=== PATIENT | male | born 1985 | race American Indian/Alaskan Native ===

== ENCOUNTER 2017-08-23 18:01 | Emergency (ER) | payer SELFPAY ==
[2017-08-23 19:00] VITALS: BP 119/79
--- NOTE | 2017-08-23 20:17 | Emergency Department Report ---
ED Extremity Problem HPI - General Chief complaint: Extremity Injury, Upper Stated complaint: left and right shoulder pain Time Seen by Provider: 08/23/17 19:53 Source: patient Mode of arrival: Ambulatory Limitations: No Limitations - History of Present Illness Initial comments: Patient is a 31-year-old male who is presenting with bilateral shoulder pain. [place] of strenuous work there. Patient for the last almost 2 months since had pain in the bilateral anterior shoulders hurts when he moves hurts to try to raise himself out of bed. Patient states this is a 10 out of 10 in severity however looking at the patient he appears to be her around 5 out 10. Patient denies any actual trauma cough nausea vomiting diarrhea fever at this time. - Related Data Previous Rx's Medication Instructions Recorded Last Taken Type Ibuprofen [Motrin] 800 mg PO Q8HR PRN #20 tablet 08/23/17 Unknown Rx traMADol [Ultram] 50 mg PO Q6HR PRN #10 tablet 08/23/17 Unknown Rx Allergies Allergy/AdvReac Type Severity Reaction Status Date / Time No Known Allergies Allergy Unverified 08/23/17 19:00 ED Review of Systems ROS: Stated complaint: left and right shoulder pain Other details as noted in HPI Comment: All other systems reviewed and negative ED Past Medical Hx - Past Medical History Hx Diabetes: Yes - Social History Smoking Status: Current Every Day Smoker Substance Use Type: None - Medications Home Medications: Home Medications Medication Instructions Recorded Confirmed Last Taken Type Ibuprofen [Motrin] 800 mg PO Q8HR PRN #20 tablet 08/23/17 Unknown Rx traMADol [Ultram] 50 mg PO Q6HR PRN #10 tablet 08/23/17 Unknown Rx ED Physical Exam - General Limitations: No Limitations General appearance: alert, in no apparent distress - Head Head exam: Present: atraumatic, normocephalic - Eye Eye exam: Present: normal appearance - ENT ENT exam: Present: mucous membranes moist - Neck Neck exam: Present: normal inspection - Respiratory Respiratory exam: Present: normal lung sounds bilaterally. Absent: respiratory distress - Cardiovascular Cardiovascular Exam: Present: regular rate, normal rhythm. Absent: systolic murmur, diastolic murmur, rubs, gallop - GI/Abdominal GI/Abdominal exam: Present: soft, normal bowel sounds - Rectal Rectal exam: Present: deferred - Extremities Exam Extremities exam: Present: normal inspection, full ROM (patient has pain with moving his bilateral shoulders. He does have full range of motion. Patient has point tenderness of both before meals joints) - Back Exam Back exam: Present: normal inspection - Neurological Exam Neurological exam: Present: alert, oriented X3 - Psychiatric Psychiatric exam: Present: normal affect, normal mood - Skin Skin exam: Present: warm, dry, intact, normal color. Absent: rash ED Course Vital Signs 08/23/17 18:55 Temperature 97.8 F Pulse Rate 82 Respiratory 18 Rate Blood Pressure 119/79 O2 Sat by Pulse 97 Oximetry ED Medical Decision Making - Medical Decision Making Patient be referred orthopedics will be given NSAIDs and a muscle relaxant. Critical care attestation.: If time is entered above; I have spent that time in minutes in the direct care of this critically ill patient, excluding procedure time. ED Disposition Clinical Impression: AC (acromioclavicular) arthritis Qualifiers: Laterality: bilateral Qualified Code(s): M19.011 - Primary osteoarthritis, right shoulder; M19.012 - Primary osteoarthritis, left shoulder Disposition: DC-01 TO HOME OR SELFCARE Is pt being admited?: No Does the pt Need Aspirin: No Condition: Stable Instructions: Arthralgia (ED) Prescriptions: Ibuprofen [Motrin] 800 mg PO Q8HR PRN #20 tablet PRN Reason: Pain traMADol [Ultram] 50 mg PO Q6HR PRN #10 tablet PRN Reason: Pain Referrals: COLBY CLINTON MD [Staff Physician] - 3-5 Days
== END 2017-08-23 20:31 | disposition home or self-care (01) ==
LOC: ED 18:01
DX: M19.011 Primary osteoarthritis, right shoulder (principal); E11.9 Type 2 diabetes mellitus without complications; F17.200 Nicotine dependence, unspecified, uncomplicated
CPT/HCPCS: 99282

== ENCOUNTER 2019-03-24 16:46 | Emergency (ER) | payer OTHER ==
[2019-03-24 16:56] VITALS: BP 128/85
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
[2019-03-24] MEDS ORDERED: traMADol 50 MG TAB PO ONE (18:21)
[2019-03-24] MEDS ORDERED: KETOROLAC 60 MG/2 ML INJ IM ONE (18:21)
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
== END 2019-03-25 | disposition home or self-care (01) ==
LOC: ED 16:46
DX: S16.1XXA Strain of muscle, fascia and tendon at neck level, initial encounter (principal); S09.8XXA Other specified injuries of head, initial encounter; E11.9 Type 2 diabetes mellitus without complications; F17.200 Nicotine dependence, unspecified, uncomplicated; V89.2XXA Person injured in unspecified motor-vehicle accident, traffic, initial encounter; Y93.89 Activity, other specified; Y92.488 Other paved roadways as the place of occurrence of the external cause; Y99.8 Other external cause status
CPT/HCPCS: 70450; 72125; 96372; 99283; J1885

== ENCOUNTER 2019-08-09 21:28 | Inpatient (IN) | payer OTHER ==
--- NOTE | 2019-08-09 22:17 | Event Note ---
ED Screening Note Date of service: 08/09/19 Time: 22:14 ED Screening Note: This is a 33 y.o. M. that presents to the ER with nausea, vomiting, diarrhea, and weakness for 2 days. PMH of DM2 on insulin This initial assessment/diagnostic orders/clinical plan/treatment(s) is/are subject to change based on patients health status, clinical progression and re- assessment by fellow clinical providers in the ED. Further treatment and workup at subsequent clinical providers discretion. Patient/guardian urged not to elope from the ED as their condition may be serious if not clinically assessed and managed. Initial orders include: Labs
[2019-08-09 22:46] LABS: Hematocrit 53.4 % (35.5-45.6); Mean Corpuscular HGB Conc 34 % (32-34); Mean Corpuscular Volume 95 fl (84-94); Platelet Count 217 K/mm3 (140-440); Red Blood Count 5.62 M/mm3 (3.65-5.03); Red Cell Distribution Width 14.1 % (13.2-15.2)
[2019-08-09 22:47] LABS: Basophils # (Auto) 0.1 K/mm3 (0.0-0.1); Basophils % (Auto) 1.4 % (0.0-1.8); Lymphocytes # (Auto) 1.2 K/mm3 (1.2-5.4); Lymphocytes % (Auto) 16.1 % (13.4-35.0); Monocytes # (Auto) 0.7 K/mm3 (0.0-0.8); Monocytes % (Auto) 8.9 % (0.0-7.3)
[2019-08-09 23:08] LABS: Alanine Aminotransferase 15 units/L (7-56); Albumin 5.1 g/dL (3.9-5); BUN/Creatinine Ratio 11; Blood Urea Nitrogen 14 mg/dL (9-20); Calcium 9.8 mg/dL (8.4-10.2); Hemolysis Index 29
[2019-08-09] MEDS ORDERED: SODIUM CHLORIDE 0.9% 1000 ML 1,000 ML IV ONE ×2 (23:27)
[2019-08-09] MEDS ORDERED: INSULIN REGULAR, HUMAN 100 UNITS/1 ML IV ONE (23:28)
--- NOTE | 2019-08-09 23:41 | Emergency Department Report ---
ED N/V/D HPI - General Chief complaint: Weakness Stated complaint: VOMITING DIARRHEA WEAKNESS x4 days DIABETIC Time Seen by Provider: 08/09/19 22:14 Source: patient, family Mode of arrival: Ambulatory Limitations: No Limitations - History of Present Illness Initial comments: Mr. Valverde is a 33-year-old male with history of insulin-dependent diabetes who presents with nausea vomiting diarrhea for the past 3 days since Monday. He has had poor appetite. Unable to tolerate any fluids or food. He developed shortness of breath within the last day. He denies any pain. He has been compliant with insulin therapy. He takes NovoLog 70/30. He also takes Lantus. His daughter was sick with a stomach virus [address] Aleman [facility] complaint: nausea, vomiting, diarrhea -: Gradual, days(s) (3) Description of Vomiting: food contents Description of Diarrhea: water Associated Abdominal Pain: No Severity: severe Pain Scale: 0 Consistency: constant Improves with: none Worsens with: none Context: sick contacts (Daughter ) Associated Symptoms: shortness of breath - Related Data Previous Rx's Medication Instructions Recorded Last Taken Type Ibuprofen [Motrin 800 MG tab] 800 mg PO Q8HR PRN #20 tablet 03/24/19 Unknown Rx traMADoL [Ultram 50 MG tab] 50 mg PO Q6HR PRN #20 tablet 03/24/19 Unknown Rx Allergies Allergy/AdvReac Type Severity Reaction Status Date / Time No Known Allergies Allergy Verified 08/09/19 21:30 ED Review of Systems ROS: Stated complaint: VOMITING DIARRHEA WEAKNESS x4 days DIABETIC Other details as noted in HPI Comment: All other systems reviewed and negative Constitutional: malaise. denies: chills, fever Respiratory: shortness of breath Cardiovascular: denies: chest pain Gastrointestinal: nausea, vomiting, diarrhea. denies: abdominal pain ED Past Medical Hx - Past Medical History Previous Medical History?: Yes Hx Diabetes: Yes - Surgical History Past Surgical History?: No - Social History Smoking Status: Current Some Day Smoker Substance Use Type: Alcohol Other Social History: , works in security - Medications Home Medications: Home Medications Medication Instructions Recorded Confirmed Last Taken Type Ibuprofen [Motrin 800 MG tab] 800 mg PO Q8HR PRN #20 tablet 03/24/19 Unknown Rx traMADoL [Ultram 50 MG tab] 50 mg PO Q6HR PRN #20 tablet 03/24/19 Unknown Rx ED Physical Exam - General Limitations: No Limitations General appearance: alert, other ([place] respirations) - Head Head exam: Present: atraumatic, normocephalic - Eye Eye exam: Present: normal appearance. Absent: scleral icterus, conjunctival injection - ENT ENT exam: Present: mucous membranes dry, other - Neck Neck exam: Present: normal inspection, full ROM - Respiratory Respiratory exam: Present: normal lung sounds bilaterally. Absent: wheezes, rales, rhonchi - Cardiovascular Cardiovascular Exam: Present: normal rhythm, tachycardia, normal heart sounds. Absent: systolic murmur, diastolic murmur, rubs, gallop - GI/Abdominal GI/Abdominal exam: Present: soft, normal bowel sounds. Absent: distended, te nderness - Extremities Exam Extremities exam: Present: normal inspection - Neurological Exam Neurological exam: Present: alert, oriented X3 - Psychiatric Psychiatric exam: Present: normal affect, normal mood - Skin Skin exam: Present: warm, dry, intact, normal color. Absent: rash ED Course Vital Signs 08/09/19 21:33 Temperature 97.6 F Pulse Rate 125 H Respiratory 19 Rate Blood Pressure 130/96 O2 Sat by Pulse 97 Oximetry ED Medical Decision Making - Lab Data Result diagrams: 08/09/19 22:30 08/09/19 22:30 Laboratory Results - last 24 hr 08/09/19 08/09/19 08/09/19 21:47 22:30 22:30 WBC 7.5 RBC 5.62 H Hgb 18.0 H Hct 53.4 H MCV 95 H MCH 32 MCHC 34 RDW 14.1 Plt Count 217 Lymph % (Auto) 16.1 [place] % (Auto) 8.9 H Eos % (Auto) 0.0 Baso % (Auto) 1.4 Lymph # 1.2 [place] # 0.7 Eos # 0.0 Baso # 0.1 Seg Neutrophils % 73.6 H Seg Neutrophils # 5.5 Sodium 130 L Potassium 4.2 Chloride 90.6 L Carbon Dioxide 9 L* Anion Gap 35 BUN 14 Creatinine 1.3 Estimated GFR > 60 BUN/Creatinine Ratio 11 Glucose 310 H POC Glucose 236 H Calcium 9.8 Total Bilirubin 0.40 AST 17 ALT 15 Alkaline Phosphatase 60 Total Protein 9.2 H Albumin 5.1 H Albumin/Globulin Ratio 1.2 Laboratory Results - last 24 hr 08/09/19 08/09/19 08/09/19 21:47 22:30 22:30 WBC 7.5 RBC 5.62 H Hgb 18.0 H Hct 53.4 H MCV 95 H MCH 32 MCHC 34 RDW 14.1 Plt Count 217 Lymph % (Auto) 16.1 [place] % (Auto) 8.9 H Eos % (Auto) 0.0 Baso % (Auto) 1.4 Lymph # 1.2 [place] # 0.7 Eos # 0.0 Baso # 0.1 Seg Neutrophils % 73.6 H Seg Neutrophils # 5.5 VBG pH Sodium 130 L Potassium 4.2 Chloride 90.6 L Carbon Dioxide 9 L* Anion Gap 35 BUN 14 Creatinine 1.3 Estimated GFR > 60 BUN/Creatinine Ratio 11 Glucose 310 H POC Glucose 236 H Calcium 9.8 Phosphorus Magnesium Total Bilirubin 0.40 AST 17 ALT 15 Alkaline Phosphatase 60 Total Protein 9.2 H Albumin 5.1 H Albumin/Globulin Ratio 1.2 08/09/19 08/10/19 23:45 00:03 WBC RBC Hgb Hct MCV MCH MCHC RDW Plt Count Lymph % (Auto) [place] % (Auto) Eos % (Auto) Baso % (Auto) Lymph # [place] # Eos # Baso # Seg Neutrophils % Seg Neutrophils # VBG pH 7.107 L* Sodium Potassium Chloride Carbon Dioxide Anion Gap BUN Creatinine Estimated GFR BUN/Creatinine Ratio Glucose POC Glucose Calcium Phosphorus 3.30 Magnesium 2.00 Total Bilirubin AST ALT Alkaline Phosphatase Total Protein Albumin Albumin/Globulin Ratio - Radiology Data Radiology results: report reviewed Chest radiograph: AP portable chest no acute findings - Medical Decision Making Ms. Valverde presents with nausea vomiting diarrhea shortness of breath. Diabetic ketoacidosis evident with volume contraction and starvation ketosis upon review of lab values. Treated with IV fluid therapy and insulin bolus and infusion. Admitted to the hospital service in fair condition. Critical Care Time: Yes Critical care attestation.: If time is entered above; I have spent that time in minutes in the direct care of this critically ill patient, excluding procedure time. 40 minutes of critical care time excluding procedures were used in the care of the patient. I reviewed electronic record. I discussed treatment plan with the nursing team members at the bedside. I came immediately to the bedside after charge nurse informed me of critical lab values. I kept his informed. Patient required multiple interventions and reassessments. ED Disposition Clinical Impression: Diabetic ketoacidosis Disposition: DC-09 OP ADMIT IP TO THIS HOSP Is pt being admited?: Yes Does the pt Need Aspirin: No Condition: Fair
--- NOTE | 2019-08-09 23:48 | XRay Report ---
CHEST 1 VIEW INDICATION: vomiting diabetic. COMPARISON: None. FINDINGS: Support devices: None. Heart: Normal. Lungs/Pleura: No acute pulmonary or pleural findings. IMPRESSION: 1. No acute findings. Signer Name: Dwain Ashraf MD Signed: 08/09/2019 11:44 PM Workstation Name: [id number] iPhone and [id number]
[2019-08-10] MEDS ORDERED: ONDANSETRON 4 MG/2 ML INJ IV PRN (01:21)
[2019-08-10] MEDS ORDERED: DEXTROSE 50% IN WATER (25GM) 50 ML SYRINGE IV PRN (01:21)
[2019-08-10] MEDS ORDERED: MORPHINE 2 MG/1 ML INJ IV PRN (01:21)
[2019-08-10] MEDS ORDERED: SODIUM CHLORIDE 0.9% 1000 ML 1,000 ML IV SCH (01:30)
--- NOTE | 2019-08-10 01:40 | History and Physical Report ---
History of Present Illness Date of examination: 08/10/19 Date of admission: 08/10/19 00:34 Chief complaint: Nausea and vomiting History of present illness: 33-year-old -[place] male with known history of diabetes mellitus presenting to the emergency room complaining of nausea vomiting and diarrhea which has been ongoing for about 3 to 4 days. He has not been able to tolerate p.o. intake and has had poor appetite over the past few days. Patient has been on 7030 and Lantus insulin for his diabetes mellitus. He denies any fever or chills and denies any chest pain. He has some mild shortness of breath which has since resolved. He also had some mild abdominal discomfort which has resolved. He denies any hematuria or dysuria. Patient indicates that his daughter had some stomach virus about 2 weeks ago. He denies any recent travel. Work-up in the emergency room reveals that patient is in DKA. He was subsequently started on insulin and IV fluid accordingly. Past History Past Medical History: diabetes Past Surgical History: No surgical history Social history: smoking (Smokes occasionally), alcohol abuse (Drinks alcohol socially) Family history: no significant family history Medications and Allergies Allergies Allergy/AdvReac Type Severity Reaction Status Date / Time No Known Allergies Allergy Verified 08/09/19 21:30 Home Medications Medication Instructions Recorded Confirmed Last Taken Type Ibuprofen [Motrin 800 MG tab] 800 mg PO Q8HR PRN #20 tablet 03/24/19 Unknown Rx traMADoL [Ultram 50 MG tab] 50 mg PO Q6HR PRN #20 tablet 03/24/19 Unknown Rx Active Meds: Active Medications Dextrose (D50w (25gm) Syringe) 0 ml IV Q30MIN PRN; Protocol PRN Reason: Hypoglycemia Insulin Human Regular 100 (units/ Sodium Chloride) 100 mls @ 1 mls/hr IV TITR YONNY; Protocol Sodium Chloride (Nacl 0.9% 1000 Ml) 1,000 mls @ 150 mls/hr IV DIRECT YONNY Potassium Chloride/Dextrose/Sod Cl (D5w/0.45% Nacl/Kcl 20 Meq) 20 meq in 1,000 mls @ 125 mls/hr IV DIRECT YONNY Insulin Human Regular 100 (units/ Sodium Chloride) 100 mls @ 1 mls/hr IV TITR YONNY; Protocol Morphine Sulfate (Morphine) 2 mg IV Q4H PRN PRN Reason: Pain, Moderate (4-6) Ondansetron HCl (Zofran) 4 mg IV Q8H PRN PRN Reason: Nausea And Vomiting Sodium Chloride (Sodium Chloride Flush Syringe 10 Ml) 10 ml IV BID YONNY Sodium Chloride (Sodium Chloride Flush Syringe 10 Ml) 10 ml IV PRN PRN PRN Reason: LINE FLUSH Review of Systems Constitutional: no fever, no chills Cardiovascular: no chest pain, no palpitations Gastrointestinal: abdominal pain, nausea, vomiting, diarrhea Genitourinary Male: no dysuria, no hematuria Musculoskeletal: no neck pain, no low back pain Integumentary: no rash, no pruritis Neurological: no headaches, no change in mentation Exam - Constitutional Vitals: Temp Pulse Resp BP Pulse Ox 97.6 F 114 H 22 118/91 100 08/09/19 21:33 08/10/19 01:10 08/10/19 01:10 08/10/19 01:10 08/10/19 01:10 General appearance: Present: no acute distress, well-nourished - EENT Eyes: Present: PERRL, EOM intact ENT: hearing intact, clear oral mucosa, dentition normal - Neck Neck: Present: supple, normal ROM - Respiratory Respiratory effort: normal Respiratory: bilateral: CTA - Cardiovascular Rhythm: regular Heart Sounds: Present: S1 & S2 - Extremities Extremities: no ischemia, pulses intact, pulses symmetrical, No edema, Full ROM Peripheral Pulses: within normal limits - Abdominal General gastrointestinal: Present: soft, non-tender, non-distended - Integumentary Integumentary: Present: clear, warm, dry - Musculoskeletal Musculoskeletal: strength equal bilaterally - Psychiatric Psychiatric: appropriate mood/affect, intact judgment & insight, cooperative - Neurologic Neurologic: CNII-XII intact, moves all extremities Results - Labs CBC & Chem 7: 08/09/19 22:30 08/10/19 04:37 Labs: Abnormal lab results 08/09/19 08/09/19 08/09/19 Range/Units 21:47 22:30 22:30 RBC 5.62 H (3.65-5.03) M/mm3 Hgb 18.0 H (11.8-15.2) gm/dl Hct 53.4 H (35.5-45.6) % MCV 95 H (84-94) fl [place] % (Auto) 8.9 H (0.0-7.3) % Seg Neutrophils % 73.6 H (40.0-70.0) % VBG pH (7.320-7.420) Sodium 130 L (137-145) mmol/L Chloride 90.6 L (98-107) mmol/L Carbon Dioxide 9 L* (22-30) mmol/L Glucose 310 H (75-100) mg/dL POC Glucose 236 H (70-105) Total Protein 9.2 H (6.3-8.2) g/dL Albumin 5.1 H (3.9-5) g/dL 08/09/19 Range/Units 23:45 RBC (3.65-5.03) M/mm3 Hgb (11.8-15.2) gm/dl Hct (35.5-45.6) % MCV (84-94) fl [place] % (Auto) (0.0-7.3) % Seg Neutrophils % (40.0-70.0) % VBG pH 7.107 L* (7.320-7.420) Sodium (137-145) mmol/L Chloride (98-107) mmol/L Carbon Dioxide (22-30) mmol/L Glucose (75-100) mg/dL POC Glucose (70-105) Total Protein (6.3-8.2) g/dL Albumin (3.9-5) g/dL Assessment and Plan - Patient Problems (1) Diabetic ketoacidosis Current Visit: Yes Status: Acute Plan to address problem: Patient placed on IV fluid and insulin drip. He will be closely monitored in the intensive care unit. Patient placed on IV Zofran for his nausea and vomiting. (2) DVT prophylaxis Current Visit: Yes Status: Acute Plan to address problem: Patient is placed on subcutaneous heparin. (3) Full code status Current Visit: Yes Status: Acute
[2019-08-10] MEDS ORDERED: D5W/0.45% NACL/KCL 20 MEQ 20 MEQ/1,000 ML BAG IV SCH (02:00)
[2019-08-10] MEDS ORDERED: INSULIN REGULAR, HUMAN 100 UNITS in SODIUM CHLORIDE 0.9% 99 ML IV SCH (02:00)
[2019-08-10] MEDS: INSULIN REGULAR, HUMAN 100 UNITS in SODIUM CHLORIDE 0.9% 99 ML IV SCH ×2 (02:36→19:22)
[2019-08-10 02:58] LABS: Bacteria,Urine 1+ /HPF (Negative); Bilirubin,Urine NEG (Negative); Blood,Urine LG (Negative); Color,Urine Yellow (Yellow); Hyaline Casts,Urine 3 /LPF; Mucus,Urine FEW /HPF; Urobilinogen,Urine < 2.0 mg/dL (<2.0)
[2019-08-10] MEDS: FAMOTIDINE 20 MG/2 ML INJ IV SCH ×3 (04:04→22:00)
[2019-08-10 05:54] LABS: BUN/Creatinine Ratio 11; Blood Urea Nitrogen 11 mg/dL (9-20); Calcium 8.3 mg/dL (8.4-10.2); Hemolysis Index 19
[2019-08-10] MEDS ORDERED: D5W IV SCH ×2 (07:30→16:00)
[2019-08-10] MEDS ORDERED: POTASSIUM CHLORIDE IV SCH ×2 (07:30→16:00)
[2019-08-10] MEDS ORDERED: SODIUM BICARBONATE IV SCH (07:30)
[2019-08-10] MEDS ORDERED: NACL IV SCH ×2 (07:30→16:00)
[2019-08-10 08:32] LABS: BUN/Creatinine Ratio 11; Blood Urea Nitrogen 11 mg/dL (9-20); Calcium 8.4 mg/dL (8.4-10.2); Hemolysis Index 5
[2019-08-10 10:01] LABS: BUN/Creatinine Ratio 10; Blood Urea Nitrogen 10 mg/dL (9-20); Calcium 8.3 mg/dL (8.4-10.2); Hemolysis Index 7
[2019-08-10] MEDS ORDERED: FLU VACC QUAD 2019-20 (3 YR UP)/PF 60 MCG/0.5 ML SYRINGE IM ONE (12:00)
[2019-08-10] MEDS: HEPARIN 5,000 UNIT/1 ML VIAL SUB-Q SCH ×2 (13:59→21:59)
[2019-08-10 15:24] LABS: BUN/Creatinine Ratio 12; Blood Urea Nitrogen 11 mg/dL (9-20); Calcium 8.8 mg/dL (8.4-10.2); Hemolysis Index 10
[2019-08-10] MEDS ORDERED: INSULIN REGULAR, HUMAN 100 UNITS/1 ML IV ONE (16:45)
--- NOTE | 2019-08-10 16:48 | Consultation ---
History of Present Illness Consult date: 08/10/19 Requesting physician: RAFA ORTEGA Reason for consult: other (DKA) History of present illness: PULMONARY/CCM CONSULT NOTE (Full dictation # [id number]) Please see dictated notes for full details Past History Past Medical History: diabetes Past Surgical History: No surgical history Social history: smoking (Smokes occasionally), alcohol abuse (Drinks alcohol socially) Family history: no significant family history Medications and Allergies Allergies Allergy/AdvReac Type Severity Reaction Status Date / Time No Known Allergies Allergy Verified 08/09/19 21:30 Home Medications Medication Instructions Recorded Confirmed Last Taken Type Insulin Glargine [Lantus VIAL] 20 units SUB-Q QHS 08/10/19 08/10/19 Unknown History Active Meds: Active Medications Dextrose (D50w (25gm) Syringe) 0 ml IV Q30MIN PRN; Protocol PRN Reason: Hypoglycemia Famotidine (Pepcid) 20 mg IV BID [facility] Last Admin: 08/10/19 09:21 Dose: 20 mg Documented by: Heparin Sodium (Porcine) (Heparin) 5,000 unit SUB-Q Q8HR YONNY Last Admin: 08/10/19 13:59 Dose: 5,000 unit Documented by: Insulin Human Regular 100 (units/ Sodium Chloride) 100 mls @ 1 mls/hr IV TITR YONNY; Protocol Last Titration: 08/10/19 15:22 Dose: 3 units/hr, 3 mls/hr Documented by: Sodium Chloride (Nacl 0.9% 1000 Ml) 1,000 mls @ 150 mls/hr IV DIRECT YONNY Potassium Chloride/Dextrose/Sod Cl (D5w/0.45% Nacl/Kcl 40 Meq) 40 meq in 1,000 mls @ 150 mls/hr IV DIRECT YONNY Morphine Sulfate (Morphine) 2 mg IV Q4H PRN PRN Reason: Pain, Moderate (4-6) Ondansetron HCl (Zofran) 4 mg IV Q8H PRN PRN Reason: Nausea And Vomiting Sodium Chloride (Sodium Chloride Flush Syringe 10 Ml) 10 ml IV BID [facility] Last Admin: 08/10/19 09:22 Dose: 10 ml Documented by: Sodium Chloride (Sodium Chloride Flush Syringe 10 Ml) 10 ml IV PRN PRN PRN Reason: LINE FLUSH Physical Examination Vital signs: Vital Signs Temp Pulse Resp BP Pulse Ox 97.6 F 125 H 19 130/96 97 08/09/19 21:33 08/09/19 21:33 08/09/19 21:33 08/09/19 21:33 08/09/19 21:33 Results - Laboratory Findings CBC and BMP: 08/11/19 05:26 08/11/19 05:26 Abnormal lab findings: Abnormal Labs 08/09/19 08/09/19 08/09/19 21:47 22:30 22:30 RBC 5.62 H Hgb 18.0 H Hct 53.4 H MCV 95 H [place] % (Auto) 8.9 H Seg Neutrophils % 73.6 H VBG pH Sodium 130 L Chloride 90.6 L Carbon Dioxide 9 L* Glucose 310 H POC Glucose 236 H Hemoglobin A1c Calcium Phosphorus Total Protein 9.2 H Albumin 5.1 H 08/09/19 08/10/19 08/10/19 23:45 01:55 02:44 RBC Hgb Hct MCV [place] % (Auto) Seg Neutrophils % VBG pH 7.107 L* Sodium Chloride Carbon Dioxide Glucose POC Glucose 229 H 225 H Hemoglobin A1c Calcium Phosphorus Total Protein Albumin 08/10/19 08/10/19 08/10/19 04:37 04:37 04:37 RBC Hgb Hct MCV [place] % (Auto) Seg Neutrophils % VBG pH Sodium 134 L Chloride Carbon Dioxide 7 L* Glucose 233 H POC Glucose Hemoglobin A1c 11.5 H Calcium 8.3 L D Phosphorus 1.40 L D Total Protein Albumin 08/10/19 08/10/19 08/10/19 05:08 07:26 07:34 RBC Hgb Hct MCV [place] % (Auto) Seg Neutrophils % VBG pH Sodium 133 L Chloride Carbon Dioxide 10 L Glucose 209 H POC Glucose 192 H 197 H Hemoglobin A1c Calcium Phosphorus Total Protein Albumin 08/10/19 08/10/19 08/10/19 08:11 09:07 09:22 RBC Hgb Hct MCV [place] % (Auto) Seg Neutrophils % VBG pH Sodium 133 L Chloride Carbon Dioxide 12 L Glucose 173 H POC Glucose 195 H 190 H Hemoglobin A1c Calcium 8.3 L Phosphorus Total Protein Albumin 08/10/19 08/10/19 08/10/19 10:12 11:20 12:22 RBC Hgb Hct MCV [place] % (Auto) Seg Neutrophils % VBG pH Sodium Chloride Carbon Dioxide Glucose POC Glucose 150 H 138 H 126 H Hemoglobin A1c Calcium Phosphorus Total Protein Albumin 08/10/19 08/10/19 08/10/19 13:19 14:19 14:41 RBC Hgb Hct MCV [place] % (Auto) Seg Neutrophils % VBG pH Sodium 135 L Chloride Carbon Dioxide 14 L Glucose 139 H POC Glucose 141 H 129 H Hemoglobin A1c Calcium Phosphorus Total Protein Albumin 08/10/19 15:31 RBC Hgb Hct MCV [place] % (Auto) Seg Neutrophils % VBG pH Sodium Chloride Carbon Dioxide Glucose POC Glucose 138 H Hemoglobin A1c Calcium Phosphorus Total Protein Albumin
[2019-08-10] MEDS: D5W/0.45% NACL/KCL 40 MEQ 40 MEQ/1,000 ML BAG IV SCH ×2 (16:50→23:25)
[2019-08-10 18:18] LABS: BUN/Creatinine Ratio 12; Blood Urea Nitrogen 11 mg/dL (9-20); Hemolysis Index 6
[2019-08-11 01:20] LABS: BUN/Creatinine Ratio 15; Blood Urea Nitrogen 12 mg/dL (9-20); Calcium 8.7 mg/dL (8.4-10.2); Hemolysis Index 14
[2019-08-11] MEDS ORDERED: DEXTROSE 50% IN WATER (25GM) 50 ML SYRINGE IV PRN (04:19)
[2019-08-11] MEDS ORDERED: INSULIN NPH, HUMAN 100 UNIT/1 ML SUB-Q ONE (04:59)
[2019-08-11 05:54] LABS: Basophils % (Auto) 0.6 % (0.0-1.8); Eosinophils # (Auto) 0.1 K/mm3 (0.0-0.4); Eosinophils % (Auto) 1.3 % (0.0-4.3); Hematocrit 40.3 % (35.5-45.6); Hemoglobin 14.1 gm/dl (11.8-15.2); Lymphocytes # (Auto) 1.9 K/mm3 (1.2-5.4); Mean Corpuscular HGB Conc 35 % (32-34); Mean Corpuscular Volume 91 fl (84-94); Monocytes # (Auto) 0.7 K/mm3 (0.0-0.8); Monocytes % (Auto) 10.1 % (0.0-7.3); Platelet Count 169 K/mm3 (140-440); Red Blood Count 4.45 M/mm3 (3.65-5.03); Red Cell Distribution Width 13.4 % (13.2-15.2)
[2019-08-11 05:59] LABS: INR 1.11 (0.87-1.13)
[2019-08-11 06:00] LABS: Partial Thromboplastin Time 29.4 Sec. (24.2-36.6)
[2019-08-11 06:06] LABS: BUN/Creatinine Ratio 13; Blood Urea Nitrogen 10 mg/dL (9-20); Calcium 8.6 mg/dL (8.4-10.2); Hemolysis Index 20
[2019-08-11] MEDS: HEPARIN 5,000 UNIT/1 ML VIAL SUB-Q SCH ×3 (06:22→22:02)
[2019-08-11] MEDS: D5W/0.45% NACL/KCL 40 MEQ 40 MEQ/1,000 ML BAG IV SCH ×2 (06:26→13:40)
[2019-08-11] MEDS: INSULIN LISPRO 100 UNIT/ML SUB-Q SCH ×4 (08:08→22:46)
[2019-08-11] MEDS ORDERED: POTASSIUM PHOSPHATE 45 MMOL in SODIUM CHLORIDE 0.9% 500 ML 500 ML IV ONE (09:00)
[2019-08-11] MEDS: K-PHOS NEUTRAL 250 MG TAB PO SCH ×4 (09:33→22:02)
[2019-08-11] MEDS: FAMOTIDINE 20 MG/2 ML INJ IV SCH ×2 (09:34→22:02)
--- NOTE | 2019-08-11 12:23 | Progress Note ---
Assessment and Plan Diabetic ketoacidosis. Severe metabolic acidosis. Hemoconcentration Dehydration. Acute gastroenteritis. Poorly controlled diabetes with a hemoglobin A1c of 11.5. - supplemental oxygen as needed to keep O2 sat's > 90% (now on RA) - prn bronchodilators with pulmonary hygiene per RT - follow clinically off AB's - PT/OT as tolerated - mobility protocols for pressure ulcer prophylaxis - continue accuchecks with glycemic control per SSI for target BG < 180 mg/dl - tobacco abstinence strongly counseled - GI & VTE prophylaxis - Flu & pneumovax addressed per protocol - continue other care per attending / other consultants ... re-evaluate in am & prn Subjective Date of service: 08/11/19 Principal diagnosis: DKA; Severe metabolic acidosis; Dehydration; Acute gastroenteritis Interval history: Patient is seen today for: DKA; Severe metabolic acidosis; Hemoconcentration; Dehydration; Acute gastroenteritis; Poorly controlled diabetes with a hemoglobin A1c of 11.5. Seen and examined at bedside; 24hour events reviewed; nursing and respiratory care staff consulted; no adverse overnight events reported to me; resting peacefully in bed; looks and feels better; denies acute chest pains or palpitations; no new issues overall Objective Vital Signs - 12hr 08/11/19 08/11/19 08/11/19 00:30 00:45 01:00 Temperature Pulse Rate 81 80 82 Pulse Rate [ From Monitor] Respiratory 11 L 16 14 Rate Blood Pressure 101/47 96/57 92/62 O2 Sat by Pulse 100 100 100 Oximetry 08/11/19 08/11/19 08/11/19 01:15 01:30 01:45 Temperature Pulse Rate 81 82 77 Pulse Rate [ From Monitor] Respiratory 17 16 13 Rate Blood Pressure 98/66 103/67 104/68 O2 Sat by Pulse 100 100 100 Oximetry 08/11/19 08/11/19 08/11/19 02:00 02:15 02:30 Temperature Pulse Rate 84 81 82 Pulse Rate [ From Monitor] Respiratory 18 14 17 Rate Blood Pressure 113/73 113/72 113/71 O2 Sat by Pulse 100 100 99 Oximetry 08/11/19 08/11/19 08/11/19 02:45 03:00 03:15 Temperature Pulse Rate 83 88 75 Pulse Rate [ From Monitor] Respiratory 16 11 L 14 Rate Blood Pressure 109/68 122/71 86/48 O2 Sat by Pulse 99 99 100 Oximetry 08/11/19 08/11/19 08/11/19 03:30 03:45 04:00 Temperature 98.8 F Pulse Rate 80 78 75 Pulse Rate [ 73 From Monitor] Respiratory 16 13 13 Rate Blood Pressure 115/73 109/68 119/70 O2 Sat by Pulse 98 98 99 Oximetry 08/11/19 08/11/19 08/11/19 04:15 04:30 04:45 Temperature Pulse Rate 75 83 72 Pulse Rate [ From Monitor] Respiratory 13 17 13 Rate Blood Pressure 104/45 98/55 102/56 O2 Sat by Pulse 100 100 99 Oximetry 08/11/19 08/11/19 08/11/19 05:00 05:15 05:30 Temperature Pulse Rate 71 68 76 Pulse Rate [ From Monitor] Respiratory 11 L 13 11 L Rate Blood Pressure 106/57 92/40 91/65 O2 Sat by Pulse 100 99 100 Oximetry 08/11/19 08/11/19 08/11/19 05:45 06:00 06:15 Temperature Pulse Rate 73 82 73 Pulse Rate [ From Monitor] Respiratory 16 14 14 Rate Blood Pressure 92/62 98/59 99/60 O2 Sat by Pulse 99 99 100 Oximetry 08/11/19 08/11/19 08/11/19 06:30 06:45 07:00 Temperature Pulse Rate 75 77 74 Pulse Rate [ From Monitor] Respiratory 12 12 18 Rate Blood Pressure 90/59 100/67 106/66 O2 Sat by Pulse 99 100 100 Oximetry 08/11/19 08/11/19 08/11/19 07:15 07:30 07:45 Temperature Pulse Rate 76 74 74 Pulse Rate [ From Monitor] Respiratory 14 13 14 Rate Blood Pressure 100/68 103/70 99/71 O2 Sat by Pulse 100 100 100 Oximetry 08/11/19 08/11/19 08/11/19 08:00 08:15 08:30 Temperature 97.8 F Pulse Rate 88 79 78 Pulse Rate [ 89 From Monitor] Respiratory 17 10 L 25 H Rate Blood Pressure 113/78 114/74 106/75 O2 Sat by Pulse 100 100 100 Oximetry 08/11/19 08/11/19 08/11/19 08:45 09:00 09:15 Temperature Pulse Rate 88 83 82 Pulse Rate [ From Monitor] Respiratory 17 24 15 Rate Blood Pressure 107/71 98/65 97/60 O2 Sat by Pulse 100 99 99 Oximetry 08/11/19 08/11/19 08/11/19 09:30 09:45 10:08 Temperature Pulse Rate 89 94 H 84 Pulse Rate [ From Monitor] Respiratory 15 12 17 Rate Blood Pressure 101/68 115/83 O2 Sat by Pulse 99 100 98 Oximetry Constitutional: no acute distress Eyes: non-icteric ENT: oropharynx moist Neck: supple, no lymphadenopathy Effort: normal Ascultation: Bilateral: clear Percussion: Bilateral: not dull Cardiovascular: regular rate and rhythm Gastrointestinal: normoactive bowel sounds, soft, non-tender, non-distended Integumentary: normal Extremities: no cyanosis, no edema, pulses normal, no ischemia or petechiae Neurologic: normal mental status, non-focal exam, pupils equal and round, CN II- XII normal Psychiatric: mood appropriate, affect normal CBC and BMP: 08/11/19 05:26 08/12/19 07:28 ABG, PT/INR, D-dimer: PT/INR, D-dimer PT 14.5 Sec. (12.2-14.9) 08/11/19 05:26 INR 1.11 (0.87-1.13) 08/11/19 05:26 Abnormal lab findings: Abnormal Labs 08/09/19 08/09/19 08/09/19 21:47 22:30 22:30 RBC 5.62 H Hgb 18.0 H Hct 53.4 H MCV 95 H MCHC [place] % (Auto) 8.9 H Seg Neutrophils % 73.6 H VBG pH Sodium 130 L Potassium Chloride 90.6 L Carbon Dioxide 9 L* Glucose 310 H POC Glucose 236 H Hemoglobin A1c Calcium Phosphorus Total Protein 9.2 H Albumin 5.1 H 08/09/19 08/10/19 08/10/19 23:45 01:55 02:44 RBC Hgb Hct MCV MCHC [place] % (Auto) Seg Neutrophils % VBG pH 7.107 L* Sodium Potassium Chloride Carbon Dioxide Glucose POC Glucose 229 H 225 H Hemoglobin A1c Calcium Phosphorus Total Protein Albumin 08/10/19 08/10/19 08/10/19 04:37 04:37 04:37 RBC Hgb Hct MCV MCHC [place] % (Auto) Seg Neutrophils % VBG pH Sodium 134 L Potassium Chloride Carbon Dioxide 7 L* Glucose 233 H POC Glucose Hemoglobin A1c 11.5 H Calcium 8.3 L D Phosphorus 1.40 L D Total Protein Albumin 08/10/19 08/10/19 08/10/19 05:08 07:26 07:34 RBC Hgb Hct MCV MCHC [place] % (Auto) Seg Neutrophils % VBG pH Sodium 133 L Potassium Chloride Carbon Dioxide 10 L Glucose 209 H POC Glucose 192 H 197 H Hemoglobin A1c Calcium Phosphorus Total Protein Albumin 08/10/19 08/10/19 08/10/19 08:11 09:07 09:22 RBC Hgb Hct MCV MCHC [place] % (Auto) Seg Neutrophils % VBG pH Sodium 133 L Potassium Chloride Carbon Dioxide 12 L Glucose 173 H POC Glucose 195 H 190 H Hemoglobin A1c Calcium 8.3 L Phosphorus Total Protein Albumin 08/10/19 08/10/19 08/10/19 10:12 11:20 12:22 RBC Hgb Hct MCV MCHC [place] % (Auto) Seg Neutrophils % VBG pH Sodium Potassium Chloride Carbon Dioxide Glucose POC Glucose 150 H 138 H 126 H Hemoglobin A1c Calcium Phosphorus Total Protein Albumin 08/10/19 08/10/19 08/10/19 13:19 14:19 14:41 RBC Hgb Hct MCV MCHC [place] % (Auto) Seg Neutrophils % VBG pH Sodium 135 L Potassium Chloride Carbon Dioxide 14 L Glucose 139 H POC Glucose 141 H 129 H Hemoglobin A1c Calcium Phosphorus Total Protein Albumin 08/10/19 08/10/19 08/10/19 15:31 17:03 17:27 RBC Hgb Hct MCV MCHC [place] % (Auto) Seg Neutrophils % VBG pH Sodium 135 L Potassium 3.4 L Chloride Carbon Dioxide 17 L Glucose 142 H POC Glucose 138 H 137 H Hemoglobin A1c Calcium Phosphorus Total Protein Albumin 08/10/19 08/10/19 08/10/19 18:56 20:13 21:15 RBC Hgb Hct MCV MCHC [place] % (Auto) Seg Neutrophils % VBG pH Sodium Potassium Chloride Carbon Dioxide Glucose POC Glucose 222 H 205 H 174 H Hemoglobin A1c Calcium Phosphorus Total Protein Albumin 08/10/19 08/10/19 08/11/19 22:10 23:14 00:52 RBC Hgb Hct MCV MCHC [place] % (Auto) Seg Neutrophils % VBG pH Sodium 134 L Potassium 3.5 L Chloride Carbon Dioxide 18 L Glucose 106 H POC Glucose 163 H 188 H Hemoglobin A1c Calcium Phosphorus Total Protein Albumin 08/11/19 08/11/1920 03:16 04:14 05:15 RBC Hgb Hct MCV MCHC [place] % (Auto) Seg Neutrophils % VBG pH Sodium Potassium Chloride Carbon Dioxide Glucose POC Glucose 152 H 129 H 111 H Hemoglobin A1c Calcium Phosphorus Total Protein Albumin 08/11/19 08/11/19 08/11/19 05:26 05:26 06:17 RBC Hgb Hct MCV MCHC 35 H [place] % (Auto) 10.1 H Seg Neutrophils % VBG pH Sodium Potassium 3.2 L Chloride Carbon Dioxide 19 L Glucose 124 H POC Glucose 111 H Hemoglobin A1c Calcium Phosphorus 0.60 L* D Total Protein Albumin Allied health notes reviewed: nursing
--- NOTE | 2019-08-11 12:48 | Consultation ---
PULMONARY CRITICAL CARE CONSULT NOTE CONSULTING PHYSICIAN: Dr. Mondragon and Carla Cohen, SANJAY. REASON FOR CONSULTATION: Diabetic ketoacidosis, need for ICU admission for IV insulin administration. CHIEF COMPLAINT AND HISTORY OF PRESENT ILLNESS: The patient is a 33-year-old -[place]ian male with past medical history significant for insulin-dependent diabetes, who presented with nausea and vomiting and diarrhea that had been going on for about 3 days, there might have been a viral syndrome going on at home. He had poor appetite, reduced p.o. intake. Developed increasing shortness of breath on the day preceding his presentation. He denied any chest pain. He stated he had been compliant with his insulin and otherwise in the ER, he was evaluated and ultimately diagnosed with diabetic ketoacidosis, started on IV insulin therapy. We are asked to assist with management. When I stopped by to see him, he was resting in bed, feeling a little bit better. IV insulin was still going at 3 units per hour. He denied any more nausea or vomiting. He denied any chest pains or palpitations. He denied any boils, any sores on his body or any source of infection that may have precipitated diabetes, DKA. When asked about tobacco use/abuse history, he states that he has a less than 5-pack-year tobacco smoking history, still smokes about of a 1/4 of a pack every now and then. This really is as much of the history of presentation as I have. PAST MEDICAL HISTORY: Diabetes. PAST SURGICAL HISTORY: Denies. MEDICATIONS: He was on at the time I stopped by to see him were reviewed, pertinent medications include the following: Pepcid 20 mg IV b.i.d., heparin 5000 units subcutaneous q. 8 hours, insulin drip was going at 3 units per hour. He was on a D5 half NS with 40 mEq of KCl per liter drip going at 150 mL per hour, Zofran 4 mg IV q. 8 hours p.r.n. nausea and vomiting, morphine sulfate 2 mg IV q. 4 hours p.r.n. moderate pain. ALLERGIES: No known drug allergies. DIET: Thin gentleman. Denies acute weight loss or gain in the preceding few weeks to months. FAMILY AND SOCIAL HISTORY: He has a history of less than 5-pack-year tobacco smoking history. Drinks alcohol intermittently and socially. Otherwise, denies any significant family history. REVIEW OF SYSTEMS: No loss of consciousness. No new onset seizures. No new onset focal weakness. No gross hematochezia or melena. No gross hematuria. He denied diarrhea. No hematemesis. He did have the nausea and vomiting. Denied heat or cold intolerance. Admitted to some element of polydipsia. A complete 13-system review of systems obtained. Pertinent positives and/or negatives as in body of the history above, otherwise they are noncontributory. PHYSICAL EXAMINATION: VITAL SIGNS: At presentation, he was afebrile, temperature 97.6 degrees Fahrenheit, pulse was 125, respiratory rate 19, blood pressure 130/96, O2 sats were 97%, inspired oxygen concentration at that time was not recorded. When I stopped by to see him, O2 sats were 98% and that was on room air. GENERAL: He is a young, thin -[place] male. Normocephalic, atraumatic, talking to me in mostly full sentences, but with mildly increased respiratory effort at rest. HEAD, EYES, EARS, NOSE AND THROAT: Anicteric. No conjunctival erythema. Oropharynx was dry. Mallampati #2 oropharynx. No gross jugular venous distention, no thyromegaly. NECK: Grossly, there were no palpable lymph nodes in the supraclavicular or submandibular lymph node chains. LUNGS: Auscultation of both lung cadena were unremarkable. Lungs were clear bilaterally with good bilateral air movement. HEART: Heart sounds 1 and 2 are heard. Regular tachycardia at the time of my evaluation without overt rubs or murmurs. ABDOMEN: Soft, flat. Bowel sounds are positive, mildly tender diffusely. No palpable hepatosplenomegaly. EXTREMITIES: Without overt digital clubbing, no cyanosis, no pedal edema. Pedal pulses were 2+ bilaterally. NEUROLOGIC: Pupils were equal, round, about 4 mm, reactive to light. Extraocular muscle movements were intact. He moved all 4 extremities spontaneously. SKIN: Normal turgor without overt cellulitis or rash in the areas examined. PSYCHIATRIC: His mood was normal. His affect was appropriate. LABORATORY DATA: From my review, admission white cell count 7500, hemoglobin 18.0, hematocrit 53.4, platelet count was 217. Venous blood gas at presentation showed a pH of 7.11. At presentation, serum sodium was 130, potassium 4.2, chloride 91, bicarbonate was 9, BUN was 14, creatinine 1.3, glucose was 310. Liver function tests were within normal limits. Urinalysis showed large blood, negative for leukocyte esterase and nitrites. Otherwise, unremarkable. No microbiology studies were done. Chest x-ray was a normal chest x-ray for his age. ASSESSMENT: 1. Diabetic ketoacidosis. 2. Severe metabolic acidosis. 3. Hemoconcentration probably secondary to #4. 4. Dehydration. 5. Acute gastroenteritis. 6. Poorly controlled diabetes with a hemoglobin A1c of 11.5. PLAN: He will continue on DKA protocol. He is actually doing better as at the time of my evaluation, his anion gap had closed, was down to 16. He is going to be transitioned off the IV insulin therapy. He will receive a dose of long-acting insulin therapy. We will introduce an oral diet. Tobacco abstinence has been strongly counseled at the bedside with family present for greater than about 7 minutes. We will check a phosphorus level and correct as necessary, magnesium will also be followed. Electrolytes will be followed and corrected as necessary. He is appropriately on GI prophylaxis. He is on DVT prophylaxis. Flu and pneumonia vaccination will be addressed per protocol. Thank you very much for the consult. We will follow along and make further recommendations as picture progresses/becomes clearer. JOB# [id number] FABIENNE/KENDALL LIU
--- NOTE | 2019-08-11 14:52 | Progress Note ---
Assessment and Plan Assessment and plan: 33-year-old man who has diabetes type 2 insulin-dependent who presents to the hospital complaining of nausea vomiting diarrhea and weakness x2 days. Stated that his daughter had had a stomach virus just recently. Hospital course Patient received insulin drip and transition to subcutaneous insulins, IV fluids, his electrolytes were repleted. He received supportive care with IV fluids and antiemetics for acute Viral gastroenteritis which resolved Diagnosis DKA Dehydration Hypokalemia Hypomagnesemia Uncontrolled type 2 diabetes Acute viral gastroenteritis History Interval history: Review of systems Constitutional: No fevers, no malaise, no joint pains CVS: No chest pain, no orthopnea, no dyspnea on exertion, no pedal edema GI: No abdominal pain, no diarrhea, no vomiting, no constipation Respiratory: no wheezing, no coughing Hospitalist Physical - Physical exam Narrative exam: General.: Appears well, no distress, nontoxic HEENT: Moist mucous membranes, extraocular muscles intact, no lymphadenopathy Neck: supple Cardiac: S1-S2 heard Lungs: clear to auscultation bilaterally Abdomen: soft , nontender, nondistended, bowel sounds positive Extremities: no edema clubbing or cyanosis Skin: no rash or lesions Neurologic: no gross focal deficits Psych: calm, and cooperative - Constitutional Vitals: Temp Pulse Resp BP Pulse Ox 97.8 F 84 17 115/83 98 08/11/19 08:00 08/11/19 10:08 08/11/19 10:08 08/11/19 09:45 08/11/19 10:08 General appearance: Present: no acute distress, well-nourished Results - Labs CBC & Chem 7: 08/11/19 05:26 08/12/19 07:28 Labs: Laboratory Last Values WBC 6.6 K/mm3 (4.5-11.0) 08/11/19 05:26 RBC 4.45 M/mm3 (3.65-5.03) 08/11/19 05:26 Hgb 14.1 gm/dl (11.8-15.2) D 08/11/19 05:26 Hct 40.3 % (35.5-45.6) D 08/11/19 05:26 MCV 91 fl (84-94) 08/11/19 05:26 MCH 32 pg (28-32) 08/11/19 05:26 MCHC 35 % (32-34) H 08/11/19 05:26 RDW 13.4 % (13.2-15.2) 08/11/19 05:26 Plt Count 169 K/mm3 (140-440) 08/11/19 05:26 Lymph % (Auto) 29.0 % (13.4-35.0) 08/11/19 05:26 [place] % (Auto) 10.1 % (0.0-7.3) H 08/11/19 05:26 Eos % (Auto) 1.3 % (0.0-4.3) 08/11/19 05:26 Baso % (Auto) 0.6 % (0.0-1.8) 08/11/19 05:26 Lymph # 1.9 K/mm3 (1.2-5.4) 08/11/19 05:26 [place] # 0.7 K/mm3 (0.0-0.8) 08/11/19 05:26 Eos # 0.1 K/mm3 (0.0-0.4) 08/11/19 05:26 Baso # 0.0 K/mm3 (0.0-0.1) 08/11/19 05:26 Seg Neutrophils % 59.0 % (40.0-70.0) 08/11/19 05:26 Seg Neutrophils # 3.9 K/mm3 (1.8-7.7) 08/11/19 05:26 PT 14.5 Sec. (12.2-14.9) 08/11/19 05:26 INR 1.11 (0.87-1.13) 08/11/19 05:26 APTT 29.4 Sec. (24.2-36.6) 08/11/19 05:26 VBG pH 7.107 (7.320-7.420) L* 08/09/19 23:45 Sodium 137 mmol/L (137-145) 08/11/19 05:26 Potassium 3.2 mmol/L (3.6-5.0) L 08/11/19 05:26 Chloride 105.1 mmol/L (98-107) 08/11/19 05:26 Carbon Dioxide 19 mmol/L (22-30) L 08/11/19 05:26 Anion Gap 16 mmol/L 08/11/19 05:26 BUN 10 mg/dL (9-20) 08/11/19 05:26 Creatinine 0.8 mg/dL (0.8-1.5) 08/11/19 05:26 Estimated GFR > 60 ml/min 08/11/19 05:26 BUN/Creatinine Ratio 13 % 08/11/19 05:26 Glucose 124 mg/dL (75-100) H 08/11/19 05:26 POC Glucose 243 (70-105) H 08/11/19 12:28 Hemoglobin A1c 11.5 % (4-6) H 08/10/19 04:37 Calcium 8.6 mg/dL (8.4-10.2) 08/11/19 05:26 Phosphorus 0.60 mg/dL (2.5-4.5) L* D 08/11/19 05:26 Magnesium 2.00 mg/dL (1.7-2.3) 08/10/19 04:37 Total Bilirubin 0.40 mg/dL (0.1-1.2) 08/09/19 22:30 AST 17 units/L (5-40) 08/09/19 22:30 ALT 15 units/L (7-56) 08/09/19 22:30 Alkaline Phosphatase 60 units/L (35-129) 08/09/19 22:30 Total Protein 9.2 g/dL (6.3-8.2) H 08/09/19 22:30 Albumin 5.1 g/dL (3.9-5) H 08/09/19 22:30 Albumin/Globulin Ratio 1.2 % 08/09/19 22:30 Urine Color Yellow (Yellow) 08/10/19 02:00 Urine Turbidity Clear (Clear) 08/10/19 02:00 Urine pH 5.0 (5.0-7.0) 08/10/19 02:00 Ur Specific [place] 1.023 (1.003-1.030) 08/10/19 02:00 Urine Protein 100 mg/dl mg/dL (Negative) 08/10/19 02:00 Urine Glucose (UA) >=500 mg/dL (Negative) 08/10/19 02:00 Urine Ketones 80 mg/dL (Negative) 08/10/19 02:00 Urine Blood Lg (Negative) 08/10/19 02:00 Urine Nitrite Neg (Negative) 08/10/19 02:00 Urine Bilirubin Neg (Negative) 08/10/19 02:00 Urine Urobilinogen < 2.0 mg/dL (<2.0) 08/10/19 02:00 Ur Leukocyte Esterase Neg (Negative) 08/10/19 02:00 Urine WBC (Auto) 1.0 /HPF (0.0-6.0) 08/10/19 02:00 Urine RBC (Auto) 183.0 /HPF (0.0-6.0) 08/10/19 02:00 U Epithel Cells (Auto) < 1.0 /HPF (0-13.0) 08/10/19 02:00 Urine Bacteria (Auto) 1+ /HPF (Negative) 08/10/19 02:00 Hyaline Casts 3 /LPF 08/10/19 02:00 Urine Mucus Few /HPF 08/10/19 02:00 Active Medications - Current Medications Current Medications: Generic Name Dose Route Start Last Admin Trade Name Freq PRN Reason Stop Dose Admin Dextrose 0 ml 08/11/19 04:19 D50w (25gm) Syringe IV Q30MIN PRN Hypoglycemia Protocol Famotidine 20 mg 08/10/19 03:00 08/11/19 09:34 Pepcid IV 20 mg BID YONNY Administration Heparin Sodium (Porcine) 5,000 unit 08/10/19 14:00 08/11/19 13:38 Heparin SUB-Q 5,000 unit Q8HR YONNY Administration Insulin Human Regular 100 100 mls @ 1 mls/hr 08/10/19 02:00 08/11/19 05:00 units/ Sodium Chloride IV 4 units/hr TITR YONNY 4 mls/hr Titration Protocol 1 UNITS/HR Potassium Phosphate 45 mmol/ 515 mls @ 85 mls/hr 08/11/19 09:00 08/11/19 09:32 Sodium Chloride IV 08/11/19 15:03 85 mls/hr ONCE ONE Administration Potassium Chloride 10 meq/ 1,005 mls @ 42 mls/hr 08/11/19 16:00 Sodium Chloride IV DIRECT YONNY Insulin Glargine 20 units 08/11/19 22:00 Lantus SUB-Q QHS YONNY Insulin Human Lispro 0 unit 08/11/19 07:30 08/11/19 11:30 Humalog SUB-Q 4 unit ACHS YONNY Administration Protocol Morphine Sulfate 2 mg 08/10/19 01:21 Morphine IV Q4H PRN Pain, Moderate (4-6) Ondansetron HCl 4 mg 08/10/19 01:21 Zofran IV Q8H PRN Nausea And Vomiting Sodium Chloride 10 ml 08/10/19 10:00 08/11/19 09:35 Sodium Chloride Flush Syringe 10 Ml IV 10 ml BID YONNY Administration Sodium Chloride 10 ml 08/10/19 01:21 Sodium Chloride Flush Syringe 10 Ml IV PRN PRN LINE FLUSH Sodium Phosphate 250 mg 08/11/19 10:00 08/11/19 13:41 K-Phos Neutral PO 250 mg QID YONNY Administration Nutrition/Malnutrition Assess - Dietary Evaluation Nutrition/Malnutrition Findings: Nutrition Notes Start: 08/10/19 10:19 Freq: Status: Active Protocol: Document 08/11/19 08:47 LP (Rec: 08/11/19 08:47 LP [id number]) Nutrition Notes Initial or Follow up Brief Note Current Diagnosis Diabetes Subjective/Other Information Pt states he does not want diet education on DM. Pt has no nutrition needs at this time. Nutrition Intervention Revisit per MD consult or patient Sign Off request:
[2019-08-11] MEDS ORDERED: POTASSIUM CHLORIDE 10 MEQ in SODIUM CHLORIDE 0.45% 1000 ML 1,000 ML IV SCH (16:00)
[2019-08-11] MEDS ORDERED: INSULIN GLARGINE 100 UNITS/ML SUB-Q SCH (22:00)
[2019-08-12] MEDS: HEPARIN 5,000 UNIT/1 ML VIAL SUB-Q SCH ×2 (07:06→14:52)
[2019-08-12 08:25] LABS: BUN/Creatinine Ratio 7; Blood Urea Nitrogen 5 mg/dL (9-20); Calcium 8.5 mg/dL (8.4-10.2); Hemolysis Index 5
[2019-08-12] MEDS: INSULIN LISPRO 100 UNIT/ML SUB-Q SCH ×2 (08:36→12:18)
[2019-08-12] MEDS: K-PHOS NEUTRAL 250 MG TAB PO SCH ×2 (09:02→14:52)
[2019-08-12] MEDS: FAMOTIDINE 20 MG/2 ML INJ IV SCH (09:03)
[2019-08-12 12:55] VITALS: BP 106/72
--- NOTE | 2019-08-12 17:58 | Discharge Summary ---
Providers - Providers Date of Admission: 08/10/19 00:34 Attending physician: RAFA ORTEGA MD 08/10/19 00:49 Consult to Physician [CONS] Routine Comment: Consulting Provider: ANGELES RAY Physician Instructions: Reason For Exam: icu admit 08/10/19 01:21 Consult to Dietitian/Nutrition [CONS] Routine Physician Instructions: Reason For Exam: Reason for Consult: Diet education [facility] Hospital course: 33-year-old man who has diabetes type 2 insulin-dependent who presents to the hospital complaining of nausea vomiting diarrhea and weakness x2 days. Stated that his daughter had had a stomach virus just recently. Hospital course Patient received insulin drip and transition to subcutaneous insulins, IV fluids, his electrolytes were repleted. He received supportive care with IV fluids and antiemetics for acute Viral gastroenteritis which resolved Preventative health counseling performed for 17 minutes Diagnosis DKA Dehydration Hypokalemia Hypomagnesemia Uncontrolled type 2 diabetes Acute viral gastroenteritis Disposition: TO HOME OR SELFCARE Time spent for discharge: 35 minutes Core Measure Documentation - Palliative Care Palliative Care/ Comfort Measures: Not Applicable - Core Measures Any of the following diagnoses?: none Exam - Constitutional Vitals: Temp Pulse Resp BP Pulse Ox 98.0 F 73 16 106/72 99 08/12/19 05:45 08/12/19 05:45 08/12/19 05:45 08/12/19 05:45 08/12/19 05:45 General appearance: Present: no acute distress, well-nourished - EENT Eyes: Present: PERRL ENT: hearing intact, clear oral mucosa - Neck Neck: Present: supple, normal ROM - Respiratory Respiratory effort: normal Respiratory: bilateral: CTA - Cardiovascular Heart Sounds: Present: S1 & S2. Absent: rub, click - Extremities Extremities: pulses symmetrical, No edema Peripheral Pulses: within normal limits - Abdominal General gastrointestinal: Present: soft, non-tender, non-distended, normal bowel sounds Male genitourinary: Present: normal - Integumentary Integumentary: Present: clear, warm, dry - Musculoskeletal Musculoskeletal: gait normal, strength equal bilaterally - Psychiatric Psychiatric: appropriate mood/affect, intact judgment & insight - Neurologic Neurologic: CNII-XII intact, moves all extremities Plan Follow up with: KAREN WARRENSIDE MD MARCELO [Primary Care Provider] - 7 Days Forms: Work/School Release Form Prescriptions: Insulin Glargine [Lantus VIAL] 25 units SUB-Q QHS #1 vial Lispro Insulin [HumaLOG] 9 unit SUB-Q AC #1 vial
--- NOTE | 2019-08-12 19:26 | Progress Note ---
Assessment and Plan Pt is alert and awake. No acute respiratory distress. He is resting on room air with an O2 saturation of 99%. He denies any shortness of breath, chest pain, or cough. He is afebrile and has no leukocytosis. CXR from 08/09/19 reported no acu te findings. Pt was admitted for DKA and shortness of breath. He is a current smoker 1 pack per day, patient counseled to stop smoking. Recommend PFTs as an outpatient. Patient denies any alcohol or drug use. He has no known drug allergies. 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 - Patient Problems (1) Tobacco use Status: Acute Plan to address problem: Pt is a current smoker of 1 pack per day. Pt counseled to stop smoking Recommend PFTs as an outpatient (2) DVT prophylaxis Status: Acute Plan to address problem: Continue Heparin (3) Diabetic ketoacidosis Status: Acute Plan to address problem: Management as per primary care. Subjective Date of service: 08/12/19 Interval history: Pt is alert and awake. No acute respiratory distress. He is resting on room air with an O2 saturation of 99%. He denies any shortness of breath, chest pain, or cough. He is afebrile and has no leukocytosis. CXR from 08/09/19 reported no acute findings. Pt was admitted for DKA and shortness of breath. He is a current smoker 1 pack per day, patient counseled to stop smoking. Recommend PFTs as an outpatient. Patient denies any alcohol or drug use. He has no known drug allergies. 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 Objective Constitutional: no acute distress, alert Eyes: non-icteric ENT: oropharynx moist Neck: supple, no lymphadenopathy, no JVD Effort: normal Ascultation: Bilateral: other (prolonged expiratory phase) Cardiovascular: regular rate and rhythm Gastrointestinal: normoactive bowel sounds, soft, non-distended Integumentary: normal Extremities: no cyanosis Neurologic: normal mental status, non-focal exam Psychiatric: mood appropriate, affect normal CBC and BMP: 08/11/19 05:26 08/12/19 07:28 ABG, PT/INR, D-dimer: PT/INR, D-dimer PT 14.5 Sec. (12.2-14.9) 08/11/19 05:26 INR 1.11 (0.87-1.13) 08/11/19 05:26 Abnormal lab findings: Abnormal Labs 08/09/19 08/09/19 08/09/19 21:47 22:30 22:30 RBC 5.62 H Hgb 18.0 H Hct 53.4 H MCV 95 H MCHC [place] % (Auto) 8.9 H Seg Neutrophils % 73.6 H VBG pH Sodium 130 L Potassium Chloride 90.6 L Carbon Dioxide 9 L* BUN Creatinine Glucose 310 H POC Glucose 236 H Hemoglobin A1c Calcium Phosphorus Total Protein 9.2 H Albumin 5.1 H 08/09/19 08/10/19 08/10/19 23:45 01:55 02:44 RBC Hgb Hct MCV MCHC [place] % (Auto) Seg Neutrophils % VBG pH 7.107 L* Sodium Potassium Chloride Carbon Dioxide BUN Creatinine Glucose POC Glucose 229 H 225 H Hemoglobin A1c Calcium Phosphorus Total Protein Albumin 08/10/19 08/10/19 08/10/19 04:37 04:37 04:37 RBC Hgb Hct MCV MCHC [place] % (Auto) Seg Neutrophils % VBG pH Sodium 134 L Potassium Chloride Carbon Dioxide 7 L* BUN Creatinine Glucose 233 H POC Glucose Hemoglobin A1c 11.5 H Calcium 8.3 L D Phosphorus 1.40 L D Total Protein Albumin 08/10/19 08/10/19 08/10/19 05:08 07:26 07:34 RBC Hgb Hct MCV MCHC [place] % (Auto) Seg Neutrophils % VBG pH Sodium 133 L Potassium Chloride Carbon Dioxide 10 L BUN Creatinine Glucose 209 H POC Glucose 192 H 197 H Hemoglobin A1c Calcium Phosphorus Total Protein Albumin 08/10/19 08/10/19 08/10/19 08:11 09:07 09:22 RBC Hgb Hct MCV MCHC [place] % (Auto) Seg Neutrophils % VBG pH Sodium 133 L Potassium Chloride Carbon Dioxide 12 L BUN Creatinine Glucose 173 H POC Glucose 195 H 190 H Hemoglobin A1c Calcium 8.3 L Phosphorus Total Protein Albumin 08/10/19 08/10/19 08/10/19 10:12 11:20 12:22 RBC Hgb Hct MCV MCHC [place] % (Auto) Seg Neutrophils % VBG pH Sodium Potassium Chloride Carbon Dioxide BUN Creatinine Glucose POC Glucose 150 H 138 H 126 H Hemoglobin A1c Calcium Phosphorus Total Protein Albumin 08/10/19 08/10/19 08/10/19 13:19 14:19 14:41 RBC Hgb Hct MCV MCHC [place] % (Auto) Seg Neutrophils % VBG pH Sodium 135 L Potassium Chloride Carbon Dioxide 14 L BUN Creatinine Glucose 139 H POC Glucose 141 H 129 H Hemoglobin A1c Calcium Phosphorus Total Protein Albumin 08/10/19 08/10/19 08/10/19 15:31 17:03 17:27 RBC Hgb Hct MCV MCHC [place] % (Auto) Seg Neutrophils % VBG pH Sodium 135 L Potassium 3.4 L Chloride Carbon Dioxide 17 L BUN Creatinine Glucose 142 H POC Glucose 138 H 137 H Hemoglobin A1c Calcium Phosphorus Total Protein Albumin 08/10/19 08/10/19 08/10/19 18:56 20:13 21:15 RBC Hgb Hct MCV MCHC [place] % (Auto) Seg Neutrophils % VBG pH Sodium Potassium Chloride Carbon Dioxide BUN Creatinine Glucose POC Glucose 222 H 205 H 174 H Hemoglobin A1c Calcium Phosphorus Total Protein Albumin 08/10/19 08/10/19 08/11/19 22:10 23:14 00:52 RBC Hgb Hct MCV MCHC [place] % (Auto) Seg Neutrophils % VBG pH Sodium 134 L Potassium 3.5 L Chloride Carbon Dioxide 18 L BUN Creatinine Glucose 106 H POC Glucose 163 H 188 H Hemoglobin A1c Calcium Phosphorus Total Protein Albumin 08/11/19 08/11/19 08/11/19 03:16 04:14 05:15 RBC Hgb Hct MCV MCHC [place] % (Auto) Seg Neutrophils % VBG pH Sodium Potassium Chloride Carbon Dioxide BUN Creatinine Glucose POC Glucose 152 H 129 H 111 H Hemoglobin A1c Calcium Phosphorus Total Protein Albumin 08/11/19 08/11/19 08/11/19 05:26 05:26 06:17 RBC Hgb Hct MCV MCHC 35 H [place] % (Auto) 10.1 H Seg Neutrophils % VBG pH Sodium Potassium 3.2 L Chloride Carbon Dioxide 19 L BUN Creatinine Glucose 124 H POC Glucose 111 H Hemoglobin A1c Calcium Phosphorus 0.60 L* D Total Protein Albumin 08/11/19 08/11/19 08/11/19 07:51 12:28 16:11 RBC Hgb Hct MCV MCHC [place] % (Auto) Seg Neutrophils % VBG pH Sodium Potassium Chloride Carbon Dioxide BUN Creatinine Glucose POC Glucose 172 H 243 H 293 H Hemoglobin A1c Calcium Phosphorus Total Protein Albumin 08/11/19 08/12/19 08/12/19 22:30 07:28 07:59 RBC Hgb Hct MCV MCHC [place] % (Auto) Seg Neutrophils % VBG pH Sodium Potassium 3.3 L Chloride Carbon Dioxide BUN 5 L Creatinine 0.7 L Glucose 266 H POC Glucose 362 H 240 H Hemoglobin A1c Calcium Phosphorus Total Protein Albumin 08/12/19 12:18 RBC Hgb Hct MCV MCHC [place] % (Auto) Seg Neutrophils % VBG pH Sodium Potassium Chloride Carbon Dioxide BUN Creatinine Glucose POC Glucose 294 H Hemoglobin A1c Calcium Phosphorus Total Protein Albumin Chest x-ray: report reviewed (No acute findings), image reviewed
[2019-08-12] MEDS ORDERED: FAMOTIDINE 20 MG TAB PO SCH (22:00)
== END 2019-08-12 17:56 | disposition home or self-care (01) | DRG 639 ==
LOC: ED 21:28 → CC1 08-10 00:34 → 3A 08-11 11:29
PROVIDERS: ADMIT Internal Medicine Geriatric Medicine; ATTEND Internal Medicine
DX: E11.10 Type 2 diabetes mellitus with ketoacidosis without coma (principal); F17.210 Nicotine dependence, cigarettes, uncomplicated; F10.10 Alcohol abuse, uncomplicated; E86.0 Dehydration; E87.6 Hypokalemia; E83.42 Hypomagnesemia; A08.4 Viral intestinal infection, unspecified; Z71.6 Tobacco abuse counseling; Z79.4 Long term (current) use of insulin
CPT/HCPCS: 36415; 71045; 80048; 80053; 81001; 82805; 82962; 83036; 83735; 84100; 85025; 85610; 85730; 90686; 96374; 99406; G0378; J1644; J1815; J3480; J7030; J7040

== ENCOUNTER 2020-10-24 14:32 | Inpatient (IN) | payer MEDICAID ==
--- NOTE | 2020-10-24 16:10 | Event Note ---
ED Screening Note Date of service: 10/24/20 Time: 16:06 ED Screening Note: 34-year-old -[place] male with a history of diabetes presents to the emergency room for nausea vomiting fatigue shortness of breath. Patient is insulin-dependent. This initial assessment/diagnostic orders/clinical plan/treatment(s) is/are subject to change based on patients health status, clinical progression and re- assessment by fellow clinical providers in the ED. Further treatment and workup at subsequent clinical providers discretion. Patient/guardian urged not to elope from the ED as their condition may be serious if not clinically assessed and managed. Initial orders include:
[2020-10-24] MEDS ORDERED: SODIUM CHLORIDE 0.9% 1000 ML 1,000 ML IV ONE ×2 (16:42→17:20)
--- NOTE | 2020-10-24 16:44 | Emergency Department Report ---
HPI - General Chief Complaint: Headache Time Seen by Provider: 10/24/20 16:35 - HPI HPI: This is a 34-year-old -[place] male who presents to the emergency department with complaint of shortness of breath that has been going on since yesterday. Earlier in the day the patient had complained of a generalized headache but says that has since resolved. He also had an episode of nausea with vomiting earlier in the day. He denies any cough, fever, chest pain, lower extremity swelling. He has not taken anything for symptoms prior to presentation. He has a past medical history of insulin-dependent diabetes for which he says he has been compliant with his medications and had a blood sugar of about 200 this morning. No recent travel or sick contacts at home. He has a primary care physician through the [facility] system. ED Past Medical Hx - Past Medical History Previous Medical History?: Yes Hx Diabetes: Yes - Social History Smoking Status: Current Every Day Smoker - Medications Home Medications: Home Medications Medication Instructions Recorded Confirmed Last Taken Type Insulin Glargine [Lantus VIAL] 25 units SUB-Q QHS #1 vial 01/03/20 Unknown Rx Lispro Insulin [HumaLOG] 9 unit SUB-Q AC #1 vial 01/03/20 Unknown Rx ED Review of Systems ROS: Stated complaint: HEAD PAIN/VOMITING Other details as noted in HPI Comment: All other systems reviewed and negative Constitutional: denies: chills, fever Eyes: denies: eye pain, vision change ENT: denies: ear pain, throat pain Respiratory: shortness of breath. denies: cough Cardiovascular: denies: chest pain, edema Gastrointestinal: nausea, vomiting. denies: abdominal pain Genitourinary: denies: dysuria, discharge Musculoskeletal: denies: back pain, arthralgia Skin: denies: rash, lesions Neurological: headache (Resolved). denies: weakness, numbness, paresthesias Physical Exam - Physical Exam Vital Signs: Vital Signs 10/24/20 15:05 Temperature 97.9 F Pulse Rate 113 H Respiratory 15 Rate Blood Pressure 138/96 O2 Sat by Pulse 97 Oximetry Physical Exam: GENERAL: The patient is ill-appearing. HENT: Normocephalic. Atraumatic. Patient has moist mucous membranes. EYES: Extraocular motions are intact. NECK: Supple. Trachea is midline. CHEST/LUNGS: Clear to auscultation. There is tachypnea, accessory muscle use with kussmaul breathing. HEART/CARDIOVASCULAR: Regular. There is mild tachycardia. There is no murmur. ABDOMEN: Abdomen is soft, nontender. Patient has normal bowel sounds. There is no abdominal distention. SKIN: Skin is warm and dry. NEURO: The patient is awake, alert, and cooperative. The patient has no focal neurologic deficits. Normal speech. MUSCULOSKELETAL: There is no tenderness or deformity. There is no limitation range of motion. ED Course Vital Signs 10/24/20 15:05 Temperature 97.9 F Pulse Rate 113 H Respiratory 15 Rate Blood Pressure 138/96 O2 Sat by Pulse 97 Oximetry ED Medical Decision Making - Lab Data Result diagrams: 10/24/20 16:29 10/24/20 16:29 Lab Results 10/24/20 10/24/20 10/24/20 Range/Units 16:29 16:29 16:29 WBC 17.0 H (4.5-11.0) K/mm3 RBC 5.15 H (3.65-5.03) M/mm3 Hgb 16.7 H (11.8-15.2) gm/dl Hct 51.6 H (35.5-45.6) % MCV 100 H (84-94) fl MCH 32 (28-32) pg MCHC 32 (32-34) % RDW 13.6 (13.2-15.2) % Plt Count 213 (140-440) K/mm3 Lymph % (Auto) 6.9 L (13.4-35.0) % [place] % (Auto) 4.0 (0.0-7.3) % Eos % (Auto) 0.1 (0.0-4.3) % Baso % (Auto) 0.2 (0.0-1.8) % Lymph # (Auto) 1.2 (1.2-5.4) K/mm3 [place] # (Auto) 0.7 (0.0-0.8) K/mm3 Eos # (Auto) 0.0 (0.0-0.4) K/mm3 Baso # (Auto) 0.0 (0.0-0.1) K/mm3 Seg Neutrophils % 88.8 H (40.0-70.0) % Seg Neutrophils # 15.1 H (1.8-7.7) K/mm3 VBG pH 7.035 L* (7.320-7.420) Sodium 131 L (137-145) mmol/L Potassium 5.4 H (3.6-5.0) mmol/L Chloride 87.5 L (98-107) mmol/L Carbon Dioxide 5 L* (22-30) mmol/L Anion Gap 44 mmol/L BUN 20 (9-20) mg/dL Creatinine 1.5 H (0.8-1.3) mg/dL Estimated GFR > 60 ml/min BUN/Creatinine Ratio 13 % Glucose 466 H (75-100) mg/dL Calcium 9.8 (8.4-10.2) mg/dL Total Bilirubin 0.30 (0.1-1.2) mg/dL AST 28 (5-40) units/L ALT 25 (7-56) units/L Alkaline Phosphatase 70 (35-129) units/L Total Protein 9.4 H (6.3-8.2) g/dL Albumin 5.9 H (3.9-5) g/dL Albumin/Globulin Ratio 1.7 % - Radiology Data Radiology results: image reviewed interpreted by me: Chest x-ray does not show any acute process. There are no pleural effusions, obvious pneumonia and there is no pneumothorax. No significant cardiomegaly. - Medical Decision Making This patient presents with the complaint of a headache and nausea with vomiting, that has since resolved. His main complaint at this time is shortness of breath. While the patient's lungs sound clear to auscultation, he does have tachypnea, some accessory muscle use, and what looks like kussmaul breathing. Chest x-ray does not show any pneumonia, pleural effusions, pneumothorax, or any other acute process. The patient's labs appear consistent with diabetic ketoacidosis. There is a b lood sugar of about 470, venous acidosis of about 7.035, and an elevated anion gap of 44, and a bicarb of 5. The patient has been given IV fluid resuscitation and has been started on insulin drip. He will be admitted to the ICU and has been accepted for admission by the hospitalist, Dr. Panda. Critical Care Time: Yes Critical care time in (mins) excluding proc time.: 35 Critical care attestation.: If time is entered above; I have spent that time in minutes in the direct care of this critically ill patient, excluding procedure time. Critical care time was spent on this patient in doing his initial evaluation, multiple reevaluations, ordering and interpretation of labs and imaging, IV fluid resuscitation, IV insulin drip, and multiple discussions with the patient. Critical Care Time: 35 minutes ED Disposition Clinical Impression: High anion gap metabolic acidosis, Kussmaul breathing Diabetic ketoacidosis Qualifiers: Diabetes mellitus type: type 1 Diabetes mellitus complication detail: without coma Qualified Code(s): E10.10 - Type 1 diabetes mellitus with ketoacidosis without coma Disposition: DC-09 OP ADMIT IP TO THIS HOSP Is pt being admited?: Yes Condition: Serious Instructions: Diabetic Ketoacidosis (ED) Time of Disposition: 17:21
[2020-10-24 16:47] LABS: Basophils % (Auto) 0.2 % (0.0-1.8); Eosinophils % (Auto) 0.1 % (0.0-4.3); Hematocrit 51.6 % (35.5-45.6); Hemoglobin 16.7 gm/dl (11.8-15.2); Lymphocytes # (Auto) 1.2 K/mm3 (1.2-5.4); Lymphocytes % (Auto) 6.9 % (13.4-35.0); Mean Corpuscular HGB Conc 32 % (32-34); Mean Corpuscular Volume 100 fl (84-94); Monocytes # (Auto) 0.7 K/mm3 (0.0-0.8); Platelet Count 213 K/mm3 (140-440); Red Blood Count 5.15 M/mm3 (3.65-5.03); Red Cell Distribution Width 13.6 % (13.2-15.2)
--- NOTE | 2020-10-24 17:08 | XRay Report ---
CHEST 1 VIEW 10/24/2020 4:39 PM INDICATION / CLINICAL INFORMATION: SOB. COMPARISON: 01/01/2020 FINDINGS: SUPPORT DEVICES: None. HEART / MEDIASTINUM: No significant abnormality. LUNGS / PLEURA: No significant pulmonary or pleural abnormality. No pneumothorax. ADDITIONAL FINDINGS: No significant additional findings. IMPRESSION: 1. No acute findings. Signer Name: Yovani Mckay MD Signed: 10/24/2020 5:03 PM Workstation Name: [id number]
[2020-10-24 17:09] LABS: Alanine Aminotransferase 25 units/L (7-56); Albumin 5.9 g/dL (3.9-5); BUN/Creatinine Ratio 13; Blood Urea Nitrogen 20 mg/dL (9-20); Calcium 9.8 mg/dL (8.4-10.2); Hemolysis Index 6
[2020-10-24] MEDS: INSULIN REGULAR, HUMAN 100 UNITS in SODIUM CHLORIDE 0.9% 99 ML IV SCH (18:03)
[2020-10-24 18:34] LABS: Bilirubin,Urine NEG (Negative); Blood,Urine LG (Negative); Color,Urine Yellow (Yellow); Mucus,Urine FEW /HPF; Protein,Urine >500 mg/dL (Negative); RBC,Urine > 182.0 /HPF (0.0-6.0); Urobilinogen,Urine < 2.0 mg/dL (<2.0)
[2020-10-24 18:36] LABS: BUN/Creatinine Ratio 15; Blood Urea Nitrogen 20 mg/dL (9-20); Hemolysis Index 15
[2020-10-24 18:39] LABS: Amphetamine Screen,Urine Negative; Benzodiazepines Screen,Urine Negative; Cocaine Screen,Urine Negative; Methadone Screen,Urine Negative; Opiate Screen,Urine Negative
[2020-10-24] MEDS ORDERED: DEXTROSE 50% IN WATER (25GM) 50 ML SYRINGE IV PRN (18:42)
[2020-10-24 18:51] LABS: Cannabinoid Screen,Urine Positive
[2020-10-24 20:16] LABS: BUN/Creatinine Ratio 16; Blood Urea Nitrogen 19 mg/dL (9-20); Hemolysis Index 13
[2020-10-24 20:19] LABS: Chol/HDL Ratio 6.05 %
[2020-10-24] MEDS: POTASSIUM CHLORIDE 10 MEQ 10 MEQ/100 ML BAG IV SCH ×6 (20:47→23:11)
[2020-10-24] MEDS ORDERED: ONDANSETRON 4 MG/2 ML INJ IV PRN (20:48)
[2020-10-24] MEDS ORDERED: HYDROmorphone 1 MG/1 ML INJ IV PRN (20:48)
[2020-10-24] MEDS ORDERED: METOCLOPRAMIDE 10 MG/2 ML INJ IV PRN (21:49)
[2020-10-24] MEDS ORDERED: SODIUM BICARB 8.4% 50 MEQ/50 ML SYRINGE IV ONE (21:49)
--- NOTE | 2020-10-25 00:01 | History and Physical Report ---
History of Present Illness Date of examination: 10/24/20 Date of admission: 10/24/20 18:27 Chief complaint: Shortness of breath and vomiting for 1 day. History of present illness: 34-year-old -[place] male comes in for shortness of breath since yesterday. Also nausea and vomiting since this morning. No cough. No fever. Patient is type 1 diabetes. On Lantus at bedtime and Humalog before each meal. No fever or chills. No exposure to coronavirus. Patient says he has been taking his insulin regularly. Generalized headaches in the morning which is resolved. Feels very thirsty and short of breath. No chest pain. In the ER patient was found to be in diabetic ketoacidosis. His bicarb was 5. - Past Medical History Previous Medical History?: Yes --Diabetes: Yes --Past surgical history N/a - Social History --Smoking Status: Current Every Day Smoker -Family history --Htn - Medications Home Medications: Home Medications Medication Instructions Recorded Confirmed Last Taken Type Insulin Glargine [Lantus VIAL] 25 units SUB-Q QHS #1 vial 01/03/20 Unknown Rx Lispro Insulin [HumaLOG] 9 unit SUB-Q AC #1 vial 01/03/20 Unknown Rx -Review of Systems ROS: Stated complaint: HEAD PAIN/VOMITING Other details as noted in HPI Comment: All other systems reviewed and negative Constitutional: denies: chills, fever Eyes: denies: eye pain, vision change ENT: denies: ear pain, throat pain Respiratory: shortness of breath. denies: cough Cardiovascular: denies: chest pain, edema Gastrointestinal: nausea, vomiting. denies: abdominal pain Genitourinary: denies: dysuria, discharge Musculoskeletal: denies: back pain, arthralgia Skin: denies: rash, lesions Neurological: headache (Resolved). denies: weakness, numbness, paresthesias Physical Exam Medications and Allergies Allergies Allergy/AdvReac Type Severity Reaction Status Date / Time No Known Allergies Allergy Verified 08/09/19 21:30 Home Medications Medication Instructions Recorded Confirmed Last Taken Type Insulin Glargine [Lantus VIAL] 25 units SUB-Q QHS #1 vial 01/03/20 Unknown Rx Lispro Insulin [HumaLOG] 9 unit SUB-Q AC #1 vial 01/03/20 Unknown Rx Active Meds: Active Medications Dextrose (Dextrose 50% In Water (25gm) 50 Ml Syringe) 0 ml IV Q30MIN PRN; Protocol PRN Reason: Hypoglycemia Hydromorphone HCl (Hydromorphone 1 Mg/1 Ml Inj) 0.5 mg IV Q3H PRN PRN Reason: Pain , Severe (7-10) Last Admin: 10/24/20 21:08 Dose: 0.5 mg Documented by: Insulin Human Regular 100 (units/ Sodium Chloride) 100 mls @ 1 mls/hr IV TITR YONNY; Protocol Last Titration: 10/24/20 22:40 Dose: 10 units/hr, 10 mls/hr Documented by: Metoclopramide HCl (Metoclopramide 10 Mg/2 Ml Inj) 10 mg IV Q6H PRN PRN Reason: Nausea And Vomiting Last Admin: 10/24/20 22:49 Dose: 10 mg Documented by: Ondansetron HCl (Ondansetron 4 Mg/2 Ml Inj) 4 mg IV Q4H PRN PRN Reason: Nausea And Vomiting Last Admin: 10/24/20 21:08 Dose: 4 mg Documented by: Sodium Chloride (Sodium Chloride 0.9% 10 Ml Flush Syringe) 10 ml IV PRN PRN PRN Reason: LINE FLUSH Exam - Constitutional Vitals: Temp Pulse Resp BP Pulse Ox 97.9 F 104 H 24 135/91 100 10/24/20 15:05 10/24/20 23:01 10/24/20 23:01 10/24/20 23:01 10/24/20 23:01 General appearance: Present: mild distress, well-nourished - EENT Eyes: Present: PERRL ENT: hearing intact, clear oral mucosa, other (Dry tongue) - Neck Neck: Present: supple, normal ROM - Respiratory Respiratory effort: normal Respiratory: bilateral: CTA - Cardiovascular Heart rate: 98 Rhythm: regular Heart Sounds: Present: S1 & S2. Absent: rub, click - Extremities Extremities: no ischemia, pulses intact, pulses symmetrical, No edema Peripheral Pulses: within normal limits - Abdominal General gastrointestinal: Present: soft, non-tender, non-distended, normal bowel sounds Male genitourinary: Present: normal - Rectal Rectal Exam: deferred - Integumentary Integumentary: Present: clear, warm, dry - Musculoskeletal Musculoskeletal: generalized weakness - Psychiatric Psychiatric: appropriate mood/affect, intact judgment & insight - Neurologic Neurologic: CNII-XII intact, moves all extremities - Allied Health Allied health notes reviewed: nursing, case management Results - Labs CBC & Chem 7: 10/24/20 16:29 10/24/20 19:33 Labs: Laboratory Last Values WBC 17.0 K/mm3 (4.5-11.0) H 10/24/20 16:29 RBC 5.15 M/mm3 (3.65-5.03) H 10/24/20 16:29 Hgb 16.7 gm/dl (11.8-15.2) H 10/24/20 16:29 Hct 51.6 % (35.5-45.6) H 10/24/20 16:29 MCV 100 fl (84-94) H 10/24/20 16:29 MCH 32 pg (28-32) 10/24/20 16: MCHC 32 % (32-34) 10/24/20 16: RDW 13.6 % (13.2-15.2) 10/24/20 16:29 Plt Count 213 K/mm3 (140-440) 10/24/20 16: Lymph % (Auto) 6.9 % (13.4-35.0) L 10/24/20 16:29 [place] % (Auto) 4.0 % (0.0-7.3) 10/24/20 16:29 Eos % (Auto) 0.1 % (0.0-4.3) 10/24/20 16: Baso % (Auto) 0.2 % (0.0-1.8) 10/24/20 16:29 Lymph # (Auto) 1.2 K/mm3 (1.2-5.4) 10/24/20 16:29 [place] # (Auto) 0.7 K/mm3 (0.0-0.8) 10/24/20 16:29 Eos # (Auto) 0.0 K/mm3 (0.0-0.4) 10/24/20 16:29 Baso # (Auto) 0.0 K/mm3 (0.0-0.1) 10/24/20 16:29 Seg Neutrophils % 88.8 % (40.0-70.0) H 10/24/20 16:29 Seg Neutrophils # 15.1 K/mm3 (1.8-7.7) H 10/24/20 16:29 VBG pH 7.035 (7.320-7.420) L* 10/24/20 16:29 Sodium 134 mmol/L (137-145) L 10/24/20 19:33 Potassium 5.4 mmol/L (3.6-5.0) H 10/24/20 19:33 Chloride 95.7 mmol/L (98-107) L 10/24/20 19:33 Carbon Dioxide 5 mmol/L (22-30) L* 10/24/20 19:33 Anion Gap 39 mmol/L 10/24/20 19:33 BUN 19 mg/dL (9-20) 10/24/20 19:33 Creatinine 1.2 mg/dL (0.8-1.3) 10/24/20 19:33 Estimated GFR > 60 ml/min 10/24/20 19:33 BUN/Creatinine Ratio 16 % 10/24/20 19:33 Glucose 311 mg/dL (75-100) H 10/24/20 19:33 POC Glucose 319 mg/dL (70-105) H 10/24/20 22:36 Hemoglobin A1c 9.7 % (4-6) H 10/24/20 19:33 Osmolality 325 Mosm/kg 10/24/20 19:33 Calcium 9.0 mg/dL (8.4-10.2) 10/24/20 19:33 Phosphorus 4.60 mg/dL (2.5-4.5) H D 10/24/20 19:33 Magnesium 2.50 mg/dL (1.7-2.3) H 10/24/20 19:33 Total Bilirubin 0.30 mg/dL (0.1-1.2) 10/24/20 16:29 AST 28 units/L (5-40) 10/24/20 16:29 ALT 25 units/L (7-56) 10/24/20 16:29 Alkaline Phosphatase 70 units/L (35-129) 10/24/20 16:29 Total Protein 9.4 g/dL (6.3-8.2) H 10/24/20 16:29 Albumin 5.9 g/dL (3.9-5) H 10/24/20 16:29 Albumin/Globulin Ratio 1.7 % 10/24/20 16:29 Triglycerides 344 mg/dL (2-149) H 10/24/20 19:33 Cholesterol 230 mg/dL (50-199) H 10/24/20 19:33 LDL Cholesterol Direct 139 mg/dL (50-130) H 10/24/20 19:33 HDL Cholesterol 38 mg/dL (40-59) L 10/24/20 19:33 Cholesterol/HDL Ratio 6.05 % 10/24/20 19:33 Urine Color Yellow (Yellow) 10/24/20 18:16 Urine Turbidity Slightly-cloudy (Clear) 10/24/20 18:16 Urine pH 6.0 (5.0-7.0) 10/24/20 18:16 Ur Specific [place] 1.020 (1.003-1.030) 10/24/20 18:16 Urine Protein >500 mg/dL (Negative) 10/24/20 18:16 Urine Glucose (UA) >=500 mg/dL (Negative) 10/24/20 18:16 Urine Ketones 80 mg/dL (Negative) 10/24/20 18:16 Urine Blood Lg (Negative) 10/24/20 18:16 Urine Nitrite Neg (Negative) 10/24/20 18:16 Urine Bilirubin Neg (Negative) 10/24/20 18:16 Urine Urobilinogen < 2.0 mg/dL (<2.0) 10/24/20 18:16 Ur Leukocyte Esterase Neg (Negative) 10/24/20 18:16 Urine WBC (Auto) 1.0 /HPF (0.0-6.0) 10/24/20 18:16 Urine RBC (Auto) > 182.0 /HPF (0.0-6.0) 10/24/20 18:16 Urine Mucus Few /HPF 10/24/20 18:16 Urine Opiates Screen Negative 10/24/20 18:16 Urine Methadone Screen Negative 10/24/20 18:16 Ur Barbiturates Screen Negative 10/24/20 18:16 Ur Phencyclidine Scrn Negative 10/24/20 18:16 Ur Amphetamines Screen Negative 10/24/20 18:16 U Benzodiazepines Scrn Negative 10/24/20 18:16 Urine Cocaine Screen Negative 10/24/20 18:16 U Marijuana (THC) Screen Positive 10/24/20 18:16 Drugs of Abuse Note Disclamer 10/24/20 18:16 Short CBC 10/24/20 Range/Units 16:29 WBC 17.0 H (4.5-11.0) K/mm3 Hgb 16.7 H (11.8-15.2) gm/dl Hct 51.6 H (35.5-45.6) % Plt Count 213 (140-440) K/mm3 BMP 10/24/20 10/24/20 10/24/20 16:29 17:36 19:33 Sodium 131 L 135 L 134 L Potassium 5.4 H 5.8 H 5.4 H Chloride 87.5 L 92.8 L 95.7 L Carbon Dioxide 5 L* 4 L* 5 L* BUN 20 20 19 Creatinine 1.5 H 1.3 1.2 Glucose 466 H 435 H 311 H Calcium 9.8 9.0 9.0 Liver Function 10/24/20 Range/Units 16:29 Total Bilirubin 0.30 (0.1-1.2) mg/dL AST 28 (5-40) units/L ALT 25 (7-56) units/L Alkaline Phosphatase 70 (35-129) units/L Albumin 5.9 H (3.9-5) g/dL Urine 10/24/20 Range/Units 18:16 Urine Color Yellow (Yellow) Urine pH 6.0 (5.0-7.0) Ur Specific [place] 1.020 (1.003-1.030) Urine Protein >500 (Negative) mg/dL Urine Glucose (UA) >=500 (Negative) mg/dL - Imaging and Cardiology Chest x-ray: report reviewed (No acute findings) Assessment and Plan Assessment and plan: Critical care statement The high probability OF a clinically significant sudden or life-threatening deterioration of the cardiorespiratory system and endocrine system required my full and direct attention, intervention and postoperative management. The aggregate critical care time was 40 minutes. The time is in addition to time spent performing reported procedures but includes the followin: Data review and interpretation 2: Patient assessment and monitoring of vital signs 3: Documentation 4:: Medication orders and management Advance Directives: Yes (Full code) VTE prophylaxis?: Chemical Plan of care discussed with patient/family: Yes - Patient Problems (1) Acute metabolic encephalopathy Current Visit: Yes Status: Acute Plan to address problem: Patient is lethargic Not comatose IV insulin and correction of electrolytes should resolve encephalopathy (2) SIRS (systemic inflammatory response syndrome) Current Visit: Yes Status: Acute Plan to address problem: Patient is a high white count Possible demargination Patient is tachypneic and tachycardic Patient started on IV fluids IV ceftriaxone empirically which may be discontinued if no focus of infection is found (3) Diabetic ketoacidosis Current Visit: Yes Status: Acute Qualifiers: Diabetes mellitus type: type 1 Diabetes mellitus complication detail: without coma Qualified Code(s): E10.10 - Type 1 diabetes mellitus with ketoacidosis without coma Plan to address problem: Patient is on DKA protocol IV fluids IV insulin IV bicarb [employer] consult check hemoglobin A1c Adjust his Lantus dose to 40 nightly from 25 Dietitian consult (4) Hyperkalemia Current Visit: Yes Status: Acute Plan to address problem: Should correct with correction of blood glucose and IV insulin (5) Hyponatremia Current Visit: Yes Status: Acute Plan to address problem: Will correct with IV fluids and correction of blood glucose levels (6) Metabolic acidosis Current Visit: Yes Status: Acute Plan to address problem: Severe IV bicarb given No need for bicarb drip (7) Hyperlipidemia Current Visit: Yes Status: Chronic Qualifiers: Hyperlipidemia type: mixed hyperlipidemia Qualified Code(s): E78.2 - Mixed hyperlipidemia Plan to address problem: Patient's triglycerides and LDL are high Patient initiated on statins and fenofibrate (8) Marijuana use Current Visit: Yes Status: Acute Plan to address problem: Patient to be counseled by primary team when patient is more alert and oriented. At this point patient is lethargic (9) Polycythemia due to fall in plasma volume Current Visit: Yes Status: Acute Plan to address problem: IV fluids for now (10) DVT prophylaxis Current Visit: Yes Status: Acute Plan to address problem: On heparin and GI prophylaxis
[2020-10-25] MEDS ORDERED: INSULIN GLARGINE 100 UNITS/ML SUB-Q SCH ×2 (01:00→22:00)
[2020-10-25] MEDS: D5W/0.45% NACL/KCL 20 MEQ 20 MEQ/1,000 ML BAG IV SCH ×2 (01:21→08:57)
[2020-10-25 02:11] LABS: BUN/Creatinine Ratio 13; Blood Urea Nitrogen 19 mg/dL (9-20); Calcium 9.4 mg/dL (8.4-10.2); Hemolysis Index 13
[2020-10-25] MEDS: INSULIN REGULAR, HUMAN 100 UNITS in SODIUM CHLORIDE 0.9% 99 ML IV SCH (04:34)
[2020-10-25] MEDS ORDERED: ACETAMINOPHEN 325 MG TAB PO PRN (07:45)
--- NOTE | 2020-10-25 10:43 | Progress Note ---
Assessment and Plan Assessment and plan: This is a 34-year-old male with insulin-dependent diabetes mellitus who is admitted with DKA, SUSHMA and electrolyte imbalances SIRS (POA, leukocytosis, tachypnea, tachycardia) DKA Metabolic acidosis Acute kidney injury 2/2 vasomotor nephropathy Hyponaturemia /Pseudonatermia Hyperglycemia Hyperphosphatemia Hypermagnesemia Hyperlipidemia Polycythemia Marijuana use Insulin-dependent diabetes mellitus -[facility], nutrition consulted, appreciate recommendations -COVID-19 PCR pending -s/p sodium bicarb IVP -Insulin gtt -Statin -Once able to d/c gtt, will place on SSI and long acting (patient takes lantus at home) -NPO for now -Repeat Mg and phos pending -Trend CBC and BMP DVT/GI prophylaxis: SCDs to BLE while in bed, heparin subq, no indication for GI prophylaxsis Dispo: possible transfer to floor The high probability of a clinically significant, sudden or life threatening deterioration of the [endo] system(s) required my full and direct attention, intervention and personal management. The aggregate critical care time was [25] minutes. This time is in addition to time spent performing reported procedures but includes the following: [x] Data Review and interpretation [x] Patient assessment and monitoring of vital signs [x] Documentation [x] Medication orders and management History Interval history: This is a 34-year-old male with insulin-dependent diabetes mellitus who presented to the emergency department on 10/24 with complaints of nausea, v omiting, fatigue and shortness of breath for 1 day. Work-up in the emergency department showed lab work consistent with DKA, SUSHMA and electrolyte imbalances and patient was admitted to the hospital service with consults to [facility]. 10/25: Patient remains on insulin drip, SUSHMA initailly improved but his Cr is increasing. Awaiting repeat AM BMP to determine if anion gap is closed to transitioned to SSI/long acting insulin. Hospitalist Physical - Constitutional Vitals: Temp Pulse Resp BP Pulse Ox 98.6 F 82 15 109/78 98 10/25/20 03:54 10/25/20 09:00 10/25/20 09:00 10/25/20 09:00 10/25/20 09:00 General appearance: Present: mild distress, well-nourished Results - Labs CBC & Chem 7: 10/24/20 16:29 10/25/20 01:34 Labs: Laboratory Last Values WBC 17.0 K/mm3 (4.5-11.0) H 10/24/20 16:29 RBC 5.15 M/mm3 (3.65-5.03) H 10/24/20 16:29 Hgb 16.7 gm/dl (11.8-15.2) H 10/24/20 16: Hct 51.6 % (35.5-45.6) H 10/24/20 16:29 MCV 100 fl (84-94) H 10/24/20 16:29 MCH 32 pg (28-32) 10/24/20 16: MCHC 32 % (32-34) 10/24/20 16: RDW 13.6 % (13.2-15.2) 10/24/20 16: Plt Count 213 K/mm3 (140-440) 10/24/20 16: Lymph % (Auto) 6.9 % (13.4-35.0) L 10/24/20 16: [place] % (Auto) 4.0 % (0.0-7.3) 10/24/20 16: Eos % (Auto) 0.1 % (0.0-4.3) 10/24/20 16: Baso % (Auto) 0.2 % (0.0-1.8) 10/24/20 16: Lymph # (Auto) 1.2 K/mm3 (1.2-5.4) 10/24/20 16: [place] # (Auto) 0.7 K/mm3 (0.0-0.8) 10/24/20 16: Eos # (Auto) 0.0 K/mm3 (0.0-0.4) 10/24/20 16:29 Baso # (Auto) 0.0 K/mm3 (0.0-0.1) 10/24/20 16:29 Seg Neutrophils % 88.8 % (40.0-70.0) H 10/24/20 16: Seg Neutrophils # 15.1 K/mm3 (1.8-7.7) H 10/24/20 16: VBG pH 7.035 (7.320-7.420) L* 10/24/20 16:29 Sodium 136 mmol/L (137-145) L 10/25/20 01:34 Potassium 4.2 mmol/L (3.6-5.0) D 10/25/20 01:34 Chloride 98.9 mmol/L (98-107) 10/25/20 01:34 Carbon Dioxide 10 mmol/L (22-30) L 10/25/20 01:34 Anion Gap 31 mmol/L 10/25/20 01:34 BUN 19 mg/dL (9-20) 10/25/20 01:34 Creatinine 1.5 mg/dL (0.8-1.3) H 10/25/20 01:34 Estimated GFR > 60 ml/min 10/25/20 01:34 BUN/Creatinine Ratio 13 % 10/25/20 01:34 Glucose 175 mg/dL (75-100) H 10/25/20 01:34 POC Glucose 143 mg/dL (70-105) H 10/25/20 06:21 Hemoglobin A1c 9.7 % (4-6) H 10/24/20 19:33 Osmolality 325 Mosm/kg 10/24/20 19:33 Calcium 9.4 mg/dL (8.4-10.2) 10/25/20 01:34 Phosphorus 4.60 mg/dL (2.5-4.5) H D 10/24/20 19:33 Magnesium 2.50 mg/dL (1.7-2.3) H 10/24/20 19:33 Total Bilirubin 0.30 mg/dL (0.1-1.2) 10/24/20 16:29 AST 28 units/L (5-40) 10/24/20 16:29 ALT 25 units/L (7-56) 10/24/20 16:29 Alkaline Phosphatase 70 units/L (35-129) 10/24/20 16:29 Total Protein 9.4 g/dL (6.3-8.2) H 10/24/20 16:29 Albumin 5.9 g/dL (3.9-5) H 10/24/20 16:29 Albumin/Globulin Ratio 1.7 % 10/24/20 16:29 Triglycerides 344 mg/dL (2-149) H 10/24/20 19:33 Cholesterol 230 mg/dL (50-199) H 10/24/20 19:33 LDL Cholesterol Direct 139 mg/dL (50-130) H 10/24/20 19:33 HDL Cholesterol 38 mg/dL (40-59) L 10/24/20 19:33 Cholesterol/HDL Ratio 6.05 % 10/24/20 19:33 Urine Color Yellow (Yellow) 10/24/20 18:16 Urine Turbidity Slightly-cloudy (Clear) 10/24/20 18:16 Urine pH 6.0 (5.0-7.0) 10/24/20 18:16 Ur Specific [place] 1.020 (1.003-1.030) 10/24/20 18:16 Urine Protein >500 mg/dL (Negative) 10/24/20 18:16 Urine Glucose (UA) >=500 mg/dL (Negative) 10/24/20 18:16 Urine Ketones 80 mg/dL (Negative) 10/24/20 18:16 Urine Blood Lg (Negative) 10/24/20 18:16 Urine Nitrite Neg (Negative) 10/24/20 18:16 Urine Bilirubin Neg (Negative) 10/24/20 18:16 Urine Urobilinogen < 2.0 mg/dL (<2.0) 10/24/20 18:16 Ur Leukocyte Esterase Neg (Negative) 10/24/20 18:16 Urine WBC (Auto) 1.0 /HPF (0.0-6.0) 10/24/20 18:16 Urine RBC (Auto) > 182.0 /HPF (0.0-6.0) 10/24/20 18:16 Urine Mucus Few /HPF 10/24/20 18:16 Urine Opiates Screen Negative 10/24/20 18:16 Urine Methadone Screen Negative 10/24/20 18:16 Ur Barbiturates Screen Negative 10/24/20 18:16 Ur Phencyclidine Scrn Negative 10/24/20 18:16 Ur Amphetamines Screen Negative 10/24/20 18:16 U Benzodiazepines Scrn Negative 10/24/20 18:16 Urine Cocaine Screen Negative 10/24/20 18:16 U Marijuana (THC) Screen Positive 10/24/20 18:16 Drugs of Abuse Note Disclamer 10/24/20 18:16 Thomas/IV: Voiding Method Urinal Active Medications - Current Medications Current Medications: Generic Name Dose Route Start Last Admin Trade Name Freq PRN Reason Stop Dose Admin Acetaminophen 650 mg 10/25/20 07:45 Acetaminophen 325 Mg Tab PO Q6H PRN Pain MILD(1-3)/Fever >100.5/SIMS Atorvastatin Calcium 40 mg 10/25/20 22:00 Atorvastatin 40 Mg Tab PO QHS YONNY Dextrose 0 ml 10/24/20 18:42 Dextrose 50% In Water (25gm) 50 Ml Syringe IV Q30MIN PRN Hypoglycemia Protocol Heparin Sodium (Porcine) 5,000 unit 10/25/20 22:00 Heparin 5,000 Unit/1 Ml Vial SUB-Q Q12HR YONNY Hydromorphone HCl 0.5 mg 10/24/20 20:48 10/24/20 21:08 Hydromorphone 1 Mg/1 Ml Inj IV 0.5 mg Q3H PRN Administration Pain , Severe (7-10) Insulin Human Regular 100 100 mls @ 1 mls/hr 10/24/20 18:00 10/25/20 09:30 units/ Sodium Chloride IV 0 units/hr TITR YONNY 0 mls/hr Titration Protocol 1 UNITS/HR Potassium Chloride/Dextrose/Sod Cl 20 meq in 1,000 mls @ 125 mls/hr 10/25/20 01:00 10/25/20 08:57 D5w/0.45% Nacl/Kcl 20 Meq IV 125 mls/hr DIRECT YONNY Administration Metoclopramide HCl 10 mg 10/24/20 21:49 10/24/20 22:49 Metoclopramide 10 Mg/2 Ml Inj IV 10 mg Q6H PRN Administration Nausea And Vomiting Ondansetron HCl 4 mg 10/24/20 20:48 10/24/20 21:08 Ondansetron 4 Mg/2 Ml Inj IV 4 mg Q4H PRN Administration Nausea And Vomiting Sodium Chloride 10 ml 10/24/20 19:00 Sodium Chloride 0.9% 10 Ml Flush Syringe IV PRN PRN LINE FLUSH Nutrition/Malnutrition Assess - Dietary Evaluation Nutrition/Malnutrition Findings: Nutrition Notes Start: 10/25/20 10:21 Freq: Status: Active Protocol: Document 10/25/20 10:21 (Rec: 10/25/20 10:24 [id number]) Nutrition Notes Need for Assessment generated from: MD Order,Education Initial or Follow up Brief Note Current Diagnosis Diabetes,Hyperlipidemia Other Pertinent Diagnosis DKA Current Diet NPO Subjective/Other Information MD order for diet edcuation. Pt understands DM diet and typically estimates or measures his CHO portions. Pt encouraged to take insulin and check blood sugars often. Nutrition Diagnosis Limited adherence to nutrition -related recommendations Etiology motivation As Evidenced by Signs and Symptoms pt sometimes struggles with measuring CHO choices and taking insulin Nutrition Intervention Teaching Recipient Patient Learning Readiness Good Teaching Methods Handout Response to Teaching Verbalize understanding Education Handouts Provided Planning Healthy Meals Barriers to Learning No Barriers RD phone number provided Yes Patient aware of follow up options Yes Revisit per MD consult or patient Sign Off request:
--- NOTE | 2020-10-25 11:22 | Consultation ---
History of Present Illness - Reason for Consult Consult date: 10/25/20 DKA - History of Present Illness 34 y/o male admitted with DKA and shortness of breath Past History Past Medical History: diabetes Medications and Allergies Allergies Allergy/AdvReac Type Severity Reaction Status Date / Time No Known Allergies Allergy Verified 08/09/19 21:30 Home Medications Medication Instructions Recorded Confirmed Last Taken Type Insulin Glargine [Lantus VIAL] 25 units SUB-Q QHS #1 vial 01/03/20 Unknown Rx Lispro Insulin [HumaLOG] 9 unit SUB-Q AC #1 vial 01/03/20 Unknown Rx Active Meds: Active Medications Acetaminophen (Acetaminophen 325 Mg Tab) 650 mg PO Q6H PRN PRN Reason: Pain MILD(1-3)/Fever >100.5/SIMS Atorvastatin Calcium (Atorvastatin 40 Mg Tab) 40 mg PO QHS YONNY Dextrose (Dextrose 50% In Water (25gm) 50 Ml Syringe) 0 ml IV Q30MIN PRN; Protocol PRN Reason: Hypoglycemia Heparin Sodium (Porcine) (Heparin 5,000 Unit/1 Ml Vial) 5,000 unit SUB-Q Q12HR YONNY Hydromorphone HCl (Hydromorphone 1 Mg/1 Ml Inj) 0.5 mg IV Q3H PRN PRN Reason: Pain , Severe (7-10) Last Admin: 10/24/20 21:08 Dose: 0.5 mg Documented by: Insulin Human Regular 100 (units/ Sodium Chloride) 100 mls @ 1 mls/hr IV TITR YONNY; Protocol Last Titration: 10/25/20 09:30 Dose: 0 units/hr, 0 mls/hr Documented by: Potassium Chloride/Dextrose/Sod Cl (D5w/0.45% Nacl/Kcl 20 Meq) 20 meq in 1,000 mls @ 125 mls/hr IV DIRECT YONNY Last Admin: 10/25/20 08:57 Dose: 125 mls/hr Documented by: Metoclopramide HCl (Metoclopramide 10 Mg/2 Ml Inj) 10 mg IV Q6H PRN PRN Reason: Nausea And Vomiting Last Admin: 10/24/20 22:49 Dose: 10 mg Documented by: Ondansetron HCl (Ondansetron 4 Mg/2 Ml Inj) 4 mg IV Q4H PRN PRN Reason: Nausea And Vomiting Last Admin: 10/24/20 21:08 Dose: 4 mg Documented by: Sodium Chloride (Sodium Chloride 0.9% 10 Ml Flush Syringe) 10 ml IV PRN PRN PRN Reason: LINE FLUSH Review of Systems All systems: negative Exam - Constitutional Vitals: Temp Pulse Resp BP Pulse Ox 98.6 F 82 16 104/72 98 10/25/20 03:54 10/25/20 10:00 10/25/20 10:00 10/25/20 10:00 10/25/20 10:00 General appearance: Present: no acute distress, other (thin) - EENT Eyes: Present: PERRL, EOM intact ENT: hearing intact - Neck Neck: Present: supple, normal ROM - Respiratory Respiratory effort: normal Respiratory: bilateral: CTA - Cardiovascular Rhythm: regular - Extremities Extremities: no ischemia, pulses intact, pulses symmetrical, No edema - Abdominal General gastrointestinal: Present: soft, non-tender, normal bowel sounds - Rectal Rectal Exam: deferred Results - Labs CBC & Chem 7: 10/24/20 16:29 10/25/20 01:34 Labs: Abnormal lab results 10/24/20 10/24/20 10/24/20 Range/Units 16:29 16:29 16:29 WBC 17.0 H (4.5-11.0) K/mm3 RBC 5.15 H (3.65-5.03) M/mm3 Hgb 16.7 H (11.8-15.2) gm/dl Hct 51.6 H (35.5-45.6) % MCV 100 H (84-94) fl Lymph % (Auto) 6.9 L (13.4-35.0) % Seg Neutrophils % 88.8 H (40.0-70.0) % Seg Neutrophils # 15.1 H (1.8-7.7) K/mm3 VBG pH 7.035 L* (7.320-7.420) Sodium 131 L (137-145) mmol/L Potassium 5.4 H (3.6-5.0) mmol/L Chloride 87.5 L (98-107) mmol/L Carbon Dioxide 5 L* (22-30) mmol/L Creatinine 1.5 H (0.8-1.3) mg/dL Glucose 466 H (75-100) mg/dL POC Glucose (70-105) mg/dL Hemoglobin A1c (4-6) % Phosphorus (2.5-4.5) mg/dL Magnesium (1.7-2.3) mg/dL Total Protein 9.4 H (6.3-8.2) g/dL Albumin 5.9 H (3.9-5) g/dL Triglycerides (2-149) mg/dL Cholesterol (50-199) mg/dL LDL Cholesterol Direct (50-130) mg/dL HDL Cholesterol (40-59) mg/dL 10/24/20 10/24/20 10/24/20 Range/Units 17:36 17:36 19:33 WBC (4.5-11.0) K/mm3 RBC (3.65-5.03) M/mm3 Hgb (11.8-15.2) gm/dl Hct (35.5-45.6) % MCV (84-94) fl Lymph % (Auto) (13.4-35.0) % Seg Neutrophils % (40.0-70.0) % Seg Neutrophils # (1.8-7.7) K/mm3 VBG pH (7.320-7.420) Sodium 135 L 134 L (137-145) mmol/L Potassium 5.8 H 5.4 H (3.6-5.0) mmol/L Chloride 92.8 L 95.7 L (98-107) mmol/L Carbon Dioxide 4 L* 5 L* (22-30) mmol/L Creatinine (0.8-1.3) mg/dL Glucose 435 H 311 H (75-100) mg/dL POC Glucose (70-105) mg/dL Hemoglobin A1c (4-6) % Phosphorus 6.90 H (2.5-4.5) mg/dL Magnesium (1.7-2.3) mg/dL Total Protein (6.3-8.2) g/dL Albumin (3.9-5) g/dL Triglycerides (2-149) mg/dL Cholesterol (50-199) mg/dL LDL Cholesterol Direct (50-130) mg/dL HDL Cholesterol (40-59) mg/dL 10/24/20 10/24/20 10/24/20 Range/Units 19:33 19:33 19:36 WBC (4.5-11.0) K/mm3 RBC (3.65-5.03) M/mm3 Hgb (11.8-15.2) gm/dl Hct (35.5-45.6) % MCV (84-94) fl Lymph % (Auto) (13.4-35.0) % Seg Neutrophils % (40.0-70.0) % Seg Neutrophils # (1.8-7.7) K/mm3 VBG pH (7.320-7.420) Sodium (137-145) mmol/L Potassium (3.6-5.0) mmol/L Chloride (98-107) mmol/L Carbon Dioxide (22-30) mmol/L Creatinine (0.8-1.3) mg/dL Glucose (75-100) mg/dL POC Glucose 347 H (70-105) mg/dL Hemoglobin A1c 9.7 H (4-6) % Phosphorus 4.60 H D (2.5-4.5) mg/dL Magnesium 2.50 H (1.7-2.3) mg/dL Total Protein (6.3-8.2) g/dL Albumin (3.9-5) g/dL Triglycerides 344 H (2-149) mg/dL Cholesterol 230 H (50-199) mg/dL LDL Cholesterol Direct 139 H (50-130) mg/dL HDL Cholesterol 38 L (40-59) mg/dL 10/24/20 10/24/20 10/24/20 Range/Units 20:40 21:39 22:36 WBC (4.5-11.0) K/mm3 RBC (3.65-5.03) M/mm3 Hgb (11.8-15.2) gm/dl Hct (35.5-45.6) % MCV (84-94) fl Lymph % (Auto) (13.4-35.0) % Seg Neutrophils % (40.0-70.0) % Seg Neutrophils # (1.8-7.7) K/mm3 VBG pH (7.320-7.420) Sodium (137-145) mmol/L Potassium (3.6-5.0) mmol/L Chloride (98-107) mmol/L Carbon Dioxide (22-30) mmol/L Creatinine (0.8-1.3) mg/dL Glucose (75-100) mg/dL POC Glucose 272 H 288 H 319 H (70-105) mg/dL Hemoglobin A1c (4-6) % Phosphorus (2.5-4.5) mg/dL Magnesium (1.7-2.3) mg/dL Total Protein (6.3-8.2) g/dL Albumin (3.9-5) g/dL Triglycerides (2-149) mg/dL Cholesterol (50-199) mg/dL LDL Cholesterol Direct (50-130) mg/dL HDL Cholesterol (40-59) mg/dL 10/24/20 10/25/20 10/25/20 Range/Units 23:38 00:32 01:19 WBC (4.5-11.0) K/mm3 RBC (3.65-5.03) M/mm3 Hgb (11.8-15.2) gm/dl Hct (35.5-45.6) % MCV (84-94) fl Lymph % (Auto) (13.4-35.0) % Seg Neutrophils % (40.0-70.0) % Seg Neutrophils # (1.8-7.7) K/mm3 VBG pH (7.320-7.420) Sodium (137-145) mmol/L Potassium (3.6-5.0) mmol/L Chloride (98-107) mmol/L Carbon Dioxide (22-30) mmol/L Creatinine (0.8-1.3) mg/dL Glucose (75-100) mg/dL POC Glucose 286 H 241 H 200 H (70-105) mg/dL Hemoglobin A1c (4-6) % Phosphorus (2.5-4.5) mg/dL Magnesium (1.7-2.3) mg/dL Total Protein (6.3-8.2) g/dL Albumin (3.9-5) g/dL Triglycerides (2-149) mg/dL Cholesterol (50-199) mg/dL LDL Cholesterol Direct (50-130) mg/dL HDL Cholesterol (40-59) mg/dL 10/25/20 10/25/20 10/25/20 Range/Units 01:34 02:22 03:24 WBC (4.5-11.0) K/mm3 RBC (3.65-5.03) M/mm3 Hgb (11.8-15.2) gm/dl Hct (35.5-45.6) % MCV (84-94) fl Lymph % (Auto) (13.4-35.0) % Seg Neutrophils % (40.0-70.0) % Seg Neutrophils # (1.8-7.7) K/mm3 VBG pH (7.320-7.420) Sodium 136 L (137-145) mmol/L Potassium (3.6-5.0) mmol/L Chloride (98-107) mmol/L Carbon Dioxide 10 L (22-30) mmol/L Creatinine 1.5 H (0.8-1.3) mg/dL Glucose 175 H (75-100) mg/dL POC Glucose 194 H 227 H (70-105) mg/dL Hemoglobin A1c (4-6) % Phosphorus (2.5-4.5) mg/dL Magnesium (1.7-2.3) mg/dL Total Protein (6.3-8.2) g/dL Albumin (3.9-5) g/dL Triglycerides (2-149) mg/dL Cholesterol (50-199) mg/dL LDL Cholesterol Direct (50-130) mg/dL HDL Cholesterol (40-59) mg/dL 10/25/20 10/25/20 10/25/20 Range/Units 04:29 05:21 06:21 WBC (4.5-11.0) K/mm3 RBC (3.65-5.03) M/mm3 Hgb (11.8-15.2) gm/dl Hct (35.5-45.6) % MCV (84-94) fl Lymph % (Auto) (13.4-35.0) % Seg Neutrophils % (40.0-70.0) % Seg Neutrophils # (1.8-7.7) K/mm3 VBG pH (7.320-7.420) Sodium (137-145) mmol/L Potassium (3.6-5.0) mmol/L Chloride (98-107) mmol/L Carbon Dioxide (22-30) mmol/L Creatinine (0.8-1.3) mg/dL Glucose (75-100) mg/dL POC Glucose 194 H 159 H 143 H (70-105) mg/dL Hemoglobin A1c (4-6) % Phosphorus (2.5-4.5) mg/dL Magnesium (1.7-2.3) mg/dL Total Protein (6.3-8.2) g/dL Albumin (3.9-5) g/dL Triglycerides (2-149) mg/dL Cholesterol (50-199) mg/dL LDL Cholesterol Direct (50-130) mg/dL HDL Cholesterol (40-59) mg/dL - Imaging and Cardiology Chest x-ray: image reviewed Assessment and Plan 34 y/o male with DKA and obstructive lung disease, likely asthma. 1. Given dka, won't start on steroids. Will add BID Pulmicort and Brovana BID 2. Follow up COVID testing 3. Continue insulin drip until Anion Gap closes, NPO status 4. Will continue ICU monitoring. CCT 31 minutes.
[2020-10-25 15:14] LABS: Hemoglobin 14.8 gm/dl (11.8-15.2); Mean Corpuscular HGB Conc 34 % (32-34); Mean Corpuscular Volume 95 fl (84-94); Platelet Count 190 K/mm3 (140-440); Red Blood Count 4.62 M/mm3 (3.65-5.03)
[2020-10-25 15:34] LABS: BUN/Creatinine Ratio 21; Blood Urea Nitrogen 21 mg/dL (9-20); Calcium 9.2 mg/dL (8.4-10.2); Hemolysis Index 12
[2020-10-25] MEDS ORDERED: DEXTROSE 50% IN WATER (25GM) 50 ML SYRINGE IV PRN (16:23)
[2020-10-25] MEDS ORDERED: INSULIN LISPRO 100 UNIT/ML SUB-Q ONE (16:27)
[2020-10-25] MEDS ORDERED: LACTATED RINGERS 1,000 ML IV ONE (16:27)
--- NOTE | 2020-10-25 16:31 | Event Note ---
Paged by RN to inform AG closed. Ordered additional 1 L LR bolus, transitioned to SSI with long acting insulin. Ordered CC diet. Transfer to floor. Hypoglycemia protocol in place.
[2020-10-25] MEDS ORDERED: SODIUM PHOSPHATE 30 MMOL in SODIUM CHLORIDE 0.9% 500 ML 500 ML IV ONE (16:32)
[2020-10-25] MEDS: INSULIN LISPRO 100 UNIT/ML SUB-Q SCH ×2 (16:42→21:09)
[2020-10-25 18:57] LABS: BUN/Creatinine Ratio 18; Blood Urea Nitrogen 20 mg/dL (9-20); Calcium 8.9 mg/dL (8.4-10.2); Hemolysis Index 123
[2020-10-25] MEDS: ARFORMOTEROL 15 MCG/2 ML NEBU IH SCH (19:37)
[2020-10-25] MEDS: BUDESONIDE 0.5 MG/2 ML NEBU IH SCH (19:37)
[2020-10-25] MEDS: HEPARIN 5,000 UNIT/1 ML VIAL SUB-Q SCH (21:08)
[2020-10-25 21:39] LABS: Creatinine,Urine 239.8 mg/dL (0.1-20.0)
[2020-10-26 06:54] LABS: BUN/Creatinine Ratio 21; Blood Urea Nitrogen 19 mg/dL (9-20); Calcium 8.7 mg/dL (8.4-10.2); Hemolysis Index 7
[2020-10-26] MEDS ORDERED: POTASSIUM CHLORIDE 10 MEQ 10 MEQ/100 ML BAG IV SCH (08:30)
[2020-10-26] MEDS ORDERED: POTASSIUM CHLORIDE ER 20 MEQ TAB PO SCH (09:00)
[2020-10-26] MEDS ORDERED: INSULIN GLARGINE 100 UNITS/ML SUB-Q ONE (09:00)
[2020-10-26] MEDS: INSULIN LISPRO 100 UNIT/ML SUB-Q SCH ×2 (09:06→11:24)
[2020-10-26] MEDS: HEPARIN 5,000 UNIT/1 ML VIAL SUB-Q SCH (09:10)
--- NOTE | 2020-10-26 09:26 | Discharge Summary ---
Providers - Providers Date of Admission: 10/25/20 21:53 Date of discharge: 10/26/20 Attending physician: LOPEZ BANERJEE 10/24/20 18:42 Consult to Dietitian/Nutrition [CONS] Routine Physician Instructions: Reason For Exam: DKA Reason for Consult: Nutrition Recommendations Reason for Consult: Diet education Primary care physician: SPEECH ASSISTANT Hospitalization Condition: Serious Hospital course: 34-year-old -[place] male comes in for shortness of breath since yesterday. Also nausea and vomiting since this morning. No cough. No fever. Patient is type 1 diabetes. On Lantus at bedtime and Humalog before each meal. No fever or chills. No exposure to coronavirus. Patient says he has been taking his insulin regularly. Generalized headaches in the morning which is resolved. Feels very thirsty and short of breath. No chest pain. In the ER patient was found to be in diabetic ketoacidosis. His bicarb was 5. Hospital course Patient was started on IV insulin for DKA transferred to the ICU for close monitoring. Due to possible exacerbation, patient was started on bronchodilators. Patient's anion gap closed and subcutaneous insulin was initiated and patient was transferred to general medical floors. Patient mentions that he usually takes 25 units of Lantus at night and takes roughly 6 to 8 units of insulin with lunch. He usually gets blood glucose ranging 200- 300s. His hemoglobin A1c is>9.His Lantus will be increased to 32 units at night and he will continue 6-8 units with meals. He has been advised to follow-up with his PCP within a week. He mentions he already has enough insulin at home. He will continue to check his blood glucose levels and see his PCP with recorded values obtained. He agrees with management. Disposition: DC-01 TO HOME OR SELFCARE Final Discharge Diagnosis (Prints w/discharge instructions): DKA Time spent for discharge: 40 minutes Core Measure Documentation - Palliative Care Palliative Care/ Comfort Measures: Not Applicable - Core Measures Any of the following diagnoses?: none Exam - Constitutional Vitals: Temp Pulse Resp BP Pulse Ox 98.1 F 73 18 111/81 99 10/26/20 07:50 10/26/20 07:50 10/26/20 07:50 10/26/20 07:50 05/10/21 07:50 General appearance: Present: no acute distress, well-nourished - EENT Eyes: Present: PERRL ENT: hearing intact, clear oral mucosa - Neck Neck: Present: supple, normal ROM - Respiratory Respiratory effort: normal Respiratory: bilateral: CTA - Cardiovascular Heart Sounds: Present: S1 & S2. Absent: rub, click - Extremities Extremities: pulses symmetrical, No edema Peripheral Pulses: within normal limits - Abdominal General gastrointestinal: Present: soft, non-tender, non-distended, normal bowel sounds Male genitourinary: Present: normal - Integumentary Integumentary: Present: clear, warm, dry - Musculoskeletal Musculoskeletal: gait normal, strength equal bilaterally - Psychiatric Psychiatric: appropriate mood/affect, intact judgment & insight - Neurologic Neurologic: CNII-XII intact, moves all extremities Plan Diet: diabetic Additional Instructions: Increase Lantus to 32-34 units at night. Continue lispro 8 units before each meal. Continue to check your blood glucose before every meal. Follow-up with primary medical doctor in 1 week Follow up with: PRIMARY MD GEORGETTE [Primary Care Provider] - 3-5 Days
[2020-10-26] MEDS: ARFORMOTEROL 15 MCG/2 ML NEBU IH SCH (09:58)
[2020-10-26] MEDS: BUDESONIDE 0.5 MG/2 ML NEBU IH SCH (09:59)
[2020-10-26 11:00] VITALS: BP 116/74
== END 2020-10-26 12:51 | disposition home or self-care (01) | DRG 637 ==
LOC: ED 14:32 → 4A 17:21 → CC1 18:27 → UNDOADMIN 18:27 → ED 22:28 → INTOOBSV 10-25 21:53 → UNDOADMOB 10-25 21:53 → 4A 10-25 21:53 → OBSVTOIN 10-25 21:53 → 4A 10-26 12:07
PROVIDERS: ADMIT Internal Medicine; ATTEND Internal Medicine
DX: E10.10 Type 1 diabetes mellitus with ketoacidosis without coma (principal); N17.0 Acute kidney failure with tubular necrosis; G93.41 Metabolic encephalopathy; R65.10 Systemic inflammatory response syndrome (SIRS) of non-infectious origin without acute organ dysfunction; E87.5 Hyperkalemia; E87.1 Hypo-osmolality and hyponatremia; F17.200 Nicotine dependence, unspecified, uncomplicated; E78.5 Hyperlipidemia, unspecified; D75.1 Secondary polycythemia; D72.829 Elevated white blood cell count, unspecified; E83.39 Other disorders of phosphorus metabolism; Z20.822 Contact with and (suspected) exposure to COVID-19; F12.90 Cannabis use, unspecified, uncomplicated; R06.82 Tachypnea, not elsewhere classified; R00.0 Tachycardia, unspecified; E83.41 Hypermagnesemia
CPT/HCPCS: 36415; 71045; 80048; 80053; 80061; 80307; 81001; 82043; 82805; 82962; 83036; 83735; 83930; 84100; 85025; 85027; 94640; 96365; G0378; A9270-GY; J1170; J1644; J1815; J2405; J2765; J7030; J7040; J7120; U0003

== ENCOUNTER 2020-12-09 22:53 | Inpatient (IN) | payer MEDICAID ==
[2020-12-10] MEDS ORDERED: LACTATED RINGERS 1,000 ML IV ONE ×2 (02:25→03:31)
--- NOTE | 2020-12-10 02:25 | Emergency Department Report ---
ED General Adult HPI - General Chief complaint: Hyperglycemia Stated complaint: DIZZINESS/KATE PUI?: No Source: patient Mode of arrival: Stretcher Limitations: Physical Limitation - History of Present Illness Initial comments: The patient is a 34-year-old gentleman. I have evaluated this patient in the past. He has a history of type 1 diabetes, and has had multiple evaluations and admission in the past in this hospital for diabetic ketoacidosis. The patient presents today with a complaint of painless weakness, malaise, fatigue, shortness of breath, feeling like he is having DKA. He denies dietary indiscretions. He reports compliance with his medications. He denies physical pain. His symptoms are constant. He does not describe exacerbating factors, relieving factors or aggravating factors. He is not sure what may have provoked this particular episode of DKA. -: Gradual Quality: other Consistency: other Improves with: other Worsens with: other Associated Symptoms: other - Related Data Previous Rx's Medication Instructions Recorded Last Taken Type Insulin Glargine [Lantus VIAL] 25 units SUB-Q QHS #1 vial 01/03/20 Unknown Rx Lispro Insulin [HumaLOG] 9 unit SUB-Q AC #1 vial 01/03/20 Unknown Rx Allergies Allergy/AdvReac Type Severity Reaction Status Date / Time No Known Allergies Allergy Verified 08/09/19 21:30 ED Review of Systems ROS: Stated complaint: DIZZINESS/KATE Other details as noted in HPI Constitutional: malaise, weakness Eyes: denies: eye discharge ENT: denies: congestion Respiratory: shortness of breath Cardiovascular: denies: chest pain Genitourinary: denies: dysuria Neurological: weakness ED Past Medical Hx - Past Medical History Previous Medical History?: Yes Hx Hypertension: No Hx Diabetes: Yes - Surgical History Past Surgical History?: No - Social History Smoking Status: Never Smoker - Medications Home Medications: Home Medications Medication Instructions Recorded Confirmed Last Taken Type Insulin Glargine [Lantus VIAL] 25 units SUB-Q QHS #1 vial 01/03/20 Unknown Rx Lispro Insulin [HumaLOG] 9 unit SUB-Q AC #1 vial 01/03/20 Unknown Rx ED Physical Exam - General Limitations: Physical Limitation General appearance: other (The patient is listless but arousable) - Head Head exam: Present: atraumatic, normocephalic - Eye Eye exam: Present: normal appearance, EOMI. Absent: nystagmus - ENT ENT exam: Present: normal orophraynx, mucous membranes dry, normal external ear exam - Neck Neck exam: Present: normal inspection, full ROM. Absent: tenderness - Respiratory Respiratory exam: Present: normal lung sounds bilaterally, accessory muscle use. Absent: respiratory distress, wheezes, rales, rhonchi, stridor - Cardiovascular Cardiovascular Exam: Present: normal rhythm, tachycardia, normal heart sounds. Absent: bradycardia, irregular rhythm, systolic murmur, diastolic murmur, rubs, gallop - GI/Abdominal GI/Abdominal exam: Present: soft. Absent: distended, tenderness, guarding, rebound, rigid, pulsatile mass - Rectal Rectal exam: Present: deferred - Extremities Exam Extremities exam: Present: normal inspection, full ROM, other (2+ pulses noted in the bilateral upper and lower extremities. There is no palpable cord. negative Homans sign. Muscular compartments are soft. The pelvis is stable.). Absent: pedal edema, calf tenderness - Back Exam Back exam: Present: normal inspection, full ROM. Absent: tenderness, CVA tenderness (R), CVA tenderness (L), paraspinal tenderness, vertebral tenderness - Neurological Exam Neurological exam: Present: alert, other (No facial droop. Tongue midline. Extraocular movements intact bilaterally. Facial sensation intact to light touch in V1, V2, V3 distribution bilaterally. 5 and a 5 strength in 4 extremities. Sensation intact to light touch in 4 extremities.) - Psychiatric Psychiatric exam: Present: flat affect - Skin Skin exam: Present: warm, dry, intact, normal color. Absent: rash ED Course Vital Signs 12/10/20 12/10/20 12/10/20 01:49 02:16 03:00 Temperature 97.8 F Pulse Rate 110 H 94 H 92 H Respiratory 18 18 20 Rate Blood Pressure 151/95 136/97 139/89 O2 Sat by Pulse 96 97 98 Oximetry O2 Sat by Pulse Oximetry [ Digit-Finger] 12/10/20 03:01 Temperature Pulse Rate Respiratory Rate Blood Pressure O2 Sat by Pulse Oximetry O2 Sat by Pulse 98 Oximetry [ Digit-Finger] - Reevaluation(s) Reevaluation #1: 12/10/20 02:34 Differential diagnosis, including but not limited to: Diabetic ketoacidosis, hyperosmolar state, thyroid derangement, electrolyte derangement, pneumonia, urinary tract infection, dehydration Assessment and plan: 34-year-old gentleman, with tachypnea, Kussmaul breathing, tachycardia, dry mucous membranes, hyperglycemia, who is listless, most likely with diabetic crisis. Place patient on equipment monitor phototypesetting, obtain EKG, urinalysis, x-ray of the chest, appropriate laboratory studies, start IV fluids, reassess after initial data points. We anticipate admission to the medical service for hyperglycemic crisis and diabetic ketoacidosis. Reevaluation #2: 12/10/20 03:00 Leukocytosis appreciated. Acidotic venous pH appreciated. Comprehensive metabolic panel pending. Appreciate that patient rules in for systemic inf lammatory response syndrome. Do not suspect invasive bacterial illness at this time, chest x-ray is negative, no fever, however urinalysis is pending. Leukocytosis, tachypnea and tachycardia likely physiologic responses to patient's underlying presumed DKA. Hospital physician, Dr. Malcolm Mahoney to admit to [facility] 12/10/20 03:30 Laboratory studies have demonstrated hyperglycemia, metabolic acidosis, pse udohyponatremia. IV fluids continued, insulin drip and push ordered. - Pulse Oximetry Interpretation Digit-Finger Initial Pulse Oximetry Readin O2 Sat by Pulse Oximetry: 98 Actions Taken: none ED Medical Decision Making - Lab Data Result diagrams: 12/10/20 02:30 12/10/20 02:30 Vital Signs 12/10/20 12/10/20 01:49 02:16 Temperature 97.8 F Pulse Rate 110 H 94 H Respiratory 18 18 Rate Blood Pressure 151/95 136/97 O2 Sat by Pulse 96 97 Oximetry Lab Results 12/10/20 12/10/20 12/10/20 Range/Units 01:52 02:30 02:30 WBC 18.0 H (4.5-11.0) K/mm3 RBC 5.21 H (3.65-5.03) M/mm3 Hgb 17.2 H (11.8-15.2) gm/dl Hct 51.7 H (35.5-45.6) % MCV 99 H (84-94) fl MCH 33 H (28-32) pg MCHC 33 (32-34) % RDW 13.3 (13.2-15.2) % Plt Count 274 (140-440) K/mm3 Add Manual Diff Complete Total Counted 100 Seg Neutrophils % Shot Hole Shooter Seg Neuts % (Manual) 91.0 H (40.0-70.0) % Lymphocytes % (Manual) 5.0 L (13.4-35.0) % Monocytes % (Manual) 4.0 (0.0-7.3) % Nucleated RBC % Not Reportable Seg Neutrophils # Man 16.4 H (1.8-7.7) K/mm3 Band Neutrophils # 0.0 K/mm3 Lymphocytes # (Manual) 0.9 L (1.2-5.4) K/mm3 Abs React Lymphs (Man) 0.0 K/mm3 Monocytes # (Manual) 0.7 (0.0-0.8) K/mm3 Eosinophils # (Manual) 0.0 (0.0-0.4) K/mm3 Basophils # (Manual) 0.0 (0.0-0.1) K/mm3 Metamyelocytes # 0.0 K/mm3 Myelocytes # 0.0 K/mm3 Promyelocytes # 0.0 K/mm3 Blast Cells # 0.0 K/mm3 WBC Morphology Not Reportable Hypersegmented Neuts Not Reportable Hyposegmented Neuts Not Reportable Hypogranular Neuts Not Reportable Smudge Cells Not Reportable Toxic Granulation Not Reportable Toxic Vacuolation Not Reportable Dohle Bodies Not Reportable Pelger-Huet Anomaly Not Reportable Ethan Rods Not Reportable Platelet Estimate Not Reportable Clumped Platelets Not Reportable Plt Clumps, EDTA Not Reportable Large Platelets Not Reportable Giant Platelets Not Reportable Platelet Satelliting Not Reportable Plt Morphology Comment Not Reportable RBC Morphology Normal Dimorphic RBCs Not Reportable Polychromasia Not Reportable Hypochromasia Not Reportable Poikilocytosis Not Reportable Anisocytosis Not Reportable Microcytosis Not Reportable Macrocytosis Not Reportable Spherocytes Not Reportable Pappenheimer Bodies Not Reportable Sickle Cells Not Reportable Target Cells Not Reportable Tear Drop Cells Not Reportable Ovalocytes Not Reportable Helmet Cells Not Reportable [place] Bodies Not Reportable [place] Rings Not Reportable Brant Cells Not Reportable Bite Cells Not Reportable Crenated Cell Not Reportable Elliptocytes Not Reportable Acanthocytes (Spur) Not Reportable Rouleaux Not Reportable Hemoglobin C Crystals Not Reportable Schistocytes Not Reportable Malaria parasites Not Reportable Elliott Bodies Not Reportable Hem Pathologist Commnt No PT (12.2-14.9) Sec. INR (0.87-1.13) VBG pH (7.320-7.420) Sodium 128 L (137-145) mmol/L Potassium 5.6 H (3.6-5.0) mmol/L Chloride 85.4 L (98-107) mmol/L Carbon Dioxide 9 L* (22-30) mmol/L Anion Gap 39 mmol/L BUN 35 H (9-20) mg/dL Creatinine 1.7 H (0.8-1.3) mg/dL Estimated GFR 56 ml/min BUN/Creatinine Ratio 21 % Glucose 575 H* (75-100) mg/dL POC Glucose 536 H (70-105) mg/dL Calcium 9.9 (8.4-10.2) mg/dL Magnesium (1.7-2.3) mg/dL Total Creatine Kinase (55-170) units/L TSH (0.270-4.200) mlU/mL Salicylates (2.8-20.0) mg/dL Acetaminophen (10.0-30.0) ug/mL Plasma/Serum Alcohol (0-0.07) % 12/10/20 12/10/20 12/10/20 Range/Units 02:30 02:30 02:30 WBC (4.5-11.0) K/mm3 RBC (3.65-5.03) M/mm3 Hgb (11.8-15.2) gm/dl Hct (35.5-45.6) % MCV (84-94) fl MCH (28-32) pg MCHC (32-34) % RDW (13.2-15.2) % Plt Count (140-440) K/mm3 Add Manual Diff Total Counted Seg Neutrophils % Seg Neuts % (Manual) (40.0-70.0) % Lymphocytes % (Manual) (13.4-35.0) % Monocytes % (Manual) (0.0-7.3) % Nucleated RBC % Seg Neutrophils # Man (1.8-7.7) K/mm3 Band Neutrophils # K/mm3 Lymphocytes # (Manual) (1.2-5.4) K/mm3 Abs React Lymphs (Man) K/mm3 Monocytes # (Manual) (0.0-0.8) K/mm3 Eosinophils # (Manual) (0.0-0.4) K/mm3 Basophils # (Manual) (0.0-0.1) K/mm3 Metamyelocytes # K/mm3 Myelocytes # K/mm3 Promyelocytes # K/mm3 Blast Cells # K/mm3 WBC Morphology Hypersegmented Neuts Hyposegmented Neuts Hypogranular Neuts Smudge Cells Toxic Granulation Toxic Vacuolation Dohle Bodies Pelger-Huet Anomaly Ethan Rods Platelet Estimate Clumped Platelets Plt Clumps, EDTA Large Platelets Giant Platelets Platelet Satelliting Plt Morphology Comment RBC Morphology Dimorphic RBCs Polychromasia Hypochromasia Poikilocytosis Anisocytosis Microcytosis Macrocytosis Spherocytes Pappenheimer Bodies Sickle Cells Target Cells Tear Drop Cells Ovalocytes Helmet Cells [place] Bodies [place] Rings [place] Cells Bite Cells Crenated Cell Elliptocytes Acanthocytes (Spur) Rouleaux Hemoglobin C Crystals Schistocytes Malaria parasites Elliott Bodies Hem Pathologist Commnt PT 13.5 (12.2-14.9) Sec. INR 0.98 (0.87-1.13) VBG pH 7.164 L* (7.320-7.420) Sodium (137-145) mmol/L Potassium (3.6-5.0) mmol/L Chloride (98-107) mmol/L Carbon Dioxide (22-30) mmol/L Anion Gap mmol/L BUN (9-20) mg/dL Creatinine (0.8-1.3) mg/dL Estimated GFR ml/min BUN/Creatinine Ratio % Glucose (75-100) mg/dL POC Glucose (70-105) mg/dL Calcium (8.4-10.2) mg/dL Magnesium 2.80 H (1.7-2.3) mg/dL Total Creatine Kinase 275 H (55-170) units/L TSH (0.270-4.200) mlU/mL Salicylates (2.8-20.0) mg/dL Acetaminophen (10.0-30.0) ug/mL Plasma/Serum Alcohol (0-0.07) % 12/10/20 12/10/20 12/10/20 Range/Units 02:30 02:30 02:30 WBC (4.5-11.0) K/mm3 RBC (3.65-5.03) M/mm3 Hgb (11.8-15.2) gm/dl Hct (35.5-45.6) % MCV (84-94) fl MCH (28-32) pg MCHC (32-34) % RDW (13.2-15.2) % Plt Count (140-440) K/mm3 Add Manual Diff Total Counted Seg Neutrophils % Seg Neuts % (Manual) (40.0-70.0) % Lymphocytes % (Manual) (13.4-35.0) % Monocytes % (Manual) (0.0-7.3) % Nucleated RBC % Seg Neutrophils # Man (1.8-7.7) K/mm3 Band Neutrophils # K/mm3 Lymphocytes # (Manual) (1.2-5.4) K/mm3 Abs React Lymphs (Man) K/mm3 Monocytes # (Manual) (0.0-0.8) K/mm3 Eosinophils # (Manual) (0.0-0.4) K/mm3 Basophils # (Manual) (0.0-0.1) K/mm3 Metamyelocytes # K/mm3 Myelocytes # K/mm3 Promyelocytes # K/mm3 Blast Cells # K/mm3 WBC Morphology Hypersegmented Neuts Hyposegmented Neuts Hypogranular Neuts Smudge Cells Toxic Granulation Toxic Vacuolation Dohle Bodies Pelger-Huet Anomaly Ethan Rods Platelet Estimate Clumped Platelets Plt Clumps, EDTA Large Platelets Giant Platelets Platelet Satelliting Plt Morphology Comment RBC Morphology Dimorphic RBCs Polychromasia Hypochromasia Poikilocytosis Anisocytosis Microcytosis Macrocytosis Spherocytes Pappenheimer Bodies Sickle Cells Target Cells Tear Drop Cells Ovalocytes Helmet Cells [place] Bodies [place] Rings [place] Cells Bite Cells Crenated Cell Elliptocytes Acanthocytes (Spur) Rouleaux Hemoglobin C Crystals Schistocytes Malaria parasites Elliott Bodies Hem Pathologist Commnt PT (12.2-14.9) Sec. INR (0.87-1.13) VBG pH (7.320-7.420) Sodium (137-145) mmol/L Potassium (3.6-5.0) mmol/L Chloride (98-107) mmol/L Carbon Dioxide (22-30) mmol/L Anion Gap mmol/L BUN (9-20) mg/dL Creatinine (0.8-1.3) mg/dL Estimated GFR ml/min BUN/Creatinine Ratio % Glucose (75-100) mg/dL POC Glucose (70-105) mg/dL Calcium (8.4-10.2) mg/dL Magnesium (1.7-2.3) mg/dL Total Creatine Kinase (55-170) units/L TSH 1.700 (0.270-4.200) mlU/mL Salicylates < 0.3 L (2.8-20.0) mg/dL Acetaminophen (10.0-30.0) ug/mL Plasma/Serum Alcohol < 0.01 (0-0.07) % 12/10/20 Range/Units 02:30 WBC (4.5-11.0) K/mm3 RBC (3.65-5.03) M/mm3 Hgb (11.8-15.2) gm/dl Hct (35.5-45.6) % MCV (84-94) fl MCH (28-32) pg MCHC (32-34) % RDW (13.2-15.2) % Plt Count (140-440) K/mm3 Add Manual Diff Total Counted Seg Neutrophils % Seg Neuts % (Manual) (40.0-70.0) % Lymphocytes % (Manual) (13.4-35.0) % Monocytes % (Manual) (0.0-7.3) % Nucleated RBC % Seg Neutrophils # Man (1.8-7.7) K/mm3 Band Neutrophils # K/mm3 Lymphocytes # (Manual) (1.2-5.4) K/mm3 Abs React Lymphs (Man) K/mm3 Monocytes # (Manual) (0.0-0.8) K/mm3 Eosinophils # (Manual) (0.0-0.4) K/mm3 Basophils # (Manual) (0.0-0.1) K/mm3 Metamyelocytes # K/mm3 Myelocytes # K/mm3 Promyelocytes # K/mm3 Blast Cells # K/mm3 WBC Morphology Hypersegmented Neuts Hyposegmented Neuts Hypogranular Neuts Smudge Cells Toxic Granulation Toxic Vacuolation Dohle Bodies Pelger-Huet Anomaly Ethan Rods Platelet Estimate Clumped Platelets Plt Clumps, EDTA Large Platelets Giant Platelets Platelet Satelliting Plt Morphology Comment RBC Morphology Dimorphic RBCs Polychromasia Hypochromasia Poikilocytosis Anisocytosis Microcytosis Macrocytosis Spherocytes Pappenheimer Bodies Sickle Cells Target Cells Tear Drop Cells Ovalocytes Helmet Cells [place] Bodies [place] Rings [place] Cells Bite Cells Crenated Cell Elliptocytes Acanthocytes (Spur) Rouleaux Hemoglobin C Crystals Schistocytes Malaria parasites Elliott Bodies Hem Pathologist Commnt PT (12.2-14.9) Sec. INR (0.87-1.13) VBG pH (7.320-7.420) Sodium (137-145) mmol/L Potassium (3.6-5.0) mmol/L Chloride (98-107) mmol/L Carbon Dioxide (22-30) mmol/L Anion Gap mmol/L BUN (9-20) mg/dL Creatinine (0.8-1.3) mg/dL Estimated GFR ml/min BUN/Creatinine Ratio % Glucose (75-100) mg/dL POC Glucose (70-105) mg/dL Calcium (8.4-10.2) mg/dL Magnesium (1.7-2.3) mg/dL Total Creatine Kinase (55-170) units/L TSH (0.270-4.200) mlU/mL Salicylates (2.8-20.0) mg/dL Acetaminophen < 5.0 L (10.0-30.0) ug/mL Plasma/Serum Alcohol (0-0.07) % - EKG Data -: EKG Interpreted by Me EKG shows normal: sinus rhythm Rate: normal - EKG Data 12/10/20 02:34 EKG interpreted at 02: 23 Sinus rhythm, 94 bpm. Normal axis, atrial enlargement, high left ventricular voltage, incomplete right bundle branch block, QTC is prolonged, symmetric peak T waves V3. Abnormal EKG. Not a STEMI. - Radiology Data Radiology results: pending, image reviewed interpreted by me: 1 view x-ray of the chest, interpreted by myself, negative for acute findings. Critical Care Time: Yes Critical care time in (mins) excluding proc time.: 35 Critical care attestation.: If time is entered above; I have spent that time in minutes in the direct care of this critically ill patient, excluding procedure time. ED Disposition Clinical Impression: Diabetic ketoacidosis, Kussmaul breathing, High anion gap metabolic acidosis, Polycythemia due to fall in plasma volume Disposition: DC-09 OP ADMIT IP TO THIS HOSP Is pt being admited?: Yes Does the pt Need Aspirin: No Condition: Critical
[2020-12-10] MEDS ORDERED: METOCLOPRAMIDE 10 MG/2 ML INJ IV ONE (02:41)
[2020-12-10 02:50] LABS: Hematocrit 51.7 % (35.5-45.6); Hemoglobin 17.2 gm/dl (11.8-15.2); Mean Corpuscular HGB Conc 33 % (32-34); Mean Corpuscular Volume 99 fl (84-94); Platelet Count 274 K/mm3 (140-440); Red Blood Count 5.21 M/mm3 (3.65-5.03); Red Cell Distribution Width 13.3 % (13.2-15.2)
--- NOTE | 2020-12-10 02:51 | XRay Report ---
CHEST 1 VIEW 12/10/2020 1:43 AM INDICATION / CLINICAL INFORMATION: dyspnea weakness. COMPARISON: 10/24/2020 FINDINGS: SUPPORT DEVICES: None. HEART / MEDIASTINUM: No significant abnormality. LUNGS / PLEURA: No significant pulmonary or pleural abnormality. No pneumothorax. ADDITIONAL FINDINGS: No significant additional findings. IMPRESSION: 1. No acute findings. Signer Name: Clay Mclaughlin MD Signed: 12/10/2020 2:46 AM Workstation Name: [id number]
[2020-12-10 03:01] LABS: INR 0.98 (0.87-1.13)
[2020-12-10 03:07] LABS: Calcium 9.9 mg/dL (8.4-10.2)
[2020-12-10 03:25] LABS: RBC Morphology Normal; Total Cells Counted 100
[2020-12-10] MEDS ORDERED: DEXTROSE 50% IN WATER (25GM) 50 ML SYRINGE IV PRN (03:29)
[2020-12-10] MEDS ORDERED: INSULIN REGULAR, HUMAN 100 UNITS/1 ML IV ONE (03:29)
--- NOTE | 2020-12-10 03:29 | History and Physical Report ---
History of Present Illness Date of examination: 12/10/20 Date of admission: 12/10/20 03:00 Chief complaint: General weakness Fatigue History of present illness: 34-year-old -[place] male with known history of diabetes mellitus and who has been admitted on multiple occasions for DKA presenting to the emergency room today complaining of generalized weakness, fatigue and shortness of breath. Patient denies any nausea vomiting, no abdominal pain, no fever or chills, no headache or dizziness. He denies any hematuria or dysuria. Patient denies any sick contacts and no recent travel. Denies contact with anyone with COVID-19. Patient states he feels as if he is in DKA. Work-up in the emergency room today reveals elevated blood glucose in the 500s, elevated anion gap of about 39, leukocytosis of 18, hyperkalemia of 5.6 and bicarb of 9. Patient is being admitted with DKA. He has been initiated on IV fluid and insulin drip. Past History Past Medical History: diabetes Past Surgical History: No surgical history Social history: smoking (Smokes occasionally), alcohol abuse (Drink alcohol occasionally) Family history: no significant family history Medications and Allergies Allergies Allergy/AdvReac Type Severity Reaction Status Date / Time No Known Allergies Allergy Verified 08/09/19 21:30 Home Medications Medication Instructions Recorded Confirmed Last Taken Type Insulin Glargine [Lantus VIAL] 25 units SUB-Q QHS #1 vial 01/03/20 Unknown Rx Lispro Insulin [HumaLOG] 9 unit SUB-Q AC #1 vial 01/03/20 Unknown Rx Review of Systems Constitutional: fatigue, weakness, no fever, no chills Ears, nose, mouth and throat: no nasal congestion, no sore throat Cardiovascular: no chest pain, no palpitations Respiratory: shortness of breath, no cough Gastrointestinal: no abdominal pain, no nausea, no vomiting, no diarrhea Genitourinary Male: no dysuria, no hematuria, no flank pain, no nocturia Musculoskeletal: no neck pain, no low back pain Integumentary: no rash, no pruritis Neurological: no headaches, no confusion Psychiatric: no anxiety, no depression Endocrine: no polyphagia, no polydipsia, no polyuria Exam - Constitutional Vitals: Temp Pulse Resp BP Pulse Ox 97.8 F 92 H 20 139/89 98 12/10/20 01:49 12/10/20 03:00 12/10/20 03:00 12/10/20 03:00 12/10/20 03:01 General appearance: Present: no acute distress, well-nourished, other (Appears lethargic) - EENT Eyes: Present: PERRL, EOM intact. Absent: scleral icterus ENT: hearing intact, clear oral mucosa, dentition normal - Neck Neck: Present: supple, normal ROM - Respiratory Respiratory effort: normal Respiratory: bilateral: CTA - Cardiovascular Rhythm: regular Heart Sounds: Present: S1 & S2. Absent: gallop, systolic murmur, diastolic mu rmur, rub, click - Extremities Extremities: no ischemia, pulses intact, pulses symmetrical, No edema, normal temperature, normal color, Full ROM Peripheral Pulses: within normal limits - Abdominal General gastrointestinal: Present: soft, non-tender, non-distended, normal bowel sounds. Absent: mass - Integumentary Integumentary: Present: clear, warm, dry. Absent: rash - Musculoskeletal Musculoskeletal: strength equal bilaterally - Psychiatric Psychiatric: appropriate mood/affect, intact judgment & insight, memory intact, cooperative - Neurologic Neurologic: CNII-XII intact, no focal deficits, moves all extremities Results - Labs CBC & Chem 7: 12/10/20 02:30 12/10/20 02:30 Labs: Abnormal lab results 12/10/20 12/10/20 12/10/20 Range/Units 01:52 02:30 02:30 WBC 18.0 H (4.5-11.0) K/mm3 RBC 5.21 H (3.65-5.03) M/mm3 Hgb 17.2 H (11.8-15.2) gm/dl Hct 51.7 H (35.5-45.6) % MCV 99 H (84-94) fl MCH 33 H (28-32) pg VBG pH (7.320-7.420) Sodium 128 L (137-145) mmol/L Potassium 5.6 H (3.6-5.0) mmol/L Chloride 85.4 L (98-107) mmol/L Carbon Dioxide 9 L* (22-30) mmol/L BUN 35 H (9-20) mg/dL Creatinine 1.7 H (0.8-1.3) mg/dL Glucose 575 H* (75-100) mg/dL POC Glucose 536 H (70-105) mg/dL Magnesium (1.7-2.3) mg/dL Total Creatine Kinase (55-170) units/L Salicylates (2.8-20.0) mg/dL Acetaminophen (10.0-30.0) ug/mL 12/10/20 12/10/20 12/10/20 Range/Units 02:30 02:30 02:30 WBC (4.5-11.0) K/mm3 RBC (3.65-5.03) M/mm3 Hgb (11.8-15.2) gm/dl Hct (35.5-45.6) % MCV (84-94) fl MCH (28-32) pg VBG pH 7.164 L* (7.320-7.420) Sodium (137-145) mmol/L Potassium (3.6-5.0) mmol/L Chloride (98-107) mmol/L Carbon Dioxide (22-30) mmol/L BUN (9-20) mg/dL Creatinine (0.8-1.3) mg/dL Glucose (75-100) mg/dL POC Glucose (70-105) mg/dL Magnesium 2.80 H (1.7-2.3) mg/dL Total Creatine Kinase 275 H (55-170) units/L Salicylates < 0.3 L (2.8-20.0) mg/dL Acetaminophen (10.0-30.0) ug/mL 12/10/20 Range/Units 02:30 WBC (4.5-11.0) K/mm3 RBC (3.65-5.03) M/mm3 Hgb (11.8-15.2) gm/dl Hct (35.5-45.6) % MCV (84-94) fl MCH (28-32) pg VBG pH (7.320-7.420) Sodium (137-145) mmol/L Potassium (3.6-5.0) mmol/L Chloride (98-107) mmol/L Carbon Dioxide (22-30) mmol/L BUN (9-20) mg/dL Creatinine (0.8-1.3) mg/dL Glucose (75-100) mg/dL POC Glucose (70-105) mg/dL Magnesium (1.7-2.3) mg/dL Total Creatine Kinase (55-170) units/L Salicylates (2.8-20.0) mg/dL Acetaminophen < 5.0 L (10.0-30.0) ug/mL Assessment and Plan - Patient Problems (1) Diabetic ketoacidosis Current Visit: Yes Status: Acute Plan to address problem: Patient placed on IV fluid and insulin drip. He will be closely monitored in the intensive care unit. (2) High anion gap metabolic acidosis Current Visit: No Status: Acute Plan to address problem: Due to her DKA. Will monitor chemistry closely. We will continue on IV fluid normal saline. (3) Leucocytosis Current Visit: Yes Status: Acute Plan to address problem: Possibly reactive. We will monitor CBC. (4) Hyperkalemia Current Visit: No Status: Acute Plan to address problem: Possibly secondary to the DKA. Patient placed on IV fluid and insulin drip. Will monitor chemistry closely. (5) DVT prophylaxis Current Visit: No Status: Acute Plan to address problem: Patient placed on subcutaneous heparin. (6) Full code status Current Visit: No Status: Acute Plan to address problem: Patient is full code.
[2020-12-10] MEDS ORDERED: MAGNESIUM HYDROXIDE (MOM) ORAL LIQD UDC PO PRN (03:41)
[2020-12-10] MEDS ORDERED: SODIUM CHLORIDE 0.9% 1000 ML 1,000 ML IV SCH (03:45)
[2020-12-10] MEDS ORDERED: D5W/0.45% NACL/KCL 20 MEQ 20 MEQ/1,000 ML BAG IV SCH ×2 (04:00)
[2020-12-10] MEDS ORDERED: INSULIN REGULAR, HUMAN 100 UNITS in SODIUM CHLORIDE 0.9% 99 ML IV SCH (04:00)
[2020-12-10] MEDS: ONDANSETRON 4 MG/2 ML INJ IV PRN (04:07)
[2020-12-10] MEDS: INSULIN REGULAR, HUMAN 100 UNITS in SODIUM CHLORIDE 0.9% 99 ML IV SCH (04:19)
[2020-12-10 04:43] LABS: Calcium 9.8 mg/dL (8.4-10.2)
[2020-12-10 06:09] LABS: Hemolysis Index 454
[2020-12-10] MEDS: HEPARIN 5,000 UNIT/1 ML VIAL SUB-Q SCH ×3 (06:11→21:54)
[2020-12-10 06:13] LABS: BUN/Creatinine Ratio TNR; Blood Urea Nitrogen TNR mg/dL (9-20); Calcium TNR mg/dL (8.4-10.2)
[2020-12-10] MEDS ORDERED: SODIUM CHLORIDE 0.9% 1000 ML 1,000 ML IV ONE ×2 (10:15→11:00)
[2020-12-10 11:13] LABS: BUN/Creatinine Ratio 24; Blood Urea Nitrogen 29 mg/dL (9-20); Calcium 9.2 mg/dL (8.4-10.2); Hemolysis Index 11
--- NOTE | 2020-12-10 11:51 | Consultation ---
History of Present Illness Consult date: 12/10/20 Requesting physician: WALLY VALADEZ Reason for consult: other (DKA) History of present illness: PULMONARY/CCM CONSULT NOTE (Full dictation # [id number]) Please see dictated notes for full details Past History Past Medical History: diabetes Past Surgical History: No surgical history Social history: smoking (Smokes occasionally), alcohol abuse (Drink alcohol occasionally) Family history: no significant family history Medications and Allergies Allergies Allergy/AdvReac Type Severity Reaction Status Date / Time No Known Allergies Allergy Verified 08/09/19 21:30 Home Medications Medication Instructions Recorded Confirmed Last Taken Type Lispro Insulin [HumaLOG] 9 unit SUB-Q AC #1 vial 01/03/20 12/10/20 Unknown Rx Insulin Glargine [Lantus VIAL] 34 units SUB-Q QHS 12/10/20 12/10/20 Unknown History Active Meds: Active Medications Dextrose (Dextrose 50% In Water (25gm) 50 Ml Syringe) 0 ml IV Q30MIN PRN; Protocol PRN Reason: Hypoglycemia Heparin Sodium (Porcine) (Heparin 5,000 Unit/1 Ml Vial) 5,000 unit SUB-Q Q8HR YONNY Last Admin: 12/10/20 06:11 Dose: 5,000 unit Documented by: Insulin Human Regular 100 (units/ Sodium Chloride) 100 mls @ 1 mls/hr IV TITR YONNY; Protocol Last Titration: 12/10/20 11:08 Dose: 2 units/hr, 2 mls/hr Documented by: Potassium Chloride/Dextrose/Sod Cl (D5w/0.45% Nacl/Kcl 20 Meq) 20 meq in 1,000 mls @ 125 mls/hr IV DIRECT YONNY Sodium Chloride (Nacl 0.9% 1000 Ml) 1,000 mls @ 150 mls/hr IV DIRECT YONNY Last Admin: 12/10/20 04:39 Dose: 150 mls/hr Documented by: Sodium Chloride (Nacl 0.9% 1000 Ml) 1,000 mls @ 999 mls/hr IV BOLUS ONE Stop: 12/10/20 12:00 Last Admin: 12/10/20 10:07 Dose: 999 mls/hr Documented by: Magnesium Hydroxide (Magnesium Hydroxide (Mom) Oral Liqd Udc) 30 ml PO Q4H PRN PRN Reason: Constipation Ondansetron HCl (Ondansetron 4 Mg/2 Ml Inj) 4 mg IV Q8H PRN PRN Reason: Nausea And Vomiting Last Admin: 12/10/20 04:07 Dose: 4 mg Documented by: Sodium Chloride (Sodium Chloride 0.9% 10 Ml Flush Syringe) 10 ml IV BID YONNY Last Admin: 12/10/20 10:02 Dose: 10 ml Documented by: Sodium Chloride (Sodium Chloride 0.9% 10 Ml Flush Syringe) 10 ml IV PRN PRN PRN Reason: LINE FLUSH Physical Examination Vital signs: Vital Signs Temp Pulse Resp BP Pulse Ox 97.8 F 110 H 18 151/95 96 12/10/20 01:49 12/10/20 01:49 12/10/20 01:49 12/10/20 01:49 12/10/20 01:49 Results - Laboratory Findings CBC and BMP: 12/10/20 02:30 12/10/20 10:16 PT/INR, D-dimer PT 13.5 Sec. (12.2-14.9) 12/10/20 02:30 INR 0.98 (0.87-1.13) 12/10/20 02:30 Abnormal lab findings: Abnormal Labs 12/10/20 12/10/20 12/10/20 01:52 02:30 02:30 WBC 18.0 H RBC 5.21 H Hgb 17.2 H Hct 51.7 H MCV 99 H MCH 33 H Seg Neuts % (Manual) 91.0 H Lymphocytes % (Manual) 5.0 L Seg Neutrophils # Man 16.4 H Lymphocytes # (Manual) 0.9 L VBG pH Sodium 128 L Potassium 5.6 H Chloride 85.4 L Carbon Dioxide 9 L* BUN 35 H Creatinine 1.7 H Glucose 575 H* POC Glucose 536 H Hemoglobin A1c Phosphorus Magnesium Total Creatine Kinase Salicylates Acetaminophen 12/10/20 12/10/20 12/10/20 02:30 02:30 02:30 WBC RBC Hgb Hct MCV MCH Seg Neuts % (Manual) Lymphocytes % (Manual) Seg Neutrophils # Man Lymphocytes # (Manual) VBG pH 7.164 L* Sodium Potassium Chloride Carbon Dioxide BUN Creatinine Glucose POC Glucose Hemoglobin A1c Phosphorus Magnesium 2.80 H Total Creatine Kinase 275 H Salicylates < 0.3 L Acetaminophen 12/10/20 12/10/20 12/10/20 02:30 03:45 03:45 WBC RBC Hgb Hct MCV MCH Seg Neuts % (Manual) Lymphocytes % (Manual) Seg Neutrophils # Man Lymphocytes # (Manual) VBG pH Sodium 130 L Potassium 5.6 H Chloride 87.4 L Carbon Dioxide 8 L* BUN 34 H Creatinine 1.6 H Glucose 517 H* POC Glucose Hemoglobin A1c Phosphorus 7.00 H Magnesium 2.50 H Total Creatine Kinase Salicylates Acetaminophen < 5.0 L 12/10/20 12/10/20 12/10/20 04:17 05:25 05:50 WBC RBC Hgb Hct MCV MCH Seg Neuts % (Manual) Lymphocytes % (Manual) Seg Neutrophils # Man Lymphocytes # (Manual) VBG pH Sodium Potassium Chloride Carbon Dioxide BUN Creatinine Glucose POC Glucose 511 H 340 H Hemoglobin A1c 10.2 H Phosphorus Magnesium Total Creatine Kinase Salicylates Acetaminophen 12/10/20 12/10/20 12/10/20 06:49 07:49 09:02 WBC RBC Hgb Hct MCV MCH Seg Neuts % (Manual) Lymphocytes % (Manual) Seg Neutrophils # Man Lymphocytes # (Manual) VBG pH Sodium Potassium Chloride Carbon Dioxide BUN Creatinine Glucose POC Glucose 311 H 257 H 213 H Hemoglobin A1c Phosphorus Magnesium Total Creatine Kinase Salicylates Acetaminophen 12/10/20 12/10/20 12/10/20 09:55 10:16 11:04 WBC RBC Hgb Hct MCV MCH Seg Neuts % (Manual) Lymphocytes % (Manual) Seg Neutrophils # Man Lymphocytes # (Manual) VBG pH Sodium Potassium Chloride Carbon Dioxide 17 L D BUN 29 H Creatinine Glucose 172 H POC Glucose 191 H 154 H Hemoglobin A1c Phosphorus Magnesium Total Creatine Kinase Salicylates Acetaminophen
--- NOTE | 2020-12-10 13:08 | Event Note ---
Date: 12/10/20 Patient seen and examined we will give additional 2 L bolus of fluid. Still in DKA counseling provided to the patient. Continue to monitor. Renal function showing some improvement. Continue to monitor to see if there is any evidence of sepsis as the source.
--- NOTE | 2020-12-10 14:22 | Electrocardiograph Report ---
[facility] Test Date: 2020-12-10 Test Time: 02:23:29 Pat Name: ROBEL SIDHU Department: Room: A260 1 Gender: M Security And Compliance Analyst: NURSE : 1985 Requested By: MIKAYLA KIM Order Number: [id number] Reading MD: Jany Fraga Measurements Intervals [place] Rate: 94 P: 82 NH: 130 QRS: 82 QRSD: 98 T: 80 QT: 361 QTc: 451 Interpretive Statements Sinus rhythm Right atrial enlargement No previous ECG available for comparison Electronically Signed On 12-10-2020 14:22:23 EDT by Jany Fraga
[2020-12-10 15:06] LABS: BUN/Creatinine Ratio 22; Blood Urea Nitrogen 26 mg/dL (9-20); Calcium 8.8 mg/dL (8.4-10.2); Hemolysis Index 16
[2020-12-10] MEDS: D5W/0.45% NACL 1,000 ML IV SCH ×2 (15:37→19:48)
[2020-12-10 20:06] LABS: BUN/Creatinine Ratio 23; Blood Urea Nitrogen 21 mg/dL (9-20); Hemolysis Index 5
[2020-12-10] MEDS: INSULIN LISPRO 100 UNIT/ML SUB-Q SCH (21:54)
--- NOTE | 2020-12-11 00:47 | Consultation ---
DATE OF CONSULTATION: 12/10/2020 PULMONARY CRITICAL CARE CONSULTATION CONSULTING PHYSICIAN: Dr. Cisco Mahoney. REASON FOR CONSULTATION: Diabetic ketoacidosis. HISTORY OF PRESENT ILLNESS: The patient is a 34-year-old male with past medical history significant for diabetes, poor medical compliance, multiple prior admissions for DKA, who presented to the Emergency Room yesterday complaining of generalized weakness, fatigue, shortness of breath. He admitted to polydipsia. He denied nausea, vomiting, abdominal pain. He denies fevers or chills. He denied any cough or expectoration. Denied any chest pains. He denied any new-onset leg pain either unilaterally or bilaterally or swelling or any suggestion of deep venous thrombosis. He states there were no sick contacts. He has not been exposed to anybody with COVID-19, but states he has not been vaccinated. He was seen in the Emergency Room and diagnosed with diabetic ketoacidosis. He states to me that he is compliant with his medications. He was started on IV insulin therapy and ICU admission was offered and given. When I stopped by to see him, he was rested in bed, feeling a little bit better, still on IV insulin at 2 units per hour. He admits to history of tobacco use. We will not quantify it and tells me that he will stop when he wants to stop. This really is as much of the history of presentation as I have. PAST MEDICAL HISTORY: Diabetes, tobacco use disorder. PAST SURGICAL HISTORY: Denies any. MEDICATIONS: He was on at the time I stopped by to see him were reviewed, pertinent medications include the following: Heparin 5000 units subQ q. 8 hours. D5 half NS drip was going at 125 mL per hour. Insulin drip was going at 2 units per hour, Zofran 4 mg IV q. 8 hours p.r.n. nausea and vomiting. ALLERGIES: No known drug allergies. DIET: Thin gentleman. Denies acute weight loss or gain in the preceding few weeks to months. FAMILY AND SOCIAL HISTORY: Lives in the community. States he smokes occasionally, drinks occasionally. Denies illicit drug use or abuse. Denies any family history otherwise or diabetes or other pathology. REVIEW OF SYSTEMS: As above, otherwise no loss of consciousness. No new onset seizures. No new onset focal weakness. No gross hematochezia or melena, no hematuria. He had the polydipsia, polyphagia. Denies heat or cold intolerance. Complete 13 system review of system was obtained. Pertinent positives and/or negatives as in body of history above, otherwise they are noncontributory. PHYSICAL EXAMINATION: VITAL SIGNS: On presentation, afebrile, temperature 97.8 degrees Fahrenheit, pulse of 110, respiratory rate of 18, blood pressure 151/95, O2 sats were 96%, inspired oxygen concentration at that time was not recorded. When I stopped by to see him his O2 sats were 98% that was on room air. GENERAL: He is a well-built young male. Normocephalic, atraumatic, talking to me in full sentences without significant respiratory distress at rest. HEENT: Anicteric, no conjunctival erythema. Oropharynx was dry. Mallampati 2 oropharynx. NECK: No gross jugular venous distention, no thyromegaly. Grossly, there were no palpable lymph nodes in the supraclavicular or submandibular lymph node chains. LUNGS: Auscultation of both lung cadena unremarkable. Lungs are clear bilaterally. Good bilateral air movement. HEART: Sounds 1 and 2 are heard, regular rate and rhythm at the time of my evaluation without overt rubs or murmurs. ABDOMEN: Soft, flat, bowel sounds positive, nontender, no palpable hepatosplenomegaly. EXTREMITIES: Without overt digital clubbing or cyanosis, no pedal edema. Pedal pulses are 2+ bilaterally. NEUROLOGIC: Pupils are equal, round, reactive to light, about 4 mm. Extraocular muscle movements are intact. He moves all 4 extremities spontaneously. SKIN: Normal turgor in the areas examined without overt cellulitis or rash. Please see the wound care nurses' notes for full description of his skin. PSYCHIATRIC: Mood was normal. Affect was appropriate. He had intact judgment and insight. LABORATORY DATA: Admission white cell count 18,000, hemoglobin 17.2, hematocrit 51.7, platelet count 274. No band forms on the manual differential. INR 0.98. Venous blood gas showed a pH of 7.16. Serum sodium was 130, potassium 5.6, chloride 87, bicarbonate 8, BUN 34, creatinine 1.6, glucose 517. Mag and phos were elevated. TSH within normal limits. Aspirin, Tylenol, alcohol levels within normal limits. ASSESSMENT: 1. Diabetic ketoacidosis. 2. Medication noncompliance. 3. Hyperkalemia, resolved. 4. Severe metabolic acidosis. 5. Tobacco use disorder. 6. Acute kidney injury. PLAN: We will continue DKA protocol. Continue volume hydration. His serum creatinine is back to normal. At this point, I have strongly counseled improved medication compliance, tobacco abstinence also at the bedside. Otherwise, he will be started on GI prophylaxis. Flu and pneumonia vaccination will be addressed per protocol. Thank you very much for the consult. We will follow along and make further recommendations as picture progresses/becomes clearer. TID: [id number] RECEIPT: [id number] FABIENNE/MEREDITH
[2020-12-11 05:30] LABS: Hemoglobin 13.8 gm/dl (11.8-15.2); Mean Corpuscular HGB Conc 35 % (32-34); Mean Corpuscular Volume 96 fl (84-94); Platelet Count 211 K/mm3 (140-440); Red Blood Count 4.17 M/mm3 (3.65-5.03); Red Cell Distribution Width 13.4 % (13.2-15.2)
[2020-12-11 05:45] LABS: BUN/Creatinine Ratio 20; Blood Urea Nitrogen 18 mg/dL (9-20); Calcium 8.8 mg/dL (8.4-10.2); Hemolysis Index 6
[2020-12-11] MEDS: HEPARIN 5,000 UNIT/1 ML VIAL SUB-Q SCH ×3 (06:11→21:27)
[2020-12-11] MEDS: INSULIN REGULAR, HUMAN 100 UNITS in SODIUM CHLORIDE 0.9% 99 ML IV SCH (07:50)
[2020-12-11] MEDS: INSULIN LISPRO 100 UNIT/ML SUB-Q SCH ×4 (07:51→22:12)
[2020-12-11] MEDS ORDERED: D5W/0.45% NACL/KCL 20 MEQ 20 MEQ/1,000 ML BAG IV SCH (09:00)
--- NOTE | 2020-12-11 11:31 | Progress Note ---
Assessment and Plan Diabetic ketoacidosis Acute kidney injury Medication noncompliance Hyperkalemia Severe metabolic acidosis Tobacco use disorder - prn supplemental oxygen to keep O2 sats > 90% - prn bronchodilators (DAHIANA & LABA) with pulm hygiene per RT - accuchecks with glycemic control per SSI for target blood glucose < 180 mg/dL (once of IV insulin therapy) - continue to avoid nephrotoxins, renally dose all medications - mobility protocols to prevent pressure ulcers - PT/OT as tolerated - tobacco abstinence strongly counseled at the bedside - home oxygen evaluation at discharge - GI & VTE prophylaxis - Flu & pneumovax per protocol - prn analgesia per pain score - continue other care per attending / other consultants ... re-evaluate in am & prn Subjective Date of service: 12/11/20 Principal diagnosis: DKA; SUSHMA; Medication noncompliance; metabolic acidosis; Tobacco abuse Interval history: Patient is seen today for: Diabetic ketoacidosis; Acute kidney injury; Medication noncompliance; Severe metabolic acidosis; Tobacco use disorder Seen and examined at bedside; 24hour events reviewed; nursing and respiratory care staff consulted; no adverse overnight events reported to me; resting peacefully in bed; denies acute chest pain or palpitations Objective Vital Signs - 12hr 12/10/20 12/10/20 12/10/20 23:30 23:40 23:47 Temperature 98.4 F Pulse Rate 87 89 Respiratory 16 17 Rate Blood Pressure 92/56 92/56 O2 Sat by Pulse 97 98 Oximetry 12/10/20 12/11/20 12/11/20 23:50 00:00 00:08 Temperature Pulse Rate 93 H 94 H 82 Respiratory 16 17 15 Rate Blood Pressure 97/62 99/69 99/69 O2 Sat by Pulse 97 94 100 Oximetry 12/11/20 12/11/20 12/11/20 00:10 00:20 00:30 Temperature Pulse Rate 81 86 87 Respiratory 14 15 15 Rate Blood Pressure 99/69 110/72 107/71 O2 Sat by Pulse 99 99 96 Oximetry 12/11/20 12/11/20 12/11/20 00:40 00:50 01:00 Temperature Pulse Rate 83 83 91 H Respiratory 14 15 18 Rate Blood Pressure 107/71 89/54 101/64 O2 Sat by Pulse 99 99 99 Oximetry 12/11/20 12/11/20 12/11/20 01:10 01:20 01:30 Temperature Pulse Rate 90 88 87 Respiratory 16 17 16 Rate Blood Pressure 101/64 101/64 101/64 O2 Sat by Pulse 100 99 99 Oximetry 12/11/20 12/11/20 12/11/20 01:40 01:50 02:00 Temperature Pulse Rate 85 88 86 Respiratory 16 18 16 Rate Blood Pressure 101/64 101/64 102/66 O2 Sat by Pulse 100 98 97 Oximetry 12/11/20 12/11/20 12/11/20 02:10 02:20 02:30 Temperature Pulse Rate 85 88 92 H Respiratory 15 16 15 Rate Blood Pressure 102/66 102/66 102/66 O2 Sat by Pulse 99 99 98 Oximetry 12/11/20 12/11/20 12/11/20 02:40 02:50 03:00 Temperature Pulse Rate 90 90 82 Respiratory 17 16 15 Rate Blood Pressure 102/66 102/66 107/66 O2 Sat by Pulse 99 98 96 Oximetry 12/11/20 12/11/20 12/11/20 03:10 03:19 03:20 Temperature 98.7 F Pulse Rate 87 89 Respiratory 16 15 Rate Blood Pressure 107/66 107/66 O2 Sat by Pulse 99 99 Oximetry 12/11/20 12/11/20 12/11/20 03:30 03:40 03:50 Temperature Pulse Rate 85 85 84 Respiratory 17 14 18 Rate Blood Pressure 107/66 107/66 107/66 O2 Sat by Pulse 99 100 98 Oximetry 12/11/20 12/11/20 12/11/20 04:00 04:10 04:20 Temperature Pulse Rate 81 84 84 Respiratory 17 16 17 Rate Blood Pressure 87/52 87/52 87/52 O2 Sat by Pulse 98 99 98 Oximetry 12/11/20 12/11/20 12/11/20 04:31 04:41 04:51 Temperature Pulse Rate 90 99 H 88 Respiratory 18 14 15 Rate Blood Pressure 87/52 87/52 O2 Sat by Pulse 97 99 100 Oximetry 12/11/20 12/11/20 12/11/20 05:01 05:11 05:21 Temperature Pulse Rate 88 89 86 Respiratory 16 14 16 Rate Blood Pressure 95/59 95/59 95/59 O2 Sat by Pulse 98 99 99 Oximetry 12/11/20 12/11/20 12/11/20 05:31 05:41 05:51 Temperature Pulse Rate 89 84 85 Respiratory 16 16 16 Rate Blood Pressure 95/59 95/59 95/59 O2 Sat by Pulse 99 99 99 Oximetry 12/11/20 12/11/20 12/11/20 06:01 06:11 06:21 Temperature Pulse Rate 86 89 84 Respiratory 16 14 16 Rate Blood Pressure 95/59 95/59 95/59 O2 Sat by Pulse 99 100 100 Oximetry 12/11/20 12/11/20 12/11/20 06:31 06:41 06:51 Temperature Pulse Rate 80 82 84 Respiratory 15 14 13 Rate Blood Pressure 95/59 95/59 95/59 O2 Sat by Pulse 100 99 98 Oximetry 12/11/20 12/11/20 12/11/20 07:01 07:11 07:21 Temperature Pulse Rate 84 91 H 90 Respiratory 15 16 14 Rate Blood Pressure 95/59 95/59 95/59 O2 Sat by Pulse 98 98 99 Oximetry 12/11/20 12/11/20 12/11/20 07:31 07:41 07:51 Temperature Pulse Rate 86 88 86 Respiratory 15 15 13 Rate Blood Pressure 95/59 95/59 95/59 O2 Sat by Pulse 98 98 98 Oximetry 12/11/20 12/11/20 12/11/20 08:00 08:01 08:11 Temperature 98.4 F Pulse Rate 86 82 88 Respiratory 13 15 Rate Blood Pressure 95/59 95/59 O2 Sat by Pulse 99 100 99 Oximetry 12/11/20 12/11/20 12/11/20 08:21 08:31 08:41 Temperature Pulse Rate 81 85 87 Respiratory 14 16 17 Rate Blood Pressure 100/70 100/70 100/70 O2 Sat by Pulse 99 99 100 Oximetry 12/11/20 12/11/20 12/11/20 08:51 09:00 09:11 Temperature Pulse Rate 96 H 80 96 H Respiratory 14 15 20 Rate Blood Pressure 100/70 111/82 111/82 O2 Sat by Pulse 99 97 100 Oximetry 12/11/20 12/11/20 12/11/20 09:21 09:31 09:41 Temperature Pulse Rate 85 91 H 91 H Respiratory 16 15 14 Rate Blood Pressure 111/82 111/82 111/82 O2 Sat by Pulse 99 97 99 Oximetry 12/11/20 12/11/20 09:51 10:00 Temperature Pulse Rate 86 83 Respiratory 15 17 Rate Blood Pressure 111/82 110/76 O2 Sat by Pulse 99 99 Oximetry Constitutional: no acute distress Eyes: non-icteric ENT: oropharynx moist Neck: supple, no lymphadenopathy Effort: normal Ascultation: Bilateral: clear Percussion: Bilateral: not dull Cardiovascular: regular rate and rhythm Gastrointestinal: normoactive bowel sounds, soft, non-tender, non-distended Integumentary: normal Extremities: no cyanosis, no edema, pulses normal, no ischemia or petechiae Neurologic: non-focal exam, pupils equal and round, CN II-XII normal, motor strength normal and Psychiatric: mood appropriate, affect normal CBC and BMP: 12/12/20 05:13 12/12/20 05:13 ABG, PT/INR, D-dimer: PT/INR, D-dimer PT 13.5 Sec. (12.2-14.9) 12/10/20 02:30 INR 0.98 (0.87-1.13) 12/10/20 02:30 Abnormal lab findings: Abnormal Labs 12/10/20 12/10/20 12/10/20 01:52 02:30 02:30 WBC 18.0 H RBC 5.21 H Hgb 17.2 H Hct 51.7 H MCV 99 H MCH 33 H MCHC Seg Neuts % (Manual) 91.0 H Lymphocytes % (Manual) 5.0 L Seg Neutrophils # Man 16.4 H Lymphocytes # (Manual) 0.9 L VBG pH Sodium 128 L Potassium 5.6 H Chloride 85.4 L Carbon Dioxide 9 L* BUN 35 H Creatinine 1.7 H Glucose 575 H* POC Glucose 536 H Hemoglobin A1c Phosphorus Magnesium Total Creatine Kinase Salicylates Acetaminophen 12/10/20 12/10/20 12/10/20 02:30 02:30 02:30 WBC RBC Hgb Hct MCV MCH MCHC Seg Neuts % (Manual) Lymphocytes % (Manual) Seg Neutrophils # Man Lymphocytes # (Manual) VBG pH 7.164 L* Sodium Potassium Chloride Carbon Dioxide BUN Creatinine Glucose POC Glucose Hemoglobin A1c Phosphorus Magnesium 2.80 H Total Creatine Kinase 275 H Salicylates < 0.3 L Acetaminophen 12/10/20 12/10/20 12/10/20 02:30 03:45 03:45 WBC RBC Hgb Hct MCV MCH MCHC Seg Neuts % (Manual) Lymphocytes % (Manual) Seg Neutrophils # Man Lymphocytes # (Manual) VBG pH Sodium 130 L Potassium 5.6 H Chloride 87.4 L Carbon Dioxide 8 L* BUN 34 H Creatinine 1.6 H Glucose 517 H* POC Glucose Hemoglobin A1c Phosphorus 7.00 H Magnesium 2.50 H Total Creatine Kinase Salicylates Acetaminophen < 5.0 L 12/10/20 12/10/20 12/10/20 04:17 05:25 05:50 WBC RBC Hgb Hct MCV MCH MCHC Seg Neuts % (Manual) Lymphocytes % (Manual) Seg Neutrophils # Man Lymphocytes # (Manual) VBG pH Sodium Potassium Chloride Carbon Dioxide BUN Creatinine Glucose POC Glucose 511 H 340 H Hemoglobin A1c 10.2 H Phosphorus Magnesium Total Creatine Kinase Salicylates Acetaminophen 12/10/20 12/10/20 12/10/20 06:49 07:49 09:02 WBC RBC Hgb Hct MCV MCH MCHC Seg Neuts % (Manual) Lymphocytes % (Manual) Seg Neutrophils # Man Lymphocytes # (Manual) VBG pH Sodium Potassium Chloride Carbon Dioxide BUN Creatinine Glucose POC Glucose 311 H 257 H 213 H Hemoglobin A1c Phosphorus Magnesium Total Creatine Kinase Salicylates Acetaminophen 12/10/20 12/10/20 12/10/20 09:55 10:16 11:04 WBC RBC Hgb Hct MCV MCH MCHC Seg Neuts % (Manual) Lymphocytes % (Manual) Seg Neutrophils # Man Lymphocytes # (Manual) VBG pH Sodium Potassium Chloride Carbon Dioxide 17 L D BUN 29 H Creatinine Glucose 172 H POC Glucose 191 H 154 H Hemoglobin A1c Phosphorus Magnesium Total Creatine Kinase Salicylates Acetaminophen 12/10/20 12/10/20 12/10/20 12:02 13:02 13:57 WBC RBC Hgb Hct MCV MCH MCHC Seg Neuts % (Manual) Lymphocytes % (Manual) Seg Neutrophils # Man Lymphocytes # (Manual) VBG pH Sodium Potassium 5.6 H Chloride Carbon Dioxide 19 L BUN 26 H Creatinine Glucose 224 H POC Glucose 151 H 172 H Hemoglobin A1c Phosphorus Magnesium Total Creatine Kinase Salicylates Acetaminophen 12/10/20 12/10/20 12/10/20 14:18 15:00 15:56 WBC RBC Hgb Hct MCV MCH MCHC Seg Neuts % (Manual) Lymphocytes % (Manual) Seg Neutrophils # Man Lymphocytes # (Manual) VBG pH Sodium Potassium Chloride Carbon Dioxide BUN Creatinine Glucose POC Glucose 216 H 235 H 205 H Hemoglobin A1c Phosphorus Magnesium Total Creatine Kinase Salicylates Acetaminophen 12/10/20 12/10/20 12/10/20 17:17 17:47 18:53 WBC RBC Hgb Hct MCV MCH MCHC Seg Neuts % (Manual) Lymphocytes % (Manual) Seg Neutrophils # Man Lymphocytes # (Manual) VBG pH Sodium Potassium Chloride Carbon Dioxide BUN Creatinine Glucose POC Glucose 207 H 192 H 142 H Hemoglobin A1c Phosphorus Magnesium Total Creatine Kinase Salicylates Acetaminophen 12/10/20 12/10/20 12/11/20 19:25 21:50 03:32 WBC RBC Hgb Hct MCV MCH MCHC Seg Neuts % (Manual) Lymphocytes % (Manual) Seg Neutrophils # Man Lymphocytes # (Manual) VBG pH Sodium Potassium Chloride Carbon Dioxide BUN 21 H Creatinine Glucose 111 H POC Glucose 184 H 289 H Hemoglobin A1c Phosphorus Magnesium Total Creatine Kinase Salicylates Acetaminophen 12/11/20 12/11/20 12/11/20 05:13 05:13 07:17 WBC 14.5 H RBC Hgb Hct MCV 96 H MCH 33 H MCHC 35 H Seg Neuts % (Manual) Lymphocytes % (Manual) Seg Neutrophils # Man Lymphocytes # (Manual) VBG pH Sodium Potassium Chloride Carbon Dioxide 15 L D BUN Creatinine Glucose 294 H POC Glucose 278 H Hemoglobin A1c Phosphorus Magnesium Total Creatine Kinase Salicylates Acetaminophen 12/11/20 12/11/20 12/11/20 08:16 09:13 10:03 WBC RBC Hgb Hct MCV MCH MCHC Seg Neuts % (Manual) Lymphocytes % (Manual) Seg Neutrophils # Man Lymphocytes # (Manual) VBG pH Sodium Potassium Chloride Carbon Dioxide BUN Creatinine Glucose POC Glucose 225 H 190 H 204 H Hemoglobin A1c Phosphorus Magnesium Total Creatine Kinase Salicylates Acetaminophen 12/11/20 11:12 WBC RBC Hgb Hct MCV MCH MCHC Seg Neuts % (Manual) Lymphocytes % (Manual) Seg Neutrophils # Man Lymphocytes # (Manual) VBG pH Sodium Potassium Chloride Carbon Dioxide BUN Creatinine Glucose POC Glucose 179 H Hemoglobin A1c Phosphorus Magnesium Total Creatine Kinase Salicylates Acetaminophen Allied health notes reviewed: nursing
--- NOTE | 2020-12-11 13:02 | Progress Note ---
Assessment and Plan Assessment and plan: 34-year-old -[place] male with known history of diabetes mellitus and who has been admitted on multiple occasions for DKA presenting to the emergency room today complaining of generalized weakness, fatigue and shortness of breath. Patient denies any nausea vomiting, no abdominal pain, no fever or chills, no headache or dizziness. He denies any hematuria or dysuria. Patient denies any sick contacts and no recent travel. Denies contact with anyone with COVID-19. Patient states he feels as if he is in DKA. Work-up in the emergency room today reveals elevated blood glucose in the 500s, elevated anion gap of about 39, leukocytosis of 18, hyperkalemia of 5.6 and bicarb of 9. Patient is being admitted with DKA. He has been initiated on IV fluid and insulin drip. Assessment and plan (1) Diabetic ketoacidosis Current Visit: Yes Status: Acute Plan to address problem: Patient placed on IV fluid and insulin drip. He will be closely monitored in the intensive care unit. (2) High anion gap metabolic acidosis Current Visit: No Status: Acute Plan to address problem: Due to her DKA. Will monitor chemistry closely. We will continue on IV fluid normal saline. (3) Leucocytosis Current Visit: Yes Status: Acute Plan to address problem: Possibly reactive. We will monitor CBC. (4) Hyperkalemia Current Visit: No Status: Acute Plan to address problem: Possibly secondary to the DKA. Patient placed on IV fluid and insulin drip. Will monitor chemistry closely. (5) DVT prophylaxis Current Visit: No Status: Acute Plan to address problem: Patient placed on subcutaneous heparin. (6) Full code status Current Visit: No Status: Acute Plan to address problem: Patient is full code. 12/11/20 patient is seen and examined. Patient is doing better. No new complain. WBC 14.5. Last blood glucose 177. Continue the insulin drip and IV fluid. Rocephin 2 g IV daily for leukocytosis. We will follow the serial BMP. Clear liquid diet. Diabetic education. Recheck CBC BMP in the morning. History Interval history: Patient is seen and examined Lab and medication reviewed Patient feels better. No new complain. WBC is 14.5. Last blood glucose is 177 Hospitalist Physical - Constitutional Vitals: Temp Pulse Resp BP Pulse Ox 98.4 F 81 13 95/60 100 12/11/20 12:00 12/11/20 12:21 12/11/20 12:21 12/11/20 12:21 12/11/20 12:21 General appearance: Present: no acute distress, well-nourished, other (Appears lethargic) - EENT Eyes: Present: PERRL, EOM intact ENT: hearing intact, clear oral mucosa - Neck Neck: Present: supple, normal ROM - Respiratory Respiratory effort: normal Respiratory: bilateral: CTA - Cardiovascular Rhythm: regular Heart Sounds: Present: S1 & S2 - Extremities Extremities: no ischemia, normal color Peripheral Pulses: within normal limits - Abdominal General gastrointestinal: soft, non-tender, normal bowel sounds - Integumentary Integumentary: Present: clear, warm - Psychiatric Psychiatric: appropriate mood/affect, intact judgment & insight - Neurologic Neurologic: CNII-XII intact, moves all extremities Results - Labs CBC & Chem 7: 12/11/20 05:13 12/11/20 05:13 Labs: Laboratory Last Values WBC 14.5 K/mm3 (4.5-11.0) H 12/11/20 05:13 RBC 4.17 M/mm3 (3.65-5.03) 12/11/20 05:13 Hgb 13.8 gm/dl (11.8-15.2) D 12/11/20 05:13 Hct 40.0 % (35.5-45.6) D 12/11/20 05:13 MCV 96 fl (84-94) H 12/11/20 05:13 MCH 33 pg (28-32) H 12/11/20 05:13 MCHC 35 % (32-34) H 12/11/20 05:13 RDW 13.4 % (13.2-15.2) 12/11/20 05:13 Plt Count 211 K/mm3 (140-440) 12/11/20 05:13 Add Manual Diff Complete 12/10/20 02:30 Total Counted 100 12/10/20 02:30 Seg Neutrophils % Candy Polisher 12/10/20 02:30 Seg Neuts % (Manual) 91.0 % (40.0-70.0) H 12/10/20 02:30 Lymphocytes % (Manual) 5.0 % (13.4-35.0) L 12/10/20 02:30 Monocytes % (Manual) 4.0 % (0.0-7.3) 12/10/20 02:30 Nucleated RBC % Not Reportable 12/10/20 02:30 Seg Neutrophils # Man 16.4 K/mm3 (1.8-7.7) H 12/10/20 02:30 Band Neutrophils # 0.0 K/mm3 12/10/20 02:30 Lymphocytes # (Manual) 0.9 K/mm3 (1.2-5.4) L 12/10/20 02:30 Abs React Lymphs (Man) 0.0 K/mm3 12/10/20 02:30 Monocytes # (Manual) 0.7 K/mm3 (0.0-0.8) 12/10/20 02:30 Eosinophils # (Manual) 0.0 K/mm3 (0.0-0.4) 12/10/20 02:30 Basophils # (Manual) 0.0 K/mm3 (0.0-0.1) 12/10/20 02:30 Metamyelocytes # 0.0 K/mm3 12/10/20 02:30 Myelocytes # 0.0 K/mm3 12/10/20 02:30 Promyelocytes # 0.0 K/mm3 12/10/20 02:30 Blast Cells # 0.0 K/mm3 12/10/20 02:30 WBC Morphology Not Reportable 12/10/20 02:30 Hypersegmented Neuts Not Reportable 12/10/20 02:30 Hyposegmented Neuts Not Reportable 12/10/20 02:30 Hypogranular Neuts Not Reportable 12/10/20 02:30 Smudge Cells Not Reportable 12/10/20 02:30 Toxic Granulation Not Reportable 12/10/20 02:30 Toxic Vacuolation Not Reportable 12/10/20 02:30 Dohle Bodies Not Reportable 12/10/20 02:30 Pelger-Huet Anomaly Not Reportable 12/10/20 02:30 Ethan Rods Not Reportable 12/10/20 02:30 Platelet Estimate Not Reportable 12/10/20 02:30 Clumped Platelets Not Reportable 12/10/20 02:30 Plt Clumps, EDTA Not Reportable 12/10/20 02:30 Large Platelets Not Reportable 12/10/20 02:30 Giant Platelets Not Reportable 12/10/20 02:30 Platelet Satelliting Not Reportable 12/10/20 02:30 Plt Morphology Comment Not Reportable 12/10/20 02:30 RBC Morphology Normal 12/10/20 02:30 Dimorphic RBCs Not Reportable 12/10/20 02:30 Polychromasia Not Reportable 12/10/20 02:30 Hypochromasia Not Reportable 12/10/20 02:30 Poikilocytosis Not Reportable 12/10/20 02:30 Anisocytosis Not Reportable 12/10/20 02:30 Microcytosis Not Reportable 12/10/20 02:30 Macrocytosis Not Reportable 12/10/20 02:30 Spherocytes Not Reportable 12/10/20 02:30 Pappenheimer Bodies Not Reportable 12/10/20 02:30 Sickle Cells Not Reportable 12/10/20 02:30 Target Cells Not Reportable 12/10/20 02:30 Tear Drop Cells Not Reportable 12/10/20 02:30 Ovalocytes Not Reportable 12/10/20 02:30 Helmet Cells Not Reportable 12/10/20 02:30 [place] Bodies Not Reportable 12/10/20 02:30 [place] Rings Not Reportable 12/10/20 02:30 [place] Cells Not Reportable 12/10/20 02:30 Bite Cells Not Reportable 12/10/20 02:30 Crenated Cell Not Reportable 12/10/20 02:30 Elliptocytes Not Reportable 12/10/20 02:30 Acanthocytes (Spur) Not Reportable 12/10/20 02:30 Rouleaux Not Reportable 12/10/20 02:30 Hemoglobin C Crystals Not Reportable 12/10/20 02:30 Schistocytes Not Reportable 12/10/20 02:30 Malaria parasites Not Reportable 12/10/20 02:30 Elliott Bodies Not Reportable 12/10/20 02:30 Hem Pathologist Commnt No 12/10/20 02:30 PT 13.5 Sec. (12.2-14.9) 12/10/20 02:30 INR 0.98 (0.87-1.13) 12/10/20 02:30 VBG pH 7.164 (7.320-7.420) L* 12/10/20 02:30 Sodium 137 mmol/L (137-145) 12/11/20 05:13 Potassium 3.9 mmol/L (3.6-5.0) 12/11/20 05:13 Chloride 99.7 mmol/L (98-107) 12/11/20 05:13 Carbon Dioxide 15 mmol/L (22-30) L D 12/11/20 05:13 Anion Gap 26 mmol/L 12/11/20 05:13 BUN 18 mg/dL (9-20) 12/11/20 05:13 Creatinine 0.9 mg/dL (0.8-1.3) 12/11/20 05:13 Estimated GFR > 60 ml/min 12/11/20 05:13 BUN/Creatinine Ratio 20 % 12/11/20 05:13 Glucose 294 mg/dL (75-100) H 12/11/20 05:13 POC Glucose 177 mg/dL (70-105) H 12/11/20 11:55 Hemoglobin A1c 10.2 % (4-6) H 12/10/20 05:25 Calcium 8.8 mg/dL (8.4-10.2) 12/11/20 05:13 Phosphorus 7.00 mg/dL (2.5-4.5) H 12/10/20 03:45 Magnesium 2.50 mg/dL (1.7-2.3) H 12/10/20 03:45 Total Creatine Kinase 275 units/L (55-170) H 12/10/20 02:30 TSH 1.700 mlU/mL (0.270-4.200) 12/10/20 02:30 Salicylates < 0.3 mg/dL (2.8-20.0) L 12/10/20 02:30 Acetaminophen < 5.0 ug/mL (10.0-30.0) L 12/10/20 02:30 Plasma/Serum Alcohol < 0.01 % (0-0.07) 12/10/20 02:30 Coronavirus (PCR) Negative (Negative) 12/10/20 07:48 Thomas/IV: Voiding Method Urinal Active Medications - Current Medications Current Medications: Generic Name Dose Route Start Last Admin Trade Name Freq PRN Reason Stop Dose Admin Dextrose 0 ml 12/10/20 03:29 Dextrose 50% In Water (25gm) 50 Ml Syringe IV Q30MIN PRN Hypoglycemia Protocol Heparin Sodium (Porcine) 5,000 unit 12/10/20 06:00 12/11/20 06:11 Heparin 5,000 Unit/1 Ml Vial SUB-Q 5,000 unit Q8HR YONNY Administration Insulin Human Regular 100 100 mls @ 1 mls/hr 12/10/20 04:00 12/11/20 11:58 units/ Sodium Chloride IV 3 units/hr TITR YONNY 3 mls/hr Titration Protocol 1 UNITS/HR Insulin Human Lispro 0 unit 12/10/20 22:00 12/11/20 11:59 Insulin Lispro 100 Unit/Ml SUB-Q Not Given ACHS YONNY Protocol Magnesium Hydroxide 30 ml 12/10/20 03:41 Magnesium Hydroxide (Mom) Oral Liqd Udc PO Q4H PRN Constipation Ondansetron HCl 4 mg 12/10/20 03:41 12/10/20 04:07 Ondansetron 4 Mg/2 Ml Inj IV 4 mg Q8H PRN Administration Nausea And Vomiting Sodium Chloride 10 ml 12/10/20 10:00 12/11/20 09:16 Sodium Chloride 0.9% 10 Ml Flush Syringe IV 10 ml BID YONNY Administration Sodium Chloride 10 ml 12/10/20 03:41 Sodium Chloride 0.9% 10 Ml Flush Syringe IV PRN PRN LINE FLUSH Nutrition/Malnutrition Assess - Dietary Evaluation Nutrition/Malnutrition Findings: Nutrition Notes Start: 12/10/20 13:54 Freq: Status: Active Protocol: Document 12/11/20 11:36 CW (Rec: 12/11/20 11:43 CW [email or web address]) Nutrition Notes Need for Assessment generated from: MD Order,Education Initial or Follow up Brief Note Current Diagnosis Diabetes Other Pertinent Diagnosis DKA, COVID PUI Current Diet NPO Labs/Tests A1c 10.2 Height 6 ft Weight 66.678 kg [place] Body Weight (kg) 80.90 BMI 19.9 Weight Status Appropriate Subjective/Other Information F/U for diet education. Pt discussion regarding diet education but accepted handout regarding Consistent Carbohydrate Counting #1 Nutrition Diagnosis Food and nutrition-related knowledge deficit Etiology excessive carbohydrate intake As Evidenced by Signs and Symptoms pt in precontemptation stage of change; hgbA1c of 10.2, pt presents with DKA Nutrition Intervention Change Diet Order: Diet advancement as medically feasible Goal #1 Understand impotance of diet change Anticipated Discharge Needs: Consistent Carbohydrate diet Follow-Up By: 12/12/20 Additional Comments F/U diet education understanding - Malnutrition Assessment Minimum of two criteria: No
[2020-12-11 13:30] LABS: BUN/Creatinine Ratio 21; Blood Urea Nitrogen 17 mg/dL (9-20); Calcium 9.1 mg/dL (8.4-10.2); Hemolysis Index 40
[2020-12-11] MEDS: cefTRIAXone/NS 2 GM/100 ML 2 GM/100 ML BAG IV SCH (14:10)
[2020-12-11] MEDS ORDERED: INSULIN GLARGINE 100 UNITS/ML SUB-Q SCH (16:00)
[2020-12-11] MEDS ORDERED: MORPHINE 4 MG/1 ML INJ IV ONE (17:32)
[2020-12-11] MEDS ORDERED: INSULIN LISPRO 100 UNIT/ML SUB-Q SCH (18:00)
[2020-12-12] MEDS: HEPARIN 5,000 UNIT/1 ML VIAL SUB-Q SCH ×3 (05:45→22:39)
[2020-12-12 06:14] LABS: Basophils % (Auto) 0.3 % (0.0-1.8); Eosinophils % (Auto) 0.1 % (0.0-4.3); Hematocrit 39.3 % (35.5-45.6); Hemoglobin 13.7 gm/dl (11.8-15.2); Lymphocytes # (Auto) 2.4 K/mm3 (1.2-5.4); Lymphocytes % (Auto) 26.9 % (13.4-35.0); Mean Corpuscular HGB Conc 35 % (32-34); Mean Corpuscular Volume 96 fl (84-94); Monocytes # (Auto) 0.9 K/mm3 (0.0-0.8); Monocytes % (Auto) 9.7 % (0.0-7.3); Platelet Count 200 K/mm3 (140-440); Red Blood Count 4.08 M/mm3 (3.65-5.03); Red Cell Distribution Width 13.3 % (13.2-15.2)
[2020-12-12 06:57] LABS: Alanine Aminotransferase 6 units/L (7-56); Albumin 3.9 g/dL (3.9-5); BUN/Creatinine Ratio 19; Blood Urea Nitrogen 17 mg/dL (9-20); Calcium 8.8 mg/dL (8.4-10.2); Hemolysis Index 7
[2020-12-12] MEDS: INSULIN LISPRO 100 UNIT/ML SUB-Q SCH ×4 (08:19→22:39)
--- NOTE | 2020-12-12 10:37 | Progress Note ---
Assessment and Plan Assessment and plan: 34-year-old -[place]ish male with known history of diabetes mellitus and who has been admitted on multiple occasions for DKA presenting to the emergency room today complaining of generalized weakness, fatigue and shortness of breath. Patient denies any nausea vomiting, no abdominal pain, no fever or chills, no headache or dizziness. He denies any hematuria or dysuria. Patient denies any sick contacts and no recent travel. Denies contact with anyone with COVID-19. Patient states he feels as if he is in DKA. Work-up in the emergency room today reveals elevated blood glucose in the 500s, elevated anion gap of about 39, leukocytosis of 18, hyperkalemia of 5.6 and bicarb of 9. Patient is being admitted with DKA. He has been initiated on IV fluid and insulin drip. Assessment and plan (1) Diabetic ketoacidosis Current Visit: Yes Status: Acute Plan to address problem: Patient placed on IV fluid and insulin drip. He will be closely monitored in the intensive care unit. (2) High anion gap metabolic acidosis Current Visit: No Status: Acute Plan to address problem: Due to her DKA. Will monitor chemistry closely. We will continue on IV fluid normal saline. (3) Leucocytosis Current Visit: Yes Status: Acute Plan to address problem: Possibly reactive. We will monitor CBC. (4) Hyperkalemia Current Visit: No Status: Acute Plan to address problem: Possibly secondary to the DKA. Patient placed on IV fluid and insulin drip. Will monitor chemistry closely. (5) DVT prophylaxis Current Visit: No Status: Acute Plan to address problem: Patient placed on subcutaneous heparin. (6) Full code status Current Visit: No Status: Acute Plan to address problem: Patient is full code. 12/11/20 patient is seen and examined. Patient is doing better. No new complain. WBC 14.5. Last blood glucose 177. Continue the insulin drip and IV fluid. Rocephin 2 g IV daily for leukocytosis. We will follow the serial BMP. Clear liquid diet. Diabetic education. Recheck CBC BMP in the morning. 12/12/20 patient is seen and examined.No new complain. Bicarb is 19 anion gap 22 glucoses 222 and potassium 3.3. Continue current management. Continue high- dose Humalog sliding scale. Lantus increased to 30 units subcu twice daily. Diabetic education. Potassium supplemented. CMP in the morning. Possible discharge planning in the morning History Interval history: Patient is seen and examined Lab and medication reviewed Patient feels better. No new complain. Bicarb is 19 anion gap 22 glucoses 222 and potassium 3.3 Hospitalist Physical - Constitutional Vitals: Temp Pulse Resp BP Pulse Ox 99.2 F 69 14 110/79 98 12/12/20 07:41 12/12/20 08:00 12/12/20 08:00 12/12/20 08:00 12/12/20 08:00 General appearance: Present: no acute distress, well-nourished, other (Appears lethargic) - EENT Eyes: Present: PERRL, EOM intact ENT: hearing intact, clear oral mucosa, dentition normal - Neck Neck: Present: supple, normal ROM - Respiratory Respiratory effort: normal Respiratory: bilateral: CTA - Cardiovascular Rhythm: regular Heart Sounds: Present: S1 & S2 - Extremities Extremities: no ischemia Peripheral Pulses: within normal limits - Abdominal General gastrointestinal: soft, non-tender, normal bowel sounds - Integumentary Integumentary: Present: clear, warm - Psychiatric Psychiatric: appropriate mood/affect, intact judgment & insight - Neurologic Neurologic: CNII-XII intact, moves all extremities Results - Labs CBC & Chem 7: 12/12/20 05:13 12/12/20 05:13 Labs: Laboratory Last Values WBC 8.8 K/mm3 (4.5-11.0) 12/12/20 05:13 RBC 4.08 M/mm3 (3.65-5.03) 12/12/20 05:13 Hgb 13.7 gm/dl (11.8-15.2) 12/12/20 05:13 Hct 39.3 % (35.5-45.6) 12/12/20 05:13 MCV 96 fl (84-94) H 12/12/20 05:13 MCH 34 pg (28-32) H 12/12/20 05:13 MCHC 35 % (32-34) H 12/12/20 05:13 RDW 13.3 % (13.2-15.2) 12/12/20 05:13 Plt Count 200 K/mm3 (140-440) 12/12/20 05:13 Lymph % (Auto) 26.9 % (13.4-35.0) 12/12/20 05:13 [place] % (Auto) 9.7 % (0.0-7.3) H 12/12/20 05:13 Eos % (Auto) 0.1 % (0.0-4.3) 12/12/20 05:13 Baso % (Auto) 0.3 % (0.0-1.8) 12/12/20 05:13 Lymph # (Auto) 2.4 K/mm3 (1.2-5.4) 12/12/20 05:13 [place] # (Auto) 0.9 K/mm3 (0.0-0.8) H 12/12/20 05:13 Eos # (Auto) 0.0 K/mm3 (0.0-0.4) 12/12/20 05:13 Baso # (Auto) 0.0 K/mm3 (0.0-0.1) 12/12/20 05:13 Add Manual Diff Complete 12/10/20 02:30 Total Counted 100 12/10/20 02:30 Seg Neutrophils % 63.0 % (40.0-70.0) 12/12/20 05:13 Seg Neuts % (Manual) 91.0 % (40.0-70.0) H 12/10/20 02:30 Lymphocytes % (Manual) 5.0 % (13.4-35.0) L 12/10/20 02:30 Monocytes % (Manual) 4.0 % (0.0-7.3) 12/10/20 02:30 Nucleated RBC % Not Reportable 12/10/20 02:30 Seg Neutrophils # 5.6 K/mm3 (1.8-7.7) 12/12/20 05:13 Seg Neutrophils # Man 16.4 K/mm3 (1.8-7.7) H 12/10/20 02:30 Band Neutrophils # 0.0 K/mm3 12/10/20 02:30 Lymphocytes # (Manual) 0.9 K/mm3 (1.2-5.4) L 12/10/20 02:30 Abs React Lymphs (Man) 0.0 K/mm3 12/10/20 02:30 Monocytes # (Manual) 0.7 K/mm3 (0.0-0.8) 12/10/20 02:30 Eosinophils # (Manual) 0.0 K/mm3 (0.0-0.4) 12/10/20 02:30 Basophils # (Manual) 0.0 K/mm3 (0.0-0.1) 12/10/20 02:30 Metamyelocytes # 0.0 K/mm3 12/10/20 02:30 Myelocytes # 0.0 K/mm3 12/10/20 02:30 Promyelocytes # 0.0 K/mm3 12/10/20 02:30 Blast Cells # 0.0 K/mm3 12/10/20 02:30 WBC Morphology Not Reportable 12/10/20 02:30 Hypersegmented Neuts Not Reportable 12/10/20 02:30 Hyposegmented Neuts Not Reportable 12/10/20 02:30 Hypogranular Neuts Not Reportable 12/10/20 02:30 Smudge Cells Not Reportable 12/10/20 02:30 Toxic Granulation Not Reportable 12/10/20 02:30 Toxic Vacuolation Not Reportable 12/10/20 02:30 Dohle Bodies Not Reportable 12/10/20 02:30 Pelger-Huet Anomaly Not Reportable 12/10/20 02:30 Ethan Rods Not Reportable 12/10/20 02:30 Platelet Estimate Not Reportable 12/10/20 02:30 Clumped Platelets Not Reportable 12/10/20 02:30 Plt Clumps, EDTA Not Reportable 12/10/20 02:30 Large Platelets Not Reportable 12/10/20 02:30 Giant Platelets Not Reportable 12/10/20 02:30 Platelet Satelliting Not Reportable 12/10/20 02:30 Plt Morphology Comment Not Reportable 12/10/20 02:30 RBC Morphology Normal 12/10/20 02:30 Dimorphic RBCs Not Reportable 12/10/20 02:30 Polychromasia Not Reportable 12/10/20 02:30 Hypochromasia Not Reportable 12/10/20 02:30 Poikilocytosis Not Reportable 12/10/20 02:30 Anisocytosis Not Reportable 12/10/20 02:30 Microcytosis Not Reportable 12/10/20 02:30 Macrocytosis Not Reportable 12/10/20 02:30 Spherocytes Not Reportable 12/10/20 02:30 Pappenheimer Bodies Not Reportable 12/10/20 02:30 Sickle Cells Not Reportable 12/10/20 02:30 Target Cells Not Reportable 12/10/20 02:30 Tear Drop Cells Not Reportable 12/10/20 02:30 Ovalocytes Not Reportable 12/10/20 02:30 Helmet Cells Not Reportable 12/10/20 02:30 [place] Bodies Not Reportable 12/10/20 02:30 [place] Rings Not Reportable 12/10/20 02:30 [place] Cells Not Reportable 12/10/20 02:30 Bite Cells Not Reportable 12/10/20 02:30 Crenated Cell Not Reportable 12/10/20 02:30 Elliptocytes Not Reportable 12/10/20 02:30 Acanthocytes (Spur) Not Reportable 12/10/20 02:30 Rouleaux Not Reportable 12/10/20 02:30 Hemoglobin C Crystals Not Reportable 12/10/20 02:30 Schistocytes Not Reportable 12/10/20 02:30 Malaria parasites Not Reportable 12/10/20 02:30 Elliott Bodies Not Reportable 12/10/20 02:30 Hem Pathologist Commnt No 12/10/20 02:30 PT 13.5 Sec. (12.2-14.9) 12/10/20 02:30 INR 0.98 (0.87-1.13) 12/10/20 02:30 VBG pH 7.164 (7.320-7.420) L* 12/10/20 02:30 Sodium 139 mmol/L (137-145) 12/12/20 05:13 Potassium 3.3 mmol/L (3.6-5.0) L 12/12/20 05:13 Chloride 101.7 mmol/L (98-107) 12/12/20 05:13 Carbon Dioxide 19 mmol/L (22-30) L 12/12/20 05:13 Anion Gap 22 mmol/L 12/12/20 05:13 BUN 17 mg/dL (9-20) 12/12/20 05:13 Creatinine 0.9 mg/dL (0.8-1.3) 12/12/20 05:13 Estimated GFR > 60 ml/min 12/12/20 05:13 BUN/Creatinine Ratio 19 % 12/12/20 05:13 Glucose 205 mg/dL (75-100) H 12/12/20 05:13 POC Glucose 222 mg/dL (70-105) H 12/12/20 07:19 Hemoglobin A1c 10.2 % (4-6) H 12/10/20 05:25 Calcium 8.8 mg/dL (8.4-10.2) 12/12/20 05:13 Phosphorus 7.00 mg/dL (2.5-4.5) H 12/10/20 03:45 Magnesium 2.50 mg/dL (1.7-2.3) H 12/10/20 03:45 Total Bilirubin 0.50 mg/dL (0.1-1.2) 12/12/20 05:13 AST 8 units/L (5-40) 12/12/20 05:13 ALT 6 units/L (7-56) L 12/12/20 05:13 Alkaline Phosphatase 54 units/L (35-129) 12/12/20 05:13 Total Creatine Kinase 275 units/L (55-170) H 12/10/20 02:30 Total Protein 6.5 g/dL (6.3-8.2) 12/12/20 05:13 Albumin 3.9 g/dL (3.9-5) 12/12/20 05:13 Albumin/Globulin Ratio 1.5 % 12/12/20 05:13 TSH 1.700 mlU/mL (0.270-4.200) 12/10/20 02:30 Salicylates < 0.3 mg/dL (2.8-20.0) L 12/10/20 02:30 Acetaminophen < 5.0 ug/mL (10.0-30.0) L 12/10/20 02:30 Plasma/Serum Alcohol < 0.01 % (0-0.07) 12/10/20 02:30 Coronavirus (PCR) Negative (Negative) 12/10/20 07:48 Thomas/IV: Voiding Method Urinal Active Medications - Current Medications Current Medications: Generic Name Dose Route Start Last Admin Trade Name Freq PRN Reason Stop Dose Admin Dextrose 0 ml 12/10/20 03:29 Dextrose 50% In Water (25gm) 50 Ml Syringe IV Q30MIN PRN Hypoglycemia Protocol Heparin Sodium (Porcine) 5,000 unit 12/10/20 06:00 12/12/20 05:45 Heparin 5,000 Unit/1 Ml Vial SUB-Q 5,000 unit Q8HR YONNY Administration Ceftriaxone Sodium 2 gm in 100 mls @ 200 mls/hr 12/11/20 14:00 12/11/20 14:10 Rocephin/Ns 2 Gm/100 Ml IV 200 mls/hr Q24H YONNY Administration Protocol Insulin Glargine 30 units 12/12/20 16:00 Insulin Glargine 100 Units/Ml SUB-Q Q24H YONNY Insulin Human Lispro 0 unit 12/10/20 22:00 12/12/20 08:19 Insulin Lispro 100 Unit/Ml SUB-Q 3 unit ACHS YONNY Administration Protocol Magnesium Hydroxide 30 ml 12/10/20 03:41 Magnesium Hydroxide (Mom) Oral Liqd Udc PO Q4H PRN Constipation Ondansetron HCl 4 mg 12/10/20 03:41 12/10/20 04:07 Ondansetron 4 Mg/2 Ml Inj IV 4 mg Q8H PRN Administration Nausea And Vomiting Sodium Chloride 10 ml 12/10/20 10:00 12/11/20 21:34 Sodium Chloride 0.9% 10 Ml Flush Syringe IV 10 ml BID YONNY Administration Sodium Chloride 10 ml 12/10/20 03:41 Sodium Chloride 0.9% 10 Ml Flush Syringe IV PRN PRN LINE FLUSH Nutrition/Malnutrition Assess - Dietary Evaluation Nutrition/Malnutrition Findings: Nutrition Notes Start: 12/10/20 13:54 Freq: Status: Active Protocol: Document 12/11/20 11:36 CW (Rec: 12/11/20 11:43 CW [email or web address]) Nutrition Notes Need for Assessment generated from: MD Order,Education Initial or Follow up Brief Note Current Diagnosis Diabetes Other Pertinent Diagnosis DKA, COVID PUI Current Diet NPO Labs/Tests A1c 10.2 Height 6 ft Weight 66.678 kg [place] Body Weight (kg) 80.90 BMI 19.9 Weight Status Appropriate Subjective/Other Information F/U for diet education. Pt discussion regarding diet education but accepted handout regarding Consistent Carbohydrate Counting #1 Nutrition Diagnosis Food and nutrition-related knowledge deficit Etiology excessive carbohydrate intake As Evidenced by Signs and Symptoms pt in precontemptation stage of change; hgbA1c of 10.2, pt presents with DKA Nutrition Intervention Change Diet Order: Diet advancement as medically feasible Goal #1 Understand impotance of diet change Anticipated Discharge Needs: Consistent Carbohydrate diet Follow-Up By: 12/14/20 Additional Comments F/U diet education understanding and diet advancement - Malnutrition Assessment Minimum of two criteria: No - Attestation Statement I have reviewed and agreed w/ Malnutrition eval & tx plan: No
[2020-12-12] MEDS: ONDANSETRON 4 MG/2 ML INJ IV PRN ×2 (12:43→22:38)
[2020-12-12] MEDS: cefTRIAXone/NS 2 GM/100 ML 2 GM/100 ML BAG IV SCH ×2 (14:58→15:24)
[2020-12-12] MEDS ORDERED: INSULIN GLARGINE 100 UNITS/ML SUB-Q SCH (16:00)
[2020-12-12] MEDS ORDERED: PROMETHAZINE 12.5 MG/10 ML ORAL LIQD PO PRN (16:34)
[2020-12-12] MEDS ORDERED: MORPHINE 2 MG/1 ML INJ IM ONE (17:00)
--- NOTE | 2020-12-12 18:05 | Progress Note ---
Assessment and Plan Diabetic ketoacidosis Acute kidney injury Medication noncompliance Hyperkalemia Severe metabolic acidosis Tobacco use disorder - prn supplemental oxygen to keep O2 sats > 90% - prn bronchodilators (DAHIANA) with pulm hygiene per RT - accuchecks with glycemic control per SSI for target blood glucose < 180 mg/dL (once of IV insulin therapy) - continue to avoid nephrotoxins, renally dose all medications - mobility protocols to prevent pressure ulcers - PT/OT as tolerated - tobacco abstinence strongly counseled at the bedside - home oxygen evaluation at discharge - GI & VTE prophylaxis - Flu & pneumovax per protocol - prn analgesia per pain score - continue other care per attending / other consultants ... re-evaluate in am & prn Subjective Date of service: 12/12/20 Principal diagnosis: DKA; SUSHMA; Medication noncompliance; metabolic acidosis; Tobacco abuse Interval history: Patient is seen today for: Diabetic ketoacidosis; Acute kidney injury; Medication noncompliance; Severe metabolic acidosis; Tobacco use disorder Seen and examined at bedside; 24hour events reviewed; nursing and respiratory care staff consulted; no adverse overnight events reported to me; resting peacefully in bed; gap closed; denies chest pain or SOB; No N/V/F/C Objective Vital Signs - 12hr 12/12/20 12/12/20 12/12/20 07:00 07:41 08:00 Temperature 99.2 F Pulse Rate 78 69 Respiratory 16 14 Rate Blood Pressure 88/58 110/79 O2 Sat by Pulse 98 98 Oximetry 12/12/20 12/12/20 12/12/20 09:00 10:00 10:43 Temperature Pulse Rate 74 76 111 H Respiratory 14 12 Rate Blood Pressure 122/82 102/65 O2 Sat by Pulse 97 97 Oximetry Constitutional: no acute distress Eyes: non-icteric ENT: oropharynx moist Neck: supple, no lymphadenopathy Effort: normal Ascultation: Bilateral: clear Percussion: Bilateral: not dull Cardiovascular: regular rate and rhythm Gastrointestinal: normoactive bowel sounds, soft, non-tender, non-distended Integumentary: normal Extremities: no cyanosis, no edema, pulses normal, no ischemia or petechiae Neurologic: non-focal exam, pupils equal and round, CN II-XII normal, motor strength normal and Psychiatric: mood appropriate, affect normal CBC and BMP: 12/12/20 05:13 12/13/20 14:31 ABG, PT/INR, D-dimer: PT/INR, D-dimer PT 13.5 Sec. (12.2-14.9) 12/10/20 02:30 INR 0.98 (0.87-1.13) 12/10/20 02:30 Abnormal lab findings: Abnormal Labs 12/10/20 12/10/20 12/10/20 01:52 02:30 02:30 WBC 18.0 H RBC 5.21 H Hgb 17.2 H Hct 51.7 H MCV 99 H MCH 33 H MCHC Pickett % (Auto) Pickett # (Auto) Seg Neuts % (Manual) 91.0 H Lymphocytes % (Manual) 5.0 L Seg Neutrophils # Man 16.4 H Lymphocytes # (Manual) 0.9 L VBG pH Sodium 128 L Potassium 5.6 H Chloride 85.4 L Carbon Dioxide 9 L* BUN 35 H Creatinine 1.7 H Glucose 575 H* POC Glucose 536 H Hemoglobin A1c Phosphorus Magnesium ALT Total Creatine Kinase Salicylates Acetaminophen 12/10/20 12/10/20 12/10/20 02:30 02:30 02:30 WBC RBC Hgb Hct MCV MCH MCHC [place] % (Auto) [place]ett # (Auto) Seg Neuts % (Manual) Lymphocytes % (Manual) Seg Neutrophils # Man Lymphocytes # (Manual) VBG pH 7.164 L* Sodium Potassium Chloride Carbon Dioxide BUN Creatinine Glucose POC Glucose Hemoglobin A1c Phosphorus Magnesium 2.80 H ALT Total Creatine Kinase 275 H Salicylates < 0.3 L Acetaminophen 12/10/20 12/10/20 12/10/20 02:30 03:45 03:45 WBC RBC Hgb Hct MCV MCH MCHC [place] % (Auto) [place] # (Auto) Seg Neuts % (Manual) Lymphocytes % (Manual) Seg Neutrophils # Man Lymphocytes # (Manual) VBG pH Sodium 130 L Potassium 5.6 H Chloride 87.4 L Carbon Dioxide 8 L* BUN 34 H Creatinine 1.6 H Glucose 517 H* POC Glucose Hemoglobin A1c Phosphorus 7.00 H Magnesium 2.50 H ALT Total Creatine Kinase Salicylates Acetaminophen < 5.0 L 12/10/20 12/10/20 12/10/20 04:17 05:25 05:50 WBC RBC Hgb Hct MCV MCH MCHC [place] % (Auto) [place] # (Auto) Seg Neuts % (Manual) Lymphocytes % (Manual) Seg Neutrophils # Man Lymphocytes # (Manual) VBG pH Sodium Potassium Chloride Carbon Dioxide BUN Creatinine Glucose POC Glucose 511 H 340 H Hemoglobin A1c 10.2 H Phosphorus Magnesium ALT Total Creatine Kinase Salicylates Acetaminophen 12/10/20 12/10/20 12/10/20 06:49 07:49 09:02 WBC RBC Hgb Hct MCV MCH MCHC [place] % (Auto) [place] # (Auto) Seg Neuts % (Manual) Lymphocytes % (Manual) Seg Neutrophils # Man Lymphocytes # (Manual) VBG pH Sodium Potassium Chloride Carbon Dioxide BUN Creatinine Glucose POC Glucose 311 H 257 H 213 H Hemoglobin A1c Phosphorus Magnesium ALT Total Creatine Kinase Salicylates Acetaminophen 12/10/20 12/10/20 12/10/20 09:55 10:16 11:04 WBC RBC Hgb Hct MCV MCH MCHC [place] % (Auto) [place] # (Auto) Seg Neuts % (Manual) Lymphocytes % (Manual) Seg Neutrophils # Man Lymphocytes # (Manual) VBG pH Sodium Potassium Chloride Carbon Dioxide 17 L D BUN 29 H Creatinine Glucose 172 H POC Glucose 191 H 154 H Hemoglobin A1c Phosphorus Magnesium ALT Total Creatine Kinase Salicylates Acetaminophen 12/10/20 12/10/20 12/10/20 12:02 13:02 13:57 WBC RBC Hgb Hct MCV MCH MCHC [place] % (Auto) [place] # (Auto) Seg Neuts % (Manual) Lymphocytes % (Manual) Seg Neutrophils # Man Lymphocytes # (Manual) VBG pH Sodium Potassium 5.6 H Chloride Carbon Dioxide 19 L BUN 26 H Creatinine Glucose 224 H POC Glucose 151 H 172 H Hemoglobin A1c Phosphorus Magnesium ALT Total Creatine Kinase Salicylates Acetaminophen 12/10/20 12/10/20 12/10/20 14:18 15:00 15:56 WBC RBC Hgb Hct MCV MCH MCHC [place] % (Auto) [place] # (Auto) Seg Neuts % (Manual) Lymphocytes % (Manual) Seg Neutrophils # Man Lymphocytes # (Manual) VBG pH Sodium Potassium Chloride Carbon Dioxide BUN Creatinine Glucose POC Glucose 216 H 235 H 205 H Hemoglobin A1c Phosphorus Magnesium ALT Total Creatine Kinase Salicylates Acetaminophen 12/10/20 12/10/20 12/10/20 17:17 17:47 18:53 WBC RBC Hgb Hct MCV MCH MCHC [place] % (Auto) [place] # (Auto) Seg Neuts % (Manual) Lymphocytes % (Manual) Seg Neutrophils # Man Lymphocytes # (Manual) VBG pH Sodium Potassium Chloride Carbon Dioxide BUN Creatinine Glucose POC Glucose 207 H 192 H 142 H Hemoglobin A1c Phosphorus Magnesium ALT Total Creatine Kinase Salicylates Acetaminophen 12/10/20 12/10/20 12/11/20 19:25 21:50 03:32 WBC RBC Hgb Hct MCV MCH MCHC [place] % (Auto) [place] # (Auto) Seg Neuts % (Manual) Lymphocytes % (Manual) Seg Neutrophils # Man Lymphocytes # (Manual) VBG pH Sodium Potassium Chloride Carbon Dioxide BUN 21 H Creatinine Glucose 111 H POC Glucose 184 H 289 H Hemoglobin A1c Phosphorus Magnesium ALT Total Creatine Kinase Salicylates Acetaminophen 12/11/20 12/11/20 12/11/20 05:13 05:13 07:17 WBC 14.5 H RBC Hgb Hct MCV 96 H MCH 33 H MCHC 35 H [place] % (Auto) [place] # (Auto) Seg Neuts % (Manual) Lymphocytes % (Manual) Seg Neutrophils # Man Lymphocytes # (Manual) VBG pH Sodium Potassium Chloride Carbon Dioxide 15 L D BUN Creatinine Glucose 294 H POC Glucose 278 H Hemoglobin A1c Phosphorus Magnesium ALT Total Creatine Kinase Salicylates Acetaminophen 12/11/20 12/11/20 12/11/20 08:16 09:13 10:03 WBC RBC Hgb Hct MCV MCH MCHC [place] % (Auto) [place] # (Auto) Seg Neuts % (Manual) Lymphocytes % (Manual) Seg Neutrophils # Man Lymphocytes # (Manual) VBG pH Sodium Potassium Chloride Carbon Dioxide BUN Creatinine Glucose POC Glucose 225 H 190 H 204 H Hemoglobin A1c Phosphorus Magnesium ALT Total Creatine Kinase Salicylates Acetaminophen 12/11/20 12/11/20 12/11/20 11:12 11:55 13:03 WBC RBC Hgb Hct MCV MCH MCHC [place] % (Auto) [place] # (Auto) Seg Neuts % (Manual) Lymphocytes % (Manual) Seg Neutrophils # Man Lymphocytes # (Manual) VBG pH Sodium Potassium Chloride Carbon Dioxide BUN Creatinine Glucose POC Glucose 179 H 177 H 165 H Hemoglobin A1c Phosphorus Magnesium ALT Total Creatine Kinase Salicylates Acetaminophen 12/11/20 12/11/20 12/11/20 13:10 14:14 15:16 WBC RBC Hgb Hct MCV MCH MCHC [place] % (Auto) [place] # (Auto) Seg Neuts % (Manual) Lymphocytes % (Manual) Seg Neutrophils # Man Lymphocytes # (Manual) VBG pH Sodium Potassium Chloride Carbon Dioxide 21 L BUN Creatinine Glucose 173 H POC Glucose 192 H 156 H Hemoglobin A1c Phosphorus Magnesium ALT Total Creatine Kinase Salicylates Acetaminophen 12/11/20 12/11/20 12/12/20 16:07 21:38 05:13 WBC RBC Hgb Hct MCV 96 H MCH 34 H MCHC 35 H [place] % (Auto) 9.7 H [place]ett # (Auto) 0.9 H Seg Neuts % (Manual) Lymphocytes % (Manual) Seg Neutrophils # Man Lymphocytes # (Manual) VBG pH Sodium Potassium Chloride Carbon Dioxide BUN Creatinine Glucose POC Glucose 129 H 216 H Hemoglobin A1c Phosphorus Magnesium ALT Total Creatine Kinase Salicylates Acetaminophen 12/12/20 12/12/20 12/12/20 05:13 07:19 11:22 WBC RBC Hgb Hct MCV MCH MCHC [place] % (Auto) [place] # (Auto) Seg Neuts % (Manual) Lymphocytes % (Manual) Seg Neutrophils # Man Lymphocytes # (Manual) VBG pH Sodium Potassium 3.3 L Chloride Carbon Dioxide 19 L BUN Creatinine Glucose 205 H POC Glucose 222 H 254 H Hemoglobin A1c Phosphorus Magnesium ALT 6 L Total Creatine Kinase Salicylates Acetaminophen 12/12/20 15:30 WBC RBC Hgb Hct MCV MCH MCHC [place] % (Auto) [place] # (Auto) Seg Neuts % (Manual) Lymphocytes % (Manual) Seg Neutrophils # Man Lymphocytes # (Manual) VBG pH Sodium Potassium Chloride Carbon Dioxide BUN Creatinine Glucose POC Glucose 227 H Hemoglobin A1c Phosphorus Magnesium ALT Total Creatine Kinase Salicylates Acetaminophen Allied health notes reviewed: nursing
[2020-12-13 05:52] LABS: Alanine Aminotransferase 11 units/L (7-56); Albumin 4.1 g/dL (3.9-5); BUN/Creatinine Ratio 18; Blood Urea Nitrogen 14 mg/dL (9-20); Calcium 9.3 mg/dL (8.4-10.2); Hemolysis Index 4
[2020-12-13] MEDS: HEPARIN 5,000 UNIT/1 ML VIAL SUB-Q SCH ×3 (06:39→22:09)
[2020-12-13] MEDS ORDERED: SODIUM CHLORIDE 0.9% 1000 ML 1,000 ML IV ONE (07:40)
--- NOTE | 2020-12-13 07:44 | Progress Note ---
Assessment and Plan Assessment and plan: 34-year-old -[place] male with known history of diabetes mellitus and who has been admitted on multiple occasions for DKA presenting to the emergency room today complaining of generalized weakness, fatigue and shortness of breath. Patient denies any nausea vomiting, no abdominal pain, no fever or chills, no headache or dizziness. He denies any hematuria or dysuria. Patient denies any sick contacts and no recent travel. Denies contact with anyone with COVID-19. Patient states he feels as if he is in DKA. Work-up in the emergency room today reveals elevated blood glucose in the 500s, elevated anion gap of about 39, leukocytosis of 18, hyperkalemia of 5.6 and bicarb of 9. Patient is being admitted with DKA. He has been initiated on IV fluid and insulin drip. Assessment and plan (1) Diabetic ketoacidosis Current Visit: Yes Status: Acute Plan to address problem: Patient placed on IV fluid and insulin drip. He will be closely monitored in the intensive care unit. (2) High anion gap metabolic acidosis Current Visit: No Status: Acute Plan to address problem: Due to her DKA. Will monitor chemistry closely. We will continue on IV fluid normal saline. (3) Leucocytosis Current Visit: Yes Status: Acute Plan to address problem: Possibly reactive. We will monitor CBC. (4) Hyperkalemia Current Visit: No Status: Acute Plan to address problem: Possibly secondary to the DKA. Patient placed on IV fluid and insulin drip. Will monitor chemistry closely. (5) nicotine use disorder (6) DVT prophylaxis Current Visit: No Status: Acute Plan to address problem: Patient placed on subcutaneous heparin. (7) Full code status Current Visit: No Status: Acute Plan to address problem: Patient is full code. 12/11/20 patient is seen and examined. Patient is doing better. No new complain. WBC 14.5. Last blood glucose 177. Continue the insulin drip and IV fluid. Rocephin 2 g IV daily for leukocytosis. We will follow the serial BMP. Clear liquid diet. Diabetic education. Recheck CBC BMP in the morning. 12/12/20 patient is seen and examined.No new complain. Bicarb is 19 anion gap 22 glucoses 222 and potassium 3.3. Continue current management. Continue high- dose Humalog sliding scale. Lantus increased to 30 units subcu twice daily. Diabetic education. Potassium supplemented. CMP in the morning. Possible discharge planning in the morning 12/13: Patient still with severe metabolic acidosis, uncontrolled BG and also with Low BP. Will give a bolus of fluids, 2 amps of Bicarb and increase sliding scale to high dose and lantus to 35 units. Repeat BMP this afternoon and in am, if stable and improved in am, will discharge His disposition this morning is flat he denies any depression suicidal ideation or homicidal ideation. Discussed plan of care with him he is agreeable. He denies running out of his medication. On discharge may need adjustment of the doses of medicine that he receives. Continue antibiotics empirically. 50 minutes counseling provided on tobacco use risk of continued tobacco use he verbalized understanding History Interval history: Patient seen and examined resting comfortably flat affect. No distress reported. Hospitalist Physical - Physical exam Narrative exam: VITAL SIGNS: Reviewed. GENERAL: The patient appears normally developed, Vital signs as documented. HEAD: No signs of head trauma. EYES: Pupils are equal. Extraocular motions intact. EARS: Hearing grossly intact. MOUTH: Oropharynx is normal. NECK: No adenopathy, no JVD. CHEST: Chest with clear breath sounds bilaterally. No wheezes, rales, or rhonchi. CARDIAC: Regular rate and rhythm. S1 and S2, without murmurs, gallops, or rubs. VASCULAR: No Edema. Peripheral pulses normal and equal in all extremities. ABDOMEN: Soft, non tender and non distended. No rebound or guarding, and no masses palpated. Bowel Sounds normal. MUSCULOSKELETAL: Good range of motion of all major joints. Extremities without clubbing, cyanosis or edema. NEUROLOGIC EXAM: Alert and oriented x 3 No focal sensory or strength deficits. Speech normal. Follows commands. PSYCHIATRIC: Mood flat. SKIN: detail exam as documented in skin assessment - Constitutional Vitals: Temp Pulse Resp BP Pulse Ox 98.9 F 90 18 108/73 98 12/13/20 04:22 12/13/20 04:22 12/13/20 04:22 12/13/20 04:22 12/13/20 04:22 General appearance: Present: no acute distress, well-nourished, other (Appears lethargic) Results - Labs CBC & Chem 7: 12/12/20 05:13 12/13/20 04:57 Labs: Laboratory Last Values WBC 8.8 K/mm3 (4.5-11.0) 12/12/20 05:13 RBC 4.08 M/mm3 (3.65-5.03) 12/12/20 05:13 Hgb 13.7 gm/dl (11.8-15.2) 12/12/20 05:13 Hct 39.3 % (35.5-45.6) 12/12/20 05:13 MCV 96 fl (84-94) H 12/12/20 05:13 MCH 34 pg (28-32) H 12/12/20 05:13 MCHC 35 % (32-34) H 12/12/20 05:13 RDW 13.3 % (13.2-15.2) 12/12/20 05:13 Plt Count 200 K/mm3 (140-440) 12/12/20 05:13 Lymph % (Auto) 26.9 % (13.4-35.0) 12/12/20 05:13 [place] % (Auto) 9.7 % (0.0-7.3) H 12/12/20 05:13 Eos % (Auto) 0.1 % (0.0-4.3) 12/12/20 05:13 Baso % (Auto) 0.3 % (0.0-1.8) 12/12/20 05:13 Lymph # (Auto) 2.4 K/mm3 (1.2-5.4) 12/12/20 05:13 [place] # (Auto) 0.9 K/mm3 (0.0-0.8) H 12/12/20 05:13 Eos # (Auto) 0.0 K/mm3 (0.0-0.4) 12/12/20 05:13 Baso # (Auto) 0.0 K/mm3 (0.0-0.1) 12/12/20 05:13 Add Manual Diff Complete 12/10/20 02:30 Total Counted 100 12/10/20 02:30 Seg Neutrophils % 63.0 % (40.0-70.0) 12/12/20 05:13 Seg Neuts % (Manual) 91.0 % (40.0-70.0) H 12/10/20 02:30 Lymphocytes % (Manual) 5.0 % (13.4-35.0) L 12/10/20 02:30 Monocytes % (Manual) 4.0 % (0.0-7.3) 12/10/20 02:30 Nucleated RBC % Not Reportable 12/10/20 02:30 Seg Neutrophils # 5.6 K/mm3 (1.8-7.7) 12/12/20 05:13 Seg Neutrophils # Man 16.4 K/mm3 (1.8-7.7) H 12/10/20 02:30 Band Neutrophils # 0.0 K/mm3 12/10/20 02:30 Lymphocytes # (Manual) 0.9 K/mm3 (1.2-5.4) L 12/10/20 02:30 Abs React Lymphs (Man) 0.0 K/mm3 12/10/20 02:30 Monocytes # (Manual) 0.7 K/mm3 (0.0-0.8) 12/10/20 02:30 Eosinophils # (Manual) 0.0 K/mm3 (0.0-0.4) 12/10/20 02:30 Basophils # (Manual) 0.0 K/mm3 (0.0-0.1) 12/10/20 02:30 Metamyelocytes # 0.0 K/mm3 12/10/20 02:30 Myelocytes # 0.0 K/mm3 12/10/20 02:30 Promyelocytes # 0.0 K/mm3 12/10/20 02:30 Blast Cells # 0.0 K/mm3 12/10/20 02:30 WBC Morphology Not Reportable 12/10/20 02:30 Hypersegmented Neuts Not Reportable 12/10/20 02:30 Hyposegmented Neuts Not Reportable 12/10/20 02:30 Hypogranular Neuts Not Reportable 12/10/20 02:30 Smudge Cells Not Reportable 12/10/20 02:30 Toxic Granulation Not Reportable 12/10/20 02:30 Toxic Vacuolation Not Reportable 12/10/20 02:30 Dohle Bodies Not Reportable 12/10/20 02:30 Pelger-Huet Anomaly Not Reportable 12/10/20 02:30 Ethan Rods Not Reportable 12/10/20 02:30 Platelet Estimate Not Reportable 12/10/20 02:30 Clumped Platelets Not Reportable 12/10/20 02:30 Plt Clumps, EDTA Not Reportable 12/10/20 02:30 Large Platelets Not Reportable 12/10/20 02:30 Giant Platelets Not Reportable 12/10/20 02:30 Platelet Satelliting Not Reportable 12/10/20 02:30 Plt Morphology Comment Not Reportable 12/10/20 02:30 RBC Morphology Normal 12/10/20 02:30 Dimorphic RBCs Not Reportable 12/10/20 02:30 Polychromasia Not Reportable 12/10/20 02:30 Hypochromasia Not Reportable 12/10/20 02:30 Poikilocytosis Not Reportable 12/10/20 02:30 Anisocytosis Not Reportable 12/10/20 02:30 Microcytosis Not Reportable 12/10/20 02:30 Macrocytosis Not Reportable 12/10/20 02:30 Spherocytes Not Reportable 12/10/20 02:30 Pappenheimer Bodies Not Reportable 12/10/20 02:30 Sickle Cells Not Reportable 12/10/20 02:30 Target Cells Not Reportable 12/10/20 02:30 Tear Drop Cells Not Reportable 12/10/20 02:30 Ovalocytes Not Reportable 12/10/20 02:30 Helmet Cells Not Reportable 12/10/20 02:30 [place] Bodies Not Reportable 12/10/20 02:30 [place] Rings Not Reportable 12/10/20 02:30 [place] Cells Not Reportable 12/10/20 02:30 Bite Cells Not Reportable 12/10/20 02:30 Crenated Cell Not Reportable 12/10/20 02:30 Elliptocytes Not Reportable 12/10/20 02:30 Acanthocytes (Spur) Not Reportable 12/10/20 02:30 Rouleaux Not Reportable 12/10/20 02:30 Hemoglobin C Crystals Not Reportable 12/10/20 02:30 Schistocytes Not Reportable 12/10/20 02:30 Malaria parasites Not Reportable 12/10/20 02:30 Elliott Bodies Not Reportable 12/10/20 02:30 Hem Pathologist Commnt No 12/10/20 02:30 PT 13.5 Sec. (12.2-14.9) 12/10/20 02:30 INR 0.98 (0.87-1.13) 12/10/20 02:30 VBG pH 7.164 (7.320-7.420) L* 12/10/20 02:30 Sodium 132 mmol/L (137-145) L D 12/13/20 04:57 Potassium 3.6 mmol/L (3.6-5.0) 12/13/20 04:57 Chloride 96.4 mmol/L (98-107) L 12/13/20 04:57 Carbon Dioxide 17 mmol/L (22-30) L 12/13/20 04:57 Anion Gap 22 mmol/L 12/13/20 04:57 BUN 14 mg/dL (9-20) 12/13/20 04:57 Creatinine 0.8 mg/dL (0.8-1.3) 12/13/20 04:57 Estimated GFR > 60 ml/min 12/13/20 04:57 BUN/Creatinine Ratio 18 % 12/13/20 04:57 Glucose 247 mg/dL (75-100) H 12/13/20 04:57 POC Glucose 283 mg/dL (70-105) H 12/13/20 07:29 Hemoglobin A1c 10.2 % (4-6) H 12/10/20 05:25 Calcium 9.3 mg/dL (8.4-10.2) 12/13/20 04:57 Phosphorus 7.00 mg/dL (2.5-4.5) H 12/10/20 03:45 Magnesium 2.50 mg/dL (1.7-2.3) H 12/10/20 03:45 Total Bilirubin 0.60 mg/dL (0.1-1.2) 12/13/20 04:57 AST 14 units/L (5-40) 12/13/20 04:57 ALT 11 units/L (7-56) 12/13/20 04:57 Alkaline Phosphatase 53 units/L (35-129) 12/13/20 04:57 Total Creatine Kinase 275 units/L (55-170) H 12/10/20 02:30 Total Protein 7.1 g/dL (6.3-8.2) 12/13/20 04:57 Albumin 4.1 g/dL (3.9-5) 12/13/20 04:57 Albumin/Globulin Ratio 1.4 % 12/13/20 04:57 TSH 1.700 mlU/mL (0.270-4.200) 12/10/20 02:30 Salicylates < 0.3 mg/dL (2.8-20.0) L 12/10/20 02:30 Acetaminophen < 5.0 ug/mL (10.0-30.0) L 12/10/20 02:30 Plasma/Serum Alcohol < 0.01 % (0-0.07) 12/10/20 02:30 Coronavirus (PCR) Negative (Negative) 12/10/20 07:48 Thomas/IV: Voiding Method Urinal Active Medications - Current Medications Current Medications: Generic Name Dose Route Start Last Admin Trade Name Freq PRN Reason Stop Dose Admin Dextrose 0 ml 12/10/20 03:29 Dextrose 50% In Water (25gm) 50 Ml Syringe IV Q30MIN PRN Hypoglycemia Protocol Heparin Sodium (Porcine) 5,000 unit 12/10/20 06:00 12/13/20 06:39 Heparin 5,000 Unit/1 Ml Vial SUB-Q 5,000 unit Q8HR YONNY Administration Ceftriaxone Sodium 2 gm in 100 mls @ 200 mls/hr 12/11/20 14:00 12/12/20 15:24 Rocephin/Ns 2 Gm/100 Ml IV Not Given Q24H YONNY Protocol Sodium Chloride 1,000 mls @ 999 mls/hr 12/13/20 07:40 Nacl 0.9% 1000 Ml IV 12/13/20 08:40 BOLUS ONE Insulin Glargine 35 units 12/13/20 07:42 Insulin Glargine 100 Units/Ml SUB-Q Q24H [facility] Insulin Human Lispro 0 unit 12/10/20 22:00 12/12/20 22:39 Insulin Lispro 100 Unit/Ml SUB-Q 4 unit ACHS YONNY Administration Protocol Magnesium Hydroxide 30 ml 12/10/20 03:41 Magnesium Hydroxide (Mom) Oral Liqd Udc PO Q4H PRN Constipation Ondansetron HCl 4 mg 12/10/20 03:41 12/12/20 22:38 Ondansetron 4 Mg/2 Ml Inj IV 4 mg Q8H PRN Administration Nausea And Vomiting Promethazine HCl 6.25 mg 12/12/20 16:34 12/12/20 17:23 Promethazine 12.5 Mg/10 Ml Oral Liqd PO 6.25 mg Q6H PRN Administration Nausea And Vomiting Sodium Bicarbonate 50 meq 12/13/20 07:41 Sodium Bicarb 8.4% 50 Meq/50 Ml Syringe IV 12/13/20 07:42 ONCE ONE Sodium Chloride 10 ml 12/10/20 10:00 12/12/20 22:39 Sodium Chloride 0.9% 10 Ml Flush Syringe IV 10 ml BID YONNY Administration Sodium Chloride 10 ml 12/10/20 03:41 Sodium Chloride 0.9% 10 Ml Flush Syringe IV PRN PRN LINE FLUSH Nutrition/Malnutrition Assess - Dietary Evaluation Nutrition/Malnutrition Findings: Nutrition Notes Start: 12/10/20 13:54 Freq: Status: Active Protocol: Document 12/11/20 11:36 CW (Rec: 12/11/20 11:43 CW [id number]) Nutrition Notes Need for Assessment generated from: MD Order,Education Initial or Follow up Brief Note Current Diagnosis Diabetes Other Pertinent Diagnosis DKA, COVID PUI Current Diet NPO Labs/Tests A1c 10.2 Height 6 ft Weight 66.678 kg [place] Body Weight (kg) 80.90 BMI 19.9 Weight Status Appropriate Subjective/Other Information F/U for diet education. Pt discussion regarding diet education but accepted handout regarding Consistent Carbohydrate Counting #1 Nutrition Diagnosis Food and nutrition-related knowledge deficit Etiology excessive carbohydrate intake As Evidenced by Signs and Symptoms pt in precontemptation stage of change; hgbA1c of 10.2, pt presents with DKA Nutrition Intervention Change Diet Order: Diet advancement as medically feasible Goal #1 Understand impotance of diet change Anticipated Discharge Needs: Consistent Carbohydrate diet Follow-Up By: 12/14/20 Additional Comments F/U diet education understanding and diet advancement
[2020-12-13] MEDS: INSULIN LISPRO 100 UNIT/ML SUB-Q SCH ×4 (07:48→22:11)
[2020-12-13] MEDS ORDERED: SODIUM BICARB 8.4% 50 MEQ/50 ML SYRINGE IV ONE (08:00)
[2020-12-13] MEDS: cefTRIAXone/NS 2 GM/100 ML 2 GM/100 ML BAG IV SCH (14:05)
[2020-12-13 15:19] LABS: BUN/Creatinine Ratio 18; Blood Urea Nitrogen 14 mg/dL (9-20); Calcium 9.2 mg/dL (8.4-10.2); Hemolysis Index 7
[2020-12-13] MEDS ORDERED: INSULIN GLARGINE 100 UNITS/ML SUB-Q SCH (17:00)
--- NOTE | 2020-12-13 17:24 | Progress Note ---
Assessment and Plan Diabetic ketoacidosis Acute kidney injury Medication noncompliance Hyperkalemia Severe metabolic acidosis Tobacco use disorder - prn supplemental oxygen to keep O2 sats > 90% - prn bronchodilators (DAHIANA) with pulm hygiene per RT - accuchecks with glycemic control per SSI for target blood glucose < 180 mg/dL (once of IV insulin therapy) - continue to avoid nephrotoxins, renally dose all medications - mobility protocols to prevent pressure ulcers - PT/OT as tolerated - tobacco abstinence strongly counseled at the bedside - home oxygen evaluation at discharge - GI & VTE prophylaxis - Flu & pneumovax per protocol - prn analgesia per pain score - continue other care per attending / other consultants ... re-evaluate in am & prn Subjective Date of service: 12/13/20 Principal diagnosis: DKA; SUSHMA; Medication noncompliance; metabolic acidosis; Tobacco abuse Interval history: Patient is seen today for: Diabetic ketoacidosis; Acute kidney injury; Medication noncompliance; Severe metabolic acidosis; Tobacco use disorder Seen and examined at bedside; 24hour events reviewed; nursing and respiratory care staff consulted; no adverse overnight events reported to me; resting peacefully in bed; Objective Vital Signs - 12hr 12/13/20 12/13/20 12/13/20 07:29 10:38 10:43 Temperature 99.2 F 99.3 F Pulse Rate 79 81 85 Respiratory 19 19 Rate Blood Pressure 121/82 126/85 O2 Sat by Pulse 98 98 Oximetry 12/13/20 15:55 Temperature 99.3 F Pulse Rate 77 Respiratory 19 Rate Blood Pressure 115/80 O2 Sat by Pulse 99 Oximetry Constitutional: no acute distress Eyes: non-icteric ENT: oropharynx moist Neck: supple, no lymphadenopathy Effort: normal Ascultation: Bilateral: clear Percussion: Bilateral: not dull Cardiovascular: regular rate and rhythm Gastrointestinal: normoactive bowel sounds, soft, non-tender, non-distended Integumentary: normal Extremities: no cyanosis, no edema, pulses normal, no ischemia or petechiae Neurologic: non-focal exam, pupils equal and round, CN II-XII normal, motor strength normal and Psychiatric: mood appropriate, affect normal CBC and BMP: 12/12/20 05:13 12/13/20 14:31 ABG, PT/INR, D-dimer: PT/INR, D-dimer PT 13.5 Sec. (12.2-14.9) 12/10/20 02:30 INR 0.98 (0.87-1.13) 12/10/20 02:30 Abnormal lab findings: Abnormal Labs 12/10/20 12/10/20 12/10/20 01:52 02:30 02:30 WBC 18.0 H RBC 5.21 H Hgb 17.2 H Hct 51.7 H MCV 99 H MCH 33 H MCHC [place] % (Auto) [place] # (Auto) Seg Neuts % (Manual) 91.0 H Lymphocytes % (Manual) 5.0 L Seg Neutrophils # Man 16.4 H Lymphocytes # (Manual) 0.9 L VBG pH Sodium 128 L Potassium 5.6 H Chloride 85.4 L Carbon Dioxide 9 L* BUN 35 H Creatinine 1.7 H Glucose 575 H* POC Glucose 536 H Hemoglobin A1c Phosphorus Magnesium ALT Total Creatine Kinase Salicylates Acetaminophen 12/10/20 12/10/20 12/10/20 02:30 02:30 02:30 WBC RBC Hgb Hct MCV MCH MCHC [place] % (Auto) [place] # (Auto) Seg Neuts % (Manual) Lymphocytes % (Manual) Seg Neutrophils # Man Lymphocytes # (Manual) VBG pH 7.164 L* Sodium Potassium Chloride Carbon Dioxide BUN Creatinine Glucose POC Glucose Hemoglobin A1c Phosphorus Magnesium 2.80 H ALT Total Creatine Kinase 275 H Salicylates < 0.3 L Acetaminophen 12/10/20 12/10/20 12/10/20 02:30 03:45 03:45 WBC RBC Hgb Hct MCV MCH MCHC [place] % (Auto) [place] # (Auto) Seg Neuts % (Manual) Lymphocytes % (Manual) Seg Neutrophils # Man Lymphocytes # (Manual) VBG pH Sodium 130 L Potassium 5.6 H Chloride 87.4 L Carbon Dioxide 8 L* BUN 34 H Creatinine 1.6 H Glucose 517 H* POC Glucose Hemoglobin A1c Phosphorus 7.00 H Magnesium 2.50 H ALT Total Creatine Kinase Salicylates Acetaminophen < 5.0 L 12/10/20 12/10/20 12/10/20 04:17 05:25 05:50 WBC RBC Hgb Hct MCV MCH MCHC [place] % (Auto) [place] # (Auto) Seg Neuts % (Manual) Lymphocytes % (Manual) Seg Neutrophils # Man Lymphocytes # (Manual) VBG pH Sodium Potassium Chloride Carbon Dioxide BUN Creatinine Glucose POC Glucose 511 H 340 H Hemoglobin A1c 10.2 H Phosphorus Magnesium ALT Total Creatine Kinase Salicylates Acetaminophen 12/10/20 12/10/20 12/10/20 06:49 07:49 09:02 WBC RBC Hgb Hct MCV MCH MCHC [place] % (Auto) [place] # (Auto) Seg Neuts % (Manual) Lymphocytes % (Manual) Seg Neutrophils # Man Lymphocytes # (Manual) VBG pH Sodium Potassium Chloride Carbon Dioxide BUN Creatinine Glucose POC Glucose 311 H 257 H 213 H Hemoglobin A1c Phosphorus Magnesium ALT Total Creatine Kinase Salicylates Acetaminophen 12/10/20 12/10/20 12/10/20 09:55 10:16 11:04 WBC RBC Hgb Hct MCV MCH MCHC [place] % (Auto) [place] # (Auto) Seg Neuts % (Manual) Lymphocytes % (Manual) Seg Neutrophils # Man Lymphocytes # (Manual) VBG pH Sodium Potassium Chloride Carbon Dioxide 17 L D BUN 29 H Creatinine Glucose 172 H POC Glucose 191 H 154 H Hemoglobin A1c Phosphorus Magnesium ALT Total Creatine Kinase Salicylates Acetaminophen 12/10/20 12/10/20 12/10/20 12:02 13:02 13:57 WBC RBC Hgb Hct MCV MCH MCHC [place] % (Auto) [place] # (Auto) Seg Neuts % (Manual) Lymphocytes % (Manual) Seg Neutrophils # Man Lymphocytes # (Manual) VBG pH Sodium Potassium 5.6 H Chloride Carbon Dioxide 19 L BUN 26 H Creatinine Glucose 224 H POC Glucose 151 H 172 H Hemoglobin A1c Phosphorus Magnesium ALT Total Creatine Kinase Salicylates Acetaminophen 12/10/20 12/10/20 12/10/20 14:18 15:00 15:56 WBC RBC Hgb Hct MCV MCH MCHC [place] % (Auto) [place] # (Auto) Seg Neuts % (Manual) Lymphocytes % (Manual) Seg Neutrophils # Man Lymphocytes # (Manual) VBG pH Sodium Potassium Chloride Carbon Dioxide BUN Creatinine Glucose POC Glucose 216 H 235 H 205 H Hemoglobin A1c Phosphorus Magnesium ALT Total Creatine Kinase Salicylates Acetaminophen 12/10/20 12/10/20 12/10/20 17:17 17:47 18:53 WBC RBC Hgb Hct MCV MCH MCHC [place] % (Auto) [place] # (Auto) Seg Neuts % (Manual) Lymphocytes % (Manual) Seg Neutrophils # Man Lymphocytes # (Manual) VBG pH Sodium Potassium Chloride Carbon Dioxide BUN Creatinine Glucose POC Glucose 207 H 192 H 142 H Hemoglobin A1c Phosphorus Magnesium ALT Total Creatine Kinase Salicylates Acetaminophen 12/10/20 12/10/20 12/11/20 19:25 21:50 03:32 WBC RBC Hgb Hct MCV MCH MCHC [place] % (Auto) [place] # (Auto) Seg Neuts % (Manual) Lymphocytes % (Manual) Seg Neutrophils # Man Lymphocytes # (Manual) VBG pH Sodium Potassium Chloride Carbon Dioxide BUN 21 H Creatinine Glucose 111 H POC Glucose 184 H 289 H Hemoglobin A1c Phosphorus Magnesium ALT Total Creatine Kinase Salicylates Acetaminophen 12/11/20 12/11/20 12/11/20 05:13 05:13 07:17 WBC 14.5 H RBC Hgb Hct MCV 96 H MCH 33 H MCHC 35 H [place] % (Auto) [place] # (Auto) Seg Neuts % (Manual) Lymphocytes % (Manual) Seg Neutrophils # Man Lymphocytes # (Manual) VBG pH Sodium Potassium Chloride Carbon Dioxide 15 L D BUN Creatinine Glucose 294 H POC Glucose 278 H Hemoglobin A1c Phosphorus Magnesium ALT Total Creatine Kinase Salicylates Acetaminophen 12/11/20 12/11/20 12/11/20 08:16 09:13 10:03 WBC RBC Hgb Hct MCV MCH MCHC [place] % (Auto) [place] # (Auto) Seg Neuts % (Manual) Lymphocytes % (Manual) Seg Neutrophils # Man Lymphocytes # (Manual) VBG pH Sodium Potassium Chloride Carbon Dioxide BUN Creatinine Glucose POC Glucose 225 H 190 H 204 H Hemoglobin A1c Phosphorus Magnesium ALT Total Creatine Kinase Salicylates Acetaminophen 12/11/20 12/11/20 12/11/20 11:12 11:55 13:03 WBC RBC Hgb Hct MCV MCH MCHC [place] % (Auto) [place] # (Auto) Seg Neuts % (Manual) Lymphocytes % (Manual) Seg Neutrophils # Man Lymphocytes # (Manual) VBG pH Sodium Potassium Chloride Carbon Dioxide BUN Creatinine Glucose POC Glucose 179 H 177 H 165 H Hemoglobin A1c Phosphorus Magnesium ALT Total Creatine Kinase Salicylates Acetaminophen 12/11/20 12/11/20 12/11/20 13:10 14:14 15:16 WBC RBC Hgb Hct MCV MCH MCHC [place] % (Auto) [place] # (Auto) Seg Neuts % (Manual) Lymphocytes % (Manual) Seg Neutrophils # Man Lymphocytes # (Manual) VBG pH Sodium Potassium Chloride Carbon Dioxide 21 L BUN Creatinine Glucose 173 H POC Glucose 192 H 156 H Hemoglobin A1c Phosphorus Magnesium ALT Total Creatine Kinase Salicylates Acetaminophen 12/11/20 12/11/20 12/12/20 16:07 21:38 05:13 WBC RBC Hgb Hct MCV 96 H MCH 34 H MCHC 35 H [place] % (Auto) 9.7 H [place] # (Auto) 0.9 H Seg Neuts % (Manual) Lymphocytes % (Manual) Seg Neutrophils # Man Lymphocytes # (Manual) VBG pH Sodium Potassium Chloride Carbon Dioxide BUN Creatinine Glucose POC Glucose 129 H 216 H Hemoglobin A1c Phosphorus Magnesium ALT Total Creatine Kinase Salicylates Acetaminophen 12/12/20 12/12/20 12/12/20 05:13 07:19 11:22 WBC RBC Hgb Hct MCV MCH MCHC [place] % (Auto) [place] # (Auto) Seg Neuts % (Manual) Lymphocytes % (Manual) Seg Neutrophils # Man Lymphocytes # (Manual) VBG pH Sodium Potassium 3.3 L Chloride Carbon Dioxide 19 L BUN Creatinine Glucose 205 H POC Glucose 222 H 254 H Hemoglobin A1c Phosphorus Magnesium ALT 6 L Total Creatine Kinase Salicylates Acetaminophen 12/12/20 12/12/20 12/13/20 15:30 21:14 04:57 WBC RBC Hgb Hct MCV MCH MCHC [place] % (Auto) [place] # (Auto) Seg Neuts % (Manual) Lymphocytes % (Manual) Seg Neutrophils # Man Lymphocytes # (Manual) VBG pH Sodium 132 L D Potassium Chloride 96.4 L Carbon Dioxide 17 L BUN Creatinine Glucose 247 H POC Glucose 227 H 250 H Hemoglobin A1c Phosphorus Magnesium ALT Total Creatine Kinase Salicylates Acetaminophen 12/13/20 12/13/20 12/13/20 07:29 10:37 14:31 WBC RBC Hgb Hct MCV MCH MCHC [place] % (Auto) [place] # (Auto) Seg Neuts % (Manual) Lymphocytes % (Manual) Seg Neutrophils # Man Lymphocytes # (Manual) VBG pH Sodium Potassium 3.1 L Chloride Carbon Dioxide 20 L BUN Creatinine Glucose 165 H POC Glucose 283 H 227 H Hemoglobin A1c Phosphorus Magnesium ALT Total Creatine Kinase Salicylates Acetaminophen 12/13/20 15:54 WBC RBC Hgb Hct MCV MCH MCHC [place] % (Auto) [place] # (Auto) Seg Neuts % (Manual) Lymphocytes % (Manual) Seg Neutrophils # Man Lymphocytes # (Manual) VBG pH Sodium Potassium Chloride Carbon Dioxide BUN Creatinine Glucose POC Glucose 161 H Hemoglobin A1c Phosphorus Magnesium ALT Total Creatine Kinase Salicylates Acetaminophen Allied health notes reviewed: nursing
[2020-12-14] MEDS: HEPARIN 5,000 UNIT/1 ML VIAL SUB-Q SCH (05:46)
[2020-12-14 06:50] LABS: BUN/Creatinine Ratio 21; Blood Urea Nitrogen 17 mg/dL (9-20); Calcium 9.3 mg/dL (8.4-10.2); Hemolysis Index 6
[2020-12-14 08:22] VITALS: BP 115/83
[2020-12-14] MEDS ORDERED: POTASSIUM CHLORIDE ER 20 MEQ TAB PO NR (09:29)
[2020-12-14] MEDS ORDERED: POTASSIUM CHLORIDE ER 20 MEQ TAB PO SCH (09:30)
--- NOTE | 2020-12-14 09:36 | Discharge Summary ---
Providers - Providers Date of Admission: 12/10/20 03:00 Attending physician: GENEVA LA MD 12/10/20 03:41 Consult to Dietitian/Nutrition [CONS] Routine Physician Instructions: Reason For Exam: DKA Reason for Consult: Nutrition Recommendations Reason for Consult: Diet education Consult to Physician [CONS] Routine Comment: Consulting Provider: ANGELES RAY Physician Instructions: Reason For Exam: DKA- on Insulin drip 12/11/20 14:39 Consult to Dietitian/Nutrition [CONS] Routine Physician Instructions: Reason For Exam: Reason for Consult: Diet education Hospitalization Reason for admission: dka Condition: Stable Hospital course: 34-year-old -[place]ish male with known history of diabetes mellitus and who has been admitted on multiple occasions for DKA presenting to the emergency room today complaining of generalized weakness, fatigue and shortness of breath. Patient denies any nausea vomiting, no abdominal pain, no fever or chills, no headache or dizziness. He denies any hematuria or dysuria. Patient denies any sick contacts and no recent travel. Denies contact with anyone with COVID-19. Patient states he feels as if he is in DKA. Work-up in the emergency room today reveals elevated blood glucose in the 500s, elevated anion gap of about 39, leukocytosis of 18, hyperkalemia of 5.6 and bicarb of 9. Patient is being admitted with DKA. He has been initiated on IV fluid and insulin drip. Assessment and plan (1) Diabetic ketoacidosis Current Visit: Yes Status: Acute Plan to address problem: Patient placed on IV fluid and insulin drip. He will be closely monitored in the intensive care unit. (2) High anion gap metabolic acidosis Current Visit: No Status: Acute Plan to address problem: Due to her DKA. Will monitor chemistry closely. We will continue on IV fluid normal saline. (3) Leucocytosis Current Visit: Yes Status: Acute Plan to address problem: Possibly reactive. We will monitor CBC. (4) Hyperkalemia Current Visit: No Status: Acute Plan to address problem: Possibly secondary to the DKA. Patient placed on IV fluid and insulin drip. Will monitor chemistry closely. (5) Nicotine use disorder (6) DVT prophylaxis Current Visit: No Status: Acute Plan to address problem: Patient placed on subcutaneous heparin. (7) Full code status Current Visit: No Status: Acute Plan to address problem: Patient is full code. 12/11/20 patient is seen and examined. Patient is doing better. No new complain. WBC 14.5. Last blood glucose 177. Continue the insulin drip and IV fluid. Rocephin 2 g IV daily for leukocytosis. We will follow the serial BMP. Clear liquid diet. Diabetic education. Recheck CBC BMP in the morning. 12/12/20 patient is seen and examined.No new complain. Bicarb is 19 anion gap 22 glucoses 222 and potassium 3.3. Continue current management. Continue high- dose Humalog sliding scale. Lantus increased to 30 units subcu twice daily. Diabetic education. Potassium supplemented. CMP in the morning. Possible discharge planning in the morning 12/13: Patient still with severe metabolic acidosis, uncontrolled BG and also with Low BP. Will give a bolus of fluids, 2 amps of Bicarb and increase sliding scale to high dose and lantus to 35 units. Repeat BMP this afternoon and in am, if stable and improved in am, will discharge His disposition this morning is flat he denies any depression suicidal ideation or homicidal ideation. Discussed plan of care with him he is agreeable. He denies running out of his medication. On discharge may need adjustment of the doses of medicine that he receives. Continue antibiotics empirically. 50 minutes counseling provided on tobacco use risk of continued tobacco use he verbalized understanding 12/14: Patient clinically stable and ready for discharge, counselling on yearly preventive measures DISCUSSED FOR 15 mins, He requested renewal of his insulin medication which we will do. Disposition: DC-30 STILL A PATIENT Final Discharge Diagnosis (Prints w/discharge instructions): DKA Time spent for discharge: 35 mins Core Measure Documentation - Palliative Care Palliative Care/ Comfort Measures: Not Applicable - Core Measures Any of the following diagnoses?: none Exam - Physical Exam Narrative exam: VITAL SIGNS: Reviewed. GENERAL: The patient appears normally developed, Vital signs as documented. HEAD: No signs of head trauma. EYES: Pupils are equal. Extraocular motions intact. EARS: Hearing grossly intact. MOUTH: Oropharynx is normal. NECK: No adenopathy, no JVD. CHEST: Chest with clear breath sounds bilaterally. No wheezes, rales, or rhonchi. CARDIAC: Regular rate and rhythm. S1 and S2, without murmurs, gallops, or rubs. VASCULAR: No Edema. Peripheral pulses normal and equal in all extremities. ABDOMEN: Soft, non tender and non distended. No rebound or guarding, and no masses palpated. Bowel Sounds normal. MUSCULOSKELETAL: Good range of motion of all major joints. Extremities without clubbing, cyanosis or edema. NEUROLOGIC EXAM: Alert and oriented x 3 No focal sensory or strength deficits. Speech normal. Follows commands. PSYCHIATRIC: Mood flat. SKIN: detail exam as documented in skin assessment - Constitutional Vitals: Temp Pulse Resp BP Pulse Ox 98.5 F 81 20 115/83 98 12/14/20 07:40 12/14/20 07:40 12/14/20 07:40 12/14/20 07:40 12/14/20 07:40 Plan Activity: advance as tolerated, fall precautions Diet: diabetic Special Instructions: record daily weights, record daily BP diary, record blood sugar diary Plan of Treatment: must perform yearly eye, and foot exam. Follow up with: MARIA M CRAWLEY [Other] - 3-5 Days Prescriptions: Insulin Glargine [Lantus VIAL] 34 units SUB-Q QHS #10 ml Lispro Insulin [HumaLOG] 9 unit SUB-Q AC #1 vial
[2020-12-14] MEDS: INSULIN LISPRO 100 UNIT/ML SUB-Q SCH (10:11)
== END 2020-12-14 17:01 | disposition home or self-care (01) | DRG 637 ==
LOC: ED 22:53 → CC1 12-10 03:00 → 4A 12-12 08:50
PROVIDERS: ADMIT Internal Medicine Geriatric Medicine; ATTEND Internal Medicine
DX: E11.10 Type 2 diabetes mellitus with ketoacidosis without coma (principal); N17.0 Acute kidney failure with tubular necrosis; E87.5 Hyperkalemia; Z91.14 Patient's other noncompliance with medication regimen; D72.829 Elevated white blood cell count, unspecified; Z71.6 Tobacco abuse counseling; Z91.19 Patient's noncompliance with other medical treatment and regimen; Z79.4 Long term (current) use of insulin; D75.1 Secondary polycythemia; F17.200 Nicotine dependence, unspecified, uncomplicated; F10.10 Alcohol abuse, uncomplicated; Z20.822 Contact with and (suspected) exposure to COVID-19
CPT/HCPCS: 36415; 71045; 80048; 80053; 80320; 82550; 82805; 82962; 83036; 83735; 84100; 84443; 85007; 85025; 85027; 85610; 87116; 93005; 96361; 96374; 96375; G0378; G0480; J0696; J1644; J1815; J2270; J2405; J2765; J7030; J7120; Q0169; U0003

== ENCOUNTER 2021-08-06 05:45 | Inpatient (IN) | payer MEDICAID ==
[2021-08-06] MEDS ORDERED: SODIUM CHLORIDE 0.9% 1000 ML 1,000 ML IV ONE ×2 (06:30→07:15)
[2021-08-06] MEDS ORDERED: ONDANSETRON 4 MG/2 ML INJ IV ONE (06:40)
[2021-08-06 07:10] LABS: Hematocrit 51.1 % (35.5-45.6); Hemoglobin 16.7 gm/dl (11.8-15.2); Mean Corpuscular HGB Conc 33 % (32-34); Mean Corpuscular Volume 98 fl (84-94); Platelet Count 235 K/mm3 (140-440); Red Blood Count 5.23 M/mm3 (3.65-5.03); Red Cell Distribution Width 13.6 % (13.2-15.2)
[2021-08-06] MEDS ORDERED: METOCLOPRAMIDE 10 MG/2 ML INJ IV ONE (07:15)
--- NOTE | 2021-08-06 07:17 | Emergency Department Report ---
HPI - General Chief Complaint: Hyperglycemia Time Seen by Provider: 08/06/21 07:05 - HPI HPI: Reassessment 6 The patient is a 35-year-old male present with a chief complaint of nausea vomiting. The patient states his symptoms began yesterday with nausea vomiting and weakness. Patient states he feels like he is in DKA. Patient states she has been compliant with his medication. Patient denies history of fever. ED Past Medical Hx - Past Medical History Previous Medical History?: Yes Hx Diabetes: Yes - Surgical History Past Surgical History?: No - Family History Family history: no significant - Social History Smoking Status: Never Smoker Substance Use Type: Alcohol (Occasional) - Medications Home Medications: Home Medications Medication Instructions Recorded Confirmed Last Taken Type Insulin Glargine [Lantus VIAL] 34 units SUB-Q QHS #10 ml 12/14/20 Unknown Rx Lispro Insulin [HumaLOG] 9 unit SUB-Q AC #1 vial 12/14/20 Unknown Rx ED Review of Systems ROS: Stated complaint: POSS DKA Other details as noted in HPI Constitutional: weakness. denies: fever Eyes: denies: eye pain ENT: denies: throat pain Respiratory: no symptoms reported Cardiovascular: denies: chest pain Endocrine: no symptoms reported Gastrointestinal: nausea, vomiting Genitourinary: denies: dysuria Musculoskeletal: denies: back pain Neurological: denies: headache Physical Exam - Physical Exam Vital Signs: Vital Signs 08/06/21 06:21 Temperature 98.4 F Pulse Rate 107 H Respiratory 20 Rate Blood Pressure 146/88 [Right] O2 Sat by Pulse 98 Oximetry Physical Exam: GENERAL: The patient is well-developed well-nourished male lying on stretcher appearing to be in mild discomfort. Patient actively spitting into emesis bag HEENT: Normocephalic. Atraumatic. Extraocular motions are intact. NECK: Supple. Trachea midline CHEST/LUNGS: Clear to auscultation. There is no respiratory distress noted. HEART/CARDIOVASCULAR: Regular. There is no tachycardia. There is no gallop rub or murmur. ABDOMEN: Abdomen is soft, nontender. Patient has normal bowel sounds. There is no abdominal distention. SKIN: There is no rash. There is no edema. There is no diaphoresis. NEURO: The patient is awake, alert, and oriented. The patient is cooperative. The patient has no focal neurologic deficits. The patient has normal speech. GCS 15 MUSCULOSKELETAL: There is no evidence of acute injury. ED Course Vital Signs 08/06/21 06:21 Temperature 98.4 F Pulse Rate 107 H Respiratory 20 Rate Blood Pressure 146/88 [Right] O2 Sat by Pulse 98 Oximetry ED Medical Decision Making - Lab Data Result diagrams: 08/06/21 06:49 08/06/21 06:49 Laboratory Tests 08/06/21 08/06/21 08/06/21 06:49 06:49 06:49 WBC 16.1 H RBC 5.23 H Hgb 16.7 H Hct 51.1 H MCV 98 H MCH 32 MCHC 33 RDW 13.6 Plt Count 235 VBG pH 7.121 L* Sodium 129 L Potassium 5.7 H Chloride 88.5 L Carbon Dioxide 5 L* Anion Gap 41 BUN 24 H Creatinine 1.3 Estimated GFR > 60 BUN/Creatinine Ratio 18 Glucose 488 H Calcium 10.0 Total Bilirubin 0.50 AST 40 ALT 32 Alkaline Phosphatase 63 Total Protein 9.3 H Albumin 5.5 H Albumin/Globulin Ratio 1.4 - Differential Diagnosis DKA, hyperglycemia, dehydration Critical care attestation.: If time is entered above; I have spent that time in minutes in the direct care of this critically ill patient, excluding procedure time. ED Disposition Clinical Impression: Diabetic ketoacidosis, Nausea & vomiting Disposition: ADMITTED INPATIENT Is pt being admited?: Yes Does the pt Need Aspirin: No Condition: Fair Instructions: Diabetic Ketoacidosis (ED) Time of Disposition: 07:33 (Hospitalist called (Dr Lan))
[2021-08-06 07:28] LABS: Alanine Aminotransferase 32 units/L (7-56); Albumin 5.5 g/dL (3.9-5); BUN/Creatinine Ratio 18; Blood Urea Nitrogen 24 mg/dL (9-20); Hemolysis Index 66
[2021-08-06] MEDS ORDERED: INSULIN REGULAR, HUMAN 100 UNITS in SODIUM CHLORIDE 0.9% 99 ML IV ONE (08:00)
--- NOTE | 2021-08-06 08:18 | History and Physical Report ---
History of Present Illness Date of examination: 08/06/21 Date of admission: 08/06/21 Chief complaint: Intractable nausea and vomiting History of present illness: Patient is a 35-year-old -Burkinan male with known history of diabetes mellitus and who has been admitted on multiple occasions for DKA presenting to the emergency room today complaining of intractable nausea and vomiting with generalized weakness. He reports compliance with his medications. Although he does not describe abdominal pain he does appear bent over. He denies any fever or diarrhea. He denies any chills headaches hematuria dysuria patient denies any sick contacts and no recent travel. Denies contact with anyone with COVID-19. While he reports compliance with medications is unable to tell me how much he takes. On arrival he was noted to have a blood sugar in the 400s and also with leukocytosis and anion gap of 41 With a bicarb of five. At the time of my involvement the liter of fluid was already given while one is pending. Patient is about to be started on insulin drip Past History Past Medical History: diabetes, hyperlipidemia Past Surgical History: No surgical history Social history: alcohol abuse, full code, other (Occasional alcohol use denies abuse) Family history: no significant family history Medications and Allergies Allergies Allergy/AdvReac Type Severity Reaction Status Date / Time No Known Allergies Allergy Verified 08/09/19 21:30 Home Medications Medication Instructions Recorded Confirmed Last Taken Type Insulin Glargine [Lantus VIAL] 34 units SUB-Q QHS #10 ml 12/14/20 Unknown Rx Lispro Insulin [HumaLOG] 9 unit SUB-Q AC #1 vial 12/14/20 Unknown Rx Active Meds: Active Medications Insulin Human Regular 100 (units/ Sodium Chloride) 100 mls @ 8 mls/hr IV TITR ONE; Protocol Stop: 08/06/21 20:29 Review of Systems All systems: negative Constitutional: fatigue, weakness Gastrointestinal: nausea, vomiting, no abdominal pain, no constipation Exam - Physical Exam Narrative exam: VITAL SIGNS: Reviewed. GENERAL: The patient appears normally developed, otherwise appears weak and chronically ill vital signs as documented. HEAD: No signs of head trauma. EYES: Pupils are equal. Extraocular motions intact. EARS: Hearing grossly intact. MOUTH: Oropharynx is normal. NECK: No adenopathy, no JVD. CHEST: Chest with diminished breath sounds bilaterally. No wheezes, rales, or rhonchi. CARDIAC: Regular rate and rhythm. S1 and S2, without murmurs, gallops, or rubs. VASCULAR: No Edema. Peripheral pulses normal and equal in all extremities. ABDOMEN: Soft, non tender and non distended. No rebound or guarding, and no masses palpated. Bowel Sounds normal. MUSCULOSKELETAL: Good range of motion of all major joints. Extremities without clubbing, cyanosis or edema. NEUROLOGIC EXAM: Alert and oriented x 3 . No focal sensory or strength deficits. Speech normal. Follows commands. PSYCHIATRIC: Mood normal. SKIN: Multiple skin tattoos detail exam as documented in skin assessment - Constitutional Vitals: Temp Pulse Resp BP Pulse Ox 98.4 F 107 H 20 146/88 98 08/06/21 06:21 08/06/21 06:21 08/06/21 06:21 08/06/21 06:21 08/06/21 06:21 Results - Labs CBC & Chem 7: 08/06/21 06:49 08/06/21 06:49 Labs: Laboratory Last Values WBC 16.1 K/mm3 (4.5-11.0) H 08/06/21 06:49 RBC 5.23 M/mm3 (3.65-5.03) H 08/06/21 06:49 Hgb 16.7 gm/dl (11.8-15.2) H 08/06/21 06:49 Hct 51.1 % (35.5-45.6) H 08/06/21 06:49 MCV 98 fl (84-94) H 08/06/21 06:49 MCH 32 pg (28-32) 08/06/21 06:49 MCHC 33 % (32-34) 08/06/21 06:49 RDW 13.6 % (13.2-15.2) 08/06/21 06:49 Plt Count 235 K/mm3 (140-440) 08/06/21 06:49 VBG pH 7.121 (7.320-7.420) L* 08/06/21 06:49 Sodium 129 mmol/L (137-145) L 08/06/21 06:49 Potassium 5.7 mmol/L (3.6-5.0) H 08/06/21 06:49 Chloride 88.5 mmol/L (98-107) L 08/06/21 06:49 Carbon Dioxide 5 mmol/L (22-30) L* 08/06/21 06:49 Anion Gap 41 mmol/L 08/06/21 06:49 BUN 24 mg/dL (9-20) H 08/06/21 06:49 Creatinine 1.3 mg/dL (0.8-1.3) 08/06/21 06:49 Estimated GFR > 60 ml/min 08/06/21 06:49 BUN/Creatinine Ratio 18 % 08/06/21 06:49 Glucose 488 mg/dL (75-100) H 08/06/21 06:49 Calcium 10.0 mg/dL (8.4-10.2) 08/06/21 06:49 Total Bilirubin 0.50 mg/dL (0.1-1.2) 08/06/21 06:49 AST 40 units/L (5-40) 08/06/21 06:49 ALT 32 units/L (7-56) 08/06/21 06:49 Alkaline Phosphatase 63 units/L (35-129) 08/06/21 06:49 Total Protein 9.3 g/dL (6.3-8.2) H 08/06/21 06:49 Albumin 5.5 g/dL (3.9-5) H 08/06/21 06:49 Albumin/Globulin Ratio 1.4 % 08/06/21 06:49 Assessment and Plan Assessment and plan: Patient is a 35-year-old -Burkin[place] male with known history of diabetes mellitus and who has been admitted on multiple occasions for DKA presenting to the emergency room today complaining of intractable nausea and vomiting with generalized weakness. He reports compliance with his medications. Although he does not describe abdominal pain he does appear bent over. He denies any fever or diarrhea. He denies any chills headaches hematuria dysuria patient denies any sick contacts and no recent travel. Denies contact with anyone with COVID-19. While he reports compliance with medications is unable to tell me how much he takes. On arrival he was noted to have a blood sugar in the 400s and also with leukocytosis and anion gap of 41 With a bicarb of five. At the time of my involvement the liter of fluid was already given while one is pending. Patient is about to be started on insulin drip DKA Severe anion gap metabolic acidosis Leukocytosis SIRS without organ dysfunction Hyperkalemia Hyponatremia Nicotine use disorder Occasional alcohol use Plan Admit to critical care unit DKA protocol including for additional liters of fluid Bicarb supplementation Supplemental oxygen keep sat greater than 90% Accu-Cheks prior DKA protocol and transition when gap is closed DVT and GI prophylaxis Tobacco abstinence from EtOH use discontinuation strongly encouraged counseling provided for 15 minutes Pain control p.o. pain score DVT and GI prophylaxis The high probability of a clinically significant, sudden or life threatening deterioration of the [Endocrinology, GI] system(s) required my full and direct attention, intervention and personal management. The aggregate critical care time was [35] minutes. This time is in addition to time spent performing reported procedures but includes the following: [X] Data Review and interpretation [X] Patient assessment and monitoring of vital signs [X] Documentation [X] Medication orders and management Advance Directives: Yes Plan of care discussed with patient/family: Yes
[2021-08-06] MEDS ORDERED: SODIUM BICARB 8.4% 50 MEQ/50 ML SYRINGE IV NR (08:26)
[2021-08-06 08:36] LABS: BUN/Creatinine Ratio 17; Blood Urea Nitrogen 24 mg/dL (9-20); Calcium 9.8 mg/dL (8.4-10.2); Hemolysis Index 43
[2021-08-06] MEDS ORDERED: IBUPROFEN 600 MG TAB PO PRN (09:00)
[2021-08-06] MEDS ORDERED: NALOXONE 0.4 MG/1 ML INJ IV PRN (09:00)
[2021-08-06] MEDS ORDERED: ACETAMINOPHEN 325 MG TAB PO PRN (09:00)
[2021-08-06] MEDS ORDERED: oxyCODONE /ACETAMINOPHEN 5-325MG TAB PO PRN (09:00)
[2021-08-06] MEDS ORDERED: ALBUTEROL 2.5 MG/3 ML NEBU IH PRN (09:00)
[2021-08-06] MEDS ORDERED: D5W/0.45% NACL/KCL 20 MEQ 20 MEQ/1,000 ML BAG IV SCH (09:00)
[2021-08-06 09:40] LABS: Hemolysis Index 420
[2021-08-06] MEDS: ONDANSETRON 4 MG/2 ML INJ IV PRN (09:40)
[2021-08-06] MEDS: SODIUM CHLORIDE 0.9% 1000 ML 1,000 ML IV SCH ×5 (09:40→23:27)
[2021-08-06] MEDS: SENNOSIDES 8.6 MG TAB PO SCH ×2 (09:40→23:26)
[2021-08-06 09:45] LABS: Bilirubin,Urine NEG (Negative); Blood,Urine SM (Negative); Color,Urine Colorless (Yellow); RBC,Urine < 1.0 /HPF (0.0-6.0); Urobilinogen,Urine < 2.0 mg/dL (<2.0)
[2021-08-06 09:46] LABS: Blood Urea Nitrogen TNR mg/dL (9-20)
[2021-08-06 09:47] LABS: BUN/Creatinine Ratio TNR; Calcium TNR mg/dL (8.4-10.2)
[2021-08-06 09:49] LABS: WBC,Urine < 1.0 /HPF (0.0-6.0)
[2021-08-06] MEDS ORDERED: SODIUM BICARB 8.4% 50 MEQ/50 ML VIAL IV ONE (10:00)
[2021-08-06 10:09] LABS: Creatinine,Urine 33.3 mg/dL (0.1-20.0); Microalbumin/Creatinine Ratio 687.6 ug/mg
[2021-08-06 11:19] LABS: BUN/Creatinine Ratio 18; Blood Urea Nitrogen 20 mg/dL (9-20); Calcium 8.8 mg/dL (8.4-10.2); Hemolysis Index 12
[2021-08-06] MEDS: METOCLOPRAMIDE 10 MG/2 ML INJ IV PRN (12:44)
--- NOTE | 2021-08-06 14:00 | Consultation ---
History of Present Illness Consult date: 08/06/21 Requesting physician: GENEVA LA Reason for consult: other (DKA, severe metabolic acidosis) History of present illness: Patient is a 35-year-old -Irish male with known history of diabetes mellitus and who has been admitted on multiple occasions for DKA presenting to the emergency room today complaining of intractable nausea and vomiting with generalized weakness. He reports compliance with his medications. He denies any fever or diarrhea. He denies any chills headaches hematuria dysuria patient denies any sick contacts and no recent travel. Denies contact with anyone with COVID-19. On arrival he was noted to have a blood sugar in the 400s and also with leukocytosis and anion gap of 41 A critical care consult was placed for DKA with severe metabolic acidosis. Patient seen and examined. Vitals,labs, medications, chart reviewed. He is currently on an insulin infusion at 4 units, blood glucose at 250. He has had 2 liters of fluid ROS: Stated complaint: POSS DKA Other details as noted in HPI Constitutional: weakness. denies: fever Eyes: denies: eye pain ENT: denies: throat pain Respiratory: no symptoms reported Cardiovascular: denies: chest pain Endocrine: no symptoms reported Gastrointestinal: nausea, vomiting Genitourinary: denies: dysuria Musculoskeletal: denies: back pain Neurological: denies: headache Past History Past Medical History: diabetes, hyperlipidemia Past Surgical History: No surgical history Social history: alcohol abuse, full code, other (Occasional alcohol use denies abuse) Family history: no significant family history Medications and Allergies Allergies Allergy/AdvReac Type Severity Reaction Status Date / Time No Known Allergies Allergy Verified 08/09/19 21:30 Home Medications Medication Instructions Recorded Confirmed Last Taken Type Insulin Glargine [Lantus VIAL] 34 units SUB-Q QHS #10 ml 12/14/20 Unknown Rx Lispro Insulin [HumaLOG] 9 unit SUB-Q AC #1 vial 12/14/20 Unknown Rx Active Meds: Active Medications Acetaminophen (Acetaminophen 325 Mg Tab) 650 mg PO Q6H PRN PRN Reason: Pain MILD(1-3)/Fever >100.5/SIMS Albuterol (Albuterol 2.5 Mg/3 Ml Nebu) 2.5 mg IH Q3HRT PRN PRN Reason: Shortness Of Breath Heparin Sodium (Porcine) (Heparin 5,000 Unit/1 Ml Vial) 5,000 unit SUB-Q Q8HR [facility] Insulin Human Regular 100 (units/ Sodium Chloride) 100 mls @ 8 mls/hr IV TITR ONE; Protocol Stop: 08/06/21 20:29 Last Titration: 08/06/21 13:00 Dose: 5 units/hr, 5 mls/hr Potassium Chloride/Dextrose/Sod Cl (D5w/0.45% Nacl/Kcl 20 Meq) 20 meq in 1,000 mls @ 125 mls/hr IV DIRECT [facility] Last Admin: 08/06/21 12:01 Dose: 125 mls/hr Ibuprofen (Ibuprofen 600 Mg Tab) 600 mg PO Q6H PRN PRN Reason: Pain, Moderate (4-6) Metoclopramide HCl (Metoclopramide 10 Mg/2 Ml Inj) 10 mg IV Q6H PRN PRN Reason: Nausea And Vomiting Last Admin: 08/06/21 12:44 Dose: 10 mg Naloxone HCl (Naloxone 0.4 Mg/1 Ml Inj) 0.1 mg IV Q2MIN PRN PRN Reason: Res Rate </= 8 or 02 SAT < 92% Ondansetron HCl (Ondansetron 4 Mg/2 Ml Inj) 4 mg IV Q4H PRN PRN Reason: Nausea And Vomiting Last Admin: 08/06/21 09:40 Dose: 4 mg Oxycodone/Acetaminophen (Oxycodone /Acetaminophen 5-325mg Tab) 1 tab PO Q6H PRN PRN Reason: Pain, Moderate (4-6) Senna (Sennosides 8.6 Mg Tab) 8.6 mg PO BID [facility] Last Admin: 08/06/21 09:40 Dose: 8.6 mg Sodium Chloride (Sodium Chloride 0.9% 10 Ml Flush Syringe) 10 ml IV BID [facility] Last Admin: 08/06/21 09:41 Dose: 10 ml Sodium Chloride (Sodium Chloride 0.9% 10 Ml Flush Syringe) 10 ml IV PRN PRN PRN Reason: LINE FLUSH Physical Examination Vital signs: Vital Signs Temp Pulse Resp BP Pulse Ox 98.4 F 107 H 20 146/88 98 08/06/21 06:21 08/06/21 06:21 08/06/21 06:21 08/06/21 06:21 08/06/21 06:21 Results - Laboratory Findings CBC and BMP: 08/06/21 06:49 08/06/21 10:32 Abnormal lab findings: Abnormal Labs 08/06/21 08/06/21 08/06/21 06:49 06:49 06:49 WBC 16.1 H RBC 5.23 H Hgb 16.7 H Hct 51.1 H MCV 98 H VBG pH 7.121 L* Sodium 129 L Potassium 5.7 H Chloride 88.5 L Carbon Dioxide 5 L* BUN 24 H Creatinine Glucose 488 H POC Glucose Hemoglobin A1c Phosphorus Magnesium Total Protein 9.3 H Albumin 5.5 H Urine Creatinine 08/06/21 08/06/21 08/06/21 08:09 09:04 09:48 WBC RBC Hgb Hct MCV VBG pH Sodium 131 L Potassium 5.3 H Chloride 89.7 L Carbon Dioxide 9 L* BUN 24 H Creatinine 1.4 H Glucose 435 H POC Glucose 312 H Hemoglobin A1c 9.6 H Phosphorus 5.50 H Magnesium 2.40 H Total Protein Albumin Urine Creatinine 08/06/21 08/06/21 08/06/21 10:32 10:53 11:55 WBC RBC Hgb Hct MCV VBG pH Sodium Potassium Chloride Carbon Dioxide 7 L* BUN Creatinine Glucose 256 H POC Glucose 224 H 198 H Hemoglobin A1c Phosphorus Magnesium Total Protein Albumin Urine Creatinine 08/06/21 08/06/21 12:57 Unknown WBC RBC Hgb Hct MCV VBG pH Sodium Potassium Chloride Carbon Dioxide BUN Creatinine Glucose POC Glucose 210 H Hemoglobin A1c Phosphorus Magnesium Total Protein Albumin Urine Creatinine 33.3 H Assessment and Plan DKA Severe anion gap metabolic acidosis Leukocytosis SIRS without organ dysfunction Hyperkalemia Hyponatremia- secondary to severe hyperglycemia Tobacco use disorder with Nicotine dependence Recommendations Admit to critical care unit DKA protocol- patient needs an additional 4-5Liters of crystalloid, serial BMPs, continue with insulin infusion per protocol, replace electrolytes as clinically indicated. Symptom management for nausea and vomiting Trend [facility] adn temperature curve. No clinical indication for antibiotics at this time DVT prophylaxis Nicotine withdrawal precautions, smoking cessation counselling Pain control Lifestyle modifications and diabetic counselling The high probability of a clinically significant, sudden or life threatening deterioration of the [Endocrinology, GI] system(s) required my full and direct attention, intervention and personal management. The aggregate critical care time was [35] minutes. This time is in addition to time spent performing reported procedures but includes the following: [X] Data Review and interpretation [X] Patient assessment and monitoring of vital signs [X] Documentation [X] Medication orders and management
[2021-08-06] MEDS: HEPARIN 5,000 UNIT/1 ML VIAL SUB-Q SCH ×2 (14:04→23:25)
[2021-08-06 15:28] LABS: BUN/Creatinine Ratio 15; Blood Urea Nitrogen 15 mg/dL (9-20); Calcium 7.6 mg/dL (8.4-10.2); Hemolysis Index 8
[2021-08-06 18:28] LABS: BUN/Creatinine Ratio 13; Blood Urea Nitrogen 13 mg/dL (9-20); Calcium 8.1 mg/dL (8.4-10.2); Hemolysis Index 3
[2021-08-06] MEDS ORDERED: DEXTROSE 50% IN WATER (25GM) 50 ML SYRINGE IV PRN (21:25)
[2021-08-06] MEDS: INSULIN LISPRO 100 UNIT/ML SUB-Q SCH (23:26)
[2021-08-07 00:32] LABS: BUN/Creatinine Ratio 13; Blood Urea Nitrogen 12 mg/dL (9-20); Calcium 8.7 mg/dL (8.4-10.2); Hemolysis Index 6
[2021-08-07] MEDS: HEPARIN 5,000 UNIT/1 ML VIAL SUB-Q SCH ×3 (06:37→22:32)
[2021-08-07 07:30] LABS: Basophils % (Auto) 0.3 % (0.0-1.8); Eosinophils % (Auto) 0.1 % (0.0-4.3); Hematocrit 35.8 % (35.5-45.6); Hemoglobin 12.3 gm/dl (11.8-15.2); Lymphocytes # (Auto) 1.9 K/mm3 (1.2-5.4); Lymphocytes % (Auto) 15.3 % (13.4-35.0); Mean Corpuscular HGB Conc 34 % (32-34); Mean Corpuscular Volume 94 fl (84-94); Monocytes # (Auto) 0.9 K/mm3 (0.0-0.8); Monocytes % (Auto) 7.5 % (0.0-7.3); Platelet Count 199 K/mm3 (140-440); Red Cell Distribution Width 13.4 % (13.2-15.2)
[2021-08-07 07:53] LABS: Alanine Aminotransferase 19 units/L (7-56); Albumin 3.9 g/dL (3.9-5); BUN/Creatinine Ratio 15; Blood Urea Nitrogen 12 mg/dL (9-20); Calcium 8.4 mg/dL (8.4-10.2); Hemolysis Index 7
[2021-08-07] MEDS: INSULIN LISPRO 100 UNIT/ML SUB-Q SCH ×5 (08:40→22:31)
[2021-08-07] MEDS ORDERED: SODIUM CHLORIDE 0.9% 1000 ML 1,000 ML IV ONE (09:00)
--- NOTE | 2021-08-07 10:19 | Progress Note ---
Assessment and Plan Assessment and plan: Patient is a 35-year-old -Ivorian male with known history of diabetes mellitus and who has been admitted on multiple occasions for DKA presenting to the emergency room today complaining of intractable nausea and vomiting with generalized weakness. He reports compliance with his medications. On arrival he was noted to have a blood sugar in the 400s and also with leukocytosis and anion gap of 41 With a bicarb of 5. The patient was admitted with diagnosis of DKA, diabetes mellitus type 2 uncontrolled and hyperlipidemia DKA. Resolved. Diabetes mellitus type 2, uncontrolled Hyperlipidemia 08/07/2021. We will follow-up BMP for resolution of DKA to ensure closure of anion gap and normalization of CO2. Continue IV fluid hydration. Continue long-acting insulin with Lantus 30 units at bedtime. Anticipate discharge in a.m. History Interval history: No new issues overnight. Hospitalist Physical - Constitutional Vitals: Temp Pulse Resp BP Pulse Ox 97.6 F 90 18 122/76 99 08/07/21 08:39 08/07/21 10:00 08/07/21 08:39 08/07/21 08:39 08/07/21 08:39 General appearance: Present: no acute distress, well-nourished - EENT Eyes: Present: PERRL, EOM intact ENT: hearing intact, clear oral mucosa, dentition normal - Neck Neck: Present: supple, normal ROM - Respiratory Respiratory effort: normal Respiratory: bilateral: CTA - Cardiovascular Rhythm: regular Heart Sounds: Present: S1 & S2. Absent: gallop, rub - Extremities Extremities: no ischemia, No edema, Full ROM - Abdominal General gastrointestinal: soft, non-tender, non-distended, normal bowel sounds - Integumentary Integumentary: Present: clear, warm, dry - Neurologic Neurologic: CNII-XII intact, moves all extremities Results - Labs CBC & Chem 7: 08/07/21 06:40 08/07/21 06:40 Labs: Laboratory Last Values WBC 12.6 K/mm3 (4.5-11.0) H 08/07/21 06:40 RBC 3.80 M/mm3 (3.65-5.03) 08/07/21 06:40 Hgb 12.3 gm/dl (11.8-15.2) D 08/07/21 06:40 Hct 35.8 % (35.5-45.6) D 08/07/21 06:40 MCV 94 fl (84-94) 08/07/21 06:40 MCH 32 pg (28-32) 08/07/21 06:40 MCHC 34 % (32-34) 08/07/21 06:40 RDW 13.4 % (13.2-15.2) 08/07/21 06:40 Plt Count 199 K/mm3 (140-440) 08/07/21 06:40 Lymph % (Auto) 15.3 % (13.4-35.0) 08/07/21 06:40 [place] % (Auto) 7.5 % (0.0-7.3) H 08/07/21 06:40 Eos % (Auto) 0.1 % (0.0-4.3) 08/07/21 06:40 Baso % (Auto) 0.3 % (0.0-1.8) 08/07/21 06:40 Lymph # (Auto) 1.9 K/mm3 (1.2-5.4) 08/07/21 06:40 [place] # (Auto) 0.9 K/mm3 (0.0-0.8) H 08/07/21 06:40 Eos # (Auto) 0.0 K/mm3 (0.0-0.4) 08/07/21 06:40 Baso # (Auto) 0.0 K/mm3 (0.0-0.1) 08/07/21 06:40 Seg Neutrophils % 76.8 % (40.0-70.0) H 08/07/21 06:40 Seg Neutrophils # 9.7 K/mm3 (1.8-7.7) H 08/07/21 06:40 VBG pH 7.121 (7.320-7.420) L* 08/06/21 06:49 Sodium 134 mmol/L (137-145) L 08/07/21 06:40 Potassium 3.5 mmol/L (3.6-5.0) L 08/07/21 06:40 Chloride 104.2 mmol/L (98-107) 08/07/21 06:40 Carbon Dioxide 14 mmol/L (22-30) L 08/07/21 06:40 Anion Gap 19 mmol/L 08/07/21 06:40 BUN 12 mg/dL (9-20) 08/07/21 06:40 Creatinine 0.8 mg/dL (0.8-1.3) 08/07/21 06:40 Estimated GFR > 60 ml/min 08/07/21 06:40 BUN/Creatinine Ratio 15 % 08/07/21 06:40 Glucose 204 mg/dL (75-100) H 08/07/21 06:40 POC Glucose 222 mg/dL (70-105) H 08/07/21 08:40 Hemoglobin A1c 9.6 % (4-6) H 08/06/21 09:04 Osmolality 319 Mosm/kg 08/06/21 09:04 Calcium 8.4 mg/dL (8.4-10.2) 08/07/21 06:40 Phosphorus 5.50 mg/dL (2.5-4.5) H 08/06/21 08:09 Magnesium 2.20 mg/dL (1.7-2.3) 08/06/21 10:32 Total Bilirubin 0.60 mg/dL (0.1-1.2) 08/07/21 06:40 AST 24 units/L (5-40) 08/07/21 06:40 ALT 19 units/L (7-56) 08/07/21 06:40 Alkaline Phosphatase 42 units/L (35-129) 08/07/21 06:40 Total Protein 6.3 g/dL (6.3-8.2) D 08/07/21 06:40 Albumin 3.9 g/dL (3.9-5) 08/07/21 06:40 Albumin/Globulin Ratio 1.6 % 08/07/21 06:40 Urine Color Colorless (Yellow) 08/06/21 Unknown Urine Turbidity Clear (Clear) 08/06/21 Unknown Urine pH 5.0 (5.0-7.0) 08/06/21 Unknown Ur Specific [place] 1.021 (1.003-1.030) 08/06/21 Unknown Urine Protein 100 mg/dl mg/dL (Negative) 08/06/21 Unknown Urine Glucose (UA) >=500 mg/dL (Negative) 08/06/21 Unknown Urine Ketones 80 mg/dL (Negative) 08/06/21 Unknown Urine Blood Sm (Negative) 08/06/21 Unknown Urine Nitrite Neg (Negative) 08/06/21 Unknown Urine Bilirubin Neg (Negative) 08/06/21 Unknown Urine Urobilinogen < 2.0 mg/dL (<2.0) 08/06/21 Unknown Ur Leukocyte Esterase Neg (Negative) 08/06/21 Unknown Urine WBC (Auto) < 1.0 /HPF (0.0-6.0) 08/06/21 Unknown Urine RBC (Auto) < 1.0 /HPF (0.0-6.0) 08/06/21 Unknown Urine Creatinine 33.3 mg/dL (0.1-20.0) H 08/06/21 Unknown Urine Microalbumin 22.9 mg/dL (0.1-34.0) 08/06/21 Unknown Microalb/Creat Ratio 687.6 ug/mg 08/06/21 Unknown Thomas/IV: Voiding Method Toilet Active Medications - Current Medications Current Medications: Generic Name Dose Route Start Last Admin Trade Name Freq PRN Reason Stop Dose Admin Acetaminophen 650 mg 08/06/21 09:00 Acetaminophen 325 Mg Tab PO Q6H PRN Pain MILD(1-3)/Fever >100.5/SIMS Albuterol 2.5 mg 08/06/21 09:00 Albuterol 2.5 Mg/3 Ml Nebu IH Q3HRT PRN Shortness Of Breath Dextrose 50 ml 08/06/21 21:25 Dextrose 50% In Water (25gm) 50 Ml Syringe IV Q30MIN PRN Hypoglycemia Protocol Heparin Sodium (Porcine) 5,000 unit 08/06/21 14:00 08/07/21 06:37 Heparin 5,000 Unit/1 Ml Vial SUB-Q 5,000 unit Q8HR YONNY Administration Sodium Chloride 1,000 mls @ 100 mls/hr 08/06/21 22:00 08/06/21 23:27 Nacl 0.9% 1000 Ml IV 100 mls/hr DIRECT YONNY Administration Ibuprofen 600 mg 08/06/21 09:00 Ibuprofen 600 Mg Tab PO Q6H PRN Pain, Moderate (4-6) Insulin Glargine 30 units 08/07/21 22:00 Insulin Glargine 100 Units/Ml SUB-Q QHS YONNY Insulin Human Lispro 0 unit 08/06/21 22:00 08/06/21 23:26 Insulin Lispro 100 Unit/Ml SUB-Q 2 unit ACHS YONNY Administration Protocol Metoclopramide HCl 10 mg 08/06/21 09:00 08/06/21 12:44 Metoclopramide 10 Mg/2 Ml Inj IV 10 mg Q6H PRN Administration Nausea And Vomiting Naloxone HCl 0.1 mg 08/06/21 09:00 Naloxone 0.4 Mg/1 Ml Inj IV Q2MIN PRN Res Rate </= 8 or 02 SAT < 92% Ondansetron HCl 4 mg 08/06/21 09:00 08/06/21 09:40 Ondansetron 4 Mg/2 Ml Inj IV 4 mg Q4H PRN Administration Nausea And Vomiting Oxycodone/Acetaminophen 1 tab 08/06/21 09:00 Oxycodone /Acetaminophen 5-325mg Tab PO Q6H PRN Pain, Moderate (4-6) Senna 8.6 mg 08/06/21 10:00 08/06/21 23:26 Sennosides 8.6 Mg Tab PO 8.6 mg BID YONNY Administration Sodium Chloride 10 ml 08/06/21 10:00 08/06/21 23:26 Sodium Chloride 0.9% 10 Ml Flush Syringe IV 10 ml BID YONNY Administration Sodium Chloride 10 ml 08/06/21 08:30 Sodium Chloride 0.9% 10 Ml Flush Syringe IV PRN PRN LINE FLUSH Nutrition/Malnutrition Assess - Dietary Evaluation Nutrition/Malnutrition Findings: Nutrition Notes Start: 08/06/21 11:59 Freq: Status: Active Protocol: Document 08/06/21 11:59 [facility] (Rec: 08/06/21 12:01 [facility] [id number]) Nutrition Notes Need for Assessment generated from: MD Order,Education Initial or Follow up Brief Note Other Pertinent Diagnosis DKA Current Diet No diet ordered Labs/Tests A1C 9.6 Subjective/Other Information RD consulted for diet education. Pt currently in ED . Nutrition Intervention Follow-Up By: 08/11/21 Additional Comments F/U: diet advancement, diet education needs
[2021-08-07] MEDS: SENNOSIDES 8.6 MG TAB PO SCH ×3 (10:59→23:08)
[2021-08-07 11:38] LABS: BUN/Creatinine Ratio 14; Blood Urea Nitrogen 11 mg/dL (9-20); Calcium 8.6 mg/dL (8.4-10.2); Hemolysis Index 15
[2021-08-07] MEDS: ONDANSETRON 4 MG/2 ML INJ IV PRN (12:10)
[2021-08-07 14:51] LABS: BUN/Creatinine Ratio 13; Blood Urea Nitrogen 10 mg/dL (9-20); Calcium 8.6 mg/dL (8.4-10.2); Hemolysis Index 110
[2021-08-07] MEDS: INSULIN GLARGINE 100 UNITS/ML SUB-Q SCH (22:30)
[2021-08-07] MEDS: METOCLOPRAMIDE 10 MG/2 ML INJ IV PRN (23:00)
[2021-08-08] MEDS: SODIUM CHLORIDE 0.9% 1000 ML 1,000 ML IV SCH (00:45)
[2021-08-08] MEDS: HEPARIN 5,000 UNIT/1 ML VIAL SUB-Q SCH ×3 (05:54→21:54)
[2021-08-08 06:43] LABS: Blood Urea Nitrogen 7 mg/dL (9-20); Calcium 8.9 mg/dL (8.4-10.2); Hemolysis Index 30
[2021-08-08 06:44] LABS: BUN/Creatinine Ratio 10
[2021-08-08 07:00] LABS: Basophils % (Auto) 0.5 % (0.0-1.8); Eosinophils % (Auto) 0.2 % (0.0-4.3); Hematocrit 40.3 % (35.5-45.6); Hemoglobin 13.2 gm/dl (11.8-15.2); Lymphocytes # (Auto) 1.5 K/mm3 (1.2-5.4); Lymphocytes % (Auto) 16.6 % (13.4-35.0); Mean Corpuscular HGB Conc 33 % (32-34); Mean Corpuscular Volume 95 fl (84-94); Monocytes # (Auto) 0.7 K/mm3 (0.0-0.8); Monocytes % (Auto) 7.7 % (0.0-7.3); Platelet Count 176 K/mm3 (140-440); Red Blood Count 4.22 M/mm3 (3.65-5.03); Red Cell Distribution Width 13.4 % (13.2-15.2)
[2021-08-08] MEDS: INSULIN LISPRO 100 UNIT/ML SUB-Q SCH ×4 (08:00→22:01)
--- NOTE | 2021-08-08 08:08 | Progress Note ---
Assessment and Plan Assessment and plan: Patient is a 35-year-old -[place] male with known history of diabetes mellitus and who has been admitted on multiple occasions for DKA presenting to the emergency room today complaining of intractable nausea and vomiting with generalized weakness. He reports compliance with his medications. On arrival he was noted to have a blood sugar in the 400s and also with leukocytosis and anion gap of 41 With a bicarb of 5. The patient was admitted with diagnosis of DKA, diabetes mellitus type 2 uncontrolled and hyperlipidemia DKA. Resolved. Diabetes mellitus type 2, uncontrolled Hyperlipidemia 08/07/2021. We will follow-up BMP for resolution of DKA to ensure closure of anion gap and normalization of CO2. Continue IV fluid hydration. Continue long-acting insulin with Lantus 30 units at bedtime. Anticipate discharge in a.m. 08/08/2021. Patient still with significant metabolic acidosis with a CO2 of 13. We will consult nephrology for further evaluation. BG is improved and much bett er. Continue long-acting insulin of Lantus and SSRI. History Interval history: No new issues overnight. Hospitalist Physical - Constitutional Vitals: Temp Pulse Resp BP Pulse Ox 99.3 F 87 16 125/67 99 08/08/21 03:44 08/08/21 03:44 08/08/21 03:44 08/08/21 03:44 08/08/21 03:44 General appearance: Present: no acute distress, well-nourished - EENT Eyes: Present: PERRL, EOM intact ENT: hearing intact, clear oral mucosa, dentition normal - Neck Neck: Present: supple, normal ROM - Respiratory Respiratory effort: normal Respiratory: bilateral: CTA - Cardiovascular Rhythm: regular Heart Sounds: Present: S1 & S2. Absent: gallop, rub - Extremities Extremities: no ischemia, No edema, Full ROM - Abdominal General gastrointestinal: soft, non-tender, non-distended, normal bowel sounds - Integumentary Integumentary: Present: clear, warm, dry - Neurologic Neurologic: CNII-XII intact, moves all extremities Results - Labs CBC & Chem 7: 08/08/21 05:47 08/08/21 05:47 Labs: Laboratory Last Values WBC 9.3 K/mm3 (4.5-11.0) 08/08/21 05:47 RBC 4.22 M/mm3 (3.65-5.03) 08/08/21 05:47 Hgb 13.2 gm/dl (11.8-15.2) 08/08/21 05:47 Hct 40.3 % (35.5-45.6) 08/08/21 05:47 MCV 95 fl (84-94) H 08/08/21 05:47 MCH 31 pg (28-32) 08/08/21 05:47 MCHC 33 % (32-34) 08/08/21 05:47 RDW 13.4 % (13.2-15.2) 08/08/21 05:47 Plt Count 176 K/mm3 (140-440) 08/08/21 05:47 Lymph % (Auto) 16.6 % (13.4-35.0) 08/08/21 05:47 [place] % (Auto) 7.7 % (0.0-7.3) H 08/08/21 05:47 Eos % (Auto) 0.2 % (0.0-4.3) 08/08/21 05:47 Baso % (Auto) 0.5 % (0.0-1.8) 08/08/21 05:47 Lymph # (Auto) 1.5 K/mm3 (1.2-5.4) 08/08/21 05:47 [place] # (Auto) 0.7 K/mm3 (0.0-0.8) 08/08/21 05:47 Eos # (Auto) 0.0 K/mm3 (0.0-0.4) 08/08/21 05:47 Baso # (Auto) 0.0 K/mm3 (0.0-0.1) 08/08/21 05:47 Seg Neutrophils % 75.0 % (40.0-70.0) H 08/08/21 05:47 Seg Neutrophils # 7.0 K/mm3 (1.8-7.7) 08/08/21 05:47 VBG pH 7.121 (7.320-7.420) L* 08/06/21 06:49 Sodium 133 mmol/L (137-145) L 08/08/21 05:47 Potassium 3.8 mmol/L (3.6-5.0) 08/08/21 05:47 Chloride 101.1 mmol/L (98-107) 08/08/21 05:47 Carbon Dioxide 13 mmol/L (22-30) L 08/08/21 05:47 Anion Gap 23 mmol/L 08/08/21 05:47 BUN 7 mg/dL (9-20) L 08/08/21 05:47 Creatinine 0.7 mg/dL (0.8-1.3) L 08/08/21 05:47 Estimated GFR > 60 ml/min 08/08/21 05:47 BUN/Creatinine Ratio 10 % 08/08/21 05:47 Glucose 165 mg/dL (75-100) H 08/08/21 05:47 POC Glucose 162 mg/dL (70-105) H 08/08/21 07:37 Hemoglobin A1c 9.6 % (4-6) H 08/06/21 09:04 Osmolality 319 Mosm/kg 08/06/21 09:04 Calcium 8.9 mg/dL (8.4-10.2) 08/08/21 05:47 Phosphorus 5.50 mg/dL (2.5-4.5) H 08/06/21 08:09 Magnesium 2.20 mg/dL (1.7-2.3) 08/06/21 10:32 Total Bilirubin 0.60 mg/dL (0.1-1.2) 08/07/21 06:40 AST 24 units/L (5-40) 08/07/21 06:40 ALT 19 units/L (7-56) 08/07/21 06:40 Alkaline Phosphatase 42 units/L (35-129) 08/07/21 06:40 Total Protein 6.3 g/dL (6.3-8.2) D 08/07/21 06:40 Albumin 3.9 g/dL (3.9-5) 08/07/21 06:40 Albumin/Globulin Ratio 1.6 % 08/07/21 06:40 Urine Color Colorless (Yellow) 08/06/21 Unknown Urine Turbidity Clear (Clear) 08/06/21 Unknown Urine pH 5.0 (5.0-7.0) 08/06/21 Unknown Ur Specific [place] 1.021 (1.003-1.030) 08/06/21 Unknown Urine Protein 100 mg/dl mg/dL (Negative) 08/06/21 Unknown Urine Glucose (UA) >=500 mg/dL (Negative) 08/06/21 Unknown Urine Ketones 80 mg/dL (Negative) 08/06/21 Unknown Urine Blood Sm (Negative) 08/06/21 Unknown Urine Nitrite Neg (Negative) 08/06/21 Unknown Urine Bilirubin Neg (Negative) 08/06/21 Unknown Urine Urobilinogen < 2.0 mg/dL (<2.0) 08/06/21 Unknown Ur Leukocyte Esterase Neg (Negative) 08/06/21 Unknown Urine WBC (Auto) < 1.0 /HPF (0.0-6.0) 08/06/21 Unknown Urine RBC (Auto) < 1.0 /HPF (0.0-6.0) 08/06/21 Unknown Urine Creatinine 33.3 mg/dL (0.1-20.0) H 08/06/21 Unknown Urine Microalbumin 22.9 mg/dL (0.1-34.0) 08/06/21 Unknown Microalb/Creat Ratio 687.6 ug/mg 08/06/21 Unknown Thomas/IV: Voiding Method Toilet Active Medications - Current Medications Current Medications: Generic Name Dose Route Start Last Admin Trade Name Freq PRN Reason Stop Dose Admin Acetaminophen 650 mg 08/06/21 09:00 Acetaminophen 325 Mg Tab PO Q6H PRN Pain MILD(1-3)/Fever >100.5/SIMS Albuterol 2.5 mg 08/06/21 09:00 Albuterol 2.5 Mg/3 Ml Nebu IH Q3HRT PRN Shortness Of Breath Dextrose 50 ml 08/06/21 21:25 Dextrose 50% In Water (25gm) 50 Ml Syringe IV Q30MIN PRN Hypoglycemia Protocol Heparin Sodium (Porcine) 5,000 unit 08/06/21 14:00 08/08/21 05:54 Heparin 5,000 Unit/1 Ml Vial SUB-Q 5,000 unit Q8HR YONNY Administration Sodium Chloride 1,000 mls @ 100 mls/hr 08/06/21 22:00 08/08/21 00:45 Nacl 0.9% 1000 Ml IV 100 mls/hr DIRECT YONNY Administration Ibuprofen 600 mg 08/06/21 09:00 Ibuprofen 600 Mg Tab PO Q6H PRN Pain, Moderate (4-6) Insulin Glargine 30 units 08/07/21 22:00 08/07/21 22:30 Insulin Glargine 100 Units/Ml SUB-Q 30 units QHS YONNY Administration Insulin Human Lispro 0 unit 08/06/21 22:00 08/07/21 22:00 Insulin Lispro 100 Unit/Ml SUB-Q 2 unit ACHS YONNY Administration Protocol Metoclopramide HCl 10 mg 08/06/21 09:00 08/07/21 23:00 Metoclopramide 10 Mg/2 Ml Inj IV 10 mg Q6H PRN Administration Nausea And Vomiting Naloxone HCl 0.1 mg 08/06/21 09:00 Naloxone 0.4 Mg/1 Ml Inj IV Q2MIN PRN Res Rate </= 8 or 02 SAT < 92% Ondansetron HCl 4 mg 08/06/21 09:00 08/07/21 12:10 Ondansetron 4 Mg/2 Ml Inj IV 4 mg Q4H PRN Administration Nausea And Vomiting Oxycodone/Acetaminophen 1 tab 08/06/21 09:00 Oxycodone /Acetaminophen 5-325mg Tab PO Q6H PRN Pain, Moderate (4-6) Senna 8.6 mg 08/06/21 10:00 08/07/21 23:08 Sennosides 8.6 Mg Tab PO 8.6 mg BID YONNY Administration Sodium Chloride 10 ml 08/06/21 10:00 08/07/21 22:33 Sodium Chloride 0.9% 10 Ml Flush Syringe IV 10 ml BID YONNY Administration Sodium Chloride 10 ml 08/06/21 08:30 Sodium Chloride 0.9% 10 Ml Flush Syringe IV PRN PRN LINE FLUSH Nutrition/Malnutrition Assess - Dietary Evaluation Nutrition/Malnutrition Findings: Nutrition Notes Start: 08/06/21 11:59 Freq: Status: Active Protocol: Document 08/07/21 11:47 SHRUTHI (Rec: 08/07/21 11:59 SHRUTHI [id number]) Nutrition Notes Need for Assessment generated from: MD Order,Education Initial or Follow up Brief Note Current Diagnosis Diabetes,Hyperlipidemia Other Pertinent Diagnosis DKA, Metabolic Acidosis, Leukocytosis, SIRS, N/V, Weakness. Current Diet Cardiac/Consistent Carbohydrates Diet (since B ). Height 6 ft Weight 78 kg [place] Body Weight (kg) 80.90 BMI 23.3 Intake Prior to Admission Good Weight change and time frame Pt denies having loss body weight [place]. Weight Status Appropriate Subjective/Other Information RD consult for Nutrition Education. No reports available of Pt's PO intake of meals at the time . Pt still on ED, not a candidate for Nutrition Education at the time, will assess feasibility on F/U. Percent of energy/protein needs met: Prescribed Cardiac/Consistent Carbohydrates Diet provides for energy/protein needs (1, 977 Kcal/86 g) during LOS. Nutrition Intervention Follow-Up By: 08/11/21 Additional Comments Nutrition education will be provided on F/U, if feasible. Continue monitoring food tolerance, %PO intake of meals , and BM.
--- NOTE | 2021-08-08 09:07 | Progress Note ---
Assessment and Plan DKA Severe anion gap metabolic acidosis Leukocytosis SIRS without organ dysfunction Hyperkalemia Hyponatremia- secondary to severe hyperglycemia Tobacco use disorder with Nicotine dependence Plan Continue with glycemic control, avoid hypoglycemia -Persistent metabolic acidosis, possibly RTA -Replace electrolytes as clinically indicated -Nicotine withdrawal precautions, smoking cessation counselling -Pain control -Lifestyle modifications and diabetic counselling -Increase activity -VTE prophylaxis Renal consulted per primary service Discharge planning per hospital medicine service - Subjective Date of service: 08/08/21 Interval history: Follow up for DKA, metabolic acidosis Seen and examined. Vitals, labs, medications, chart reviewed. No adverse overnight events. No chest pain, no shortness of breath, no fevers, or chills. Appetite is suboptimal Objective Vital Signs - 12hr 08/07/21 08/07/21 08/08/21 22:00 23:16 03:44 Temperature 98.7 F 99.3 F Pulse Rate 95 H 87 Respiratory 16 16 Rate Blood Pressure 137/86 125/67 O2 Sat by Pulse 100 100 99 Oximetry 08/08/21 08:02 Temperature 98.2 F Pulse Rate Respiratory 18 Rate Blood Pressure 119/65 O2 Sat by Pulse Oximetry Constitutional: no acute distress Eyes: non-icteric ENT: oropharynx moist Neck: supple, no lymphadenopathy, no JVD Effort: normal Ascultation: Bilateral: clear Cardiovascular: regular rate and rhythm, other (S1,S2) Gastrointestinal: normoactive bowel sounds, soft, non-tender, non-distended Integumentary: normal Extremities: no cyanosis, no edema Neurologic: normal mental status, non-focal exam, pupils equal and round, CN II- XII normal, motor strength normal and CBC and BMP: 08/08/21 05:47 08/09/21 07:25 Abnormal lab findings: Abnormal Labs 08/06/21 08/06/21 08/06/21 06:49 06:49 06:49 WBC 16.1 H RBC 5.23 H Hgb 16.7 H Hct 51.1 H MCV 98 H [place] % (Auto) [place] # (Auto) Seg Neutrophils % Seg Neutrophils # VBG pH 7.121 L* Sodium 129 L Potassium 5.7 H Chloride 88.5 L Carbon Dioxide 5 L* BUN 24 H Creatinine Glucose 488 H POC Glucose Hemoglobin A1c Calcium Phosphorus Magnesium Total Protein 9.3 H Albumin 5.5 H Urine Creatinine 08/06/21 08/06/2108/06/22 08:09 09:04 09:48 WBC RBC Hgb Hct MCV [place] % (Auto) [place] # (Auto) Seg Neutrophils % Seg Neutrophils # VBG pH Sodium 131 L Potassium 5.3 H Chloride 89.7 L Carbon Dioxide 9 L* BUN 24 H Creatinine 1.4 H Glucose 435 H POC Glucose 312 H Hemoglobin A1c 9.6 H Calcium Phosphorus 5.50 H Magnesium 2.40 H Total Protein Albumin Urine Creatinine 08/06/21 08/06/21 08/06/21 10:32 10:53 11:55 WBC RBC Hgb Hct MCV [place] % (Auto) [place] # (Auto) Seg Neutrophils % Seg Neutrophils # VBG pH Sodium Potassium Chloride Carbon Dioxide 7 L* BUN Creatinine Glucose 256 H POC Glucose 224 H 198 H Hemoglobin A1c Calcium Phosphorus Magnesium Total Protein Albumin Urine Creatinine 08/06/21 08/06/21 08/06/21 12:57 14:05 14:57 WBC RBC Hgb Hct MCV [place] % (Auto) [place] # (Auto) Seg Neutrophils % Seg Neutrophils # VBG pH Sodium Potassium Chloride 110.4 H Carbon Dioxide 10 L BUN Creatinine Glucose 184 H POC Glucose 210 H 199 H Hemoglobin A1c Calcium 7.6 L Phosphorus Magnesium Total Protein Albumin Urine Creatinine 08/06/21 08/06/21 08/06/21 15:13 16:26 17:23 WBC RBC Hgb Hct MCV [place] % (Auto) [place] # (Auto) Seg Neutrophils % Seg Neutrophils # VBG pH Sodium Potassium Chloride Carbon Dioxide BUN Creatinine Glucose POC Glucose 171 H 156 H 161 H Hemoglobin A1c Calcium Phosphorus Magnesium Total Protein Albumin Urine Creatinine 08/06/21 08/06/21 08/06/21 17:48 18:21 19:07 WBC RBC Hgb Hct MCV [place] % (Auto) [place] # (Auto) Seg Neutrophils % Seg Neutrophils # VBG pH Sodium 136 L Potassium Chloride 108.9 H Carbon Dioxide 11 L BUN Creatinine Glucose 184 H POC Glucose 171 H 194 H Hemoglobin A1c Calcium 8.1 L Phosphorus Magnesium Total Protein Albumin Urine Creatinine 08/06/21 08/06/21 08/06/21 20:14 23:13 23:20 WBC RBC Hgb Hct MCV [place] % (Auto) [place] # (Auto) Seg Neutrophils % Seg Neutrophils # VBG pH Sodium Potassium Chloride Carbon Dioxide 14 L BUN Creatinine Glucose 170 H POC Glucose 163 H 160 H Hemoglobin A1c Calcium Phosphorus Magnesium Total Protein Albumin Urine Creatinine 08/06/21 08/07/21 08/07/21 Unknown 06:40 06:40 WBC 12.6 H RBC Hgb Hct MCV [place] % (Auto) 7.5 H [place] # (Auto) 0.9 H Seg Neutrophils % 76.8 H Seg Neutrophils # 9.7 H VBG pH Sodium 134 L Potassium 3.5 L Chloride Carbon Dioxide 14 L BUN Creatinine Glucose 204 H POC Glucose Hemoglobin A1c Calcium Phosphorus Magnesium Total Protein Albumin Urine Creatinine 33.3 H 08/07/21 08/07/21 08/07/21 08:40 10:49 11:40 WBC RBC Hgb Hct MCV [place] % (Auto) [place] # (Auto) Seg Neutrophils % Seg Neutrophils # VBG pH Sodium Potassium 3.4 L Chloride Carbon Dioxide 14 L BUN Creatinine Glucose 216 H POC Glucose 222 H 190 H Hemoglobin A1c Calcium Phosphorus Magnesium Total Protein Albumin Urine Creatinine 08/07/21 08/07/21 08/07/21 14:13 17:01 20:05 WBC RBC Hgb Hct MCV [place] % (Auto) [place] # (Auto) Seg Neutrophils % Seg Neutrophils # VBG pH Sodium 136 L Potassium 3.5 L Chloride Carbon Dioxide 15 L BUN Creatinine Glucose 168 H POC Glucose 200 H 178 H Hemoglobin A1c Calcium Phosphorus Magnesium Total Protein Albumin Urine Creatinine 08/08/21 08/08/21 08/08/21 05:47 05:47 07:37 WBC RBC Hgb Hct MCV 95 H [place] % (Auto) 7.7 H [place] # (Auto) Seg Neutrophils % 75.0 H Seg Neutrophils # VBG pH Sodium 133 L Potassium Chloride Carbon Dioxide 13 L BUN 7 L Creatinine 0.7 L Glucose 165 H POC Glucose 162 H Hemoglobin A1c Calcium Phosphorus Magnesium Total Protein Albumin Urine Creatinine Allied health notes reviewed: nursing
--- NOTE | 2021-08-08 09:57 | Consultation ---
History of Present Illness - Reason for Consult Consult date: 08/08/21 metabolic acidosis - History of Present Illness Patient is a 35 YO AAM with known history of Diabetes mellitus and multiple prior admission with DKA who presented to [facility] ED 08/06 complaining of intractable nausea and vomiting and generalized weakness. He denies abdominal pain, diarrhea, fever, chills, headaches, hematuria, dysuria, sick contacts and recent travel. Denies contact with anyone with COVID-19. While he reports compliance with medications is unable the details of the meds. On arrival his blood sugar was 488, leukocytosis and bicarb of 5. Patient was treated with Insulin drip. Current labs with bicarb of 14. Nephrology was consulted for further evaluation and treatment of metabolic acidosis. Past History Past Medical History: diabetes, hyperlipidemia Past Surgical History: No surgical history Social history: alcohol abuse, full code, other (Occasional alcohol use denies abuse) Family history: no significant family history Medications and Allergies Allergies Allergy/AdvReac Type Severity Reaction Status Date / Time No Known Allergies Allergy Verified 08/09/19 21:30 Home Medications Medication Instructions Recorded Confirmed Last Taken Type Insulin Glargine [Lantus VIAL] 34 units SUB-Q QHS #10 ml 12/14/20 08/07/21 08/05/21 Rx Lispro Insulin [HumaLOG] 9 unit SUB-Q AC #1 vial 12/14/20 08/07/21 08/05/21 Rx Active Meds: Active Medications Acetaminophen (Acetaminophen 325 Mg Tab) 650 mg PO Q6H PRN PRN Reason: Pain MILD(1-3)/Fever >100.5/SIMS Albuterol (Albuterol 2.5 Mg/3 Ml Nebu) 2.5 mg IH Q3HRT PRN PRN Reason: Shortness Of Breath Dextrose (Dextrose 50% In Water (25gm) 50 Ml Syringe) 50 ml IV Q30MIN PRN; Protocol PRN Reason: Hypoglycemia Heparin Sodium (Porcine) (Heparin 5,000 Unit/1 Ml Vial) 5,000 unit SUB-Q Q8HR YONNY Last Admin: 08/08/21 05:54 Dose: 5,000 unit Sodium Chloride (Nacl 0.9% 1000 Ml) 1,000 mls @ 100 mls/hr IV DIRECT YONNY Last Admin: 08/08/21 00:45 Dose: 100 mls/hr Ibuprofen (Ibuprofen 600 Mg Tab) 600 mg PO Q6H PRN PRN Reason: Pain, Moderate (4-6) Insulin Glargine (Insulin Glargine 100 Units/Ml) 30 units SUB-Q QHS [facility] Last Admin: 08/07/21 22:30 Dose: 30 units Insulin Human Lispro (Insulin Lispro 100 Unit/Ml) 0 unit SUB-Q ACHS [facility]; Protocol Last Admin: 08/07/21 22:00 Dose: 2 unit Metoclopramide HCl (Metoclopramide 10 Mg/2 Ml Inj) 10 mg IV Q6H PRN PRN Reason: Nausea And Vomiting Last Admin: 08/07/21 23:00 Dose: 10 mg Naloxone HCl (Naloxone 0.4 Mg/1 Ml Inj) 0.1 mg IV Q2MIN PRN PRN Reason: Res Rate </= 8 or 02 SAT < 92% Ondansetron HCl (Ondansetron 4 Mg/2 Ml Inj) 4 mg IV Q4H PRN PRN Reason: Nausea And Vomiting Last Admin: 08/07/21 12:10 Dose: 4 mg Oxycodone/Acetaminophen (Oxycodone /Acetaminophen 5-325mg Tab) 1 tab PO Q6H PRN PRN Reason: Pain, Moderate (4-6) Senna (Sennosides 8.6 Mg Tab) 8.6 mg PO BID [facility] Last Admin: 08/07/21 23:08 Dose: 8.6 mg Sodium Chloride (Sodium Chloride 0.9% 10 Ml Flush Syringe) 10 ml IV BID [facility] Last Admin: 08/07/21 22:33 Dose: 10 ml Sodium Chloride (Sodium Chloride 0.9% 10 Ml Flush Syringe) 10 ml IV PRN PRN PRN Reason: LINE FLUSH Review of Systems All systems: negative Exam - Vital Signs Vital signs: Vital Signs Temp Pulse Resp BP Pulse Ox 98.4 F 107 H 20 146/88 98 08/06/21 06:21 08/06/21 06:21 08/06/21 06:21 08/06/21 06:21 08/06/21 06:21 Results - Lab Results 08/08/21 05:47 08/08/21 05:47 Most recent lab results Calcium 8.9 mg/dL (8.4-10.2) 08/08/21 05:47 Phosphorus 5.50 mg/dL (2.5-4.5) H 08/06/21 08:09 Magnesium 2.20 mg/dL (1.7-2.3) 08/06/21 10:32 Urine Creatinine 33.3 mg/dL (0.1-20.0) H 08/06/21 Unknown Assessment and Plan 1. Acute kidney injury: Vasomotor SUSHMA in the setting of volume depletion and DKA. Monitor renal function. Creatinine level is better. Avoid nephrotoxic agents. Meds dosage based on GFR. 2. FEN: Anion-gap metabolic acidosis, 2/2 DKA. Started on Sod bicarbonate, monitor. UA and Lactic acid level ordered. Hyponatremia, started on Sod bicarb, monitor. Monitor lytes and volume status. 3. Type 2 diabetes with hyperglycemia: S/p DKA. Monitor. 4. ?Medication non-compliance. Subjective: Patient was seen and examined at the bedside. Examination: General appearance: well-developed, appears stated age, not in distress HEENT: atraumatic, [place] Neck: trachea midline Respiratory: ctab Heart: S1S2, regular, no murmur Abdomen: soft, bowel sounds heard, NT Integumentary: R leg dressing Neurologic: alert, able to move extremities Ext: no edema
[2021-08-08] MEDS: SODIUM BICARBONATE 650 MG TAB PO SCH ×2 (13:01→21:54)
[2021-08-08] MEDS: SENNOSIDES 8.6 MG TAB PO SCH ×2 (13:01→21:54)
[2021-08-08] MEDS: SODIUM BICARBONATE 150 MEQ in WATER FOR INJECTION (PF) 1,000 ML IV SCH ×2 (19:17→19:26)
[2021-08-08] MEDS: INSULIN GLARGINE 100 UNITS/ML SUB-Q SCH (21:54)
[2021-08-09] MEDS: HEPARIN 5,000 UNIT/1 ML VIAL SUB-Q SCH ×3 (06:56→23:09)
[2021-08-09 08:01] LABS: Blood Urea Nitrogen 8 mg/dL (9-20); Calcium 8.7 mg/dL (8.4-10.2); Hemolysis Index 5
[2021-08-09 08:07] LABS: BUN/Creatinine Ratio 11
--- NOTE | 2021-08-09 08:32 | Progress Note ---
Assessment and Plan Patient is a 35-year-old -[place] Citizen male with known history of diabetes mellitus, Hyperlipidemia and who has been admitted on multiple occasions for DKA presenting to the emergency room complaining of intractable nausea and vomiting with generalized weakness. He reports compliance with his medications. He denies any fever or diarrhea. He denies any chills headaches hematuria dysuria patient denies any sick contacts and no recent travel. Denies contact with anyone with COVID-19. While he reports compliance with medications is unable to tell what he takes. On arrival he was noted to have a blood sugar in the 400s and also with leukocytosis and anion gap of 41 With a bicarb of five. Patient started on I/V fluids and Insulin drip. Patient has history smoking Cigars 2 per day. Denies alcohol or drug abuse. Works for [employer]. . Children 1. No Known drug allergies. Patient alert, awake at this time. No complaint of shortness of breath, chest pain or cough. Patient is on room air.O2 saturation 98%. Patient afebrile. No leukocytosis. Blood pressure 113/79, Pulse 86, respirations 18. Patient is on S/Q Insulin, Bicarbonate drip, Albuterol inhaler and S/Q heparin. - Patient Problems (1) Diabetic ketoacidosis Current Visit: Yes Status: Acute Plan to address problem: Patient is on S/Q Insulin and Bicarbonate drip. Management as per primary care. (2) Acute metabolic encephalopathy Current Visit: No Status: Acute Plan to address problem: Some what improved. Patient answering questions. Management as per primary care. (3) High anion gap metabolic acidosis Current Visit: No Status: Acute Plan to address problem: Continue I/V fluids and Insulin. Recommend to get ABGs and repeat BMP. (4) Tobacco use Current Visit: No Status: Acute Plan to address problem: Counseled to stop smoking. Subjective Date of service: 08/09/21 Interval history: Patient is a 35-year-old -[place] Citizen male with known history of diabetes mellitus, Hyperlipidemia and who has been admitted on multiple occasions for DKA presenting to the emergency room complaining of intractable nausea and vomiting with generalized weakness. He reports compliance with his medications. He denies any fever or diarrhea. He denies any chills headaches hematuria dysuria patient denies any sick contacts and no recent travel. Denies contact with anyone with COVID-19. While he reports compliance with medications is unable to tell what he takes. On arrival he was noted to have a blood sugar in the 400s and also with leukocytosis and anion gap of 41 With a bicarb of five. Patient started on I/V fluids and Insulin drip. Patient has history smoking Cigars 2 per day. Denies alcohol or drug abuse. Works for [employer]. . Children 1. No Known drug allergies. Patient alert, awake at this time. No complaint of shortness of breath, chest pain or cough. Patient is on room air.O2 saturation 98%. Patient afebrile. No leukocytosis. Blood pressure 113/79, Pulse 86, respirations 18. Patient is on S/Q Insulin, Bicarbonate drip, Albuterol inhaler and S/Q heparin. Objective Vital Signs - 12hr 08/08/21 08/08/21 08/09/21 22:00 23:20 03:36 Temperature 98.4 F 98.7 F Pulse Rate 86 79 71 Respiratory 16 18 Rate Blood Pressure 129/88 138/93 O2 Sat by Pulse 100 100 100 Oximetry Constitutional: no acute distress, alert Eyes: non-icteric ENT: oropharynx moist Neck: supple, no lymphadenopathy Effort: normal Ascultation: Bilateral: diminished breath sounds Cardiovascular: regular rate and rhythm Gastrointestinal: normoactive bowel sounds, soft, non-tender Integumentary: normal Extremities: no cyanosis, no edema Neurologic: normal mental status, non-focal exam, pupils equal and round Psychiatric: depressed CBC and BMP: 08/08/21 05:47 08/09/21 07:25 Abnormal lab findings: Abnormal Labs 08/06/21 08/06/21 08/06/21 06:49 06:49 06:49 WBC 16.1 H RBC 5.23 H Hgb 16.7 H Hct 51.1 H MCV 98 H [place] % (Auto) [place] # (Auto) Seg Neutrophils % Seg Neutrophils # VBG pH 7.121 L* Sodium 129 L Potassium 5.7 H Chloride 88.5 L Carbon Dioxide 5 L* BUN 24 H Creatinine Glucose 488 H POC Glucose Hemoglobin A1c Calcium Phosphorus Magnesium Total Protein 9.3 H Albumin 5.5 H Urine Creatinine 08/06/21 08/06/21 08/06/21 08:09 09:04 09:48 WBC RBC Hgb Hct MCV [place] % (Auto) [place] # (Auto) Seg Neutrophils % Seg Neutrophils # VBG pH Sodium 131 L Potassium 5.3 H Chloride 89.7 L Carbon Dioxide 9 L* BUN 24 H Creatinine 1.4 H Glucose 435 H POC Glucose 312 H Hemoglobin A1c 9.6 H Calcium Phosphorus 5.50 H Magnesium 2.40 H Total Protein Albumin Urine Creatinine 08/06/21 08/06/21 08/06/21 10:32 10:53 11:55 WBC RBC Hgb Hct MCV [place] % (Auto) [place] # (Auto) Seg Neutrophils % Seg Neutrophils # VBG pH Sodium Potassium Chloride Carbon Dioxide 7 L* BUN Creatinine Glucose 256 H POC Glucose 224 H 198 H Hemoglobin A1c Calcium Phosphorus Magnesium Total Protein Albumin Urine Creatinine 08/06/21 08/06/21 08/06/21 12:57 14:05 14:57 WBC RBC Hgb Hct MCV [place] % (Auto) [place] # (Auto) Seg Neutrophils % Seg Neutrophils # VBG pH Sodium Potassium Chloride 110.4 H Carbon Dioxide 10 L BUN Creatinine Glucose 184 H POC Glucose 210 H 199 H Hemoglobin A1c Calcium 7.6 L Phosphorus Magnesium Total Protein Albumin Urine Creatinine 08/06/21 08/06/21 08/06/21 15:13 16:26 17:23 WBC RBC Hgb Hct MCV [place] % (Auto) [place] # (Auto) Seg Neutrophils % Seg Neutrophils # VBG pH Sodium Potassium Chloride Carbon Dioxide BUN Creatinine Glucose POC Glucose 171 H 156 H 161 H Hemoglobin A1c Calcium Phosphorus Magnesium Total Protein Albumin Urine Creatinine 08/06/21 08/06/21 08/06/21 17:48 18:21 19:07 WBC RBC Hgb Hct MCV [place] % (Auto) [place] # (Auto) Seg Neutrophils % Seg Neutrophils # VBG pH Sodium 136 L Potassium Chloride 108.9 H Carbon Dioxide 11 L BUN Creatinine Glucose 184 H POC Glucose 171 H 194 H Hemoglobin A1c Calcium 8.1 L Phosphorus Magnesium Total Protein Albumin Urine Creatinine 08/06/21 08/06/21 08/06/21 20:14 23:13 23:20 WBC RBC Hgb Hct MCV [place] % (Auto) [place] # (Auto) Seg Neutrophils % Seg Neutrophils # VBG pH Sodium Potassium Chloride Carbon Dioxide 14 L BUN Creatinine Glucose 170 H POC Glucose 163 H 160 H Hemoglobin A1c Calcium Phosphorus Magnesium Total Protein Albumin Urine Creatinine 08/06/21 08/07/21 08/07/21 Unknown 06:40 06:40 WBC 12.6 H RBC Hgb Hct MCV [place] % (Auto) 7.5 H [place] # (Auto) 0.9 H Seg Neutrophils % 76.8 H Seg Neutrophils # 9.7 H VBG pH Sodium 134 L Potassium 3.5 L Chloride Carbon Dioxide 14 L BUN Creatinine Glucose 204 H POC Glucose Hemoglobin A1c Calcium Phosphorus Magnesium Total Protein Albumin Urine Creatinine 33.3 H 08/07/21 08/07/21 08/07/21 08:40 10:49 11:40 WBC RBC Hgb Hct MCV [place] % (Auto) [place] # (Auto) Seg Neutrophils % Seg Neutrophils # VBG pH Sodium Potassium 3.4 L Chloride Carbon Dioxide 14 L BUN Creatinine Glucose 216 H POC Glucose 222 H 190 H Hemoglobin A1c Calcium Phosphorus Magnesium Total Protein Albumin Urine Creatinine 08/07/21 08/07/21 08/07/21 14:13 17:01 20:05 WBC RBC Hgb Hct MCV [place] % (Auto) [place] # (Auto) Seg Neutrophils % Seg Neutrophils # VBG pH Sodium 136 L Potassium 3.5 L Chloride Carbon Dioxide 15 L BUN Creatinine Glucose 168 H POC Glucose 200 H 178 H Hemoglobin A1c Calcium Phosphorus Magnesium Total Protein Albumin Urine Creatinine 08/08/21 08/08/21 08/08/21 05:47 05:47 07:37 WBC RBC Hgb Hct MCV 95 H [place] % (Auto) 7.7 H [place] # (Auto) Seg Neutrophils % 75.0 H Seg Neutrophils # VBG pH Sodium 133 L Potassium Chloride Carbon Dioxide 13 L BUN 7 L Creatinine 0.7 L Glucose 165 H POC Glucose 162 H Hemoglobin A1c Calcium Phosphorus Magnesium Total Protein Albumin Urine Creatinine 08/08/21 08/08/21 08/08/21 11:57 15:45 20:42 WBC RBC Hgb Hct MCV [place] % (Auto) [place] # (Auto) Seg Neutrophils % Seg Neutrophils # VBG pH Sodium Potassium Chloride Carbon Dioxide BUN Creatinine Glucose POC Glucose 186 H 227 H 180 H Hemoglobin A1c Calcium Phosphorus Magnesium Total Protein Albumin Urine Creatinine 08/09/21 07:25 WBC RBC Hgb Hct MCV [place] % (Auto) [place] # (Auto) Seg Neutrophils % Seg Neutrophils # VBG pH Sodium 135 L Potassium 2.5 L* D Chloride 94.1 L Carbon Dioxide 21 L D BUN 8 L Creatinine 0.7 L Glucose 163 H POC Glucose Hemoglobin A1c Calcium Phosphorus 2.10 L Magnesium Total Protein Albumin Urine Creatinine
--- NOTE | 2021-08-09 09:16 | Progress Note ---
Assessment and Plan Assessment and plan: Patient is a 35-year-old -[place] male with known history of diabetes mellitus and who has been admitted on multiple occasions for DKA presenting to the emergency room today complaining of intractable nausea and vomiting with generalized weakness. He reports compliance with his medications. On arrival he was noted to have a blood sugar in the 400s and also with leukocytosis and anion gap of 41 With a bicarb of 5. The patient was admitted with diagnosis of DKA, diabetes mellitus type 2 uncontrolled and hyperlipidemia DKA. Resolved. Diabetes mellitus type 2, uncontrolled Severe hypokalemia Hyperlipidemia 08/07/2021. We will follow-up BMP for resolution of DKA to ensure closure of a nion gap and normalization of CO2. Continue IV fluid hydration. Continue long- acting insulin with Lantus 30 units at bedtime. Anticipate discharge in a.m. 08/08/2021. Patient still with significant metabolic acidosis with a CO2 of 13. We will consult nephrology for further evaluation. BG is improved and much better. Continue long-acting insulin of Lantus and SSRI. 08/09/2021. Patient with severe hypokalemia this morning with a potassium of 2.5. Metabolic acidosis resolved with CO2 of 21. Replete potassium today and anticipate discharge when normalized. BG much better controlled. History Interval history: No new issues overnight. Hospitalist Physical - Constitutional Vitals: Temp Pulse Resp BP Pulse Ox 98.7 F 71 18 138/93 100 08/09/21 03:36 08/09/21 03:36 08/09/21 03:36 08/09/21 03:36 08/09/21 03:36 General appearance: Present: no acute distress, well-nourished - EENT Eyes: Present: PERRL, EOM intact ENT: hearing intact, clear oral mucosa, dentition normal - Neck Neck: Present: supple, normal ROM - Respiratory Respiratory effort: normal Respiratory: bilateral: CTA - Cardiovascular Rhythm: regular Heart Sounds: Present: S1 & S2. Absent: gallop, rub - Extremities Extremities: no ischemia, No edema, Full ROM - Abdominal General gastrointestinal: soft, non-tender, non-distended, normal bowel sounds - Integumentary Integumentary: Present: clear, warm, dry - Neurologic Neurologic: CNII-XII intact, moves all extremities Results - Labs CBC & Chem 7: 08/08/21 05:47 08/09/21 07:25 Labs: Laboratory Last Values WBC 9.3 K/mm3 (4.5-11.0) 08/08/21 05:47 RBC 4.22 M/mm3 (3.65-5.03) 08/08/21 05:47 Hgb 13.2 gm/dl (11.8-15.2) 08/08/21 05:47 Hct 40.3 % (35.5-45.6) 08/08/21 05:47 MCV 95 fl (84-94) H 08/08/21 05:47 MCH 31 pg (28-32) 08/08/21 05:47 MCHC 33 % (32-34) 08/08/21 05:47 RDW 13.4 % (13.2-15.2) 08/08/21 05:47 Plt Count 176 K/mm3 (140-440) 08/08/21 05:47 Lymph % (Auto) 16.6 % (13.4-35.0) 08/08/21 05:47 [place] % (Auto) 7.7 % (0.0-7.3) H 08/08/21 05:47 Eos % (Auto) 0.2 % (0.0-4.3) 08/08/21 05:47 Baso % (Auto) 0.5 % (0.0-1.8) 08/08/21 05:47 Lymph # (Auto) 1.5 K/mm3 (1.2-5.4) 08/08/21 05:47 [place] # (Auto) 0.7 K/mm3 (0.0-0.8) 08/08/21 05:47 Eos # (Auto) 0.0 K/mm3 (0.0-0.4) 08/08/21 05:47 Baso # (Auto) 0.0 K/mm3 (0.0-0.1) 08/08/21 05:47 Seg Neutrophils % 75.0 % (40.0-70.0) H 08/08/21 05:47 Seg Neutrophils # 7.0 K/mm3 (1.8-7.7) 08/08/21 05:47 VBG pH 7.121 (7.320-7.420) L* 08/06/21 06:49 Sodium 135 mmol/L (137-145) L 08/09/21 07:25 Potassium 2.5 mmol/L (3.6-5.0) L* D 08/09/21 07:25 Chloride 94.1 mmol/L (98-107) L 08/09/21 07:25 Carbon Dioxide 21 mmol/L (22-30) L D 08/09/21 07:25 Anion Gap 22 mmol/L 08/09/21 07:25 BUN 8 mg/dL (9-20) L 08/09/21 07:25 Creatinine 0.7 mg/dL (0.8-1.3) L 08/09/21 07:25 Estimated GFR > 60 ml/min 08/09/21 07:25 BUN/Creatinine Ratio 11 % 08/09/21 07:25 Glucose 163 mg/dL (75-100) H 08/09/21 07:25 POC Glucose 88 mg/dL (70-105) 08/09/21 07:33 Hemoglobin A1c 9.6 % (4-6) H 08/06/21 09:04 Osmolality 319 Mosm/kg 08/06/21 09:04 Lactic Acid 0.80 mmol/L (0.7-2.0) 08/08/21 10:50 Calcium 8.7 mg/dL (8.4-10.2) 08/09/21 07:25 Phosphorus 2.10 mg/dL (2.5-4.5) L 08/09/21 07:25 Magnesium 2.20 mg/dL (1.7-2.3) 08/06/21 10:32 Total Bilirubin 0.60 mg/dL (0.1-1.2) 08/07/21 06:40 AST 24 units/L (5-40) 08/07/21 06:40 ALT 19 units/L (7-56) 08/07/21 06:40 Alkaline Phosphatase 42 units/L (35-129) 08/07/21 06:40 Total Protein 6.3 g/dL (6.3-8.2) D 08/07/21 06:40 Albumin 3.9 g/dL (3.9-5) 08/07/21 06:40 Albumin/Globulin Ratio 1.6 % 08/07/21 06:40 Urine Color Colorless (Yellow) 08/06/21 Unknown Urine Turbidity Clear (Clear) 08/06/21 Unknown Urine pH 5.0 (5.0-7.0) 08/06/21 Unknown Ur Specific [place] 1.021 (1.003-1.030) 08/06/21 Unknown Urine Protein 100 mg/dl mg/dL (Negative) 08/06/21 Unknown Urine Glucose (UA) >=500 mg/dL (Negative) 08/06/21 Unknown Urine Ketones 80 mg/dL (Negative) 08/06/21 Unknown Urine Blood Sm (Negative) 08/06/21 Unknown Urine Nitrite Neg (Negative) 08/06/21 Unknown Urine Bilirubin Neg (Negative) 08/06/21 Unknown Urine Urobilinogen < 2.0 mg/dL (<2.0) 08/06/21 Unknown Ur Leukocyte Esterase Neg (Negative) 08/06/21 Unknown Urine WBC (Auto) < 1.0 /HPF (0.0-6.0) 08/06/21 Unknown Urine RBC (Auto) < 1.0 /HPF (0.0-6.0) 08/06/21 Unknown Urine Creatinine 33.3 mg/dL (0.1-20.0) H 08/06/21 Unknown Urine Microalbumin 22.9 mg/dL (0.1-34.0) 08/06/21 Unknown Microalb/Creat Ratio 687.6 ug/mg 08/06/21 Unknown [place]/IV: Voiding Method Toilet Active Medications - Current Medications Current Medications: Generic Name Dose Route Start Last Admin Trade Name Freq PRN Reason Stop Dose Admin Acetaminophen 650 mg 08/06/21 09:00 Acetaminophen 325 Mg Tab PO Q6H PRN Pain MILD(1-3)/Fever >100.5/SIMS Albuterol 2.5 mg 08/06/21 09:00 Albuterol 2.5 Mg/3 Ml Nebu IH Q3HRT PRN Shortness Of Breath Dextrose 50 ml 08/06/21 21:25 Dextrose 50% In Water (25gm) 50 Ml Syringe IV Q30MIN PRN Hypoglycemia Protocol Heparin Sodium (Porcine) 5,000 unit 08/06/21 14:00 08/09/21 06:56 Heparin 5,000 Unit/1 Ml Vial SUB-Q 5,000 unit Q8HR YONNY Administration Sodium Bicarbonate 150 meq/ 1,150 mls @ 75 mls/hr 08/08/21 18:00 08/08/21 19:26 Sterile Water IV 75 mls/hr DIRECT YONNY Administration Ibuprofen 600 mg 08/06/21 09:00 Ibuprofen 600 Mg Tab PO Q6H PRN Pain, Mild (1-3) Insulin Glargine 30 units 08/07/21 22:00 08/08/21 21:54 Insulin Glargine 100 Units/Ml SUB-Q 30 units QHS YONNY Administration Insulin Human Lispro 0 unit 08/06/21 22:00 08/08/21 22:01 Insulin Lispro 100 Unit/Ml SUB-Q 2 unit ACHS YONNY Administration Protocol Metoclopramide HCl 10 mg 08/06/21 09:00 08/07/21 23:00 Metoclopramide 10 Mg/2 Ml Inj IV 10 mg Q6H PRN Administration Nausea And Vomiting Naloxone HCl 0.1 mg 08/06/21 09:00 Naloxone 0.4 Mg/1 Ml Inj IV Q2MIN PRN Res Rate </= 8 or 02 SAT < 92% Ondansetron HCl 4 mg 08/06/21 09:00 08/07/21 12:10 Ondansetron 4 Mg/2 Ml Inj IV 4 mg Q4H PRN Administration Nausea And Vomiting Oxycodone/Acetaminophen 1 tab 08/06/21 09:00 Oxycodone /Acetaminophen 5-325mg Tab PO Q6H PRN Pain, Moderate (4-6) Senna 8.6 mg 08/06/21 10:00 08/08/21 21:54 Sennosides 8.6 Mg Tab PO 8.6 mg BID YONNY Administration Sodium Bicarbonate 1,300 mg 08/08/21 14:00 08/08/21 21:54 Sodium Bicarbonate 650 Mg Tab PO 1,300 mg TID YONNY Administration Sodium Chloride 10 ml 08/06/21 10:00 08/08/21 22:02 Sodium Chloride 0.9% 10 Ml Flush Syringe IV 10 ml BID YONNY Administration Sodium Chloride 10 ml 08/06/21 08:30 Sodium Chloride 0.9% 10 Ml Flush Syringe IV PRN PRN LINE FLUSH Nutrition/Malnutrition Assess - Dietary Evaluation Nutrition/Malnutrition Findings: Nutrition Notes Start: 08/06/21 11:59 Freq: Status: Active Protocol: Document 08/07/21 11:47 SHRUTHI (Rec: 08/07/21 11:59 [email or web address] [id number]) Nutrition Notes Need for Assessment generated from: MD Order,Education Initial or Follow up Brief Note Current Diagnosis Diabetes,Hyperlipidemia Other Pertinent Diagnosis DKA, Metabolic Acidosis, Leukocytosis, SIRS, N/V, Weakness. Current Diet Cardiac/Consistent Carbohydrates Diet (since B ). 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 No reports available of Pt's PO intake of meals at the time . Pt still on ED, not a candidate for Nutrition Education at the time, will assess feasibility on F/U. Percent of energy/protein needs met: Prescribed Cardiac/Consistent Carbohydrates Diet provides for energy/protein needs (1, 977 Kcal/86 g) during LOS. Nutrition Intervention Follow-Up By: 08/11/21 Additional Comments Nutrition education will be provided on F/U, if feasible. Continue monitoring food tolerance, %PO intake of meals , and BM.
[2021-08-09] MEDS: SENNOSIDES 8.6 MG TAB PO SCH ×2 (09:30→23:09)
[2021-08-09] MEDS: SODIUM BICARBONATE 650 MG TAB PO SCH ×3 (09:30→23:10)
[2021-08-09] MEDS: INSULIN LISPRO 100 UNIT/ML SUB-Q SCH ×4 (09:31→23:10)
[2021-08-09] MEDS ORDERED: POTASSIUM CHLORIDE ER 20 MEQ TAB PO NR ×3 (10:00→19:00)
[2021-08-09] MEDS: SODIUM BICARBONATE 150 MEQ in WATER FOR INJECTION (PF) 1,000 ML IV SCH (11:38)
--- NOTE | 2021-08-09 11:52 | Progress Note ---
Assessment and Plan 1. Acute kidney injury: Vasomotor SUSHMA in the setting of volume depletion and DKA. Monitor renal function. Creatinine level is better. Avoid nephrotoxic agents. Meds dosage based on GFR. 2. FEN: Anion-gap metabolic acidosis, 2/2 DKA. UA positive for ketones. Normal Lactic acid level. Continue Sod bicarbonate, monitor. Hyponatremia, on Sod bicarb, monitor. Replete K and Phos. Monitor lytes and volume status. 3. Type 2 diabetes with hyperglycemia: S/p DKA. Monitor. 4. Medication non-compliance. Subjective: Patient was seen and examined at the bedside. Not eating any of the food. Examination: General appearance: well-developed, appears stated age, not in distress HEENT: atraumatic, [place] Neck: trachea midline Respiratory: ctab Heart: S1S2, regular, no murmur Abdomen: soft, bowel sounds heard, NT Integumentary: R leg dressing Neurologic: alert, able to move extremities Ext: no edema Subjective Date of service: 08/09/21 Objective - Vital Signs Vital signs: Vital Signs - 12hr 08/09/21 03:36 Temperature 98.7 F Pulse Rate 71 Respiratory 18 Rate Blood Pressure 138/93 O2 Sat by Pulse 100 Oximetry - Lab 08/08/21 05:47 08/09/21 07:25 Most recent lab results Calcium 8.7 mg/dL (8.4-10.2) 08/09/21 07:25 Phosphorus 2.10 mg/dL (2.5-4.5) L 08/09/21 07:25 Magnesium 2.20 mg/dL (1.7-2.3) 08/06/21 10:32 Urine Creatinine 33.3 mg/dL (0.1-20.0) H 08/06/21 Unknown Medications & Allergies - Medications Allergies/Adverse Reactions: Allergies No Known Allergies Allergy (Verified 08/09/21 14:48) Home Medications: Home Medications Medication Instructions Recorded Confirmed Last Taken Type Insulin Glargine [Lantus VIAL] 34 units SUB-Q QHS #10 ml 12/14/20 08/07/21 08/05/21 Rx Lispro Insulin [HumaLOG] 9 unit SUB-Q AC #1 vial 12/14/20 08/07/21 08/05/21 Rx Active Medications: Generic Name Dose Route Start Last Admin Trade Name Freq PRN Reason Stop Dose Admin Acetaminophen 650 mg 08/06/21 09:00 Acetaminophen 325 Mg Tab PO Q6H PRN Pain MILD(1-3)/Fever >100.5/SIMS Albuterol 2.5 mg 08/06/21 09:00 Albuterol 2.5 Mg/3 Ml Nebu IH Q3HRT PRN Shortness Of Breath Dextrose 50 ml 08/06/21 21:25 Dextrose 50% In Water (25gm) 50 Ml Syringe IV Q30MIN PRN Hypoglycemia Protocol Heparin Sodium (Porcine) 5,000 unit 08/06/21 14:00 08/09/21 06:56 Heparin 5,000 Unit/1 Ml Vial SUB-Q 5,000 unit Q8HR YONNY Administration Sodium Bicarbonate 150 meq/ 1,150 mls @ 75 mls/hr 08/08/21 18:00 08/09/21 11:38 Sterile Water IV 75 mls/hr DIRECT YONNY Administration Ibuprofen 600 mg 08/06/21 09:00 Ibuprofen 600 Mg Tab PO Q6H PRN Pain, Mild (1-3) Insulin Glargine 30 units 08/07/21 22:00 08/08/21 21:54 Insulin Glargine 100 Units/Ml SUB-Q 30 units QHS YONNY Administration Insulin Human Lispro 0 unit 08/06/21 22:00 08/09/21 09:31 Insulin Lispro 100 Unit/Ml SUB-Q Not Given ACHS YONNY Protocol Metoclopramide HCl 10 mg 08/06/21 09:00 08/07/21 23:00 Metoclopramide 10 Mg/2 Ml Inj IV 10 mg Q6H PRN Administration Nausea And Vomiting Naloxone HCl 0.1 mg 08/06/21 09:00 Naloxone 0.4 Mg/1 Ml Inj IV Q2MIN PRN Res Rate </= 8 or 02 SAT < 92% Ondansetron HCl 4 mg 08/06/21 09:00 08/07/21 12:10 Ondansetron 4 Mg/2 Ml Inj IV 4 mg Q4H PRN Administration Nausea And Vomiting Oxycodone/Acetaminophen 1 tab 08/06/21 09:00 Oxycodone /Acetaminophen 5-325mg Tab PO Q6H PRN Pain, Moderate (4-6) Potassium Chloride 40 meq 08/09/21 14:00 Potassium Chloride Er 20 Meq Tab PO 08/09/21 15:00 ONCE NR Potassium Chloride 40 meq 08/09/21 19:00 Potassium Chloride Er 20 Meq Tab PO 08/09/21 20:00 ONCE NR Senna 8.6 mg 08/06/21 10:00 08/09/21 09:30 Sennosides 8.6 Mg Tab PO 8.6 mg BID YONNY Administration Sodium Bicarbonate 1,300 mg 08/08/21 14:00 08/09/21 09:30 Sodium Bicarbonate 650 Mg Tab PO 1,300 mg TID YONNY Administration Sodium Chloride 10 ml 08/06/21 10:00 08/09/21 11:38 Sodium Chloride 0.9% 10 Ml Flush Syringe IV 10 ml BID YONNY Administration Sodium Chloride 10 ml 08/06/21 08:30 Sodium Chloride 0.9% 10 Ml Flush Syringe IV PRN PRN LINE FLUSH Sodium Phosphate 500 mg 08/09/21 12:00 K-Phos Neutral 250 Mg Tab PO 08/09/21 14:00 ONCE NR
[2021-08-09] MEDS ORDERED: K-PHOS NEUTRAL 250 MG TAB PO NR (12:00)
[2021-08-09 15:07] LABS: Bilirubin,Urine NEG (Negative); Blood,Urine SM (Negative); Color,Urine Yellow (Yellow); Mucus,Urine 2+ /HPF
[2021-08-09] MEDS: INSULIN GLARGINE 100 UNITS/ML SUB-Q SCH (23:10)
[2021-08-10 05:00] LABS: Basophils % (Auto) 0.5 % (0.0-1.8); Eosinophils % (Auto) 0.2 % (0.0-4.3); Hematocrit 39.9 % (35.5-45.6); Hemoglobin 13.7 gm/dl (11.8-15.2); Lymphocytes # (Auto) 2.4 K/mm3 (1.2-5.4); Lymphocytes % (Auto) 32.5 % (13.4-35.0); Mean Corpuscular HGB Conc 34 % (32-34); Mean Corpuscular Volume 93 fl (84-94); Monocytes # (Auto) 0.7 K/mm3 (0.0-0.8); Monocytes % (Auto) 9.8 % (0.0-7.3); Platelet Count 166 K/mm3 (140-440)
[2021-08-10 05:18] LABS: Blood Urea Nitrogen 8 mg/dL (9-20); Calcium 8.7 mg/dL (8.4-10.2); Hemolysis Index 19
[2021-08-10 05:27] LABS: BUN/Creatinine Ratio 11
[2021-08-10] MEDS: HEPARIN 5,000 UNIT/1 ML VIAL SUB-Q SCH ×3 (06:24→23:22)
--- NOTE | 2021-08-10 09:09 | Progress Note ---
Assessment and Plan Assessment and plan: Patient is a 35-year-old -Serbian male with known history of diabetes mellitus and who has been admitted on multiple occasions for DKA presenting to the emergency room today complaining of intractable nausea and vomiting with generalized weakness. He reports compliance with his medications. On arrival he was noted to have a blood sugar in the 400s and also with leukocytosis and anion gap of 41 With a bicarb of 5. The patient was admitted with diagnosis of DKA, diabetes mellitus type 2 uncontrolled and hyperlipidemia DKA. Resolved. Diabetes mellitus type 2, uncontrolled, A1c 9.6, currently acceptable glycemic control SUSHMA resolved Severe persistent hypokalemia Hyperlipidemia Daily events: 08/07/2021. We will follow-up BMP for resolution of DKA to ensure closure of anion gap and normalization of CO2. Continue IV fluid hydration. Continue long-acting insulin with Lantus 30 units at bedtime. Anticipate discharge in a.m. 08/08/2021. Patient still with significant metabolic acidosis with a CO2 of 13. We will consult nephrology for further evaluation. BG is improved and much better. Continue long-acting insulin of Lantus and SSRI. 08/09/2021. Patient with severe hypokalemia this morning with a potassium of 2.5. Metabolic acidosis resolved with CO2 of 21. Replete potassium today and anticipate discharge when normalized. BG much better controlled. 08/10:Patient generally doing well. Glycemic control is acceptable. SUSHMA resolved. Discharge is on hold pending resolution of procedure persistent hypokalemia for which he is receiving large dose of oral and IV potassium supplements. Potassium today 2.6. Tolerating diet. Discussed with the patient, nursing staff and CM. History Interval history: Patient generally doing well. Glycemic control is acceptable. SUSHMA resolved. Discharge is on hold pending resolution of procedure persistent hypokalemia for which he is receiving large dose of oral and IV potassium supplements. Potassium today 2.6. Tolerating diet. Hospitalist Physical - Constitutional Vitals: Temp Pulse Resp BP Pulse Ox 98.5 F 79 18 113/75 100 08/10/21 07:47 08/10/21 07:47 08/10/21 07:47 08/10/21 07:47 08/10/21 07:47 General appearance: Present: no acute distress, well-nourished - EENT Eyes: Present: PERRL, EOM intact ENT: clear oral mucosa - Neck Neck: Present: supple - Respiratory Respiratory: bilateral: CTA - Cardiovascular Rhythm: regular - Extremities Extremities: No edema - Abdominal General gastrointestinal: soft, non-tender, normal bowel sounds - Integumentary Integumentary: Absent: rash - Neurologic Neurologic: no focal deficits, moves all extremities Results - Labs CBC & Chem 7: 08/10/21 04:45 08/11/21 05:02 Labs: Laboratory Last Values WBC 7.5 K/mm3 (4.5-11.0) 08/10/21 04:45 RBC 4.30 M/mm3 (3.65-5.03) 08/10/21 04:45 Hgb 13.7 gm/dl (11.8-15.2) 08/10/21 04:45 Hct 39.9 % (35.5-45.6) 08/10/21 04:45 MCV 93 fl (84-94) 08/10/21 04:45 MCH 32 pg (28-32) 08/10/21 04:45 MCHC 34 % (32-34) 08/10/21 04:45 RDW 13.0 % (13.2-15.2) L 08/10/21 04:45 Plt Count 166 K/mm3 (140-440) 08/10/21 04:45 Lymph % (Auto) 32.5 % (13.4-35.0) 08/10/21 04:45 [place] % (Auto) 9.8 % (0.0-7.3) H 08/10/21 04:45 Eos % (Auto) 0.2 % (0.0-4.3) 08/10/21 04:45 Baso % (Auto) 0.5 % (0.0-1.8) 08/10/21 04:45 Lymph # (Auto) 2.4 K/mm3 (1.2-5.4) 08/10/21 04:45 [place] # (Auto) 0.7 K/mm3 (0.0-0.8) 08/10/21 04:45 Eos # (Auto) 0.0 K/mm3 (0.0-0.4) 08/10/21 04:45 Baso # (Auto) 0.0 K/mm3 (0.0-0.1) 08/10/21 04:45 Seg Neutrophils % 57.0 % (40.0-70.0) 08/10/21 04:45 Seg Neutrophils # 4.3 K/mm3 (1.8-7.7) 08/10/21 04:45 VBG pH 7.121 (7.320-7.420) L* 08/06/21 06:49 Sodium 134 mmol/L (137-145) L 08/10/21 04:45 Potassium 2.6 mmol/L (3.6-5.0) L* 08/10/21 04:45 Chloride 94.6 mmol/L (98-107) L 08/10/21 04:45 Carbon Dioxide 25 mmol/L (22-30) 08/10/21 04:45 Anion Gap 17 mmol/L 08/10/21 04:45 BUN 8 mg/dL (9-20) L 08/10/21 04:45 Creatinine 0.7 mg/dL (0.8-1.3) L 08/10/21 04:45 Estimated GFR > 60 ml/min 08/10/21 04:45 BUN/Creatinine Ratio 11 % 08/10/21 04:45 Glucose 190 mg/dL (75-100) H 08/10/21 04:45 POC Glucose 226 mg/dL (70-105) H 08/10/21 07:49 Hemoglobin A1c 9.6 % (4-6) H 08/06/21 09:04 Osmolality 319 Mosm/kg 08/06/21 09:04 Lactic Acid 0.80 mmol/L (0.7-2.0) 08/08/21 10:50 Calcium 8.7 mg/dL (8.4-10.2) 08/10/21 04:45 Phosphorus 2.40 mg/dL (2.5-4.5) L 08/10/21 04:45 Magnesium 2.20 mg/dL (1.7-2.3) 08/06/21 10:32 Total Bilirubin 0.60 mg/dL (0.1-1.2) 08/07/21 06:40 AST 24 units/L (5-40) 08/07/21 06:40 ALT 19 units/L (7-56) 08/07/21 06:40 Alkaline Phosphatase 42 units/L (35-129) 08/07/21 06:40 Total Protein 6.3 g/dL (6.3-8.2) D 08/07/21 06:40 Albumin 3.9 g/dL (3.9-5) 08/07/21 06:40 Albumin/Globulin Ratio 1.6 % 08/07/21 06:40 Urine Color Yellow (Yellow) 08/09/21 14:00 Urine Turbidity Clear (Clear) 08/09/21 14:00 Urine pH 6.0 (5.0-7.0) 08/09/21 14:00 Ur Specific [place] 1.022 (1.003-1.030) 08/09/21 14:00 Urine Protein 30 mg/dl mg/dL (Negative) 08/09/21 14:00 Urine Glucose (UA) >=500 mg/dL (Negative) 08/09/21 14:00 Urine Ketones 80 mg/dL (Negative) 08/09/21 14:00 Urine Blood Sm (Negative) 08/09/21 14:00 Urine Nitrite Neg (Negative) 08/09/21 14:00 Urine Bilirubin Neg (Negative) 08/09/21 14:00 Urine Urobilinogen 2.0 mg/dL (<2.0) 08/09/21 14:00 Ur Leukocyte Esterase Neg (Negative) 08/09/21 14:00 Urine WBC (Auto) 1.0 /HPF (0.0-6.0) 08/09/21 14:00 Urine RBC (Auto) 4.0 /HPF (0.0-6.0) 08/09/21 14:00 Urine Mucus 2+ /HPF 08/09/21 14:00 Urine Creatinine 33.3 mg/dL (0.1-20.0) H 08/06/21 Unknown Urine Microalbumin 22.9 mg/dL (0.1-34.0) 08/06/21 Unknown Microalb/Creat Ratio 687.6 ug/mg 08/06/21 Unknown Thomas/IV: Voiding Method Toilet Active Medications - Current Medications Current Medications: Generic Name Dose Route Start Last Admin Trade Name Freq PRN Reason Stop Dose Admin Acetaminophen 650 mg 08/06/21 09:00 Acetaminophen 325 Mg Tab PO Q6H PRN Pain MILD(1-3)/Fever >100.5/SIMS Albuterol 2.5 mg 08/06/21 09:00 Albuterol 2.5 Mg/3 Ml Nebu IH Q3HRT PRN Shortness Of Breath Dextrose 50 ml 08/06/21 21:25 Dextrose 50% In Water (25gm) 50 Ml Syringe IV Q30MIN PRN Hypoglycemia Protocol Heparin Sodium (Porcine) 5,000 unit 08/06/21 14:00 08/10/21 06:24 Heparin 5,000 Unit/1 Ml Vial SUB-Q Not Given Q8HR [facility] Potassium Chloride 40 meq/ 1,020 mls @ 75 mls/hr 08/10/21 09:00 Sodium Chloride IV DIRECT [facility] Ibuprofen 600 mg 08/06/21 09:00 Ibuprofen 600 Mg Tab PO Q6H PRN Pain, Mild (1-3) Insulin Glargine 30 units 08/07/21 22:00 08/09/21 23:10 Insulin Glargine 100 Units/Ml SUB-Q 30 units QHS YONNY Administration Insulin Human Lispro 0 unit 08/06/21 22:00 08/09/21 23:10 Insulin Lispro 100 Unit/Ml SUB-Q 3 unit ACHS [facility] Administration Protocol Metoclopramide HCl 10 mg 08/06/21 09:00 08/07/21 23:00 Metoclopramide 10 Mg/2 Ml Inj IV 10 mg Q6H PRN Administration Nausea And Vomiting Naloxone HCl 0.1 mg 08/06/21 09:00 Naloxone 0.4 Mg/1 Ml Inj IV Q2MIN PRN Res Rate </= 8 or 02 SAT < 92% Ondansetron HCl 4 mg 08/06/21 09:00 08/07/21 12:10 Ondansetron 4 Mg/2 Ml Inj IV 4 mg Q4H PRN Administration Nausea And Vomiting Oxycodone/Acetaminophen 1 tab 08/06/21 09:00 Oxycodone /Acetaminophen 5-325mg Tab PO Q6H PRN Pain, Moderate (4-6) Potassium Chloride 40 meq 08/10/21 10:00 Potassium Chloride Er 20 Meq Tab PO 08/10/21 14:01 Q4HR [facility] Senna 8.6 mg 08/06/21 10:00 08/09/21 23:09 Sennosides 8.6 Mg Tab PO 8.6 mg BID YONNY Administration Sodium Bicarbonate 1,300 mg 08/08/21 14:00 08/09/21 23:10 Sodium Bicarbonate 650 Mg Tab PO 1,300 mg TID YONNY Administration Sodium Chloride 10 ml 08/06/21 10:00 08/09/21 23:11 Sodium Chloride 0.9% 10 Ml Flush Syringe IV 10 ml BID YONNY Administration Sodium Chloride 10 ml 08/06/21 08:30 Sodium Chloride 0.9% 10 Ml Flush Syringe IV PRN PRN LINE FLUSH Nutrition/Malnutrition Assess - Dietary Evaluation Nutrition/Malnutrition Findings: Nutrition Notes Start: 08/06/21 11:59 Freq: Status: Active Protocol: Document 08/07/21 11:47 SHRUTHI (Rec: 08/07/21 11:59 SHRUTHI [id number]) Nutrition Notes Need for Assessment generated from: MD Order,Education Initial or Follow up Brief Note Current Diagnosis Diabetes,Hyperlipidemia Other Pertinent Diagnosis DKA, Metabolic Acidosis, Leukocytosis, SIRS, N/V, Weakness. Current Diet Cardiac/Consistent Carbohydrates Diet (since B ). Height 6 ft Weight 78 kg Waterproof Body Weight (kg) 80.90 BMI 23.3 Intake Prior to Admission Good Weight change and time frame Pt denies having loss body weight [employer]. Weight Status Appropriate Subjective/Other Information RD consult for Nutrition Education. No reports available of Pt's PO intake of meals at the time . Pt still on ED, not a candidate for Nutrition Education at the time, will assess feasibility on F/U. Percent of energy/protein needs met: Prescribed Cardiac/Consistent Carbohydrates Diet provides for energy/protein needs (1, 977 Kcal/86 g) during LOS. Nutrition Intervention Follow-Up By: 08/11/21 Additional Comments Nutrition education will be provided on F/U, if feasible. Continue monitoring food tolerance, %PO intake of meals , and BM.
--- NOTE | 2021-08-10 09:55 | Progress Note ---
Assessment and Plan 1. Acute kidney injury: Vasomotor SUSHMA in the setting of volume depletion and DKA. Monitor renal function. Creatinine level is better. Avoid nephrotoxic agents. Meds dosage based on GFR. 2. FEN: Anion-gap metabolic acidosis, 2/2 DKA. UA positive for ketones. Normal Lactic acid level. Continue Sod bicarbonate, monitor. Hyponatremia, on Sod bicarb, monitor. Replete K and Phos. IV fluids changed to 0.9% saline with KCl. Monitor lytes and volume status. 3. Type 2 diabetes with hyperglycemia: S/p DKA. Monitor. 4. Medication non-compliance. Subjective: Patient was seen and examined at the bedside. Not eating any of the food. RN at the bedside. Examination: General appearance: well-developed, appears stated age, not in distress HEENT: atraumatic, [place] Neck: trachea midline Respiratory: ctab Heart: S1S2, regular, no murmur Abdomen: soft, bowel sounds heard, NT Integumentary: R leg dressing Neurologic: alert, able to move extremities Ext: no edema Subjective Date of service: 08/10/21 Objective - Vital Signs Vital signs: Vital Signs - 12hr 08/09/21 08/09/21 08/10/21 23:08 23:10 03:41 Temperature 99.3 F 99.3 F 98.3 F Pulse Rate 81 70 76 Respiratory 20 19 Rate Blood Pressure 131/90 127/84 Blood Pressure 131/90 [Right] O2 Sat by Pulse 100 100 98 Oximetry 08/10/21 07:47 Temperature 98.5 F Pulse Rate 79 Respiratory 18 Rate Blood Pressure 113/75 Blood Pressure [Right] O2 Sat by Pulse 100 Oximetry - Lab 08/10/21 04:45 08/10/21 04:45 Most recent lab results Calcium 8.7 mg/dL (8.4-10.2) 08/10/21 04:45 Phosphorus 2.40 mg/dL (2.5-4.5) L 08/10/21 04:45 Magnesium 2.00 mg/dL (1.7-2.3) 08/10/21 04:45 Urine Creatinine 33.3 mg/dL (0.1-20.0) H 08/06/21 Unknown Medications & Allergies - Medications Allergies/Adverse Reactions: Allergies No Known Allergies Allergy (Verified 08/09/21 14:48) Home Medications: Home Medications Medication Instructions Recorded Confirmed Last Taken Type Insulin Glargine [Lantus VIAL] 34 units SUB-Q QHS #10 ml 12/14/20 08/07/21 08/05/21 Rx Lispro Insulin [HumaLOG] 9 unit SUB-Q AC #1 vial 12/14/20 08/07/21 08/05/21 Rx Active Medications: Generic Name Dose Route Start Last Admin Trade Name Freq PRN Reason Stop Dose Admin Acetaminophen 650 mg 08/06/21 09:00 Acetaminophen 325 Mg Tab PO Q6H PRN Pain MILD(1-3)/Fever >100.5/SIMS Albuterol 2.5 mg 08/06/21 09:00 Albuterol 2.5 Mg/3 Ml Nebu IH Q3HRT PRN Shortness Of Breath Dextrose 50 ml 08/06/21 21:25 Dextrose 50% In Water (25gm) 50 Ml Syringe IV Q30MIN PRN Hypoglycemia Protocol Heparin Sodium (Porcine) 5,000 unit 08/06/21 14:00 08/10/21 06:24 Heparin 5,000 Unit/1 Ml Vial SUB-Q Not Given Q8HR YONNY Potassium Chloride 40 meq/ 1,020 mls @ 75 mls/hr 08/10/21 09:00 Sodium Chloride IV DIRECT YONNY Ibuprofen 600 mg 08/06/21 09:00 Ibuprofen 600 Mg Tab PO Q6H PRN Pain, Mild (1-3) Insulin Glargine 30 units 08/07/21 22:00 08/09/21 23:10 Insulin Glargine 100 Units/Ml SUB-Q 30 units QHS YONNY Administration Insulin Human Lispro 0 unit 08/06/21 22:00 08/09/21 23:10 Insulin Lispro 100 Unit/Ml SUB-Q 3 unit ACHS YONNY Administration Protocol Metoclopramide HCl 10 mg 08/06/21 09:00 08/07/21 23:00 Metoclopramide 10 Mg/2 Ml Inj IV 10 mg Q6H PRN Administration Nausea And Vomiting Naloxone HCl 0.1 mg 08/06/21 09:00 Naloxone 0.4 Mg/1 Ml Inj IV Q2MIN PRN Res Rate </= 8 or 02 SAT < 92% Ondansetron HCl 4 mg 08/06/21 09:00 08/07/21 12:10 Ondansetron 4 Mg/2 Ml Inj IV 4 mg Q4H PRN Administration Nausea And Vomiting Oxycodone/Acetaminophen 1 tab 08/06/21 09:00 Oxycodone /Acetaminophen 5-325mg Tab PO Q6H PRN Pain, Moderate (4-6) Potassium Chloride 40 meq 08/10/21 10:00 Potassium Chloride Er 20 Meq Tab PO 08/10/21 14:01 Q4HR YONNY Senna 8.6 mg 08/06/21 10:00 08/09/21 23:09 Sennosides 8.6 Mg Tab PO 8.6 mg BID YONNY Administration Sodium Bicarbonate 1,300 mg 08/08/21 14:00 08/09/21 23:10 Sodium Bicarbonate 650 Mg Tab PO 1,300 mg TID YONNY Administration Sodium Chloride 10 ml 08/06/21 10:00 08/09/21 23:11 Sodium Chloride 0.9% 10 Ml Flush Syringe IV 10 ml BID YONNY Administration Sodium Chloride 10 ml 08/06/21 08:30 Sodium Chloride 0.9% 10 Ml Flush Syringe IV PRN PRN LINE FLUSH
[2021-08-10] MEDS: SODIUM CHLORIDE 0.9% IV SCH (10:05)
[2021-08-10] MEDS: POTASSIUM CHLORIDE IV SCH (10:05)
[2021-08-10] MEDS: POTASSIUM CHLORIDE ER 20 MEQ TAB PO SCH ×2 (10:11→14:18)
[2021-08-10] MEDS: SODIUM BICARBONATE 650 MG TAB PO SCH ×3 (10:11→23:26)
[2021-08-10] MEDS: INSULIN LISPRO 100 UNIT/ML SUB-Q SCH ×4 (10:11→23:22)
[2021-08-10] MEDS: SENNOSIDES 8.6 MG TAB PO SCH ×2 (10:12→23:21)
--- NOTE | 2021-08-10 11:35 | Progress Note ---
Assessment and Plan DKA Severe anion gap metabolic acidosis Leukocytosis SIRS without organ dysfunction Hyperkalemia Hyponatremia Tobacco use disorder with Nicotine dependence - prn supplemental oxygen to keep O2 sats > 90% - prn bronchodilators (DAHIANA) with pulm hygiene per RT - accuchecks with glycemic control per SSI for target blood glucose < 180 mg/dL (once of IV insulin therapy) - continue to avoid nephrotoxins, renally dose all medications - mobility protocols to prevent pressure ulcers - PT/OT as tolerated - tobacco abstinence strongly counseled at the bedside - home oxygen evaluation at discharge - GI & VTE prophylaxis - Flu & pneumovax per protocol - prn analgesia per pain score - continue other care per attending / other consultants ... re-evaluate in am & prn Subjective Date of service: 08/10/21 Principal diagnosis: DKA; SUSHMA; Medication noncompliance; HAGMA; Tobacco abuse Interval history: Patient is seen today for: Diabetic ketoacidosis; Acute kidney injury; Medication noncompliance; Severe metabolic acidosis; Tobacco use disorder Seen and examined at bedside; 24hour events reviewed; nursing and respiratory care staff consulted; no adverse overnight events reported to me; resting peacefully in bed; denies acute chest pain or SOB; remains on supplemental oxygen at 2L flow Objective Vital Signs - 12hr 08/10/21 08/10/21 03:41 07:47 Temperature 98.3 F 98.5 F Pulse Rate 76 79 Respiratory 19 18 Rate Blood Pressure 127/84 113/75 O2 Sat by Pulse 98 100 Oximetry Constitutional: no acute distress, alert Eyes: non-icteric ENT: oropharynx moist Neck: supple, no lymphadenopathy Effort: normal Ascultation: Bilateral: clear, diminished breath sounds Percussion: Bilateral: not dull Cardiovascular: regular rate and rhythm Gastrointestinal: normoactive bowel sounds, soft, non-tender, non-distended Integumentary: normal Extremities: no cyanosis, no edema, pulses normal, no ischemia or petechiae Neurologic: normal mental status, non-focal exam, pupils equal and round Psychiatric: mood appropriate, other (flat affect) CBC and BMP: 08/10/21 04:45 08/11/21 05:02 Abnormal lab findings: Abnormal Labs 08/06/21 08/06/21 08/06/21 06:49 06:49 06:49 WBC 16.1 H RBC 5.23 H Hgb 16.7 H Hct 51.1 H MCV 98 H RDW [place] % (Auto) [place] # (Auto) Seg Neutrophils % Seg Neutrophils # VBG pH 7.121 L* Sodium 129 L Potassium 5.7 H Chloride 88.5 L Carbon Dioxide 5 L* BUN 24 H Creatinine Glucose 488 H POC Glucose Hemoglobin A1c Calcium Phosphorus Magnesium Total Protein 9.3 H Albumin 5.5 H Urine Creatinine 08/06/21 08/06/21 08/06/21 08:09 09:04 09:48 WBC RBC Hgb Hct MCV RDW [place] % (Auto) [place] # (Auto) Seg Neutrophils % Seg Neutrophils # VBG pH Sodium 131 L Potassium 5.3 H Chloride 89.7 L Carbon Dioxide 9 L* BUN 24 H Creatinine 1.4 H Glucose 435 H POC Glucose 312 H Hemoglobin A1c 9.6 H Calcium Phosphorus 5.50 H Magnesium 2.40 H Total Protein Albumin Urine Creatinine 08/06/21 08/06/21 08/06/21 10:32 10:53 11:55 WBC RBC Hgb Hct MCV RDW [place] % (Auto) [place] # (Auto) Seg Neutrophils % Seg Neutrophils # VBG pH Sodium Potassium Chloride Carbon Dioxide 7 L* BUN Creatinine Glucose 256 H POC Glucose 224 H 198 H Hemoglobin A1c Calcium Phosphorus Magnesium Total Protein Albumin Urine Creatinine 08/06/21 08/06/21 08/06/21 12:57 14:05 14:57 WBC RBC Hgb Hct MCV RDW [place] % (Auto) [place] # (Auto) Seg Neutrophils % Seg Neutrophils # VBG pH Sodium Potassium Chloride 110.4 H Carbon Dioxide 10 L BUN Creatinine Glucose 184 H POC Glucose 210 H 199 H Hemoglobin A1c Calcium 7.6 L Phosphorus Magnesium Total Protein Albumin Urine Creatinine 08/06/21 08/06/21 08/06/21 15:13 16:26 17:23 WBC RBC Hgb Hct MCV RDW [place] % (Auto) [place] # (Auto) Seg Neutrophils % Seg Neutrophils # VBG pH Sodium Potassium Chloride Carbon Dioxide BUN Creatinine Glucose POC Glucose 171 H 156 H 161 H Hemoglobin A1c Calcium Phosphorus Magnesium Total Protein Albumin Urine Creatinine 08/06/21 08/06/21 08/06/21 17:48 18:21 19:07 WBC RBC Hgb Hct MCV RDW [place] % (Auto) [place] # (Auto) Seg Neutrophils % Seg Neutrophils # VBG pH Sodium 136 L Potassium Chloride 108.9 H Carbon Dioxide 11 L BUN Creatinine Glucose 184 H POC Glucose 171 H 194 H Hemoglobin A1c Calcium 8.1 L Phosphorus Magnesium Total Protein Albumin Urine Creatinine 08/06/21 08/06/21 08/06/21 20:14 23:13 23:20 WBC RBC Hgb Hct MCV RDW [place] % (Auto) [place] # (Auto) Seg Neutrophils % Seg Neutrophils # VBG pH Sodium Potassium Chloride Carbon Dioxide 14 L BUN Creatinine Glucose 170 H POC Glucose 163 H 160 H Hemoglobin A1c Calcium Phosphorus Magnesium Total Protein Albumin Urine Creatinine 08/06/21 08/07/21 08/07/21 Unknown 06:40 06:40 WBC 12.6 H RBC Hgb Hct MCV RDW [place] % (Auto) 7.5 H [place] # (Auto) 0.9 H Seg Neutrophils % 76.8 H Seg Neutrophils # 9.7 H VBG pH Sodium 134 L Potassium 3.5 L Chloride Carbon Dioxide 14 L BUN Creatinine Glucose 204 H POC Glucose Hemoglobin A1c Calcium Phosphorus Magnesium Total Protein Albumin Urine Creatinine 33.3 H 08/07/21 08/07/21 08/07/21 08:40 10:49 11:40 WBC RBC Hgb Hct MCV RDW [place] % (Auto) [place] # (Auto) Seg Neutrophils % Seg Neutrophils # VBG pH Sodium Potassium 3.4 L Chloride Carbon Dioxide 14 L BUN Creatinine Glucose 216 H POC Glucose 222 H 190 H Hemoglobin A1c Calcium Phosphorus Magnesium Total Protein Albumin Urine Creatinine 08/07/21 08/07/21 08/07/21 14:13 17:01 20:05 WBC RBC Hgb Hct MCV RDW [place] % (Auto) [place] # (Auto) Seg Neutrophils % Seg Neutrophils # VBG pH Sodium 136 L Potassium 3.5 L Chloride Carbon Dioxide 15 L BUN Creatinine Glucose 168 H POC Glucose 200 H 178 H Hemoglobin A1c Calcium Phosphorus Magnesium Total Protein Albumin Urine Creatinine 08/08/21 08/08/21 08/08/21 05:47 05:47 07:37 WBC RBC Hgb Hct MCV 95 H RDW [place] % (Auto) 7.7 H [place] # (Auto) Seg Neutrophils % 75.0 H Seg Neutrophils # VBG pH Sodium 133 L Potassium Chloride Carbon Dioxide 13 L BUN 7 L Creatinine 0.7 L Glucose 165 H POC Glucose 162 H Hemoglobin A1c Calcium Phosphorus Magnesium Total Protein Albumin Urine Creatinine 08/08/21 08/08/21 08/08/21 11:57 15:45 20:42 WBC RBC Hgb Hct MCV RDW [place] % (Auto) [place] # (Auto) Seg Neutrophils % Seg Neutrophils # VBG pH Sodium Potassium Chloride Carbon Dioxide BUN Creatinine Glucose POC Glucose 186 H 227 H 180 H Hemoglobin A1c Calcium Phosphorus Magnesium Total Protein Albumin Urine Creatinine 08/09/21 08/09/21 08/09/21 07:25 11:30 16:31 WBC RBC Hgb Hct MCV RDW [place] % (Auto) [place] # (Auto) Seg Neutrophils % Seg Neutrophils # VBG pH Sodium 135 L Potassium 2.5 L* D Chloride 94.1 L Carbon Dioxide 21 L D BUN 8 L Creatinine 0.7 L Glucose 163 H POC Glucose 212 H 207 H Hemoglobin A1c Calcium Phosphorus 2.10 L Magnesium Total Protein Albumin Urine Creatinine 08/09/21 08/10/21 08/10/21 20:05 04:45 04:45 WBC RBC Hgb Hct MCV RDW 13.0 L [place] % (Auto) 9.8 H [place] # (Auto) Seg Neutrophils % Seg Neutrophils # VBG pH Sodium 134 L Potassium 2.6 L* Chloride 94.6 L Carbon Dioxide BUN 8 L Creatinine 0.7 L Glucose 190 H POC Glucose 208 H Hemoglobin A1c Calcium Phosphorus 2.40 L Magnesium Total Protein Albumin Urine Creatinine 08/10/21 07:49 WBC RBC Hgb Hct MCV RDW [place] % (Auto) [place] # (Auto) Seg Neutrophils % Seg Neutrophils # VBG pH Sodium Potassium Chloride Carbon Dioxide BUN Creatinine Glucose POC Glucose 226 H Hemoglobin A1c Calcium Phosphorus Magnesium Total Protein Albumin Urine Creatinine Chest x-ray: image reviewed (COPD) Allied health notes reviewed: nursing
--- NOTE | 2021-08-10 11:41 | XRay Report ---
CHEST 2 VIEWS INDICATION / CLINICAL INFORMATION: possible aspiration. COMPARISON: One view of the chest from 12/10/2020. FINDINGS: SUPPORT DEVICES: None. HEART / MEDIASTINUM: No significant abnormality. LUNGS / PLEURA: No significant pulmonary abnormality. No significant pleural effusion. No pneumothora x. ADDITIONAL FINDINGS: No significant additional findings. IMPRESSION: 1. No acute abnormality of the chest. Signer Name: Blu Dinh MD Signed: 08/10/2021 11:37 AM Workstation Name: [id number]
[2021-08-10] MEDS: INSULIN GLARGINE 100 UNITS/ML SUB-Q SCH (23:22)
[2021-08-11] MEDS: SODIUM CHLORIDE 0.9% IV SCH (00:59)
[2021-08-11] MEDS: POTASSIUM CHLORIDE IV SCH (00:59)
[2021-08-11 06:21] LABS: BUN/Creatinine Ratio 13; Blood Urea Nitrogen 9 mg/dL (9-20); Calcium 8.6 mg/dL (8.4-10.2); Hemolysis Index 48
[2021-08-11] MEDS: HEPARIN 5,000 UNIT/1 ML VIAL SUB-Q SCH ×3 (06:23→22:42)
[2021-08-11] MEDS: INSULIN LISPRO 100 UNIT/ML SUB-Q SCH ×4 (08:40→22:37)
--- NOTE | 2021-08-11 10:10 | Progress Note ---
Assessment and Plan 1. Acute kidney injury: Vasomotor SUSHMA in the setting of volume depletion and DKA. Monitor renal function. Creatinine level is better. Avoid nephrotoxic agents. Meds dosage based on GFR. 2. FEN: Anion-gap metabolic acidosis, 2/2 DKA. UA positive for ketones. Normal Lactic acid level. Continue Sod bicarbonate, monitor. Hyponatremia, on Sod bicarb, monitor. Replete K and Phos. On IV 0.9% saline with KCl. Monitor lytes and volume status. 3. Type 2 diabetes with hyperglycemia: S/p DKA. Monitor. 4. Medication non-compliance. Subjective: Patient was seen and examined at the bedside. Not eating any of the food. Examination: General appearance: well-developed, appears stated age, not in distress, flat affect HEENT: atraumatic, [place] Neck: trachea midline Respiratory: ctab Heart: S1S2, regular, no murmur Abdomen: soft, bowel sounds heard, NT Integumentary: R leg dressing Neurologic: alert, able to move extremities Ext: no edema Subjective Date of service: 08/11/21 Principal diagnosis: DKA; SUSHMA; Medication noncompliance; HAGMA; Tobacco abuse Objective - Vital Signs Vital signs: Vital Signs - 12hr 08/11/21 08/11/21 00:09 04:00 Temperature 99.1 F 98.9 F Pulse Rate 81 73 Respiratory 18 18 Rate Blood Pressure 126/94 Blood Pressure 93/66 [Right] O2 Sat by Pulse 100 99 Oximetry - Lab 08/10/21 04:45 08/12/21 06:01 Most recent lab results Calcium 8.6 mg/dL (8.4-10.2) 08/11/21 05:02 Phosphorus 2.20 mg/dL (2.5-4.5) L 08/11/21 05:02 Magnesium 2.00 mg/dL (1.7-2.3) 08/10/21 04:45 Urine Creatinine 33.3 mg/dL (0.1-20.0) H 08/06/21 Unknown Medications & Allergies - Medications Allergies/Adverse Reactions: Allergies No Known Allergies Allergy (Verified 08/09/21 14:48) Home Medications: Home Medications Medication Instructions Recorded Confirmed Last Taken Type Insulin Glargine [Lantus VIAL] 34 units SUB-Q QHS #10 ml 12/14/20 08/07/21 08/05/21 Rx Lispro Insulin [HumaLOG] 9 unit SUB-Q AC #1 vial 12/14/20 08/07/21 08/05/21 Rx Active Medications: Generic Name Dose Route Start Last Admin Trade Name Freq PRN Reason Stop Dose Admin Acetaminophen 650 mg 08/06/21 09:00 Acetaminophen 325 Mg Tab PO Q6H PRN Pain MILD(1-3)/Fever >100.5/SIMS Albuterol 2.5 mg 08/06/21 09:00 Albuterol 2.5 Mg/3 Ml Nebu IH Q3HRT PRN Shortness Of Breath Dextrose 50 ml 08/06/21 21:25 Dextrose 50% In Water (25gm) 50 Ml Syringe IV Q30MIN PRN Hypoglycemia Protocol Heparin Sodium (Porcine) 5,000 unit 08/06/21 14:00 08/11/21 06:23 Heparin 5,000 Unit/1 Ml Vial SUB-Q 5,000 unit Q8HR YONNY Administration Potassium Chloride 40 meq/ 1,020 mls @ 75 mls/hr 08/10/21 09:00 08/11/21 00:59 Sodium Chloride IV 75 mls/hr DIRECT YONNY Administration Ibuprofen 600 mg 08/06/21 09:00 Ibuprofen 600 Mg Tab PO Q6H PRN Pain, Mild (1-3) Insulin Glargine 30 units 08/07/21 22:00 08/10/21 23:22 Insulin Glargine 100 Units/Ml SUB-Q 30 units QHS YONNY Administration Insulin Human Lispro 0 unit 08/06/21 22:00 08/11/21 08:40 Insulin Lispro 100 Unit/Ml SUB-Q Not Given ACHS [facility] Protocol Metoclopramide HCl 10 mg 08/06/21 09:00 08/07/21 23:00 Metoclopramide 10 Mg/2 Ml Inj IV 10 mg Q6H PRN Administration Nausea And Vomiting Naloxone HCl 0.1 mg 08/06/21 09:00 Naloxone 0.4 Mg/1 Ml Inj IV Q2MIN PRN Res Rate </= 8 or 02 SAT < 92% Ondansetron HCl 4 mg 08/06/21 09:00 08/07/21 12:10 Ondansetron 4 Mg/2 Ml Inj IV 4 mg Q4H PRN Administration Nausea And Vomiting Oxycodone/Acetaminophen 1 tab 08/06/21 09:00 Oxycodone /Acetaminophen 5-325mg Tab PO Q6H PRN Pain, Moderate (4-6) Senna 8.6 mg 08/06/21 10:00 08/10/21 23:21 Sennosides 8.6 Mg Tab PO 8.6 mg BID YONNY Administration Sodium Bicarbonate 650 mg 08/11/21 10:09 Sodium Bicarbonate 650 Mg Tab PO TID YONNY Sodium Chloride 10 ml 08/06/21 10:00 08/10/21 23:23 Sodium Chloride 0.9% 10 Ml Flush Syringe IV 10 ml BID YONNY Administration Sodium Chloride 10 ml 08/06/21 08:30 Sodium Chloride 0.9% 10 Ml Flush Syringe IV PRN PRN LINE FLUSH Sodium Phosphate 500 mg 08/11/21 10:09 K-Phos Neutral 250 Mg Tab PO QID YONNY
[2021-08-11] MEDS: SENNOSIDES 8.6 MG TAB PO SCH ×2 (10:24→22:41)
[2021-08-11] MEDS: K-PHOS NEUTRAL 250 MG TAB PO SCH ×4 (11:24→22:41)
[2021-08-11] MEDS: SODIUM BICARBONATE 650 MG TAB PO SCH ×3 (11:25→22:41)
--- NOTE | 2021-08-11 12:11 | Progress Note ---
Assessment and Plan DKA Severe anion gap metabolic acidosis Leukocytosis SIRS without organ dysfunction Hyperkalemia Hyponatremia Tobacco use disorder with Nicotine dependence - replace potassium per protocol - check magnesium level - continue care as below otherwise; - prn supplemental oxygen to keep O2 sats > 90% - prn bronchodilators (DAHIANA) with pulm hygiene per RT - accuchecks with glycemic control per SSI for target blood glucose < 180 mg/dL (once of IV insulin therapy) - continue to avoid nephrotoxins, renally dose all medications - mobility protocols to prevent pressure ulcers - PT/OT as tolerated - tobacco abstinence strongly counseled at the bedside - home oxygen evaluation at discharge - GI & VTE prophylaxis - Flu & pneumovax per protocol - prn analgesia per pain score - continue other care per attending / other consultants ... re-evaluate in am & prn Subjective Date of service: 08/11/21 Principal diagnosis: DKA; SUSHMA; Medication noncompliance; HAGMA; Tobacco abuse Interval history: Patient is seen today for: Diabetic ketoacidosis; Acute kidney injury; Medication noncompliance; Severe metabolic acidosis; Tobacco use disorder Seen and examined at bedside; 24hour events reviewed; nursing and respiratory care staff consulted; no adverse overnight events reported to me; resting peacefully in bed; remains with hypokelemia; denies chest pain or palpitations; afebrile Objective Vital Signs - 12hr 08/11/21 08/11/21 04:00 11:38 Temperature 98.9 F Pulse Rate 73 Respiratory 18 Rate Blood Pressure 93/66 [Right] O2 Sat by Pulse 99 99 Oximetry Constitutional: no acute distress, alert Eyes: non-icteric ENT: oropharynx moist Neck: supple, no lymphadenopathy Effort: normal Ascultation: Bilateral: clear, diminished breath sounds Percussion: Bilateral: not dull Cardiovascular: regular rate and rhythm Gastrointestinal: normoactive bowel sounds, soft, non-tender, non-distended Integumentary: normal Extremities: no cyanosis, no edema, pulses normal, no ischemia or petechiae Neurologic: normal mental status, non-focal exam, pupils equal and round Psychiatric: mood appropriate, other (flat affect) CBC and BMP: 08/10/21 04:45 08/12/21 06:01 Abnormal lab findings: Abnormal Labs 08/06/21 08/06/21 08/06/21 06:49 06:49 06:49 WBC 16.1 H RBC 5.23 H Hgb 16.7 H Hct 51.1 H MCV 98 H RDW [place] % (Auto) [place] # (Auto) Seg Neutrophils % Seg Neutrophils # VBG pH 7.121 L* Sodium 129 L Potassium 5.7 H Chloride 88.5 L Carbon Dioxide 5 L* BUN 24 H Creatinine Glucose 488 H POC Glucose Hemoglobin A1c Calcium Phosphorus Magnesium Total Protein 9.3 H Albumin 5.5 H Urine Creatinine 08/06/21 08/06/21 08/06/21 08:09 09:04 09:48 WBC RBC Hgb Hct MCV RDW [place] % (Auto) [place] # (Auto) Seg Neutrophils % Seg Neutrophils # VBG pH Sodium 131 L Potassium 5.3 H Chloride 89.7 L Carbon Dioxide 9 L* BUN 24 H Creatinine 1.4 H Glucose 435 H POC Glucose 312 H Hemoglobin A1c 9.6 H Calcium Phosphorus 5.50 H Magnesium 2.40 H Total Protein Albumin Urine Creatinine 08/06/21 08/06/21 08/06/21 10:32 10:53 11:55 WBC RBC Hgb Hct MCV RDW [place] % (Auto) [place] # (Auto) Seg Neutrophils % Seg Neutrophils # VBG pH Sodium Potassium Chloride Carbon Dioxide 7 L* BUN Creatinine Glucose 256 H POC Glucose 224 H 198 H Hemoglobin A1c Calcium Phosphorus Magnesium Total Protein Albumin Urine Creatinine 08/06/21 08/06/21 08/06/21 12:57 14:05 14:57 WBC RBC Hgb Hct MCV RDW [place] % (Auto) [place] # (Auto) Seg Neutrophils % Seg Neutrophils # VBG pH Sodium Potassium Chloride 110.4 H Carbon Dioxide 10 L BUN Creatinine Glucose 184 H POC Glucose 210 H 199 H Hemoglobin A1c Calcium 7.6 L Phosphorus Magnesium Total Protein Albumin Urine Creatinine 08/06/21 08/06/21 08/06/21 15:13 16:26 17:23 WBC RBC Hgb Hct MCV RDW [place] % (Auto) [place] # (Auto) Seg Neutrophils % Seg Neutrophils # VBG pH Sodium Potassium Chloride Carbon Dioxide BUN Creatinine Glucose POC Glucose 171 H 156 H 161 H Hemoglobin A1c Calcium Phosphorus Magnesium Total Protein Albumin Urine Creatinine 08/06/21 08/06/21 08/06/21 17:48 18:21 19:07 WBC RBC Hgb Hct MCV RDW [place] % (Auto) [place] # (Auto) Seg Neutrophils % Seg Neutrophils # VBG pH Sodium 136 L Potassium Chloride 108.9 H Carbon Dioxide 11 L BUN Creatinine Glucose 184 H POC Glucose 171 H 194 H Hemoglobin A1c Calcium 8.1 L Phosphorus Magnesium Total Protein Albumin Urine Creatinine 08/06/21 08/06/21 08/06/21 20:14 23:13 23:20 WBC RBC Hgb Hct MCV RDW [place] % (Auto) [place] # (Auto) Seg Neutrophils % Seg Neutrophils # VBG pH Sodium Potassium Chloride Carbon Dioxide 14 L BUN Creatinine Glucose 170 H POC Glucose 163 H 160 H Hemoglobin A1c Calcium Phosphorus Magnesium Total Protein Albumin Urine Creatinine 08/06/21 08/07/21 08/07/21 Unknown 06:40 06:40 WBC 12.6 H RBC Hgb Hct MCV RDW [place] % (Auto) 7.5 H [place] # (Auto) 0.9 H Seg Neutrophils % 76.8 H Seg Neutrophils # 9.7 H VBG pH Sodium 134 L Potassium 3.5 L Chloride Carbon Dioxide 14 L BUN Creatinine Glucose 204 H POC Glucose Hemoglobin A1c Calcium Phosphorus Magnesium Total Protein Albumin Urine Creatinine 33.3 H 08/07/21 08/07/21 08/07/21 08:40 10:49 11:40 WBC RBC Hgb Hct MCV RDW [place] % (Auto) [place] # (Auto) Seg Neutrophils % Seg Neutrophils # VBG pH Sodium Potassium 3.4 L Chloride Carbon Dioxide 14 L BUN Creatinine Glucose 216 H POC Glucose 222 H 190 H Hemoglobin A1c Calcium Phosphorus Magnesium Total Protein Albumin Urine Creatinine 08/07/21 08/07/21 08/07/21 14:13 17:01 20:05 WBC RBC Hgb Hct MCV RDW [place] % (Auto) [place] # (Auto) Seg Neutrophils % Seg Neutrophils # VBG pH Sodium 136 L Potassium 3.5 L Chloride Carbon Dioxide 15 L BUN Creatinine Glucose 168 H POC Glucose 200 H 178 H Hemoglobin A1c Calcium Phosphorus Magnesium Total Protein Albumin Urine Creatinine 08/08/21 08/08/21 08/08/21 05:47 05:47 07:37 WBC RBC Hgb Hct MCV 95 H RDW [place] % (Auto) 7.7 H [place] # (Auto) Seg Neutrophils % 75.0 H Seg Neutrophils # VBG pH Sodium 133 L Potassium Chloride Carbon Dioxide 13 L BUN 7 L Creatinine 0.7 L Glucose 165 H POC Glucose 162 H Hemoglobin A1c Calcium Phosphorus Magnesium Total Protein Albumin Urine Creatinine 08/08/21 08/08/21 08/08/21 11:57 15:45 20:42 WBC RBC Hgb Hct MCV RDW [place] % (Auto) [place] # (Auto) Seg Neutrophils % Seg Neutrophils # VBG pH Sodium Potassium Chloride Carbon Dioxide BUN Creatinine Glucose POC Glucose 186 H 227 H 180 H Hemoglobin A1c Calcium Phosphorus Magnesium Total Protein Albumin Urine Creatinine 08/09/21 08/09/21 08/09/21 07:25 11:30 16:31 WBC RBC Hgb Hct MCV RDW [place] % (Auto) [place] # (Auto) Seg Neutrophils % Seg Neutrophils # VBG pH Sodium 135 L Potassium 2.5 L* D Chloride 94.1 L Carbon Dioxide 21 L D BUN 8 L Creatinine 0.7 L Glucose 163 H POC Glucose 212 H 207 H Hemoglobin A1c Calcium Phosphorus 2.10 L Magnesium Total Protein Albumin Urine Creatinine 08/09/21 08/10/21 08/10/21 20:05 04:45 04:45 WBC RBC Hgb Hct MCV RDW 13.0 L [place] % (Auto) 9.8 H [place] # (Auto) Seg Neutrophils % Seg Neutrophils # VBG pH Sodium 134 L Potassium 2.6 L* Chloride 94.6 L Carbon Dioxide BUN 8 L Creatinine 0.7 L Glucose 190 H POC Glucose 208 H Hemoglobin A1c Calcium Phosphorus 2.40 L Magnesium Total Protein Albumin Urine Creatinine 08/10/21 08/10/21 08/10/21 07:49 11:45 15:55 WBC RBC Hgb Hct MCV RDW [place] % (Auto) [place] # (Auto) Seg Neutrophils % Seg Neutrophils # VBG pH Sodium Potassium Chloride Carbon Dioxide BUN Creatinine Glucose POC Glucose 226 H 270 H 213 H Hemoglobin A1c Calcium Phosphorus Magnesium Total Protein Albumin Urine Creatinine 08/10/21 08/11/21 08/11/21 21:35 05:02 11:21 WBC RBC Hgb Hct MCV RDW [place] % (Auto) [place] # (Auto) Seg Neutrophils % Seg Neutrophils # VBG pH Sodium Potassium 3.1 L Chloride Carbon Dioxide BUN Creatinine 0.7 L Glucose 105 H POC Glucose 211 H 144 H Hemoglobin A1c Calcium Phosphorus 2.20 L Magnesium Total Protein Albumin Urine Creatinine Allied health notes reviewed: nursing
--- NOTE | 2021-08-11 21:39 | Progress Note ---
Assessment and Plan Assessment and plan: Patient is a 35-year-old -[place] male with known history of diabetes mellitus and who has been admitted on multiple occasions for DKA presenting to the emergency room today complaining of intractable nausea and vomiting with generalized weakness. He reports compliance with his medications. On arrival he was noted to have a blood sugar in the 400s and also with leukocytosis and anion gap of 41 With a bicarb of 5. The patient was admitted with diagnosis of DKA, diabetes mellitus type 2 uncontrolled and hyperlipidemia DKA. Resolved. Diabetes mellitus type 2, uncontrolled, A1c 9.6, currently acceptable glycemic control SUSHMA resolved Severe persistent hypokalemia Hyperlipidemia Daily events: 08/07/2021. We will follow-up BMP for resolution of DKA to ensure closure of anion gap and normalization of CO2. Continue IV fluid hydration. Continue long-acting insulin with Lantus 30 units at bedtime. Anticipate discharge in a.m. 08/08/2021. Patient still with significant metabolic acidosis with a CO2 of 13. We will consult nephrology for further evaluation. BG is improved and much better. Continue long-acting insulin of Lantus and SSRI. 08/09/2021. Patient with severe hypokalemia this morning with a potassium of 2.5. Metabolic acidosis resolved with CO2 of 21. Replete potassium today and anticipate discharge when normalized. BG much better controlled. 08/10:Patient generally doing well. Glycemic control is acceptable. SUSHMA resolved. Discharge is on hold pending resolution of procedure persistent hypokalemia for which he is receiving large dose of oral and IV potassium supplements. Potassium today 2.6. Tolerating diet. Discussed with the patient, nursing staff and CM. 08/11: Potassium today was 3.1 and a breathing replaced with the p.o. and IV potassium. Discharge on hold. History Interval history: Patient generally doing well. Glycemic control is acceptable. SUSHMA resolved. Discharge is on hold pending resolution of procedure persistent hypokalemia for which he is receiving large dose of oral and IV potassium supplements. Potassium today 3.1. Tolerating diet. Hospitalist Physical - Constitutional Vitals: Temp Pulse Resp BP Pulse Ox 98.9 F 83 20 128/83 99 08/11/21 19:11 08/11/21 19:11 08/11/21 19:11 08/11/21 19:11 08/11/21 19:11 General appearance: Present: no acute distress, well-nourished - EENT Eyes: Present: PERRL, EOM intact ENT: hearing intact, clear oral mucosa - Neck Neck: Present: supple - Respiratory Respiratory effort: normal Respiratory: bilateral: CTA - Cardiovascular Rhythm: regular - Abdominal General gastrointestinal: soft, non-tender, non-distended - Integumentary Integumentary: Absent: rash - Psychiatric Psychiatric: appropriate mood/affect - Neurologic Neurologic: no focal deficits, moves all extremities Results - Labs CBC & Chem 7: 08/10/21 04:45 08/12/21 06:01 Labs: Laboratory Last Values WBC 7.5 K/mm3 (4.5-11.0) 08/10/21 04:45 RBC 4.30 M/mm3 (3.65-5.03) 08/10/21 04:45 Hgb 13.7 gm/dl (11.8-15.2) 08/10/21 04:45 Hct 39.9 % (35.5-45.6) 08/10/21 04:45 MCV 93 fl (84-94) 08/10/21 04:45 MCH 32 pg (28-32) 08/10/21 04:45 MCHC 34 % (32-34) 08/10/21 04:45 RDW 13.0 % (13.2-15.2) L 08/10/21 04:45 Plt Count 166 K/mm3 (140-440) 08/10/21 04:45 Lymph % (Auto) 32.5 % (13.4-35.0) 08/10/21 04:45 [place] % (Auto) 9.8 % (0.0-7.3) H 08/10/21 04:45 Eos % (Auto) 0.2 % (0.0-4.3) 08/10/21 04:45 Baso % (Auto) 0.5 % (0.0-1.8) 08/10/21 04:45 Lymph # (Auto) 2.4 K/mm3 (1.2-5.4) 08/10/21 04:45 [place] # (Auto) 0.7 K/mm3 (0.0-0.8) 08/10/21 04:45 Eos # (Auto) 0.0 K/mm3 (0.0-0.4) 08/10/21 04:45 Baso # (Auto) 0.0 K/mm3 (0.0-0.1) 08/10/21 04:45 Seg Neutrophils % 57.0 % (40.0-70.0) 08/10/21 04:45 Seg Neutrophils # 4.3 K/mm3 (1.8-7.7) 08/10/21 04:45 VBG pH 7.121 (7.320-7.420) L* 08/06/21 06:49 Sodium 138 mmol/L (137-145) 08/11/21 05:02 Potassium 3.1 mmol/L (3.6-5.0) L 08/11/21 05:02 Chloride 98.6 mmol/L (98-107) 08/11/21 05:02 Carbon Dioxide 25 mmol/L (22-30) 08/11/21 05:02 Anion Gap 18 mmol/L 08/11/21 05:02 BUN 9 mg/dL (9-20) 08/11/21 05:02 Creatinine 0.7 mg/dL (0.8-1.3) L 08/11/21 05:02 Estimated GFR > 60 ml/min 08/11/21 05:02 BUN/Creatinine Ratio 13 % 08/11/21 05:02 Glucose 105 mg/dL (75-100) H 08/11/21 05:02 POC Glucose 152 mg/dL (70-105) H 08/11/21 20:50 Hemoglobin A1c 9.6 % (4-6) H 08/06/21 09:04 Osmolality 319 Mosm/kg 08/06/21 09:04 Lactic Acid 0.80 mmol/L (0.7-2.0) 08/08/21 10:50 Calcium 8.6 mg/dL (8.4-10.2) 08/11/21 05:02 Phosphorus 2.20 mg/dL (2.5-4.5) L 08/11/21 05:02 Magnesium 2.00 mg/dL (1.7-2.3) 08/10/21 04:45 Total Bilirubin 0.60 mg/dL (0.1-1.2) 08/07/21 06:40 AST 24 units/L (5-40) 08/07/21 06:40 ALT 19 units/L (7-56) 08/07/21 06:40 Alkaline Phosphatase 42 units/L (35-129) 08/07/21 06:40 Total Protein 6.3 g/dL (6.3-8.2) D 08/07/21 06:40 Albumin 3.9 g/dL (3.9-5) 08/07/21 06:40 Albumin/Globulin Ratio 1.6 % 08/07/21 06:40 Urine Color Yellow (Yellow) 08/09/21 14:00 Urine Turbidity Clear (Clear) 08/09/21 14:00 Urine pH 6.0 (5.0-7.0) 08/09/21 14:00 Ur Specific [place] 1.022 (1.003-1.030) 08/09/21 14:00 Urine Protein 30 mg/dl mg/dL (Negative) 08/09/21 14:00 Urine Glucose (UA) >=500 mg/dL (Negative) 08/09/21 14:00 Urine Ketones 80 mg/dL (Negative) 08/09/21 14:00 Urine Blood Sm (Negative) 08/09/21 14:00 Urine Nitrite Neg (Negative) 08/09/21 14:00 Urine Bilirubin Neg (Negative) 08/09/21 14:00 Urine Urobilinogen 2.0 mg/dL (<2.0) 08/09/21 14:00 Ur Leukocyte Esterase Neg (Negative) 08/09/21 14:00 Urine WBC (Auto) 1.0 /HPF (0.0-6.0) 08/09/21 14:00 Urine RBC (Auto) 4.0 /HPF (0.0-6.0) 08/09/21 14:00 Urine Mucus 2+ /HPF 08/09/21 14:00 Urine Creatinine 33.3 mg/dL (0.1-20.0) H 08/06/21 Unknown Urine Microalbumin 22.9 mg/dL (0.1-34.0) 08/06/21 Unknown Microalb/Creat Ratio 687.6 ug/mg 08/06/21 Unknown Thomas/IV: Voiding Method Toilet Active Medications - Current Medications Current Medications: Generic Name Dose Route Start Last Admin Trade Name Freq PRN Reason Stop Dose Admin Acetaminophen 650 mg 08/06/21 09:00 Acetaminophen 325 Mg Tab PO Q6H PRN Pain MILD(1-3)/Fever >100.5/SIMS Albuterol 2.5 mg 08/06/21 09:00 Albuterol 2.5 Mg/3 Ml Nebu IH Q3HRT PRN Shortness Of Breath Dextrose 50 ml 08/06/21 21:25 Dextrose 50% In Water (25gm) 50 Ml Syringe IV Q30MIN PRN Hypoglycemia Protocol Heparin Sodium (Porcine) 5,000 unit 08/06/21 14:00 08/11/21 14:33 Heparin 5,000 Unit/1 Ml Vial SUB-Q 5,000 unit Q8HR YONNY Administration Potassium Chloride 40 meq/ 1,020 mls @ 75 mls/hr 08/10/21 09:00 08/11/21 00:59 Sodium Chloride IV 75 mls/hr DIRECT YONNY Administration Ibuprofen 600 mg 08/06/21 09:00 Ibuprofen 600 Mg Tab PO Q6H PRN Pain, Mild (1-3) Insulin Glargine 30 units 08/07/21 22:00 08/10/21 23:22 Insulin Glargine 100 Units/Ml SUB-Q 30 units QHS YONNY Administration Insulin Human Lispro 0 unit 08/06/21 22:00 08/11/21 16:55 Insulin Lispro 100 Unit/Ml SUB-Q Not Given ACHS [facility] Protocol Metoclopramide HCl 10 mg 08/06/21 09:00 08/07/21 23:00 Metoclopramide 10 Mg/2 Ml Inj IV 10 mg Q6H PRN Administration Nausea And Vomiting Naloxone HCl 0.1 mg 08/06/21 09:00 Naloxone 0.4 Mg/1 Ml Inj IV Q2MIN PRN Res Rate </= 8 or 02 SAT < 92% Ondansetron HCl 4 mg 08/06/21 09:00 08/07/21 12:10 Ondansetron 4 Mg/2 Ml Inj IV 4 mg Q4H PRN Administration Nausea And Vomiting Oxycodone/Acetaminophen 1 tab 08/06/21 09:00 Oxycodone /Acetaminophen 5-325mg Tab PO Q6H PRN Pain, Moderate (4-6) Senna 8.6 mg 08/06/21 10:00 08/11/21 10:24 Sennosides 8.6 Mg Tab PO 8.6 mg BID YONNY Administration Sodium Bicarbonate 650 mg 08/11/21 11:00 08/11/21 14:35 Sodium Bicarbonate 650 Mg Tab PO 650 mg TID YONNY Administration Sodium Chloride 10 ml 08/06/21 10:00 08/11/21 11:26 Sodium Chloride 0.9% 10 Ml Flush Syringe IV 10 ml BID YONNY Administration Sodium Chloride 10 ml 08/06/21 08:30 Sodium Chloride 0.9% 10 Ml Flush Syringe IV PRN PRN LINE FLUSH Sodium Phosphate 500 mg 08/11/21 11:00 08/11/21 18:20 K-Phos Neutral 250 Mg Tab PO Not Given QID YONNY Nutrition/Malnutrition Assess - Dietary Evaluation Nutrition/Malnutrition Findings: Nutrition Notes Start: 08/06/21 11:59 Freq: Status: Active Protocol: Document 08/07/21 11:47 SHRUTHI (Rec: 08/07/21 11:59 SHRUTHI [id number]) Nutrition Notes Need for Assessment generated from: MD Order,Education Initial or Follow up Brief Note Current Diagnosis Diabetes,Hyperlipidemia Other Pertinent Diagnosis DKA, Metabolic Acidosis, Leukocytosis, SIRS, N/V, Weakness. Current Diet Cardiac/Consistent Carbohydrates Diet (since B ). Height 6 ft Weight 78 kg [place] Body Weight (kg) 80.90 BMI 23.3 Intake Prior to Admission Good Weight change and time frame Pt denies having loss body weight [place] SEWER. Weight Status Appropriate Subjective/Other Information RD consult for Nutrition Education. No reports available of Pt's PO intake of meals at the time . Pt still on ED, not a candidate for Nutrition Education at the time, will assess feasibility on F/U. Percent of energy/protein needs met: Prescribed Cardiac/Consistent Carbohydrates Diet provides for energy/protein needs (1, 977 Kcal/86 g) during LOS. Nutrition Intervention Follow-Up By: 08/11/21 Additional Comments Nutrition education will be provided on F/U, if feasible. Continue monitoring food tolerance, %PO intake of meals , and BM.
[2021-08-11] MEDS: INSULIN GLARGINE 100 UNITS/ML SUB-Q SCH (22:42)
[2021-08-12] MEDS: HEPARIN 5,000 UNIT/1 ML VIAL SUB-Q SCH ×3 (06:06→21:58)
[2021-08-12 06:36] LABS: Blood Urea Nitrogen 9 mg/dL (9-20); Calcium 8.5 mg/dL (8.4-10.2); Hemolysis Index 5
[2021-08-12 06:38] LABS: BUN/Creatinine Ratio 13
[2021-08-12] MEDS: POTASSIUM CHLORIDE ER 20 MEQ TAB PO SCH ×3 (07:07→23:37)
[2021-08-12] MEDS: INSULIN LISPRO 100 UNIT/ML SUB-Q SCH ×4 (08:49→22:00)
[2021-08-12] MEDS: ONDANSETRON 4 MG/2 ML INJ IV PRN (09:33)
[2021-08-12] MEDS: SODIUM BICARBONATE 650 MG TAB PO SCH ×3 (10:48→15:46)
[2021-08-12] MEDS: K-PHOS NEUTRAL 250 MG TAB PO SCH ×4 (10:49→21:58)
[2021-08-12] MEDS: SENNOSIDES 8.6 MG TAB PO SCH ×2 (10:49→21:58)
--- NOTE | 2021-08-12 12:44 | Progress Note ---
Assessment and Plan DKA Severe anion gap metabolic acidosis Leukocytosis SIRS without organ dysfunction Hyperkalemia Hyponatremia Tobacco use disorder with Nicotine dependence - replace potassium per protocol - check magnesium level - continue care as below otherwise; - prn supplemental oxygen to keep O2 sats > 90% - prn bronchodilators (DAHIANA) with pulm hygiene per RT - accuchecks with glycemic control per SSI for target blood glucose < 180 mg/dL (once of IV insulin therapy) - continue to avoid nephrotoxins, renally dose all medications - mobility protocols to prevent pressure ulcers - PT/OT as tolerated - tobacco abstinence strongly counseled at the bedside - home oxygen evaluation at discharge - GI & VTE prophylaxis - Flu & pneumovax per protocol - prn analgesia per pain score - continue other care per attending / other consultants ... re-evaluate in am & prn Subjective Date of service: 08/12/21 Principal diagnosis: DKA; SUSHMA; Medication noncompliance; HAGMA; Tobacco abuse Interval history: Patient is seen today for: Diabetic ketoacidosis; Acute kidney injury; Medication noncompliance; Severe metabolic acidosis; Tobacco use disorder Seen and examined at bedside; 24hour events reviewed; nursing and respiratory care staff consulted; no adverse overnight events reported to me; resting peacefully in bed; Objective Vital Signs - 12hr 08/12/21 08/12/21 08/12/21 01:02 04:58 08:34 Temperature 98.3 F 98.7 F Pulse Rate 79 93 H Respiratory 16 16 Rate Blood Pressure 103/70 Blood Pressure 103/70 [Right] O2 Sat by Pulse 99 99 89 Oximetry Constitutional: no acute distress, alert Eyes: non-icteric ENT: oropharynx moist Neck: supple, no lymphadenopathy Effort: normal Ascultation: Bilateral: clear, diminished breath sounds Percussion: Bilateral: not dull Cardiovascular: regular rate and rhythm Gastrointestinal: normoactive bowel sounds, soft, non-tender, non-distended Integumentary: normal Extremities: no cyanosis, no edema, pulses normal, no ischemia or petechiae Neurologic: normal mental status, non-focal exam, pupils equal and round Psychiatric: mood appropriate, other (flat affect) CBC and BMP: 08/10/21 04:45 08/12/21 06:01 Abnormal lab findings: Abnormal Labs 08/06/21 08/06/21 08/06/21 06:49 06:49 06:49 WBC 16.1 H RBC 5.23 H Hgb 16.7 H Hct 51.1 H MCV 98 H RDW [place] % (Auto) [place] # (Auto) Seg Neutrophils % Seg Neutrophils # VBG pH 7.121 L* Sodium 129 L Potassium 5.7 H Chloride 88.5 L Carbon Dioxide 5 L* BUN 24 H Creatinine Glucose 488 H POC Glucose Hemoglobin A1c Calcium Phosphorus Magnesium Total Protein 9.3 H Albumin 5.5 H Urine Creatinine 08/06/21 08/06/21 08/06/21 08:09 09:04 09:48 WBC RBC Hgb Hct MCV RDW [place] % (Auto) [place] # (Auto) Seg Neutrophils % Seg Neutrophils # VBG pH Sodium 131 L Potassium 5.3 H Chloride 89.7 L Carbon Dioxide 9 L* BUN 24 H Creatinine 1.4 H Glucose 435 H POC Glucose 312 H Hemoglobin A1c 9.6 H Calcium Phosphorus 5.50 H Magnesium 2.40 H Total Protein Albumin Urine Creatinine 08/06/21 08/06/21 08/06/21 10:32 10:53 11:55 WBC RBC Hgb Hct MCV RDW [place] % (Auto) [place] # (Auto) Seg Neutrophils % Seg Neutrophils # VBG pH Sodium Potassium Chloride Carbon Dioxide 7 L* BUN Creatinine Glucose 256 H POC Glucose 224 H 198 H Hemoglobin A1c Calcium Phosphorus Magnesium Total Protein Albumin Urine Creatinine 08/06/21 08/06/21 08/06/21 12:57 14:05 14:57 WBC RBC Hgb Hct MCV RDW [place] % (Auto) [place] # (Auto) Seg Neutrophils % Seg Neutrophils # VBG pH Sodium Potassium Chloride 110.4 H Carbon Dioxide 10 L BUN Creatinine Glucose 184 H POC Glucose 210 H 199 H Hemoglobin A1c Calcium 7.6 L Phosphorus Magnesium Total Protein Albumin Urine Creatinine 08/06/21 08/06/21 08/06/21 15:13 16:26 17:23 WBC RBC Hgb Hct MCV RDW [place] % (Auto) [place] # (Auto) Seg Neutrophils % Seg Neutrophils # VBG pH Sodium Potassium Chloride Carbon Dioxide BUN Creatinine Glucose POC Glucose 171 H 156 H 161 H Hemoglobin A1c Calcium Phosphorus Magnesium Total Protein Albumin Urine Creatinine 08/06/21 08/06/21 08/06/21 17:48 18:21 19:07 WBC RBC Hgb Hct MCV RDW [place] % (Auto) [place] # (Auto) Seg Neutrophils % Seg Neutrophils # VBG pH Sodium 136 L Potassium Chloride 108.9 H Carbon Dioxide 11 L BUN Creatinine Glucose 184 H POC Glucose 171 H 194 H Hemoglobin A1c Calcium 8.1 L Phosphorus Magnesium Total Protein Albumin Urine Creatinine 08/06/21 08/06/21 08/06/21 20:14 23:13 23:20 WBC RBC Hgb Hct MCV RDW [place] % (Auto) [place] # (Auto) Seg Neutrophils % Seg Neutrophils # VBG pH Sodium Potassium Chloride Carbon Dioxide 14 L BUN Creatinine Glucose 170 H POC Glucose 163 H 160 H Hemoglobin A1c Calcium Phosphorus Magnesium Total Protein Albumin Urine Creatinine 08/06/21 08/07/21 08/07/21 Unknown 06:40 06:40 WBC 12.6 H RBC Hgb Hct MCV RDW [place] % (Auto) 7.5 H [place] # (Auto) 0.9 H Seg Neutrophils % 76.8 H Seg Neutrophils # 9.7 H VBG pH Sodium 134 L Potassium 3.5 L Chloride Carbon Dioxide 14 L BUN Creatinine Glucose 204 H POC Glucose Hemoglobin A1c Calcium Phosphorus Magnesium Total Protein Albumin Urine Creatinine 33.3 H 08/07/21 08/07/21 08/07/21 08:40 10:49 11:40 WBC RBC Hgb Hct MCV RDW [place] % (Auto) [place] # (Auto) Seg Neutrophils % Seg Neutrophils # VBG pH Sodium Potassium 3.4 L Chloride Carbon Dioxide 14 L BUN Creatinine Glucose 216 H POC Glucose 222 H 190 H Hemoglobin A1c Calcium Phosphorus Magnesium Total Protein Albumin Urine Creatinine 08/07/21 08/07/21 08/07/21 14:13 17:01 20:05 WBC RBC Hgb Hct MCV RDW [place] % (Auto) [place] # (Auto) Seg Neutrophils % Seg Neutrophils # VBG pH Sodium 136 L Potassium 3.5 L Chloride Carbon Dioxide 15 L BUN Creatinine Glucose 168 H POC Glucose 200 H 178 H Hemoglobin A1c Calcium Phosphorus Magnesium Total Protein Albumin Urine Creatinine 08/08/21 08/08/21 08/08/21 05:47 05:47 07:37 WBC RBC Hgb Hct MCV 95 H RDW [place] % (Auto) 7.7 H [place] # (Auto) Seg Neutrophils % 75.0 H Seg Neutrophils # VBG pH Sodium 133 L Potassium Chloride Carbon Dioxide 13 L BUN 7 L Creatinine 0.7 L Glucose 165 H POC Glucose 162 H Hemoglobin A1c Calcium Phosphorus Magnesium Total Protein Albumin Urine Creatinine 08/08/21 08/08/21 08/08/21 11:57 15:45 20:42 WBC RBC Hgb Hct MCV RDW [place] % (Auto) [place] # (Auto) Seg Neutrophils % Seg Neutrophils # VBG pH Sodium Potassium Chloride Carbon Dioxide BUN Creatinine Glucose POC Glucose 186 H 227 H 180 H Hemoglobin A1c Calcium Phosphorus Magnesium Total Protein Albumin Urine Creatinine 08/09/21 08/09/21 08/09/21 07:25 11:30 16:31 WBC RBC Hgb Hct MCV RDW [place] % (Auto) [place] # (Auto) Seg Neutrophils % Seg Neutrophils # VBG pH Sodium 135 L Potassium 2.5 L* D Chloride 94.1 L Carbon Dioxide 21 L D BUN 8 L Creatinine 0.7 L Glucose 163 H POC Glucose 212 H 207 H Hemoglobin A1c Calcium Phosphorus 2.10 L Magnesium Total Protein Albumin Urine Creatinine 08/09/21 08/10/21 08/10/21 20:05 04:45 04:45 WBC RBC Hgb Hct MCV RDW 13.0 L [place] % (Auto) 9.8 H [place] # (Auto) Seg Neutrophils % Seg Neutrophils # VBG pH Sodium 134 L Potassium 2.6 L* Chloride 94.6 L Carbon Dioxide BUN 8 L Creatinine 0.7 L Glucose 190 H POC Glucose 208 H Hemoglobin A1c Calcium Phosphorus 2.40 L Magnesium Total Protein Albumin Urine Creatinine 08/10/21 08/10/21 08/10/21 07:49 11:45 15:55 WBC RBC Hgb Hct MCV RDW [place] % (Auto) [place] # (Auto) Seg Neutrophils % Seg Neutrophils # VBG pH Sodium Potassium Chloride Carbon Dioxide BUN Creatinine Glucose POC Glucose 226 H 270 H 213 H Hemoglobin A1c Calcium Phosphorus Magnesium Total Protein Albumin Urine Creatinine 08/10/21 08/11/21 08/11/21 21:35 05:02 11:21 WBC RBC Hgb Hct MCV RDW [place] % (Auto) [place] # (Auto) Seg Neutrophils % Seg Neutrophils # VBG pH Sodium Potassium 3.1 L Chloride Carbon Dioxide BUN Creatinine 0.7 L Glucose 105 H POC Glucose 211 H 144 H Hemoglobin A1c Calcium Phosphorus 2.20 L Magnesium Total Protein Albumin Urine Creatinine 08/11/21 08/11/21 08/12/21 16:37 20:50 06:01 WBC RBC Hgb Hct MCV RDW [place] % (Auto) [place] # (Auto) Seg Neutrophils % Seg Neutrophils # VBG pH Sodium 135 L Potassium 2.7 L* Chloride 95.6 L Carbon Dioxide BUN Creatinine 0.7 L Glucose 190 H POC Glucose 137 H 152 H Hemoglobin A1c Calcium Phosphorus Magnesium Total Protein Albumin Urine Creatinine 08/12/21 12:03 WBC RBC Hgb Hct MCV RDW [place] % (Auto) [place] # (Auto) Seg Neutrophils % Seg Neutrophils # VBG pH Sodium Potassium Chloride Carbon Dioxide BUN Creatinine Glucose POC Glucose 311 H Hemoglobin A1c Calcium Phosphorus Magnesium Total Protein Albumin Urine Creatinine Allied health notes reviewed: nursing
[2021-08-12] MEDS: POTASSIUM CHLORIDE 10 MEQ 10 MEQ/100 ML BAG IV SCH ×4 (12:46→18:45)
--- NOTE | 2021-08-12 12:50 | Progress Note ---
Assessment and Plan 1. Acute kidney injury: Vasomotor SUSHMA in the setting of volume depletion and DKA. Monitor renal function. Creatinine level is better. Avoid nephrotoxic agents. Meds dosage based on GFR. 2. Persistent hypokalemia: Doubt RTA or hyperaldo. Labs to calculate TTKG and Rahul/Renin ordered. Continue to replete K. Patient is not compliant with IV KCl. Monitor. 3. FEN: Anion-gap metabolic acidosis, 2/2 DKA. UA positive for ketones. Normal Lactic acid level. Improved. Hyponatremia, improved, monitor. Monitor lytes and volume status. 3. Type 2 diabetes with hyperglycemia: S/p DKA. Monitor. 4. Medication non-compliance: Counseled. Subjective: Patient was seen and examined at the bedside. Not eating. Examination: General appearance: well-developed, appears stated age, not in distress, flat affect HEENT: atraumatic, [place] Neck: trachea midline Respiratory: ctab Heart: S1S2, regular, no murmur Abdomen: soft, bowel sounds heard, NT Integumentary: no rash Neurologic: alert, able to move extremities Ext: no edema Subjective Date of service: 08/12/21 Principal diagnosis: DKA; SUSHMA; Medication noncompliance; HAGMA; Tobacco abuse Objective - Vital Signs Vital signs: Vital Signs - 12hr 08/12/21 08/12/21 08/12/21 01:02 04:58 08:34 Temperature 98.3 F 98.7 F Pulse Rate 79 93 H Respiratory 16 16 Rate Blood Pressure 103/70 Blood Pressure 103/70 [Right] O2 Sat by Pulse 99 99 89 Oximetry - Lab 08/10/21 04:45 08/12/21 18:13 Most recent lab results Calcium 8.5 mg/dL (8.4-10.2) 08/12/21 06:01 Phosphorus 2.20 mg/dL (2.5-4.5) L 08/11/21 05:02 Magnesium 2.00 mg/dL (1.7-2.3) 08/12/21 06:01 Urine Creatinine 33.3 mg/dL (0.1-20.0) H 08/06/21 Unknown Medications & Allergies - Medications Allergies/Adverse Reactions: Allergies No Known Allergies Allergy (Verified 08/09/21 14:48) Home Medications: Home Medications Medication Instructions Recorded Confirmed Last Taken Type Insulin Glargine [Lantus VIAL] 34 units SUB-Q QHS #10 ml 12/14/20 08/07/21 08/05/21 Rx Lispro Insulin [HumaLOG] 9 unit SUB-Q AC #1 vial 12/14/20 08/07/21 08/05/21 Rx Active Medications: Generic Name Dose Route Start Last Admin Trade Name Freq PRN Reason Stop Dose Admin Acetaminophen 650 mg 08/06/21 09:00 Acetaminophen 325 Mg Tab PO Q6H PRN Pain MILD(1-3)/Fever >100.5/SIMS Albuterol 2.5 mg 08/06/21 09:00 Albuterol 2.5 Mg/3 Ml Nebu IH Q3HRT PRN Shortness Of Breath Dextrose 50 ml 08/06/21 21:25 Dextrose 50% In Water (25gm) 50 Ml Syringe IV Q30MIN PRN Hypoglycemia Protocol Heparin Sodium (Porcine) 5,000 unit 08/06/21 14:00 08/12/21 06:06 Heparin 5,000 Unit/1 Ml Vial SUB-Q 5,000 unit Q8HR YONNY Administration Potassium Chloride 10 meq in 100 mls @ 100 mls/hr 08/12/21 11:00 08/12/21 12:46 Kcl 10meq/100ml IV 08/12/21 14:59 100 mls/hr Q1H YONNY Administration Ibuprofen 600 mg 08/06/21 09:00 Ibuprofen 600 Mg Tab PO Q6H PRN Pain, Mild (1-3) Insulin Glargine 30 units 08/07/21 22:00 08/11/21 22:42 Insulin Glargine 100 Units/Ml SUB-Q 30 units QHS YONNY Administration Insulin Human Lispro 0 unit 08/06/21 22:00 08/12/21 08:49 Insulin Lispro 100 Unit/Ml SUB-Q Not Given ACHS YONNY Protocol Metoclopramide HCl 10 mg 08/06/21 09:00 08/07/21 23:00 Metoclopramide 10 Mg/2 Ml Inj IV 10 mg Q6H PRN Administration Nausea And Vomiting Naloxone HCl 0.1 mg 08/06/21 09:00 Naloxone 0.4 Mg/1 Ml Inj IV Q2MIN PRN Res Rate </= 8 or 02 SAT < 92% Ondansetron HCl 4 mg 08/06/21 09:00 08/12/21 09:33 Ondansetron 4 Mg/2 Ml Inj IV 4 mg Q4H PRN Administration Nausea And Vomiting Oxycodone/Acetaminophen 1 tab 08/06/21 09:00 Oxycodone /Acetaminophen 5-325mg Tab PO Q6H PRN Pain, Moderate (4-6) Senna 8.6 mg 08/06/21 10:00 08/12/21 10:49 Sennosides 8.6 Mg Tab PO 8.6 mg BID YONNY Administration Sodium Bicarbonate 650 mg 08/11/21 11:00 08/12/21 10:48 Sodium Bicarbonate 650 Mg Tab PO 650 mg TID YONNY Administration Sodium Chloride 10 ml 08/06/21 10:00 08/12/21 12:48 Sodium Chloride 0.9% 10 Ml Flush Syringe IV 10 ml BID YONNY Administration Sodium Chloride 10 ml 08/06/21 08:30 Sodium Chloride 0.9% 10 Ml Flush Syringe IV PRN PRN LINE FLUSH Sodium Phosphate 500 mg 08/11/21 11:00 08/12/21 10:49 K-Phos Neutral 250 Mg Tab PO 500 mg QID YONNY Administration
[2021-08-12] MEDS ORDERED: SODIUM CHLORIDE 0.9% 250ML 250 ML IV ONE (15:37)
--- NOTE | 2021-08-12 19:38 | Progress Note ---
Assessment and Plan Assessment and plan: Patient is a 35-year-old -I[place] male with known history of diabetes mellitus and who has been admitted on multiple occasions for DKA presenting to the emergency room today complaining of intractable nausea and vomiting with generalized weakness. He reports compliance with his medications. On arrival he was noted to have a blood sugar in the 400s and also with leukocytosis and anion gap of 41 With a bicarb of 5. The patient was admitted with diagnosis of DKA, diabetes mellitus type 2 uncontrolled and hyperlipidemia DKA. Resolved. Diabetes mellitus type 2, uncontrolled, A1c 9.6, currently acceptable glycemic control SUSHMA resolved Severe persistent hypokalemia Hyperlipidemia Daily events: 08/07/2021. We will follow-up BMP for resolution of DKA to ensure closure of anion gap and normalization of CO2. Continue IV fluid hydration. Continue long-acting insulin with Lantus 30 units at bedtime. Anticipate discharge in a.m. 08/08/2021. Patient still with significant metabolic acidosis with a CO2 of 13. We will consult nephrology for further evaluation. BG is improved and much better. Continue long-acting insulin of Lantus and SSRI. 08/09/2021. Patient with severe hypokalemia this morning with a potassium of 2.5. Metabolic acidosis resolved with CO2 of 21. Replete potassium today and anticipate discharge when normalized. BG much better controlled. 08/10:Patient generally doing well. Glycemic control is acceptable. SUSHMA resolved. Discharge is on hold pending resolution of procedure persistent hypokalemia for which he is receiving large dose of oral and IV potassium supplements. Potassium today 2.6. Tolerating diet. Discussed with the patient, nursing staff and CM. 08/11: Potassium today was 3.1 and a breathing replaced with the p.o. and IV potassium. Discharge on hold. 08/12:Unfortunately patient continues to have severe hypokalemia in spite of aggressive replenishment daily. Potassium today 2.7. Management discussed with nephrology. Remains hemodynamically stable. Tolerating diet. He is eager to go home. History Interval history: Unfortunately patient continues to have severe hypokalemia in spite of aggressive replenishment daily. Potassium today 2.7. Discussed with nephrology. Remains hemodynamically stable. Tolerating diet. He is eager to go home. Hospitalist Physical - Constitutional Vitals: Temp Pulse Resp BP Pulse Ox 96.4 F L 87 18 136/86 99 08/12/21 16:35 08/12/21 13:01 08/12/21 16:35 08/12/21 16:35 08/12/21 13:01 General appearance: Present: no acute distress, well-nourished - EENT Eyes: Present: PERRL, EOM intact ENT: clear oral mucosa - Respiratory Respiratory effort: normal Respiratory: bilateral: CTA - Cardiovascular Rhythm: regular - Extremities Extremities: No edema - Abdominal General gastrointestinal: soft, non-tender - Integumentary Integumentary: Absent: rash - Psychiatric Psychiatric: appropriate mood/affect - Neurologic Neurologic: no focal deficits, moves all extremities Results - Labs CBC & Chem 7: 08/10/21 04:45 08/12/21 18:13 Labs: Laboratory Last Values WBC 7.5 K/mm3 (4.5-11.0) 08/10/21 04:45 RBC 4.30 M/mm3 (3.65-5.03) 08/10/21 04:45 Hgb 13.7 gm/dl (11.8-15.2) 08/10/21 04:45 Hct 39.9 % (35.5-45.6) 08/10/21 04:45 MCV 93 fl (84-94) 08/10/21 04:45 MCH 32 pg (28-32) 08/10/21 04:45 MCHC 34 % (32-34) 08/10/21 04:45 RDW 13.0 % (13.2-15.2) L 08/10/21 04:45 Plt Count 166 K/mm3 (140-440) 08/10/21 04:45 Lymph % (Auto) 32.5 % (13.4-35.0) 08/10/21 04:45 [place] % (Auto) 9.8 % (0.0-7.3) H 08/10/21 04:45 Eos % (Auto) 0.2 % (0.0-4.3) 08/10/21 04:45 Baso % (Auto) 0.5 % (0.0-1.8) 08/10/21 04:45 Lymph # (Auto) 2.4 K/mm3 (1.2-5.4) 08/10/21 04:45 [place] # (Auto) 0.7 K/mm3 (0.0-0.8) 08/10/21 04:45 Eos # (Auto) 0.0 K/mm3 (0.0-0.4) 08/10/21 04:45 Baso # (Auto) 0.0 K/mm3 (0.0-0.1) 08/10/21 04:45 Seg Neutrophils % 57.0 % (40.0-70.0) 08/10/21 04:45 Seg Neutrophils # 4.3 K/mm3 (1.8-7.7) 08/10/21 04:45 VBG pH 7.121 (7.320-7.420) L* 08/06/21 06:49 Sodium 135 mmol/L (137-145) L 08/12/21 06:01 Potassium 3.1 mmol/L (3.6-5.0) L 08/12/21 18:13 Chloride 95.6 mmol/L (98-107) L 08/12/21 06:01 Carbon Dioxide 23 mmol/L (22-30) 08/12/21 06:01 Anion Gap 19 mmol/L 08/12/21 06:01 BUN 9 mg/dL (9-20) 08/12/21 06:01 Creatinine 0.7 mg/dL (0.8-1.3) L 08/12/21 06:01 Estimated GFR > 60 ml/min 08/12/21 06:01 BUN/Creatinine Ratio 13 % 08/12/21 06:01 Glucose 190 mg/dL (75-100) H 08/12/21 06:01 POC Glucose 208 mg/dL (70-105) H 08/12/21 19:12 Hemoglobin A1c 9.6 % (4-6) H 08/06/21 09:04 Osmolality 319 Mosm/kg 08/06/21 09:04 Lactic Acid 0.80 mmol/L (0.7-2.0) 08/08/21 10:50 Calcium 8.5 mg/dL (8.4-10.2) 08/12/21 06:01 Phosphorus 2.20 mg/dL (2.5-4.5) L 08/11/21 05:02 Magnesium 2.00 mg/dL (1.7-2.3) 08/12/21 06:01 Total Bilirubin 0.60 mg/dL (0.1-1.2) 08/07/21 06:40 AST 24 units/L (5-40) 08/07/21 06:40 ALT 19 units/L (7-56) 08/07/21 06:40 Alkaline Phosphatase 42 units/L (35-129) 08/07/21 06:40 Total Protein 6.3 g/dL (6.3-8.2) D 08/07/21 06:40 Albumin 3.9 g/dL (3.9-5) 08/07/21 06:40 Albumin/Globulin Ratio 1.6 % 08/07/21 06:40 Urine Color Yellow (Yellow) 08/09/21 14:00 Urine Turbidity Clear (Clear) 08/09/21 14:00 Urine pH 6.0 (5.0-7.0) 08/09/21 14:00 Ur Specific [place] 1.022 (1.003-1.030) 08/09/21 14:00 Urine Protein 30 mg/dl mg/dL (Negative) 08/09/21 14:00 Urine Glucose (UA) >=500 mg/dL (Negative) 08/09/21 14:00 Urine Ketones 80 mg/dL (Negative) 08/09/21 14:00 Urine Blood Sm (Negative) 08/09/21 14:00 Urine Nitrite Neg (Negative) 08/09/21 14:00 Urine Bilirubin Neg (Negative) 08/09/21 14:00 Urine Urobilinogen 2.0 mg/dL (<2.0) 08/09/21 14:00 Ur Leukocyte Esterase Neg (Negative) 08/09/21 14:00 Urine WBC (Auto) 1.0 /HPF (0.0-6.0) 08/09/21 14:00 Urine RBC (Auto) 4.0 /HPF (0.0-6.0) 08/09/21 14:00 Urine Mucus 2+ /HPF 08/09/21 14:00 Urine Creatinine 33.3 mg/dL (0.1-20.0) H 08/06/21 Unknown Urine Microalbumin 22.9 mg/dL (0.1-34.0) 08/06/21 Unknown Microalb/Creat Ratio 687.6 ug/mg 08/06/21 Unknown Thomas/IV: Voiding Method Toilet Active Medications - Current Medications Current Medications: Generic Name Dose Route Start Last Admin Trade Name Freq PRN Reason Stop Dose Admin Acetaminophen 650 mg 08/06/21 09:00 Acetaminophen 325 Mg Tab PO Q6H PRN Pain MILD(1-3)/Fever >100.5/SIMS Albuterol 2.5 mg 08/06/21 09:00 Albuterol 2.5 Mg/3 Ml Nebu IH Q3HRT PRN Shortness Of Breath Dextrose 50 ml 08/06/21 21:25 Dextrose 50% In Water (25gm) 50 Ml Syringe IV Q30MIN PRN Hypoglycemia Protocol Heparin Sodium (Porcine) 5,000 unit 08/06/21 14:00 08/12/21 15:39 Heparin 5,000 Unit/1 Ml Vial SUB-Q Not Given Q8HR [facility] Ibuprofen 600 mg 08/06/21 09:00 Ibuprofen 600 Mg Tab PO Q6H PRN Pain, Mild (1-3) Insulin Glargine 30 units 08/07/21 22:00 08/11/21 22:42 Insulin Glargine 100 Units/Ml SUB-Q 30 units QHS YONNY Administration Insulin Human Lispro 0 unit 08/06/21 22:00 08/12/21 08:49 Insulin Lispro 100 Unit/Ml SUB-Q Not Given ACHS [facility] Protocol Metoclopramide HCl 10 mg 08/06/21 09:00 08/07/21 23:00 Metoclopramide 10 Mg/2 Ml Inj IV 10 mg Q6H PRN Administration Nausea And Vomiting Naloxone HCl 0.1 mg 08/06/21 09:00 Naloxone 0.4 Mg/1 Ml Inj IV Q2MIN PRN Res Rate </= 8 or 02 SAT < 92% Ondansetron HCl 4 mg 08/06/21 09:00 08/12/21 09:33 Ondansetron 4 Mg/2 Ml Inj IV 4 mg Q4H PRN Administration Nausea And Vomiting Oxycodone/Acetaminophen 1 tab 08/06/21 09:00 Oxycodone /Acetaminophen 5-325mg Tab PO Q6H PRN Pain, Moderate (4-6) Senna 8.6 mg 08/06/21 10:00 08/12/21 10:49 Sennosides 8.6 Mg Tab PO 8.6 mg BID YONNY Administration Sodium Bicarbonate 650 mg 08/11/21 11:00 08/12/21 15:37 Sodium Bicarbonate 650 Mg Tab PO 650 mg TID YONNY Administration Sodium Chloride 10 ml 08/06/21 10:00 08/12/21 12:48 Sodium Chloride 0.9% 10 Ml Flush Syringe IV 10 ml BID YONNY Administration Sodium Chloride 10 ml 08/06/21 08:30 Sodium Chloride 0.9% 10 Ml Flush Syringe IV PRN PRN LINE FLUSH Sodium Phosphate 500 mg 08/11/21 11:00 08/12/21 15:36 K-Phos Neutral 250 Mg Tab PO 500 mg QID YONNY Administration Nutrition/Malnutrition Assess - Dietary Evaluation Nutrition/Malnutrition Findings: Nutrition Notes Start: 08/06/21 11:59 Freq: Status: Active Protocol: Document 08/12/21 12:29 SHRUTHI (Rec: 08/12/21 12:46 SHRUTHI [id number]) Nutrition Notes Initial or Follow up Assessment Current Diagnosis Diabetes,Hyperlipidemia Other Pertinent Diagnosis Hypokalemia. Current Diet Cardiac/Consistent Carbohydrates Diet (since B ). Labs/Tests 12139: Na 135, K 2.7, Cl 95.6, Crea 0.7, Glu 190, HbA1c 9.6. Pertinent Medications 08/12: Nutritionally unremarkable. Height 6 ft Weight 78 kg [place] Body Weight (kg) 80.90 BMI 23.3 Weight change and time frame No body weight change reported in 6 days. Weight Status Appropriate Subjective/Other Information RD consult for routine F/U on Dietary assessment. No reports available on Pt's PO intake of meals at the time , but changes in appetite were noted, according to Physical Assessment History notes. Diet has been well tolerated and BG also appeared well managed since HbA1c results came better than expected, according to Progress notes. Pt has missing teeth, but appears to not represent difficulty chewing. Percent of energy/protein needs met: Prescribed Cardiac/Consistent Carbohydrates Diet provides for energy/protein needs (1, 977 Kcal/86 g) during LOS. Burn Absent Trauma Absent GI Symptoms None Food Allergy No Skin Integrity/Comment Assessment WNL. Current % PO Good (75-100%) Minimum of two criteria No #1 Nutrition Diagnosis No nutrition diagnosis at this time Is patient on ventilator? No Is Patient Ambulatory and/or Out of Bed Yes REE-([place]-St. Jeor-ambulatory/OOB) [ 7972.400 [id number]] Kcal/Kg value to use for calculation 23 Approximate Energy Requirements Using 1794 kcal/Kg Calculation Used for Recommendations Kcal/kg Additional Notes Protein: 0.8-1 g/Kg; 62-78 g/ day. Fluids: 1 ml/Kcal, or as per MD. Nutrition Intervention Follow-Up By: 08/19/21 Additional Comments Continue monitoring food tolerance, %PO intake of meals , and BM.
[2021-08-12] MEDS: INSULIN GLARGINE 100 UNITS/ML SUB-Q SCH (21:57)
[2021-08-13] MEDS: POTASSIUM CHLORIDE ER 20 MEQ TAB PO SCH (02:48)
[2021-08-13] MEDS: HEPARIN 5,000 UNIT/1 ML VIAL SUB-Q SCH ×2 (05:01→15:34)
[2021-08-13 05:56] LABS: BUN/Creatinine Ratio 13; Blood Urea Nitrogen 10 mg/dL (9-20); Calcium 8.8 mg/dL (8.4-10.2); Hemolysis Index 6
[2021-08-13] MEDS: INSULIN LISPRO 100 UNIT/ML SUB-Q SCH ×2 (08:46→12:37)
[2021-08-13] MEDS: SENNOSIDES 8.6 MG TAB PO SCH (10:26)
[2021-08-13] MEDS: K-PHOS NEUTRAL 250 MG TAB PO SCH ×2 (10:26→14:08)
--- NOTE | 2021-08-13 13:12 | Progress Note ---
Assessment and Plan 1. Acute kidney injury: Vasomotor SUSHMA in the setting of volume depletion and DKA. Monitor renal function. Creatinine level is better. Avoid nephrotoxic agents. Meds dosage based on GFR. 2. Persistent hypokalemia: Doubt RTA or hyperaldo. Labs to calculate TTKG and Rahul/Renin ordered. Continue to replete K. Patient is not compliant with IV KCl. K level is better. Continue KCl 40 meq PO daily, spoke with Hospitalist. Monitor. 3. FEN: Anion-gap metabolic acidosis, 2/2 DKA. UA positive for ketones. Normal Lactic acid level. Improved. Hyponatremia, improved, monitor. Monitor lytes and volume status. 3. Type 2 diabetes with hyperglycemia: S/p DKA. Monitor. 4. Medication non-compliance: Counseled. F/u with me 1 week. Subjective: Patient was seen and examined at the bedside. Examination: General appearance: well-developed, appears stated age, not in distress, flat affect HEENT: atraumatic, [place] Neck: trachea midline Respiratory: ctab Heart: S1S2, regular, no murmur Abdomen: soft, bowel sounds heard, NT Integumentary: no rash Neurologic: alert, nodding head Ext: no edema Subjective Date of service: 08/13/21 Principal diagnosis: DKA; SUSHMA; Medication noncompliance; HAGMA; Tobacco abuse Objective - Vital Signs Vital signs: Vital Signs - 12hr 08/13/21 08/13/21 08/13/21 03:48 07:58 11:46 Temperature 98.7 F 97.9 F 97.9 F Pulse Rate 73 Respiratory 16 18 18 Rate Blood Pressure 99/71 96/59 114/81 O2 Sat by Pulse 98 Oximetry - Lab 08/10/21 04:45 08/13/21 05:03 Most recent lab results Calcium 8.8 mg/dL (8.4-10.2) 08/13/21 05:03 Phosphorus 2.20 mg/dL (2.5-4.5) L 08/11/21 05:02 Magnesium 2.00 mg/dL (1.7-2.3) 08/12/21 06:01 Urine Creatinine 33.3 mg/dL (0.1-20.0) H 08/06/21 Unknown Medications & Allergies - Medications Allergies/Adverse Reactions: Allergies No Known Allergies Allergy (Verified 08/09/21 14:48) Home Medications: Home Medications Medication Instructions Recorded Confirmed Last Taken Type Insulin Glargine [Lantus VIAL] 34 units SUB-Q QHS #10 ml 12/14/20 08/07/21 08/05/21 Rx Lispro Insulin [HumaLOG] 9 unit SUB-Q AC #1 vial 12/14/20 08/07/21 08/05/21 Rx Active Medications: Generic Name Dose Route Start Last Admin Trade Name Freq PRN Reason Stop Dose Admin Acetaminophen 650 mg 08/06/21 09:00 Acetaminophen 325 Mg Tab PO Q6H PRN Pain MILD(1-3)/Fever >100.5/SIMS Albuterol 2.5 mg 08/06/21 09:00 Albuterol 2.5 Mg/3 Ml Nebu IH Q3HRT PRN Shortness Of Breath Dextrose 50 ml 08/06/21 21:25 Dextrose 50% In Water (25gm) 50 Ml Syringe IV Q30MIN PRN Hypoglycemia Protocol Heparin Sodium (Porcine) 5,000 unit 08/06/21 14:00 08/13/21 05:01 Heparin 5,000 Unit/1 Ml Vial SUB-Q Not Given Q8HR [facility] Ibuprofen 600 mg 08/06/21 09:00 Ibuprofen 600 Mg Tab PO Q6H PRN Pain, Mild (1-3) Insulin Glargine 30 units 08/07/21 22:00 08/12/21 21:57 Insulin Glargine 100 Units/Ml SUB-Q 30 units QHS [facility] Administration Insulin Human Lispro 0 unit 08/06/21 22:00 08/13/21 08:46 Insulin Lispro 100 Unit/Ml SUB-Q 3 unit ACHS [facility] Administration Protocol Metoclopramide HCl 10 mg 08/06/21 09:00 08/07/21 23:00 Metoclopramide 10 Mg/2 Ml Inj IV 10 mg Q6H PRN Administration Nausea And Vomiting Naloxone HCl 0.1 mg 08/06/21 09:00 Naloxone 0.4 Mg/1 Ml Inj IV Q2MIN PRN Res Rate </= 8 or 02 SAT < 92% Ondansetron HCl 4 mg 08/06/21 09:00 08/12/21 09:33 Ondansetron 4 Mg/2 Ml Inj IV 4 mg Q4H PRN Administration Nausea And Vomiting Oxycodone/Acetaminophen 1 tab 02/18/22 09:00 Oxycodone /Acetaminophen 5-325mg Tab PO Q6H PRN Pain, Moderate (4-6) Senna 8.6 mg 08/06/21 10:00 08/13/21 10:26 Sennosides 8.6 Mg Tab PO 8.6 mg BID YONNY Administration Sodium Chloride 10 ml 08/06/21 10:00 08/12/21 21:59 Sodium Chloride 0.9% 10 Ml Flush Syringe IV 10 ml BID YONNY Administration Sodium Chloride 10 ml 08/06/21 08:30 Sodium Chloride 0.9% 10 Ml Flush Syringe IV PRN PRN LINE FLUSH Sodium Phosphate 500 mg 08/11/21 11:00 08/13/21 10:26 K-Phos Neutral 250 Mg Tab PO 500 mg QID YONNY Administration
[2021-08-13] MEDS ORDERED: POTASSIUM CHLORIDE ER 20 MEQ TAB PO SCH (14:00)
--- NOTE | 2021-08-13 16:34 | Discharge Summary ---
Providers - Providers Date of Admission: 08/06/21 08:20 Date of discharge: 08/13/21 Attending physician: TIFFANY FLORES MD 08/06/21 08:20 Consult to Dietitian/Nutrition [CONS] Routine Physician Instructions: Reason For Exam: Reason for Consult: Diet education Consult to Physician [CONS] Routine Comment: Consulting Provider: SHALOM CLAROS Physician Instructions: Reason For Exam: DKA 08/06/21 21:25 Consult to Dietitian/Nutrition [CONS] Routine Physician Instructions: Reason For Exam: Reason for Consult: Diet education 08/08/21 07:33 Consult to Physician [CONS] Routine Comment: Consulting Provider: GURVINDER ABEBE Physician Instructions: Reason For Exam: metabolic acidosis Primary care physician: [employer]TING [employer]ER Hospitalization Condition: Stable Hospital course: Patient is a 35-year-old -[place] male with known history of diabetes mellitus and who has been admitted on multiple occasions for DKA presenting to the emergency room today complaining of intractable nausea and vomiting with generalized weakness. He reports compliance with his medications. On arrival he was noted to have a blood sugar in the 400s and also with leukocytosis and anion gap of 41 With a bicarb of 5. The patient was admitted with diagnosis of DKA, diabetes mellitus type 2 uncontrolled and hyperlipidemia DKA. Resolved. Diabetes mellitus type 2, uncontrolled, A1c 9.6, currently acceptable glycemic control SUSHMA resolved Severe persistent hypokalemia Hyperlipidemia Daily events: 08/07/2021. We will follow-up BMP for resolution of DKA to ensure closure of anion gap and normalization of CO2. Continue IV fluid hydration. Continue long-acting insulin with Lantus 30 units at bedtime. Anticipate discharge in a.m. 08/08/2021. Patient still with significant metabolic acidosis with a CO2 of 13. We will consult nephrology for further evaluation. BG is improved and much better. Continue long-acting insulin of Lantus and SSRI. 08/09/2021. Patient with severe hypokalemia this morning with a potassium of 2.5. Metabolic acidosis resolved with CO2 of 21. Replete potassium today and anticipate discharge when normalized. BG much better controlled. 08/10:Patient generally doing well. Glycemic control is acceptable. SUSHMA resolved. Discharge is on hold pending resolution of procedure persistent hypokalemia for which he is receiving large dose of oral and IV potassium supplements. Potassium today 2.6. Tolerating diet. Discussed with the patient, nursing staff and CM. 08/11: Potassium today was 3.1 and a breathing replaced with the p.o. and IV potassium. Discharge on hold. 08/12:Unfortunately patient continues to have severe hypokalemia in spite of a ggressive replenishment daily. Potassium today 2.7. Management discussed with nephrology. Remains hemodynamically stable. Tolerating diet. He is eager to go home. Disposition: HOME / SELF CARE / HOMELESS Final Discharge Diagnosis (Prints w/discharge instructions): DKA. Diabetes mellitus, A1c 9.6, poor glycemic control. Persistent hypokalemia, etiology unclear. Hypophosphatemia Exam - Constitutional Vitals: Temp Pulse Resp BP Pulse Ox 97.9 F 73 18 114/81 98 08/13/21 11:46 08/13/21 03:48 08/13/21 11:46 08/13/21 11:46 08/13/21 03:48 Plan Activity: no restrictions Diet: diabetic (1800 beau) Additional Instructions: Have your blood potassium checked at kidney doctors office in 3 to 5 days. Your blood glucose control is poor, hemoglobin A1c is 9.6. make sure blood glucose control, visit your family doctor in 1 week for follow-up. Follow up with: KIKI PALOMINO MD [Primary Care Provider] - 7 Days GURVINDER ABEBE MD [Staff Physician] - 3 Days Prescriptions: Potassium Chloride [K-Dur] 40 meq PO QDAY #7 tablet
[2021-08-13 16:47] VITALS: BP 132/81
== END 2021-08-13 17:51 | disposition home or self-care (01) | DRG 637 ==
LOC: ED 05:45 → CC1 08:20 → 4A 22:00
PROVIDERS: ADMIT Internal Medicine; ATTEND Internal Medicine
PROC: 4A033R1 Measurement of Arterial Saturation, Peripheral, Percutaneous Approach (ICD-10-PCS; principal; 2021-08-10)
DX: E11.10 Type 2 diabetes mellitus with ketoacidosis without coma (principal); N17.0 Acute kidney failure with tubular necrosis; G93.41 Metabolic encephalopathy; R65.10 Systemic inflammatory response syndrome (SIRS) of non-infectious origin without acute organ dysfunction; E87.1 Hypo-osmolality and hyponatremia; E83.39 Other disorders of phosphorus metabolism; E78.5 Hyperlipidemia, unspecified; E87.6 Hypokalemia; E87.5 Hyperkalemia; F17.200 Nicotine dependence, unspecified, uncomplicated; Z71.6 Tobacco abuse counseling; Z91.19 Patient's noncompliance with other medical treatment and regimen; Z79.4 Long term (current) use of insulin
CPT/HCPCS: 36415; 71046; 80048; 80053; 81001; 82043; 82088; 82140; 82805; 82962; 83036; 83735; 83930; 84100; 84132; 85025; 85027; G0378; J3480; J3490; Q0162; Q9967; J1644; J1815; J2405; J2765; J7030